=== PATIENT | male | born 1955 | race Caucasian/White ===

== ENCOUNTER → 2016-11-25 | Outpatient (CLI) | payer MEDICAID ==
[2016-11-25 15:16] LABS: CHLORIDE,CL 102 mmol/L (98-110); SODIUM,NA 138 mmol/L (136-146)
== END | disposition home or self-care (01) ==
LOC: MW.CHIM 14:44
PROVIDERS: ATTEND Internal Medicine
DX: E03.9 Hypothyroidism, unspecified (principal); Z94.0 Kidney transplant status
CPT/HCPCS: 36415; 80053; 80061; 82607; 82746; 84439; 84443; 85025

== ENCOUNTER → 2016-11-25 | Outpatient (CLI) | payer MEDICAID | END | disposition home or self-care (01) | LOC: MW.LAB 14:05 | PROVIDERS: ATTEND Internal Medicine | DX: R80.9 Proteinuria, unspecified (principal); N25.81 Secondary hyperparathyroidism of renal origin; Z94.0 Kidney transplant status | CPT/HCPCS: 36415; 81001; 82306; 82310; 82570; 83970; 84100; 84156 ==

== ENCOUNTER 2017-07-24 16:39 | Inpatient (IN) | payer MEDICAID ==
[2017-07-24] MEDS ORDERED: methylPREDNISolone Sodium Succinate 125 MG/2 ML SDV IVPUSH ONE (16:41)
[2017-07-24] MEDS ORDERED: Albuterol/Ipratropium 3.0-0.5 MG/3 ML Neb Soln NEB ONE (16:41)
--- NOTE | 2017-07-24 16:49 | EDM.PDOC ---
ED HPI GENERAL MEDICAL PROBLEM - General Stated Complaint: AMB Time Seen by Provider: 07/24/17 16:41 - History of Present Illness INITIAL COMMENTS - FREE TEXT/NARRATIVE: HISTORY AND PHYSICAL: History of present illness: Patient 61-year-old male is well-known to the emergency department as a cardiac and pulmonary history is quite extensive he has significant COPD he has a right- sided port and presents today with increased shortness of breath he has history of chronic pain for which he claims is treated with morphine he denies nausea vomiting fever chills or other concerns he is completely deaf he does speak and does read lips but his history is somewhat suspect due to his baseline clinical statement Review of systems: As per history of present illness and below otherwise all systems reviewed and negative. Past medical history: As per history of present illness and as reviewed below otherwise noncontributory. Surgical history: As per history of present illness and as reviewed below otherwise noncontributory. Social history: No reported history of drug or alcohol abuse. Family history: As per history of present illness and as reviewed below otherwise noncontributory. Physical exam: HEENT: Atraumatic, normocephalic, pupils reactive, negative for conjunctival pallor or scleral icterus, mucous membranes moist, throat clear, neck supple, nontender, trachea midline. Lungs: Slightly coarse rare wheezing diminished, breath sounds equal bilaterally , chest nontender. Heart: S1S2, regular, negative for clicks, rubs, or JVD. Abdomen: Soft, nondistended, nontender. Negative for masses or hepatosplenomegaly. Negative for costovertebral tenderness. Pelvis: Stable nontender. Genitourinary: Deferred. Rectal: Deferred. Extremities: Atraumatic, negative for cords or calf pain. Neurovascular unremarkable. Neuro: Awake, alert, follows commands and moves all extremities limited grossly nonfocal exam Diagnostics: CBC CMP PT/INR troponin blood culture 2 lactic acid ABG chest x-ray EKG influenza screen UA urine culture Therapeutics: IV O2 monitor albuterol ipratropium nebulizer Cymetra 125 mg IV Impression: #1 acute dyspnea #2 history of COPD #3 history of cardiac disease #4 history of deafness Definitive disposition and diagnosis as appropriate pending reevaluation and review of above. - Related Data Allergies Allergy/AdvReac Type Severity Reaction Status Date / Time nifedipine [From Procardia] Allergy Itching Verified 07/24/17 16:55 muscle relaxant medicine? Allergy constipatio Uncoded 07/24/17 16:55 n Home Meds: Home Meds Furosemide 20 mg PO DAILY 12/06/15 [History] Levothyroxine 75 mcg PO DAILY 12/06/15 [History] predniSONE [Prednisone] 5 mg PO DAILY 12/06/15 [History] Albuterol Sulfate 2.5 mg IH Q4H PRN 12/07/15 [History] Alendronate Sodium [Fosamax] 70 mg PO Q7D 12/07/15 [History] Zolpidem [Ambien] 10 mg PO BEDTIME PRN 12/07/15 [History] Fluticasone/Salmeterol [Advair Diskus 250-50] 1 puff INH BID #1 inhaler [Rx] Past Medical History HEENT History: Reports: Other (See Below) Other HEENT History: impaired hearing-with hearing aid on the right ear Cardiovascular History: Reports: Heart Failure Respiratory History: Reports: Asthma, COPD Gastrointestinal History: Reports: None Genitourinary History: Reports: None Musculoskeletal History: Reports: Back Pain, Chronic, Osteoarthritis Neurological History: Reports: None Psychiatric History: Reports: None Endocrine/Metabolic History: Reports: Hypothyroidism Hematologic History: Reports: Anemia, Blood Transfusion(s), Other (See Below) Other Hematologic History: history of low platelet Immunologic History: Reports: None Oncologic (Cancer) History: Reports: Other (See Below) Other Oncologic History: 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 Dermatologic History: Reports: None - Infectious Disease History Infectious Disease History: Reports: Chicken Pox, Measles, Mumps - Past Surgical History GI Surgical History: Reports: Other (See Below) Male Surgical History: Reports: Other (See Below) Endocrine Surgical History: Reports: Other (See Below) Musculoskeletal Surgical History: Reports: Other (See Below) Social & Family History - Family History Family Medical History: Noncontributory HEENT: Reports: None Cardiac: Reports: None - Tobacco Use Smoking Status *Q: Never Smoker Years of Tobacco use: 10 Packs/Tins Daily: 1 Second Hand Smoke Exposure: No - Caffeine Use Caffeine Use: Reports: None - Alcohol Use Days Per Week of Alcohol Use: 3 Number of Drinks Per Day: 2 Total Drinks Per Week: 6 - Recreational Drug Use Recreational Drug Use: No - Living Situation & Occupation Living situation: Reports: , with Significant Other ED ROS GENERAL - Review of Systems Review Of Systems: ROS reveals no pertinent complaints other than HPI. ED EXAM, GENERAL - Physical Exam Exam: See Below (See dictation) Course - Vital Signs Last Recorded V/S: Last Vital Signs Temp 38.4 C H 07/24/17 16:55 Pulse 109 H 07/24/17 17:11 Resp 18 07/24/17 17:11 BP 100/52 L 07/24/17 17:11 Pulse Ox 93 L 07/24/17 17:11 - Orders/Labs/Meds Orders: Active Orders 24 hr Category Date Time Status EKG Documentation Completion [RC] STAT Care 07/24/17 16:40 Active RT Aerosol Therapy [RC] ASDIRECTED Care 07/24/17 16:42 Active Chest 1V Frontal [CR] Stat Exams 07/24/17 16:41 Taken CULTURE BLOOD [BC] Stat Lab 07/24/17 17:07 Received CULTURE BLOOD [BC] Stat Lab 07/24/17 17:11 Received UA W/MICROSCOPIC [URIN] Stat Lab 07/24/17 16:41 Uncollected Levofloxacin/Dextrose 5%-Water [Levaquin in D5W 750 MG/ Med 07/24/17 18:02 Active 150 ML] 750 mg Premix Bag 1 bag IV ONETIME Vancomycin [Vancocin] 1 gm Med 07/24/17 18:02 Active Sodium Chloride 0.9% [Normal Saline] 250 ml IV ONETIME Blood Culture x2 Reflex Set [OM.PC] Stat Oth 07/24/17 16:41 Ordered Medication Orders Levofloxacin/Dextrose 750 mg/ (Premix) 150 mls @ 100 mls/hr IV ONETIME ONE Stop: 07/24/17 19:31 Vancomycin HCl 1 gm/ Sodium (Chloride) 250 mls @ 250 mls/hr IV ONETIME ONE Stop: 07/24/17 19:01 Last Admin: 07/24/17 18:27 Dose: 250 mls/hr Labs: Laboratory Tests 07/24/17 07/24/17 07/24/17 Range/Units 16:53 16:53 16:53 WBC 32.33 H (4.0-11.0) K/uL RBC 3.18 L (4.50-5.90) M/uL Hgb 12.6 L (13.0-17.0) g/dL Hct 36.6 L (38.0-50.0) % MCV 115.1 H (80.0-98.0) fL MCH 39.6 H (27.0-32.0) pg MCHC 34.4 (31.0-37.0) g/dL RDW Std Deviation 76.5 H (28.0-62.0) fl RDW Coeff of Brianna 18 H (11.0-15.0) % Plt Count 275 (150-400) K/uL MPV 10.70 (7.40-12.00) fL Add Manual Diff YES Neutrophils % (Manual) 36 L (48.0-80.0) % Band Neutrophils % 8 % Lymphocytes % (Manual) 44 H (16.0-40.0) % Monocytes % (Manual) 12 (0.0-15.0) % Nucleated RBC % 0.0 /100WBC Absolute Seg Neuts 11.6 H (1.4-5.7) Band Neutrophils # 2.6 Lymphocytes # (Manual) 14.2 H (0.6-2.4) Monocytes # (Manual) 3.9 H (0.0-0.8) Nucleated RBCs # 0 K/uL INR 1.38 H (0.86-1.11) ABG pH (7.35-7.45) ABG pCO2 (35-45) mmHG ABG pO2 (75-100) mmHG ABG HCO3 (22-26) mEq/L ABG Total CO2 ABG Base Excess (-2.0-2.0) Lactate 1.4 (0.20-2.00) mmol/L Sodium (136-146) mmol/L Potassium (3.5-5.1) mmol/L Chloride (98-110) mmol/L Carbon Dioxide (21-31) mmol/L BUN (6.0-23.0) mg/dL Creatinine (0.6-1.5) mg/dL Est Cr Clr Drug Dosing mL/min Estimated GFR (MDRD) ml/min Glucose (60-110) mg/dL Calcium (8.8-10.8) mg/dL Total Bilirubin (0.1-1.5) mg/dL AST (5-40) IU/L ALT (8-54) IU/L Alkaline Phosphatase (40-150) Troponin I (0.0-0.29) NG/ML Total Protein (6.0-8.0) g/dL Albumin (3.5-5.0) g/dL Globulin (2.0-3.5) g/dL Albumin/Globulin Ratio (1.3-2.8) 07/24/17 07/24/17 Range/Units 16:53 17:05 WBC (4.0-11.0) K/uL RBC (4.50-5.90) M/uL Hgb (13.0-17.0) g/dL Hct (38.0-50.0) % MCV (80.0-98.0) fL MCH (27.0-32.0) pg MCHC (31.0-37.0) g/dL RDW Std Deviation (28.0-62.0) fl RDW Coeff of Brianna (11.0-15.0) % Plt Count (150-400) K/uL MPV (7.40-12.00) fL Add Manual Diff Neutrophils % (Manual) (48.0-80.0) % Band Neutrophils % % Lymphocytes % (Manual) (16.0-40.0) % Monocytes % (Manual) (0.0-15.0) % Nucleated RBC % /100WBC Absolute Seg Neuts (1.4-5.7) Band Neutrophils # Lymphocytes # (Manual) (0.6-2.4) Monocytes # (Manual) (0.0-0.8) Nucleated RBCs # K/uL INR (0.86-1.11) ABG pH 7.468 H (7.35-7.45) ABG pCO2 31 L (35-45) mmHG ABG pO2 72 L (75-100) mmHG ABG HCO3 22 (22-26) mEq/L ABG Total CO2 19.9 ABG Base Excess -0.7 (-2.0-2.0) Lactate (0.20-2.00) mmol/L Sodium 131 L (136-146) mmol/L Potassium 4.2 (3.5-5.1) mmol/L Chloride 99 (98-110) mmol/L Carbon Dioxide 21 (21-31) mmol/L BUN 21 (6.0-23.0) mg/dL Creatinine 1.0 (0.6-1.5) mg/dL Est Cr Clr Drug Dosing 40.82 mL/min Estimated GFR (MDRD) > 60.0 ml/min Glucose 87 (60-110) mg/dL Calcium 7.6 L (8.8-10.8) mg/dL Total Bilirubin 2.1 H (0.1-1.5) mg/dL AST 102 H (5-40) IU/L ALT 70 H (8-54) IU/L Alkaline Phosphatase 182 H (40-150) Troponin I < 0.10 (0.0-0.29) NG/ML Total Protein 6.5 (6.0-8.0) g/dL Albumin 3.9 (3.5-5.0) g/dL Globulin 2.6 (2.0-3.5) g/dL Albumin/Globulin Ratio 1.5 (1.3-2.8) Meds: Medications Generic Name Dose Route Start Last Admin Trade Name Freq PRN Reason Stop Dose Admin Levofloxacin/Dextrose 750 mg/ 150 mls @ 100 mls/hr 07/24/17 18:02 Premix IV 07/24/17 19:31 ONETIME ONE Vancomycin HCl 1 gm/ Sodium 250 mls @ 250 mls/hr 07/24/17 18:02 07/24/17 18: 27 Chloride IV 07/24/17 19:01 250 mls/hr ONETIME ONE Administration Discontinued Medications Generic Name Dose Route Start Last Admin Trade Name Freq PRN Reason Stop Dose Admin Albuterol/Ipratropium 3 ml 07/24/17 16:41 07/24/17 16:52 Duoneb 3.0-0.5 Mg/3 Ml NEB 07/24/17 16:42 3 ml ONETIME ONE Administration Methylprednisolone Sodium Succinate 125 mg 07/24/17 16:41 07/24/17 17:09 Solu-Medrol IVPUSH 07/24/17 16:42 125 mg ONETIME ONE Administration Departure - Departure Time of Disposition: 18:29 Disposition: Admitted As Inpatient 68 Condition: Fair Clinical Impression: Dyspnea, COPD (chronic obstructive pulmonary disease), Leukocytosis - Discharge Information - My Orders Last 24 Hours: My Active Orders 07/24/17 16:40 EKG Documentation Completion [RC] STAT 07/24/17 16:41 Chest 1V Frontal [CR] Stat UA W/MICROSCOPIC [URIN] Stat Blood Culture x2 Reflex Set [OM.PC] Stat 07/24/17 16:42 RT Aerosol Therapy [RC] ASDIRECTED 07/24/17 17:07 CULTURE BLOOD [BC] Stat 07/24/17 17:11 CULTURE BLOOD [BC] Stat 07/24/17 18:02 Levofloxacin/Dextrose 5%-Water [Levaquin in D5W 750 MG/150 ML] 750 mg Premix Bag 1 bag IV ONETIME Vancomycin [Vancocin] 1 gm Sodium Chloride 0.9% [Normal Saline] 250 ml IV ONETIME - Assessment/Plan Last 24 Hours: My Active Orders 07/24/17 16:40 EKG Documentation Completion [RC] STAT 07/24/17 16:41 Chest 1V Frontal [CR] Stat UA W/MICROSCOPIC [URIN] Stat Blood Culture x2 Reflex Set [OM.PC] Stat 07/24/17 16:42 RT Aerosol Therapy [RC] ASDIRECTED 07/24/17 17:07 CULTURE BLOOD [BC] Stat 07/24/17 17:11 CULTURE BLOOD [BC] Stat 07/24/17 18:02 Levofloxacin/Dextrose 5%-Water [Levaquin in D5W 750 MG/150 ML] 750 mg Premix Bag 1 bag IV ONETIME Vancomycin [Vancocin] 1 gm Sodium Chloride 0.9% [Normal Saline] 250 ml IV ONETIME
[2017-07-24 17:27] LABS: CHLORIDE,CL 99 mmol/L (98-110); SODIUM,NA 131 mmol/L (136-146)
[2017-07-24] MEDS ORDERED: Levofloxacin/Dextrose 5%-Water 750 MG in Premix Bag 1 BAG IV ONE (18:02)
--- NOTE | 2017-07-24 18:47 | PCM.HP ---
H&P History of Present Illness - General Date of Service: 07/24/17 Admit Problem/Dx: Admission Diagnosis/Problem Admission Diagnosis/Problem Dyspnea - History of Present Illness Initial Comments - Free Text/Narative: 61 yo male with history of COPD, CAD, Hypothyroidism, left ear deafness, Renal Transplant, Chronic immunosuppression secondary to daily prednisone, Incidental Pulmonary Nodules admitted for sepsis. He presented to the ED with complaint of dyspea and was found to have Leukocytosis, hypotension, tachycardia. He is a poor historian therefore much history is obtained from electronic records. He states that his main reason for coming to ED was sob. He has a port but he is unsure why exactly it was put in. 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 He is unable to confirm if he had GB cancer in the past but he does confirm that his GB was removed. He confirms having kidney transplant in 2005. He [address] Mueller as his PCP. At his last visit 2 days ago he was doing well. ED Course Diagnostics: CBC, CMP, PT/INR troponin, blood culture 2, lactic acid, ABG, chest x-ray, EKG, influenza screen, UA, urine culture Therapeutics: IVF, O2, duonebs, Cymetra 125 mg IV generalized Pain Score (Numeric/FACES): 8 - Related Data Allergies/Adverse Reactions: Allergies Allergy/AdvReac Type Severity Reaction Status Date / Time nifedipine [From Procardia] Allergy Itching Verified 07/24/17 16:55 muscle relaxant medicine? Allergy constipatio Uncoded 07/24/17 16:55 n Home Medications: Home Meds Furosemide 20 mg PO DAILY 12/06/15 [History] Levothyroxine 75 mcg PO DAILY 12/06/15 [History] predniSONE [Prednisone] 5 mg PO DAILY 12/06/15 [History] Albuterol Sulfate 2.5 mg IH Q4H PRN 12/07/15 [History] Alendronate Sodium [Fosamax] 70 mg PO Q7D 12/07/15 [History] Zolpidem [Ambien] 10 mg PO BEDTIME PRN 12/07/15 [History] Fluticasone/Salmeterol [Advair Diskus 250-50] 1 puff INH BID #1 inhaler [Rx] Past Medical History HEENT History: Reports: Other (See Below) Other HEENT History: impaired hearing-with hearing aid on the right ear Cardiovascular History: Reports: Heart Failure Respiratory History: Reports: Asthma, COPD Gastrointestinal History: Reports: None Genitourinary History: Reports: None Musculoskeletal History: Reports: Back Pain, Chronic, Osteoarthritis Neurological History: Reports: None Psychiatric History: Reports: None Endocrine/Metabolic History: Reports: Hypothyroidism Hematologic History: Reports: Anemia, Blood Transfusion(s), Other (See Below) Other Hematologic History: history of low platelet Immunologic History: Reports: None Oncologic (Cancer) History: Reports: Other (See Below) Other Oncologic History: 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 Dermatologic History: Reports: None - Infectious Disease History Infectious Disease History: Reports: Chicken Pox, Measles, Mumps - Past Surgical History GI Surgical History: Reports: Other (See Below) Male Surgical History: Reports: Other (See Below) Endocrine Surgical History: Reports: Other (See Below) Musculoskeletal Surgical History: Reports: Other (See Below) Social & Family History - Family History Family Medical History: Noncontributory HEENT: Reports: None Cardiac: Reports: None - Tobacco Use Smoking Status *Q: Never Smoker Years of Tobacco use: 10 Packs/Tins Daily: 1 Second Hand Smoke Exposure: No - Caffeine Use Caffeine Use: Reports: None - Alcohol Use Days Per Week of Alcohol Use: 3 Number of Drinks Per Day: 2 Total Drinks Per Week: 6 - Recreational Drug Use Recreational Drug Use: No - Living Situation & Occupation Living situation: Reports: , with Significant Other H&P Review of Systems - Review of Systems: Review Of Systems: Unable To Obtain Exam - Exam Exam: See Below - Vital Signs Vital Signs: Last Vital Signs Temp 38.4 C H 07/24/17 16:55 Pulse 109 H 07/24/17 17:11 Resp 18 07/24/17 17:11 BP 100/52 L 07/24/17 17:11 Pulse Ox 93 L 07/24/17 17:11 Weight: 36.287 kg - Exam General: Other (thin elderly male, no acute distress ) HEENT: Conjunctiva Clear, EACs Clear, EOMI, Mucosa Moist & [place], Nares Patent, Normal Nasal Septum, Posterior Pharynx Clear, Pupils Equal, Pupils Reactive, TMs Clear. No: Hearing Intact Neck: Supple, Trachea Midline, +2 Carotid Pulse wo Bruit. No: JVD Lungs: Decreased Breath Sounds, Crackles, Wheezing Cardiovascular: Tachycardia GI/Abdominal Exam: Normal Bowel Sounds, Soft, No Distention, Tender (mild suprapubic tenderness ). No: Guarding, Rigid, Rebound Back Exam: Normal Inspection Extremities: Normal Inspection, Non-Tender, No Pedal Edema, Normal Capillary Refill, Other (generalized loss of muscle tone ) Peripheral Pulses: 2+: Radial (L), Radial (R), Dorsalis Pedis (L), Dorsalis Pedis (R) Skin: Warm, Dry, Intact Neurological: Cranial Nerves Intact, Reflexes Equal Bilateral Neuro Extensive - Mental Status: Alert, Oriented x3 Psychiatric: Alert, Normal Affect, Normal Mood - Patient Data Lab Results Last 24 hrs: Laboratory Results - last 24 hr 07/24/17 07/24/17 07/24/17 Range/Units 16:53 16:53 16:53 WBC 32.33 H (4.0-11.0) K/uL RBC 3.18 L (4.50-5.90) M/uL Hgb 12.6 L (13.0-17.0) g/dL Hct 36.6 L (38.0-50.0) % MCV 115.1 H (80.0-98.0) fL MCH 39.6 H (27.0-32.0) pg MCHC 34.4 (31.0-37.0) g/dL RDW Std Deviation 76.5 H (28.0-62.0) fl RDW Coeff of Brianna 18 H (11.0-15.0) % Plt Count 275 (150-400) K/uL MPV 10.70 (7.40-12.00) fL Add Manual Diff YES Neutrophils % (Manual) 36 L (48.0-80.0) % Band Neutrophils % 8 % Lymphocytes % (Manual) 44 H (16.0-40.0) % Monocytes % (Manual) 12 (0.0-15.0) % Nucleated RBC % 0.0 /100WBC Absolute Seg Neuts 11.6 H (1.4-5.7) Band Neutrophils # 2.6 Lymphocytes # (Manual) 14.2 H (0.6-2.4) Monocytes # (Manual) 3.9 H (0.0-0.8) Nucleated RBCs # 0 K/uL INR 1.38 H (0.86-1.11) ABG pH (7.35-7.45) ABG pCO2 (35-45) mmHG ABG pO2 (75-100) mmHG ABG HCO3 (22-26) mEq/L ABG Total CO2 ABG Base Excess (-2.0-2.0) Lactate 1.4 (0.20-2.00) mmol/L Sodium (136-146) mmol/L Potassium (3.5-5.1) mmol/L Chloride (98-110) mmol/L Carbon Dioxide (21-31) mmol/L BUN (6.0-23.0) mg/dL Creatinine (0.6-1.5) mg/dL Est Cr Clr Drug Dosing mL/min Estimated GFR (MDRD) ml/min Glucose (60-110) mg/dL Calcium (8.8-10.8) mg/dL Total Bilirubin (0.1-1.5) mg/dL AST (5-40) IU/L ALT (8-54) IU/L Alkaline Phosphatase (40-150) Troponin I (0.0-0.29) NG/ML Total Protein (6.0-8.0) g/dL Albumin (3.5-5.0) g/dL Globulin (2.0-3.5) g/dL Albumin/Globulin Ratio (1.3-2.8) 07/24/17 07/24/17 Range/Units 16:53 17:05 WBC (4.0-11.0) K/uL RBC (4.50-5.90) M/uL Hgb (13.0-17.0) g/dL Hct (38.0-50.0) % MCV (80.0-98.0) fL MCH (27.0-32.0) pg MCHC (31.0-37.0) g/dL RDW Std Deviation (28.0-62.0) fl RDW Coeff of Brianna (11.0-15.0) % Plt Count (150-400) K/uL MPV (7.40-12.00) fL Add Manual Diff Neutrophils % (Manual) (48.0-80.0) % Band Neutrophils % % Lymphocytes % (Manual) (16.0-40.0) % Monocytes % (Manual) (0.0-15.0) % Nucleated RBC % /100WBC Absolute Seg Neuts (1.4-5.7) Band Neutrophils # Lymphocytes # (Manual) (0.6-2.4) Monocytes # (Manual) (0.0-0.8) Nucleated RBCs # K/uL INR (0.86-1.11) ABG pH 7.468 H (7.35-7.45) ABG pCO2 31 L (35-45) mmHG ABG pO2 72 L (75-100) mmHG ABG HCO3 22 (22-26) mEq/L ABG Total CO2 19.9 ABG Base Excess -0.7 (-2.0-2.0) Lactate (0.20-2.00) mmol/L Sodium 131 L (136-146) mmol/L Potassium 4.2 (3.5-5.1) mmol/L Chloride 99 (98-110) mmol/L Carbon Dioxide 21 (21-31) mmol/L BUN 21 (6.0-23.0) mg/dL Creatinine 1.0 (0.6-1.5) mg/dL Est Cr Clr Drug Dosing 40.82 mL/min Estimated GFR (MDRD) > 60.0 ml/min Glucose 87 (60-110) mg/dL Calcium 7.6 L (8.8-10.8) mg/dL Total Bilirubin 2.1 H (0.1-1.5) mg/dL AST 102 H (5-40) IU/L ALT 70 H (8-54) IU/L Alkaline Phosphatase 182 H (40-150) Troponin I < 0.10 (0.0-0.29) NG/ML Total Protein 6.5 (6.0-8.0) g/dL Albumin 3.9 (3.5-5.0) g/dL Globulin 2.6 (2.0-3.5) g/dL Albumin/Globulin Ratio 1.5 (1.3-2.8) Result Diagrams: 07/24/17 16:53 07/24/17 16:53 Mohan Results Last 24 hrs: Microbiology 07/24/17 17:01 Influenza Type A Antigen Screen - Final Nasopharyngeal Swab NEGATIVE INFLUENZA A VIRUS AG Influenza Type B Antigen Screen - Final NEGATIVE INFLUENZA B VIRUS AG *Q Meaningful Use (ADM) - VTE *Q VTE Criteria *Q: - Stroke *Q Stroke Criteria *Q: - AMI *Q AMI Criteria *Q: Problem List Initiated/Reviewed/Updated: Yes Orders Last 24hrs: Active Orders 24 hr Category Date Time Status Patient Status [ADT] Stat ADT 07/24/17 18:32 Active EKG Documentation Completion [RC] STAT Care 07/24/17 16:40 Active RT Aerosol Therapy [RC] ASDIRECTED Care 07/24/17 16:42 Active Chest 1V Frontal [CR] Stat Exams 07/24/17 16:41 Taken CULTURE BLOOD [BC] Stat Lab 07/24/17 17:07 Received CULTURE BLOOD [BC] Stat Lab 07/24/17 17:11 Received UA W/MICROSCOPIC [URIN] Stat Lab 07/24/17 16:41 Uncollected Levofloxacin/Dextrose 5%-Water [Levaquin in D5W 750 MG/ Med 07/24/17 18:02 Active 150 ML] 750 mg Premix Bag 1 bag IV ONETIME Vancomycin [Vancocin] 1 gm Med 07/24/17 18:02 Active Sodium Chloride 0.9% [Normal Saline] 250 ml IV ONETIME Blood Culture x2 Reflex Set [OM.PC] Stat Oth 07/24/17 16:41 Ordered Medication Orders Levofloxacin/Dextrose 750 mg/ (Premix) 150 mls @ 100 mls/hr IV ONETIME ONE Stop: 07/24/17 19:31 Vancomycin HCl 1 gm/ Sodium (Chloride) 250 mls @ 250 mls/hr IV ONETIME ONE Stop: 07/24/17 19:01 Last Admin: 07/24/17 18:27 Dose: 250 mls/hr Assessment/Plan Comment:: Assessment: 61 yo male with history of COPD, CAD, Hypothyroidism, left ear deafness, Renal Transplant, Chronic immunosuppression secondary to daily prednisone, Bile duct cancer in remission and Incidental Pulmonary Nodules admitted for dyspnea, hypotension, tachycardia, leukocytosis, transamenitis and hyperbilirubinemia. Patient has history of Leukocytosis and Transamenitis however values are significantly higher than baseline. He meets Sepsis criteria however no source of infection was found. His WBC count was 32k. CXR in ED was negative. Lactic Acid was normal. ABG revealed O2 of 72 but was otherwise noncontributory. His troponin was negative and ekg was noncontributory. Blood cultures and port cultures were obtained in ED. His CrCl is 40 but his BUN, Cr & GFR are WNL. He also has asymptomatic hyponatremia with Na of 131. Plan: 1. admit to inpatient 2. Pulse Ox 3. renal diet 4. strict I/O with daily weight checks 5. CT Chest/abdomen/pelvis - to look for possible underlying source of infection and evaluate transamenitis and hyperbilirubinemia 6. start IV NS @ 75 ml/hour - home home lasix to prevent hyponatremia 7. start empirical IV antibiotics - Levaquin renal dose of 500 mg IV [id number] for single dose followed by 250 mg IV Q24 hours going forward, Zosyn 3.375 mg IV [id number] and Vancomycin dosed by pharmacy 8. Duonebs 9. f/u on blood/port cultures obtained in ED 10. hold home Prednisone until infection is ruled out 11. resume home Lasix as directed by patients Team Facilitator (according to PCP notes) 12. For DVT prophylaxis will start Heparin due to history of renal transplant with CrCl 40 13. insert guzman for fluid management and to obtain urine to send for UA and UC
[2017-07-24] MEDS ORDERED: Docusate Sodium 100 MG Cap PO PRN (20:12)
[2017-07-24] MEDS ORDERED: Acetaminophen 325 MG Tab PO PRN (20:12)
[2017-07-24] MEDS ORDERED: Ondansetron 4 MG/2 ML SDV IVPUSH PRN (20:12)
[2017-07-24] MEDS ORDERED: Levofloxacin/Dextrose 5%-Water 500 MG in Premix Bag 1 BAG IV ONE (20:29)
[2017-07-24] MEDS ORDERED: Levofloxacin/Dextrose 5%-Water 0 ML IV ONE (20:31)
[2017-07-24] MEDS: Sodium Chloride 0.9% 1,000 ML IV SCH (20:47)
[2017-07-24] MEDS: Piperacillin/Tazobactam 3.375 GM in Sodium Chloride 0.9% 50 ML IV SCH (20:47)
[2017-07-24] MEDS: Morphine 10 MG/ML Syringe IVPUSH PRN ×2 (20:52→23:48)
[2017-07-24] MEDS: Heparin Sodium 5,000 Units/ML Vial SUBCUT SCH (21:00)
[2017-07-24] MEDS: Albuterol/Ipratropium 3.0-0.5 MG/3 ML Neb Soln NEB SCH (21:02)
[2017-07-24] MEDS: oxyCODONE 5 MG Tab PO PRN (22:18)
[2017-07-25] MEDS: Piperacillin/Tazobactam 3.375 GM in Sodium Chloride 0.9% 50 ML IV SCH ×4 (01:52→20:11)
[2017-07-25] MEDS: Albuterol/Ipratropium 3.0-0.5 MG/3 ML Neb Soln NEB SCH ×6 (01:54→21:00)
[2017-07-25] MEDS: Heparin Sodium 5,000 Units/ML Vial SUBCUT SCH ×3 (03:54→20:08)
[2017-07-25] MEDS: oxyCODONE 5 MG Tab PO PRN ×2 (04:29→20:55)
[2017-07-25 06:35] LABS: CHLORIDE,CL 100 mmol/L (98-110); SODIUM,NA 131 mmol/L (136-146)
[2017-07-25] MEDS ORDERED: Levothyroxine 75 MCG Tab PO SCH (09:00)
[2017-07-25] MEDS: Morphine 10 MG/ML Syringe IVPUSH PRN ×2 (10:27→17:05)
--- NOTE | 2017-07-25 11:28 | PCM.PN ---
- General Info Date of Service: 07/25/17 Admission Dx/Problem (Free Text): Admission Diagnosis/Problem Admission Diagnosis/Problem Dyspnea Subjective Update: Guzman was inserted to obtain urine. Patient did well. No overnight events. Patient still having some difficulty breathing but states its improved. Denies fevr, chills, chest pain, abdominal pain, nausea, vomiting, dysuria or appetite loss. - Review of Systems General: Reports: Weakness HEENT: Reports: No Symptoms Pulmonary: Reports: Shortness of Breath Cardiovascular: Reports: No Symptoms Gastrointestinal: Reports: No Symptoms Genitourinary: Reports: No Symptoms Musculoskeletal: Reports: No Symptoms Skin: Reports: No Symptoms Neurological: Reports: No Symptoms Psychiatric: Reports: No Symptoms - Patient Data Vitals - Most Recent: Last Vital Signs Temp 36.2 C 07/25/17 08:00 Pulse 92 07/25/17 08:00 Resp 18 07/25/17 08:00 BP 89/57 L 07/25/17 08:00 Pulse Ox 95 07/25/17 08:00 Weight - Most Recent: 35.097 kg I&O - Last 24 Hours: Intake & Output 07/24/17 07/25/17 07/25/17 22:59 06:59 14:59 Intake Total 410 Output Total 325 Balance 85 Lab Results Last 24 Hours: Laboratory Results - last 24 hr 07/24/17 07/25/17 07/25/17 Range/Units 21:45 06:05 06:05 WBC 11.27 H (4.0-11.0) K/uL RBC 2.81 L (4.50-5.90) M/uL Hgb 11.2 L (13.0-17.0) g/dL Hct 32.0 L (38.0-50.0) % MCV 113.9 H (80.0-98.0) fL MCH 39.9 H (27.0-32.0) pg MCHC 35.0 (31.0-37.0) g/dL RDW Std Deviation 76.6 H (28.0-62.0) fl RDW Coeff of Brianna 19 H (11.0-15.0) % Plt Count 192 (150-400) K/uL MPV 10.60 (7.40-12.00) fL Neut % (Auto) 94.1 H (48.0-80.0) % Lymph % (Auto) 3.7 L (16.0-40.0) % [place] % (Auto) 2.2 (0.0-15.0) % Eos % (Auto) 0.0 (0.0-7.0) % Baso % (Auto) 0.0 (0.0-1.5) % Neut # (Auto) 10.6 H (1.4-5.7) K/uL Lymph # (Auto) 0.4 L (0.6-2.4) K/uL [place] # (Auto) 0.3 (0.0-0.8) K/uL Eos # (Auto) 0.0 (0.0-0.7) K/uL Baso # (Auto) 0.0 (0.0-0.1) K/uL Nucleated RBC % 0.2 /100WBC Nucleated RBCs # 0 K/uL Sodium 131 L (136-146) mmol/L Potassium 4.1 (3.5-5.1) mmol/L Chloride 100 (98-110) mmol/L Carbon Dioxide 21 (21-31) mmol/L BUN 22 (6.0-23.0) mg/dL Creatinine 0.9 (0.6-1.5) mg/dL Est Cr Clr Drug Dosing 43.87 mL/min Estimated GFR (MDRD) > 60.0 ml/min Glucose 167 H (60-110) mg/dL Calcium 6.9 L (8.8-10.8) mg/dL Total Bilirubin 1.7 H (0.1-1.5) mg/dL AST 77 H (5-40) IU/L ALT 66 H (8-54) IU/L Alkaline Phosphatase 132 (40-150) Total Protein 5.9 L (6.0-8.0) g/dL Albumin 3.3 L (3.5-5.0) g/dL Globulin 2.6 (2.0-3.5) g/dL Albumin/Globulin Ratio 1.3 (1.3-2.8) Urine Color DARK YELLOW Urine Appearance SLT CLOUDY Urine pH 6.0 (5.0-8.0) Ur Specific [place] 1.020 (1.001-1.035) Urine Protein 30 (NEGATIVE) mg/dL Urine Glucose (UA) NEGATIVE (NEGATIVE) mg/dL Urine Ketones 15 H (NEGATIVE) mg/dL Urine Occult Blood MODERATE (NEGATIVE) Urine Nitrite NEGATIVE (NEGATIVE) Urine Bilirubin SMALL H (NEGATIVE) Urine Ictotest NEGATIVE Urine Urobilinogen 0.2 (<2.0) EU/dL Ur Leukocyte Esterase TRACE (NEGATIVE) Urine RBC 1-5 (0-2/HPF) Urine WBC 3-5 (0-5/HPF) Ur Epithelial Cells OCCASIONAL (NONE-FEW) Urine Bacteria 2+ H (NEGATIVE) Mohan Results Last 24 Hours: Microbiology 07/24/17 21:45 Urine Culture - Preliminary Urine, Catheterized NO GROWTH AFTER 1 DAY Med Orders - Current: Current Medications Acetaminophen (Tylenol) 650 mg PO Q4H PRN PRN Reason: Pain (Mild 1-3)/fever Albuterol/Ipratropium (Duoneb 3.0-0.5 Mg/3 Ml) 3 ml NEB Q4HRRT [facility] Last Admin: 07/25/17 10:16 Dose: 3 ml Docusate Sodium (Colace) 100 mg PO BID PRN PRN Reason: Constipation Last Admin: 07/24/17 20:52 Dose: 100 mg Heparin Sodium (Porcine) (Heparin Sodium) 5,000 units SUBCUT Q8H [facility] Last Admin: 07/25/17 03:54 Dose: 5,000 units Sodium Chloride (Normal Saline) 1,000 mls @ 75 mls/hr IV ASDIRECTED [facility] Last Admin: 07/24/17 20:47 Dose: 75 mls/hr Piperacillin Sod/Tazobactam (Sod 3.375 gm/ Sodium Chloride) 50 mls @ 100 mls/ hr IV Q6H [facility] Last Admin: 07/25/17 08:45 Dose: 100 mls/hr Vancomycin HCl 1 gm/ Sodium (Chloride) 250 mls @ 166.667 mls/hr IV Q12H [facility] Last Admin: 07/25/17 10:21 Dose: 166.667 mls/hr Levothyroxine Sodium (Levothyroxine) 75 mcg PO ACBREAKFAST [facility] Morphine Sulfate (Morphine) 2 mg IVPUSH Q2H PRN PRN Reason: Pain (severe 7-10) Stop: 07/25/17 20:16 Last Admin: 07/25/17 10:27 Dose: 2 mg Ondansetron HCl (Zofran) 4 mg IVPUSH Q6H PRN PRN Reason: Nausea/Vomiting Last Admin: 07/24/17 20:51 Dose: 4 mg Oxycodone HCl (Oxycodone) 5 mg PO Q4H PRN PRN Reason: Pain (moderate 4-6) Last Admin: 07/25/17 04:29 Dose: 5 mg Vancomycin HCl (Pharmacy To Dose - Vancomycin) 1 dose .XX ASDIRECTED [facility]LLIE Discontinued Medications Albuterol/Ipratropium (Duoneb 3.0-0.5 Mg/3 Ml) 3 ml NEB ONETIME ONE Stop: 07/24/17 16:42 Last Admin: 07/24/17 16:52 Dose: 3 ml Levofloxacin/Dextrose 750 mg/ (Premix) 150 mls @ 100 mls/hr IV ONETIME ONE Stop: 07/24/17 19:31 Last Admin: 07/24/17 21:06 Dose: Not Given Vancomycin HCl 1 gm/ Sodium (Chloride) 250 mls @ 250 mls/hr IV ONETIME ONE Stop: 07/24/17 19:01 Last Admin: 07/24/17 18:27 Dose: 250 mls/hr Levofloxacin/Dextrose 500 mg/ (Premix) 100 mls @ 100 mls/hr IV ONETIME ONE Stop: 07/24/17 21:28 Last Admin: 07/24/17 21:35 Dose: 100 mls/hr Levofloxacin/Dextrose (Levaquin In D5w 750 Mg/150 Ml) Confirm Administered Dose 150 mls @ as directed IV .STK-MED ONE Stop: 07/24/17 20:32 Last Admin: 07/24/17 21:07 Dose: Not Given Vancomycin HCl 1,000 mg/ (Dextrose/Water) 250 mls @ 166.667 mls/hr IV Q12H [facility] Last Admin: 07/25/17 10:44 Dose: Not Given Levothyroxine Sodium (Levothyroxine) 75 mcg PO DAILY [facility] Last Admin: 07/25/17 08:45 Dose: 75 mcg Methylprednisolone Sodium Succinate (Solu-Medrol) 125 mg IVPUSH ONETIME ONE Stop: 07/24/17 16:42 Last Admin: 07/24/17 17:09 Dose: 125 mg - Exam General: Alert, Oriented, No Acute Distress HEENT: Pupils Equal, Pupils Reactive Neck: Supple, No JVD Lungs: Decreased Breath Sounds (Right greater than left), Crackles (right side ) , Wheezing (Right sided expiratory wheezing ) Cardiovascular: Tachycardia GI/Abdominal Exam: Normal Bowel Sounds, Soft, Tender (suprapubic). No: Guarding , Rigid, Rebound Extremities: Normal Capillary Refill, Other (loss of muscle tone and mass ) Peripheral Pulses: 2+: Dorsalis Pedis (L), Dorsalis Pedis (R) Skin: Warm, Dry, Intact Neurological: No New Focal Deficit - Problem List Review Problem List Initiated/Reviewed/Updated: Yes - My Orders Last 24 Hours: My Active Orders 07/24/17 18:00 Vancomycin Pharmacy to Dose [Pharmacy to Dose - Vancomycin] 1 dose .XX ASDIRECTED 07/24/17 20:12 Patient Status [ADT] Routine Height and Weight [RC] DAILY Up With Assistance [RC] ASDIRECTED Vital Signs [RC] Q4H Acetaminophen [Tylenol] 650 mg PO Q4H PRN Docusate Sodium [Colace] 100 mg PO BID PRN Morphine 2 mg IVPUSH Q2H PRN Ondansetron [Zofran] 4 mg IVPUSH Q6H PRN oxyCODONE 5 mg PO Q4H PRN Resuscitation Status Routine 07/24/17 20:14 Intake and Output [RC] QSHIFT Sequential Compression Device [OM.PC] Per Unit Routine 07/24/17 20:15 Heparin Sodium 5,000 units SUBCUT Q8H Sodium Chloride 0.9% [Normal Saline] 1,000 ml IV ASDIRECTED 07/24/17 20:17 Antiembolic Devices [RC] PER UNIT ROUTINE 07/24/17 20:30 Piperacillin/Tazobactam [Piperacil-Tazobact] 3.375 gm Sodium Chloride 0.9% [ Normal Saline] 50 ml IV Q6H 07/24/17 20:31 RT Aerosol Therapy [RC] ASDIRECTED 07/24/17 20:44 Urinary Catheter Assessment [RC] ASDIRECTED 07/24/17 20:45 Insert Guzman Catheter [Insert Urinary Catheter] [OM.PC] Q24H 07/24/17 21:45 CULTURE URINE [RM] Routine 07/24/17 22:00 Albuterol/Ipratropium [DuoNeb 3.0-0.5 MG/3 ML] 3 ml NEB Q4HRRT 07/25/17 20:47 Abdomen Pelvis wo Cont [CT] Routine Chest wo Cont [CT] Routine 07/26/17 05:00 CBC WITH AUTO DIFF [HEME] DAILY COMPREHENSIVE METABOLIC PN,CMP [CHEM] DAILY 07/26/17 07:30 Levothyroxine 75 mcg PO ACBREAKFAST 07/27/17 05:00 CBC WITH AUTO DIFF [HEME] DAILY COMPREHENSIVE METABOLIC PN,CMP [CHEM] DAILY 07/28/17 05:00 CBC WITH AUTO DIFF [HEME] DAILY COMPREHENSIVE METABOLIC PN,CMP [CHEM] DAILY 07/29/17 05:00 COMPREHENSIVE METABOLIC PN,CMP [CHEM] DAILY - Plan Plan:: 61 yo male with history of COPD, CAD, Hypothyroidism, left ear deafness, Left Renal Transplant, Chronic immunosuppression secondary to daily prednisone use, Bile duct cancer in remission and Incidental Pulmonary Nodules admitted for dyspnea, hypotension, tachycardia, leukocytosis, transamenitis and hyperbilirubinemia. He meets Sepsis criteria however no source of infection was found. His WBC count was 32k. CXR in ED was negative. Lactic Acid was normal. ABG revealed O2 of 72 but was otherwise noncontributory. His troponin was negative and ekg was noncontributory. Blood cultures and port cultures were obtained in ED. His CrCl is 40 but his BUN, Cr & GFR are WNL. He also has asymptomatic hyponatremia with Na of 131. 1. Sepsis, secondary to Pneumonia and/or UTI -associated leukocytosis, hypotension, tachycardia, transamenitis, hyperbilirubinemia -no source initially identified. UA suggestive but not confirmatory for UTI -CT Chest/abdomen/pelvis reveals BL pulmonary infiltrates not seen on initial CXR and thick bladder wall suggestive of inflammation -therefore identified potential sources include Pneumonia and UTI -currently on IVF @ 75 ml/hr, Levaquin at reanl dose, Zosyn, Vancomycin -tachycardia resolved, leukocytosis/transamenitis/hyperabilirubinemia all improving -guzman in place for strict I&O's plan: -resume IVF @ 75 ml/hr, Levaquin, Zosyn, Vancomycin -continue strict I&O and daily weight checks -f/u on blood/urine/port cultures 2. GNR Pneumonia, improving -patient with history of Left renal transplant and chronic immunosupression secondary to daily prednisone and has active port in place -initial CXR negative there CT obtained which revealed BL infiltrates plan: -as per #1 -on duonebs 3. Suprapubic tenderness & Bladder Wall thickening on CT -UA highly suggestive but not confirmatory for UTI -awaiting urine culture -plan as per #1 4. Hyponatremia, mild, asymptomatic -Na level 131, corrected Na 132-133 plan: -continue to monitor 5. Left Kidney Transplant & Chronic Immunosuppression secondary to daily prednisone -home meds include Prednisone 5 mg QD & Lasix 20 mg QD -renal function today: CrCl 44, BUN 22.9, Cr 0.9 plan: -holding Prednisone and Lasix -strict I&O's -daily weight checks 6. COPD -on duonebs 7. Pulmonary Nodules, stable -unchanged from previous CT -currently being monitored by patients PCP -manage as out-patient once discharged with repeat imaging as needed
[2017-07-25] MEDS: Sodium Chloride 0.9% 1,000 ML IV SCH (13:50)
[2017-07-25] MEDS ORDERED: Levofloxacin/Dextrose 5%-Water 250 MG in Premix Bag 1 BAG IV SCH (21:00)
[2017-07-25] MEDS ORDERED: Sodium Chloride 0.9% 500 ML IV SCH (23:45)
[2017-07-26] MEDS: Calcium Carbonate 500 MG Tab.Chew PO SCH ×3 (00:14→20:23)
[2017-07-26] MEDS: Albuterol/Ipratropium 3.0-0.5 MG/3 ML Neb Soln NEB SCH ×7 (01:01→21:19)
[2017-07-26] MEDS: Piperacillin/Tazobactam 3.375 GM in Sodium Chloride 0.9% 50 ML IV SCH ×4 (01:32→20:08)
[2017-07-26] MEDS: oxyCODONE 5 MG Tab PO PRN ×2 (03:44→20:01)
[2017-07-26] MEDS: Heparin Sodium 5,000 Units/ML Vial SUBCUT SCH ×3 (03:48→20:00)
[2017-07-26 05:34] LABS: CHLORIDE,CL 108 mmol/L (98-110); SODIUM,NA 136 mmol/L (136-146)
[2017-07-26] MEDS: Levothyroxine 75 MCG Tab PO SCH (06:33)
--- NOTE | 2017-07-26 08:12 | PCM.PN ---
- General Info Date of Service: 07/26/17 Admission Dx/Problem (Free Text): Admission Diagnosis/Problem Admission Diagnosis/Problem Dyspnea Subjective Update: Continues to feel improved. Having some lower chronic back pain but oxycodone has been helping. Denies any shortness of breath. No Oxygen supplementation needed. Eating and eliminating without difficulty. Slept well. Functional Status: Reports: Pain Controlled, Tolerating Diet - Review of Systems General: Denies: Fever, Weakness, Fatigue HEENT: Denies: Headaches, Visual Changes Pulmonary: Denies: Shortness of Breath, Hemoptysis Cardiovascular: Denies: Chest Pain, Palpitations Gastrointestinal: Denies: Abdominal Pain, Diarrhea, Nausea, Vomiting Genitourinary: Denies: Dysuria Musculoskeletal: Denies: Neck Pain, Leg Pain Skin: Denies: Cyanosis Neurological: Denies: Confusion, Dizziness, Headache Psychiatric: Denies: Confusion - Patient Data Vitals - Most Recent: Last Vital Signs Temp 97.4 F 07/26/17 04:00 Pulse 92 07/26/17 04:00 Resp 18 07/26/17 04:00 BP 89/58 L 07/26/17 04:00 Pulse Ox 93 L 07/26/17 04:00 Weight - Most Recent: 38.192 kg I&O - Last 24 Hours: Intake & Output 07/25/17 07/26/17 07/26/17 22:59 06:59 14:59 Intake Total 100 2283 254 Output Total 650 Balance 100 1633 254 Lab Results Last 24 Hours: Laboratory Results - last 24 hr 07/26/17 07/26/17 Range/Units 05:04 05:04 WBC 16.39 H (4.0-11.0) K/uL RBC 2.35 L (4.50-5.90) M/uL Hgb 9.3 L (13.0-17.0) g/dL Hct 26.7 L (38.0-50.0) % MCV 113.6 H (80.0-98.0) fL MCH 39.6 H (27.0-32.0) pg MCHC 34.8 (31.0-37.0) g/dL RDW Std Deviation 78.4 H (28.0-62.0) fl RDW Coeff of Brianna 19 H (11.0-15.0) % Plt Count 205 (150-400) K/uL MPV 10.60 (7.40-12.00) fL Neut % (Auto) 84.9 H (48.0-80.0) % Lymph % (Auto) 8.1 L (16.0-40.0) % [place] % (Auto) 6.9 (0.0-15.0) % Eos % (Auto) 0.0 (0.0-7.0) % Baso % (Auto) 0.1 (0.0-1.5) % Neut # (Auto) 13.9 H (1.4-5.7) K/uL Lymph # (Auto) 1.3 (0.6-2.4) K/uL [place] # (Auto) 1.1 H (0.0-0.8) K/uL Eos # (Auto) 0.0 (0.0-0.7) K/uL Baso # (Auto) 0.0 (0.0-0.1) K/uL Nucleated RBC % 0.2 /100WBC Nucleated RBCs # 0 K/uL Sodium 136 (136-146) mmol/L Potassium 4.1 (3.5-5.1) mmol/L Chloride 108 (98-110) mmol/L Carbon Dioxide 20 L (21-31) mmol/L BUN 19 (6.0-23.0) mg/dL Creatinine 0.8 (0.6-1.5) mg/dL Est Cr Clr Drug Dosing 49.35 mL/min Estimated GFR (MDRD) > 60.0 ml/min Glucose 133 H (60-110) mg/dL Calcium 7.2 L (8.8-10.8) mg/dL Total Bilirubin 0.8 (0.1-1.5) mg/dL AST 52 H (5-40) IU/L ALT 56 H (8-54) IU/L Alkaline Phosphatase 98 (40-150) Total Protein 5.2 L (6.0-8.0) g/dL Albumin 3.0 L (3.5-5.0) g/dL Globulin 2.2 (2.0-3.5) g/dL Albumin/Globulin Ratio 1.4 (1.3-2.8) Mohan Results Last 24 Hours: Microbiology 07/24/17 21:45 Urine Culture - Final Urine, Catheterized No Growth Med Orders - Current: Current Medications Acetaminophen (Tylenol) 650 mg PO Q4H PRN PRN Reason: Pain (Mild 1-3)/fever Albuterol/Ipratropium (Duoneb 3.0-0.5 Mg/3 Ml) 3 ml NEB Q4HRRT [facility] Last Admin: 07/26/17 05:50 Dose: 3 ml Calcium Carbonate/Glycine (Tums) 1,000 mg PO BID [facility] Last Admin: 07/26/17 00:14 Dose: 1,000 mg Docusate Sodium (Colace) 100 mg PO BID PRN PRN Reason: Constipation Last Admin: 07/24/17 20:52 Dose: 100 mg Heparin Sodium (Porcine) (Heparin Sodium) 5,000 units SUBCUT Q8H [facility] Last Admin: 07/26/17 03:48 Dose: 5,000 units Piperacillin Sod/Tazobactam (Sod 3.375 gm/ Sodium Chloride) 50 mls @ 100 mls/ hr IV Q6H [facility] Last Admin: 07/26/17 01:32 Dose: 100 mls/hr Vancomycin HCl 1 gm/ Sodium (Chloride) 250 mls @ 166.667 mls/hr IV Q12H [facility] Last Admin: 07/25/17 21:54 Dose: 166.667 mls/hr Levofloxacin/Dextrose 250 mg/ (Premix) 50 mls @ 50 mls/hr IV Q24H [facility] Last Admin: 07/25/17 20:48 Dose: 50 mls/hr Levothyroxine Sodium (Levothyroxine) 75 mcg PO ACBREAKFAST [facility] Last Admin: 07/26/17 06:33 Dose: 75 mcg Ondansetron HCl (Zofran) 4 mg IVPUSH Q6H PRN PRN Reason: Nausea/Vomiting Last Admin: 07/24/17 20:51 Dose: 4 mg Oxycodone HCl (Oxycodone) 5 mg PO Q4H PRN PRN Reason: Pain (moderate 4-6) Last Admin: 07/26/17 03:44 Dose: 5 mg Prednisone (Prednisone) 5 mg PO DAILY [facility] Vancomycin HCl (Pharmacy To Dose - Vancomycin) 1 dose .XX ASDIRECTED [facility] Discontinued Medications Albuterol/Ipratropium (Duoneb 3.0-0.5 Mg/3 Ml) 3 ml NEB ONETIME ONE Stop: 07/24/17 16:42 Last Admin: 07/24/17 16:52 Dose: 3 ml Levofloxacin/Dextrose 750 mg/ (Premix) 150 mls @ 100 mls/hr IV ONETIME ONE Stop: 07/24/17 19:31 Last Admin: 07/24/17 21:06 Dose: Not Given Vancomycin HCl 1 gm/ Sodium (Chloride) 250 mls @ 250 mls/hr IV ONETIME ONE Stop: 07/24/17 19:01 Last Admin: 07/24/17 18:27 Dose: 250 mls/hr Sodium Chloride (Normal Saline) 1,000 mls @ 75 mls/hr IV ASDIRECTED [facility] Last Admin: 07/25/17 13:50 Dose: 75 mls/hr Levofloxacin/Dextrose 500 mg/ (Premix) 100 mls @ 100 mls/hr IV ONETIME ONE Stop: 07/24/17 21:28 Last Admin: 07/24/17 21:35 Dose: 100 mls/hr Levofloxacin/Dextrose (Levaquin In D5w 750 Mg/150 Ml) Confirm Administered Dose 150 mls @ as directed IV .STK-MED ONE Stop: 07/24/17 20:32 Last Admin: 07/24/17 21:07 Dose: Not Given Vancomycin HCl 1,000 mg/ (Dextrose/Water) 250 mls @ 166.667 mls/hr IV Q12H [facility] Last Admin: 07/25/17 10:44 Dose: Not Given Sodium Chloride (Normal Saline) 500 mls @ 999 mls/hr IV .BOLUS [facility] Last Admin: 07/26/17 00:15 Dose: 999 mls/hr Levothyroxine Sodium (Levothyroxine) 75 mcg PO DAILY [facility] Last Admin: 07/25/17 08:45 Dose: 75 mcg Methylprednisolone Sodium Succinate (Solu-Medrol) 125 mg IVPUSH ONETIME ONE Stop: 07/24/17 16:42 Last Admin: 07/24/17 17:09 Dose: 125 mg Morphine Sulfate (Morphine) 2 mg IVPUSH Q2H PRN PRN Reason: Pain (severe 7-10) Stop: 07/25/17 20:16 Last Admin: 07/25/17 17:05 Dose: 2 mg - Exam Quality Assessment: DVT Prophylaxis General: Alert, Oriented, Cooperative, No Acute Distress HEENT: Pupils Equal, Pupils Reactive, EOMI, Mucous Membr. Moist/[place] Neck: Supple Lungs: Normal Respiratory Effort, Crackles, Rales Cardiovascular: Regular Rate, Regular Rhythm, Murmurs GI/Abdominal Exam: Normal Bowel Sounds, Soft, Non-Tender, No Organomegaly, No Distention Back Exam: Normal Inspection Extremities: Normal Inspection, Normal Range of Motion, Non-Tender, No Pedal Edema, Normal Capillary Refill Peripheral Pulses: 2+: Radial (L), Radial (R), Posterior Tibial (L), Posterior Tibial (R), Dorsalis Pedis (L), Dorsalis Pedis (R) Skin: Warm, Dry, Intact Neurological: No New Focal Deficit Psy/Mental Status: Alert, Normal Affect, Normal Mood - Problem List & Annotations (1) Gram negative septic shock SNOMED Code(s): 581613602 Code(s): A41.50 - GRAM-NEGATIVE SEPSIS, UNSPECIFIED; R65.21 - SEVERE SEPSIS WITH SEPTIC SHOCK Status: Acute Priority: High Current Visit: Yes (2) Pneumonia SNOMED Code(s): 293222157 Code(s): J18.9 - PNEUMONIA, UNSPECIFIED ORGANISM Status: Acute Priority: High Current Visit: Yes Qualifiers: Pneumonia type: due to unspecified organism Laterality: bilateral Lung location: lower lobe of lung Qualified Code(s): J18.9 - Pneumonia, unspecified organism (3) UTI (urinary tract infection) SNOMED Code(s): 78299702 Code(s): N39.0 - URINARY TRACT INFECTION, SITE NOT SPECIFIED Status: Acute Priority: High Current Visit: Yes Qualifiers: Urinary tract infection type: acute cystitis Hematuria presence: without hematuria Qualified Code(s): N30.00 - Acute cystitis without hematuria (4) Renal transplant recipient SNOMED Code(s): 531963626 Code(s): Z94.0 - KIDNEY TRANSPLANT STATUS Status: Chronic Priority: Medium Current Visit: Yes (5) COPD (chronic obstructive pulmonary disease) SNOMED Code(s): 05491141 Code(s): J44.9 - CHRONIC OBSTRUCTIVE PULMONARY DISEASE, UNSPECIFIED Status : Chronic Priority: Medium Current Visit: Yes Qualifiers: COPD type: unspecified COPD Qualified Code(s): J44.9 - Chronic obstructive pulmonary disease, unspecified (6) Leukocytosis SNOMED Code(s): 852938427 Code(s): D72.829 - ELEVATED WHITE BLOOD CELL COUNT, UNSPECIFIED Status: Acute Priority: High Current Visit: Yes Qualifiers: Leukocytosis type: unspecified Qualified Code(s): D72.829 - Elevated white blood cell count, unspecified - Problem List Review Problem List Initiated/Reviewed/Updated: Yes - My Orders Last 24 Hours: My Active Orders 07/25/17 10:00 Vancomycin [Vancocin] 1 gm Sodium Chloride 0.9% [Normal Saline] 250 ml IV Q12H 07/26/17 00:01 Calcium Carbonate [Tums] 1,000 mg PO BID 07/26/17 09:00 predniSONE 5 mg PO DAILY - Plan Plan:: 61 yo male admitted 07/24/17 for sepsis with pmh of left kidney transplan, COPD , chronic pulmonary nodules, and hypothyroidism Sepsis: Secondary to PNA, UTI, and or port infection -WBC up from 11k to 16 k today on Levo, Zosyn, Vanc which will be continued. -Tachycardia resolved some continued hypotension which may be related to held prednisone on acute admission with some adrenal insufficiency will resume prednisone today. Did give one bolus last evening of 500 NS. No up 2 kg from admission will stop IVF now. Patient drinking fluids well which will encourage. -Blood cultures from port neg x1 day. Patient states port has been in place since 2009. Denies it being ever changed. Will monitor closely as port may need to be changed. Gram negative Pneumonia: -No supplemental O2 required at this time. Still some bilateral lower lobes crackles and rales. -Continue abx as above and duonebs. UTI: No symptoms at this time. UC neg will cont. abx as above and monitor. Left Kidney Transplant & Chronic Immunosuppression secondary to daily prednisone : -Restart home Prednisone 5 mg QD today as may be having some adrenal insufficiency. - Hold Lasix 20 mg QD while BP still labile COPD: Stable Cont. Duonebs Pulmonary Nodules: stable VTE Proph: SCD, Heparin Dispo: 2-3 days pending.
[2017-07-26] MEDS: predniSONE 5 MG Tab PO SCH (08:33)
[2017-07-26] MEDS ORDERED: Levofloxacin/Dextrose 5%-Water 500 MG in Premix Bag 1 BAG IV ONE (08:45)
[2017-07-26] MEDS: Temazepam 15 MG Cap PO PRN (22:16)
[2017-07-27] MEDS: Albuterol/Ipratropium 3.0-0.5 MG/3 ML Neb Soln NEB SCH ×6 (01:58→22:17)
[2017-07-27] MEDS: Piperacillin/Tazobactam 3.375 GM in Sodium Chloride 0.9% 50 ML IV SCH ×4 (01:59→22:09)
[2017-07-27] MEDS: Heparin Sodium 5,000 Units/ML Vial SUBCUT SCH ×3 (03:53→22:05)
[2017-07-27] MEDS: oxyCODONE 5 MG Tab PO PRN ×2 (05:28→16:49)
[2017-07-27] MEDS: Levothyroxine 75 MCG Tab PO SCH (06:34)
[2017-07-27 07:38] LABS: CHLORIDE,CL 110 mmol/L (98-110); SODIUM,NA 138 mmol/L (136-146)
[2017-07-27] MEDS: Calcium Carbonate 500 MG Tab.Chew PO SCH ×2 (08:26→22:06)
[2017-07-27] MEDS: predniSONE 5 MG Tab PO SCH (08:26)
--- NOTE | 2017-07-27 08:48 | PCM.PN ---
- General Info Date of Service: 07/27/17 Admission Dx/Problem (Free Text): Admission Diagnosis/Problem Admission Diagnosis/Problem Dyspnea Subjective Update: Feels that he is slowly improving. Much better sleep last night with Tamazepam. Having no pain. Denies any shortness of breath, chest pain, or palpitations. Eating and eliminating without difficulty. - Review of Systems General: Reports: Fatigue, Malaise. Denies: Fever, Weakness HEENT: Denies: Headaches, Visual Changes Pulmonary: Denies: Shortness of Breath, Hemoptysis Cardiovascular: Denies: Chest Pain, Palpitations Gastrointestinal: Denies: Abdominal Pain, Nausea, Vomiting Genitourinary: Denies: Dysuria Musculoskeletal: Denies: Neck Pain, Leg Pain Skin: Denies: Cyanosis Neurological: Denies: Confusion, Dizziness, Headache Psychiatric: Denies: Confusion - Patient Data Vitals - Most Recent: Last Vital Signs Temp 101.1 F H 07/27/17 07:47 Pulse 120 H 07/27/17 07:47 Resp 20 07/27/17 07:47 BP 93/60 07/27/17 07:47 Pulse Ox 94 L 07/27/17 07:47 Weight - Most Recent: 39.417 kg I&O - Last 24 Hours: Intake & Output 07/26/17 07/27/17 07/27/17 22:59 06:59 14:59 Intake Total 400 600 420 Output Total 300 300 Balance 100 300 420 Lab Results Last 24 Hours: Laboratory Results - last 24 hr 07/27/17 07/27/17 07/27/17 Range/Units 05:55 05:55 07:59 WBC 13.19 H (4.0-11.0) K/uL RBC 2.46 L (4.50-5.90) M/uL Hgb 9.7 L (13.0-17.0) g/dL Hct 28.1 L (38.0-50.0) % MCV 114.2 H (80.0-98.0) fL MCH 39.4 H (27.0-32.0) pg MCHC 34.5 (31.0-37.0) g/dL RDW Std Deviation 81.0 H (28.0-62.0) fl RDW Coeff of Brianna 20 H (11.0-15.0) % Plt Count 244 (150-400) K/uL MPV 10.90 (7.40-12.00) fL Neut % (Auto) 77.0 (48.0-80.0) % Lymph % (Auto) 16.4 (16.0-40.0) % [place] % (Auto) 6.4 (0.0-15.0) % Eos % (Auto) 0.1 (0.0-7.0) % Baso % (Auto) 0.1 (0.0-1.5) % Neut # (Auto) 10.2 H (1.4-5.7) K/uL Lymph # (Auto) 2.2 (0.6-2.4) K/uL [place] # (Auto) 0.9 H (0.0-0.8) K/uL Eos # (Auto) 0.0 (0.0-0.7) K/uL Baso # (Auto) 0.0 (0.0-0.1) K/uL Nucleated RBC % 0.5 /100WBC Nucleated RBCs # 0 K/uL Sodium 138 (136-146) mmol/L Potassium 4.8 (3.5-5.1) mmol/L Chloride 110 (98-110) mmol/L Carbon Dioxide 20 L (21-31) mmol/L BUN 13 (6.0-23.0) mg/dL Creatinine 0.8 (0.6-1.5) mg/dL Est Cr Clr Drug Dosing 55.43 mL/min Estimated GFR (MDRD) > 60.0 ml/min Glucose 73 (60-110) mg/dL Calcium 8.0 L (8.8-10.8) mg/dL Total Bilirubin 1.0 (0.1-1.5) mg/dL AST 38 (5-40) IU/L ALT 45 (8-54) IU/L Alkaline Phosphatase 96 (40-150) Total Protein 5.5 L (6.0-8.0) g/dL Albumin 3.0 L (3.5-5.0) g/dL Globulin 2.5 (2.0-3.5) g/dL Albumin/Globulin Ratio 1.2 L (1.3-2.8) Vancomycin Trough 29.0 H (5-15) ug/mL Mohan Results Last 24 Hours: Microbiology 07/24/17 21:45 Urine Culture - Final Urine, Catheterized No Growth Med Orders - Current: Current Medications Acetaminophen (Tylenol) 650 mg PO Q4H PRN PRN Reason: Pain (Mild 1-3)/fever Albuterol/Ipratropium (Duoneb 3.0-0.5 Mg/3 Ml) 3 ml NEB Q4HRRT [facility] Last Admin: 07/27/17 05:53 Dose: 3 ml Calcium Carbonate/Glycine (Tums) 1,000 mg PO BID [facility] Last Admin: 07/27/17 08:26 Dose: 1,000 mg Docusate Sodium (Colace) 100 mg PO BID PRN PRN Reason: Constipation Last Admin: 07/24/17 20:52 Dose: 100 mg Heparin Sodium (Porcine) (Heparin Sodium) 5,000 units SUBCUT Q8H [facility] Last Admin: 07/27/17 03:53 Dose: 5,000 units Piperacillin Sod/Tazobactam (Sod 3.375 gm/ Sodium Chloride) 50 mls @ 100 mls/ hr IV Q6H [facility] Last Admin: 07/27/17 08:26 Dose: 100 mls/hr Vancomycin HCl 1 gm/ Sodium (Chloride) 250 mls @ 166.667 mls/hr IV Q12H [facility] Last Admin: 07/26/17 22:15 Dose: 166.667 mls/hr Levofloxacin/Dextrose 750 mg/ (Premix) 150 mls @ 100 mls/hr IV Q48H [facility] Levothyroxine Sodium (Levothyroxine) 75 mcg PO ACBREAKFAST [facility] Last Admin: 07/27/17 06:34 Dose: 75 mcg Ondansetron HCl (Zofran) 4 mg IVPUSH Q6H PRN PRN Reason: Nausea/Vomiting Last Admin: 07/24/17 20:51 Dose: 4 mg Oxycodone HCl (Oxycodone) 5 mg PO Q4H PRN PRN Reason: Pain (moderate 4-6) Last Admin: 07/27/17 05:28 Dose: 5 mg Prednisone (Prednisone) 5 mg PO DAILY [facility] Last Admin: 07/27/17 08:26 Dose: 5 mg Temazepam (Restoril) 15 mg PO BEDTIME PRN PRN Reason: Insomnia Last Admin: 07/26/17 22:16 Dose: 15 mg Vancomycin HCl (Pharmacy To Dose - Vancomycin) 1 dose .XX ASDIRECTED ELLIE Discontinued Medications Albuterol/Ipratropium (Duoneb 3.0-0.5 Mg/3 Ml) 3 ml NEB ONETIME ONE Stop: 07/24/17 16:42 Last Admin: 07/24/17 16:52 Dose: 3 ml Levofloxacin/Dextrose 750 mg/ (Premix) 150 mls @ 100 mls/hr IV ONETIME ONE Stop: 07/24/17 19:31 Last Admin: 07/24/17 21:06 Dose: Not Given Vancomycin HCl 1 gm/ Sodium (Chloride) 250 mls @ 250 mls/hr IV ONETIME ONE Stop: 07/24/17 19:01 Last Admin: 07/24/17 18:27 Dose: 250 mls/hr Sodium Chloride (Normal Saline) 1,000 mls @ 75 mls/hr IV ASDIRECTED [facility] Last Admin: 07/25/17 13:50 Dose: 75 mls/hr Levofloxacin/Dextrose 500 mg/ (Premix) 100 mls @ 100 mls/hr IV ONETIME ONE Stop: 07/24/17 21:28 Last Admin: 07/24/17 21:35 Dose: 100 mls/hr Levofloxacin/Dextrose (Levaquin In D5w 750 Mg/150 Ml) Confirm Administered Dose 150 mls @ as directed IV .STK-MED ONE Stop: 07/24/17 20:32 Last Admin: 07/24/17 21:07 Dose: Not Given Vancomycin HCl 1,000 mg/ (Dextrose/Water) 250 mls @ 166.667 mls/hr IV Q12H [facility] Last Admin: 07/25/17 10:44 Dose: Not Given Levofloxacin/Dextrose 250 mg/ (Premix) 50 mls @ 50 mls/hr IV Q24H [facility] Last Admin: 07/25/17 20:48 Dose: 50 mls/hr Sodium Chloride (Normal Saline) 500 mls @ 999 mls/hr IV .BOLUS [facility] Last Admin: 07/26/17 00:15 Dose: 999 mls/hr Levofloxacin/Dextrose 500 mg/ (Premix) 100 mls @ 100 mls/hr IV ONETIME ONE Stop: 07/26/17 09:44 Last Admin: 07/26/17 09:11 Dose: 100 mls/hr Levothyroxine Sodium (Levothyroxine) 75 mcg PO DAILY [facility] Last Admin: 07/25/17 08:45 Dose: 75 mcg Methylprednisolone Sodium Succinate (Solu-Medrol) 125 mg IVPUSH ONETIME ONE Stop: 07/24/17 16:42 Last Admin: 07/24/17 17:09 Dose: 125 mg Morphine Sulfate (Morphine) 2 mg IVPUSH Q2H PRN PRN Reason: Pain (severe 7-10) Stop: 07/25/17 20:16 Last Admin: 07/25/17 17:05 Dose: 2 mg - Exam Quality Assessment: DVT Prophylaxis General: Alert, Oriented, Cooperative, No Acute Distress HEENT: Pupils Equal, Pupils Reactive, EOMI, Mucous Membr. Moist/[place] Neck: Supple, Trachea Midline, No JVD Lungs: Clear to Auscultation, Normal Respiratory Effort Cardiovascular: Regular Rate, Regular Rhythm, No Murmurs GI/Abdominal Exam: Normal Bowel Sounds, Soft, Non-Tender, No Organomegaly, No Distention Back Exam: Normal Inspection Extremities: Normal Inspection, Non-Tender, No Pedal Edema, Normal Capillary Refill Peripheral Pulses: 2+: Radial (L), Radial (R), Posterior Tibial (L), Posterior Tibial (R), Dorsalis Pedis (L), Dorsalis Pedis (R) Skin: Warm, Dry, Intact Neurological: No New Focal Deficit Psy/Mental Status: Alert, Normal Affect, Normal Mood - Problem List & Annotations (1) Gram negative septic shock SNOMED Code(s): 051745873 Code(s): A41.50 - GRAM-NEGATIVE SEPSIS, UNSPECIFIED; R65.21 - SEVERE SEPSIS WITH SEPTIC SHOCK Status: Acute Priority: High Current Visit: Yes (2) Pneumonia SNOMED Code(s): 938733268 Code(s): J18.9 - PNEUMONIA, UNSPECIFIED ORGANISM Status: Acute Priority: High Current Visit: Yes Qualifiers: Pneumonia type: due to unspecified organism Laterality: bilateral Lung location: lower lobe of lung Qualified Code(s): J18.9 - Pneumonia, unspecified organism (3) UTI (urinary tract infection) SNOMED Code(s): 87232683 Code(s): N39.0 - URINARY TRACT INFECTION, SITE NOT SPECIFIED Status: Acute Priority: High Current Visit: Yes Qualifiers: Urinary tract infection type: acute cystitis Hematuria presence: without hematuria Qualified Code(s): N30.00 - Acute cystitis without hematuria (4) Renal transplant recipient SNOMED Code(s): 180032730 Code(s): Z94.0 - KIDNEY TRANSPLANT STATUS Status: Chronic Priority: Medium Current Visit: Yes (5) COPD (chronic obstructive pulmonary disease) SNOMED Code(s): 02991052 Code(s): J44.9 - CHRONIC OBSTRUCTIVE PULMONARY DISEASE, UNSPECIFIED Status : Chronic Priority: Medium Current Visit: Yes Qualifiers: COPD type: unspecified COPD Qualified Code(s): J44.9 - Chronic obstructive pulmonary disease, unspecified (6) Leukocytosis SNOMED Code(s): 933116390 Code(s): D72.829 - ELEVATED WHITE BLOOD CELL COUNT, UNSPECIFIED Status: Acute Priority: High Current Visit: Yes Qualifiers: Leukocytosis type: unspecified Qualified Code(s): D72.829 - Elevated white blood cell count, unspecified - Problem List Review Problem List Initiated/Reviewed/Updated: Yes - My Orders Last 24 Hours: My Active Orders 07/26/17 09:00 predniSONE 5 mg PO DAILY 07/26/17 21:24 Temazepam [Restoril] 15 mg PO BEDTIME PRN 07/28/17 09:00 Levofloxacin/Dextrose 5%-Water [Levaquin in D5W 750 MG/150 ML] 750 mg Premix Bag 1 bag IV Q48H - Plan Plan:: 61 yo male admitted 07/24/17 for sepsis with pmh of left kidney transplan, COPD , chronic pulmonary nodules, and hypothyroidism Sepsis: Secondary to PNA, UTI, and or port infection -WBC down from 16k to 11 k today on Levo, Zosyn, Vanc which will be continued. -Tachycardia resolved some continued hypotension. Prednisone restarted for antiregection and possible adrenal insufficiency -Blood cultures from port neg x2 day. Patient states port has been in place since 2009. Denies it being ever changed. Will monitor closely as port may need to be changed. Gram negative Pneumonia: -No supplemental O2 required at this time. Still some bilateral lower lobes crackles and rales. -Continue abx as above and duonebs. UTI: No symptoms at this time. UC neg will cont. abx as above and monitor. Left Kidney Transplant & Chronic Immunosuppression secondary to daily prednisone : -Restarted Prednisone 5 mg QD yesterday. - Hold Lasix 20 mg QD while BP still labile COPD: Stable Cont. Duonebs Pulmonary Nodules: stable VTE Proph: SCD, Heparin Dispo: 2-3 days pending.
[2017-07-27] MEDS ORDERED: Levofloxacin/Dextrose 5%-Water 750 MG in Premix Bag 1 BAG IV ONE (09:40)
[2017-07-27] MEDS ORDERED: Sodium Chloride 0.9% 500 ML IV SCH (11:30)
[2017-07-27] MEDS: Levofloxacin/Dextrose 5%-Water 750 MG in Premix Bag 1 BAG IV SCH (12:32)
[2017-07-27] MEDS ORDERED: Sodium Chloride 0.9% 250 ML ONE (22:01)
[2017-07-27] MEDS: Temazepam 15 MG Cap PO PRN (22:06)
[2017-07-28] MEDS: Piperacillin/Tazobactam 3.375 GM in Sodium Chloride 0.9% 50 ML IV SCH ×4 (02:07→20:04)
[2017-07-28] MEDS: Albuterol/Ipratropium 3.0-0.5 MG/3 ML Neb Soln NEB SCH ×6 (02:12→22:17)
[2017-07-28] MEDS: Heparin Sodium 5,000 Units/ML Vial SUBCUT SCH ×3 (04:19→20:10)
[2017-07-28] MEDS: oxyCODONE 5 MG Tab PO PRN ×3 (06:26→20:16)
[2017-07-28] MEDS: Levothyroxine 75 MCG Tab PO SCH (06:29)
[2017-07-28 07:24] LABS: CHLORIDE,CL 109 mmol/L (98-110); SODIUM,NA 138 mmol/L (136-146)
[2017-07-28] MEDS: predniSONE 5 MG Tab PO SCH (08:10)
[2017-07-28] MEDS: Calcium Carbonate 500 MG Tab.Chew PO SCH ×2 (08:10→20:05)
--- NOTE | 2017-07-28 08:16 | PCM.PN ---
- General Info Date of Service: 07/28/17 Admission Dx/Problem (Free Text): Admission Diagnosis/Problem Admission Diagnosis/Problem Dyspnea Subjective Update: No overnight events. Patient still c/o sob and cough but otherwise is doing better. Still requiring intermittent oxygen via LFNC. - Review of Systems General: Reports: Weakness, Fatigue HEENT: Reports: No Symptoms Pulmonary: Reports: Shortness of Breath, Cough Cardiovascular: Reports: No Symptoms Gastrointestinal: Reports: No Symptoms Genitourinary: Reports: No Symptoms Musculoskeletal: Reports: No Symptoms Skin: Reports: No Symptoms Neurological: Reports: No Symptoms Psychiatric: Reports: No Symptoms - Patient Data Vitals - Most Recent: Last Vital Signs Temp 37.1 C 07/28/17 04:00 Pulse 87 07/28/17 04:00 Resp 17 07/28/17 04:00 BP 99/64 07/28/17 04:00 Pulse Ox 94 L 07/28/17 04:00 Weight - Most Recent: 39.961 kg I&O - Last 24 Hours: Intake & Output 07/27/17 07/28/17 07/28/17 22:59 06:59 14:59 Intake Total 250 350 Output Total 350 350 Balance -100 0 Lab Results Last 24 Hours: Laboratory Results - last 24 hr 07/27/17 07/28/17 07/28/17 Range/Units 07:59 04:46 06:44 WBC 8.67 (4.0-11.0) K/uL RBC 2.35 L (4.50-5.90) M/uL Hgb 9.1 L (13.0-17.0) g/dL Hct 27.1 L (38.0-50.0) % MCV 115.3 H (80.0-98.0) fL MCH 38.7 H (27.0-32.0) pg MCHC 33.6 (31.0-37.0) g/dL RDW Std Deviation 83.4 H (28.0-62.0) fl RDW Coeff of Brianna 20 H (11.0-15.0) % Plt Count 266 (150-400) K/uL MPV 11.20 (7.40-12.00) fL Neut % (Auto) 53.0 (48.0-80.0) % Lymph % (Auto) 35.2 (16.0-40.0) % [place] % (Auto) 11.1 (0.0-15.0) % Eos % (Auto) 0.5 (0.0-7.0) % Baso % (Auto) 0.2 (0.0-1.5) % Neut # (Auto) 4.6 (1.4-5.7) K/uL Lymph # (Auto) 3.1 H (0.6-2.4) K/uL [place] # (Auto) 1.0 H (0.0-0.8) K/uL Eos # (Auto) 0.0 (0.0-0.7) K/uL Baso # (Auto) 0.0 (0.0-0.1) K/uL Nucleated RBC % 0.0 /100WBC Nucleated RBCs # 0 K/uL Sodium 138 (136-146) mmol/L Potassium 5.3 H (3.5-5.1) mmol/L Chloride 109 (98-110) mmol/L Carbon Dioxide 23 (21-31) mmol/L BUN 10 (6.0-23.0) mg/dL Creatinine 0.7 (0.6-1.5) mg/dL Est Cr Clr Drug Dosing 64.22 mL/min Estimated GFR (MDRD) > 60.0 ml/min Glucose 76 (60-110) mg/dL Calcium 8.8 (8.8-10.8) mg/dL Magnesium 1.4 L (1.5-2.3) mEq/L Total Bilirubin 1.1 (0.1-1.5) mg/dL AST 30 (5-40) IU/L ALT 39 (8-54) IU/L Alkaline Phosphatase 101 (40-150) Total Protein 5.4 L (6.0-8.0) g/dL Albumin 3.3 L (3.5-5.0) g/dL Globulin 2.1 (2.0-3.5) g/dL Albumin/Globulin Ratio 1.6 (1.3-2.8) Vancomycin Trough 29.0 H (5-15) ug/mL Med Orders - Current: Current Medications Acetaminophen (Tylenol) 650 mg PO Q4H PRN PRN Reason: Pain (Mild 1-3)/fever Last Admin: 07/27/17 09:35 Dose: 650 mg Albuterol/Ipratropium (Duoneb 3.0-0.5 Mg/3 Ml) 3 ml NEB Q4HRRT [facility] Last Admin: 07/28/17 06:04 Dose: 3 ml Calcium Carbonate/Glycine (Tums) 1,000 mg PO BID [facility] Last Admin: 07/27/17 22:06 Dose: 1,000 mg Docusate Sodium (Colace) 100 mg PO BID PRN PRN Reason: Constipation Last Admin: 07/24/17 20:52 Dose: 100 mg Heparin Sodium (Porcine) (Heparin Sodium) 5,000 units SUBCUT Q8H [facility] Last Admin: 07/28/17 04:19 Dose: 5,000 units Piperacillin Sod/Tazobactam (Sod 3.375 gm/ Sodium Chloride) 50 mls @ 100 mls/ hr IV Q6H [facility] Last Admin: 07/28/17 02:07 Dose: 100 mls/hr Levofloxacin/Dextrose 750 mg/ (Premix) 150 mls @ 100 mls/hr IV Q24H [facility] Last Admin: 07/27/17 12:32 Dose: 100 mls/hr Vancomycin HCl 1 gm/ Sodium (Chloride) 250 mls @ 250 mls/hr IV Q24H [facility] Last Admin: 07/27/17 22:52 Dose: 250 mls/hr Sodium Chloride (Normal Saline) 500 mls @ 999 mls/hr IV .BOLUS [facility] Last Admin: 07/27/17 11:40 Dose: 999 mls/hr Levothyroxine Sodium (Levothyroxine) 75 mcg PO ACBREAKFAST [facility] Last Admin: 07/28/17 06:29 Dose: 75 mcg Ondansetron HCl (Zofran) 4 mg IVPUSH Q6H PRN PRN Reason: Nausea/Vomiting Last Admin: 07/24/17 20:51 Dose: 4 mg Oxycodone HCl (Oxycodone) 5 mg PO Q4H PRN PRN Reason: Pain (moderate 4-6) Last Admin: 07/28/17 06:26 Dose: 5 mg Prednisone (Prednisone) 5 mg PO DAILY [facility] Last Admin: 07/27/17 08:26 Dose: 5 mg Temazepam (Restoril) 15 mg PO BEDTIME PRN PRN Reason: Insomnia Last Admin: 07/27/17 22:06 Dose: 15 mg Vancomycin HCl (Pharmacy To Dose - Vancomycin) 1 dose .XX ASDIRECTED ELLIE Discontinued Medications Albuterol/Ipratropium (Duoneb 3.0-0.5 Mg/3 Ml) 3 ml NEB ONETIME ONE Stop: 07/24/17 16:42 Last Admin: 07/24/17 16:52 Dose: 3 ml Levofloxacin/Dextrose 750 mg/ (Premix) 150 mls @ 100 mls/hr IV ONETIME ONE Stop: 07/24/17 19:31 Last Admin: 07/24/17 21:06 Dose: Not Given Vancomycin HCl 1 gm/ Sodium (Chloride) 250 mls @ 250 mls/hr IV ONETIME ONE Stop: 07/24/17 19:01 Last Admin: 07/24/17 18:27 Dose: 250 mls/hr Sodium Chloride (Normal Saline) 1,000 mls @ 75 mls/hr IV ASDIRECTED [facility] Last Admin: 07/25/17 13:50 Dose: 75 mls/hr Levofloxacin/Dextrose 500 mg/ (Premix) 100 mls @ 100 mls/hr IV ONETIME ONE Stop: 07/24/17 21:28 Last Admin: 07/24/17 21:35 Dose: 100 mls/hr Levofloxacin/Dextrose (Levaquin In D5w 750 Mg/150 Ml) Confirm Administered Dose 150 mls @ as directed IV .STK-MED ONE Stop: 07/24/17 20:32 Last Admin: 07/24/17 21:07 Dose: Not Given Vancomycin HCl 1,000 mg/ (Dextrose/Water) 250 mls @ 166.667 mls/hr IV Q12H [facility] Last Admin: 07/25/17 10:44 Dose: Not Given Vancomycin HCl 1 gm/ Sodium (Chloride) 250 mls @ 166.667 mls/hr IV Q12H [facility] Last Admin: 07/26/17 22:15 Dose: 166.667 mls/hr Levofloxacin/Dextrose 250 mg/ (Premix) 50 mls @ 50 mls/hr IV Q24H [facility] Last Admin: 07/25/17 20:48 Dose: 50 mls/hr Sodium Chloride (Normal Saline) 500 mls @ 999 mls/hr IV .BOLUS [facility] Last Admin: 07/26/17 00:15 Dose: 999 mls/hr Levofloxacin/Dextrose 500 mg/ (Premix) 100 mls @ 100 mls/hr IV ONETIME ONE Stop: 07/26/17 09:44 Last Admin: 07/26/17 09:11 Dose: 100 mls/hr Sodium Chloride (Normal Saline) Confirm Administered Dose 250 mls @ as directed .ROUTE .STK-MED ONE Stop: 07/27/17 22:02 Last Admin: 07/27/17 22:11 Dose: Not Given Levothyroxine Sodium (Levothyroxine) 75 mcg PO DAILY [facility] Last Admin: 07/25/17 08:45 Dose: 75 mcg Methylprednisolone Sodium Succinate (Solu-Medrol) 125 mg IVPUSH ONETIME ONE Stop: 07/24/17 16:42 Last Admin: 07/24/17 17:09 Dose: 125 mg Morphine Sulfate (Morphine) 2 mg IVPUSH Q2H PRN PRN Reason: Pain (severe 7-10) Stop: 07/25/17 20:16 Last Admin: 07/25/17 17:05 Dose: 2 mg - Exam Quality Assessment: Supplemental Oxygen General: Alert, Oriented, Cooperative, No Acute Distress HEENT: Pupils Equal, Pupils Reactive Neck: Supple, No JVD, +2 Carotid Pulse wo Bruit Lungs: Normal Respiratory Effort, Decreased Breath Sounds (BL bases ), Crackles Cardiovascular: Regular Rate, Regular Rhythm GI/Abdominal Exam: Normal Bowel Sounds, Soft, Non-Tender Extremities: No Pedal Edema Peripheral Pulses: 2+: Radial (L), Radial (R) Skin: Intact, Other (right sided portacath in place. no signs of infection at insertion site. ) Neurological: No New Focal Deficit - Problem List Review Problem List Initiated/Reviewed/Updated: Yes - Plan Plan:: 61 yo male admitted 07/24/17 for sepsis with pmh of left kidney transplant, COPD , chronic pulmonary nodules, and hypothyroidism #Sepsis, likely secondary to Pneumonia, improving -Blood Cultures NGTD, Port Cultures NGTD, UC negative -on Levaquin/Zosyn/Vancomycin plan: -DC Vancomycin, continue Levaquin & Zosyn #GNR Pneumonia, improving -on Levaquin/Zosyn/Vancomycin -plan as per above #Right Sided Port-A-Cath -Patient states port has been in place since 2009. Denies it being ever changed. States it was put in because of difficulty drawing blood. -Port cultures NGTD plan: -monitor closely as port may need to be changed. #Left Kidney Transplant & Chronic Immunosuppression secondary to daily prednisone: -resumed home Prednisone 5 mg QD on 07/26 -home Lasix 20 mg QD held due BP still labile plan: -continue to hold home lasix -administer Lasix 40 mg IV single dose due to hyperkalemia -administer IV NS bolus to prevent hypotension #Hyperkalermia -plan as per above -monitor K+ #Hypotension -patients sbp has ranged from 85-100 since admission #Hypomagnasemia -replenish and monitor #Suprapubic Tenderness, resolved -Urine Culture negative #COPD, Stable -Continue Duonebs #Pulmonary Nodules, stable -outpatient f/u VTE Proph: SCD, Heparin Code: full Dispo: 2-3 days pending
[2017-07-28] MEDS ORDERED: Sodium Chloride 0.9% 1,000 ML IV ONE (09:28)
[2017-07-28] MEDS ORDERED: Levofloxacin/Dextrose 5%-Water 750 MG in Premix Bag 1 BAG IV ONE (09:40)
[2017-07-28] MEDS ORDERED: Magnesium Sulfate/Water 4 GM in Premix Bag 1 BAG IV ONE (10:22)
--- NOTE | 2017-07-28 11:31 | CR ---
EXAM DATE: 07/24/17 PATIENT'S AGE: 61 Patient: ROBSON AZEVEDO Facility: [place], [place] Site . Site : 1955 Study: XRay Chest [id number]/22/2017 5:40:09 PM Ordering Physician: Deng Waller Final Report: INDICATIONS: Dyspnea. TECHNIQUE: Chest 1 view. COMPARISON: Chest radiograph August 26, 2016. FINDINGS: Right-sided Port-A-Cath terminates in the lower SVC. No pneumothorax, pleural effusion or focal airspace consolidation. Aortic atherosclerosis. Cardiomegaly, unchanged. No pulmonary edema. Surgical clips in the upper abdomen as before. Bone demineralization and degenerative changes. IMPRESSION: No evidence of acute cardiopulmonary disease. Dictated by Yuriy Austin MD @ 07/24/2017 6:50:06 PM Dictated by: Yuriy Austin MD @ 07/24/2017 18:50:13 (Electronic Signature) Report Signed by Proxy. [facility]
[2017-07-28] MEDS ORDERED: Furosemide 20 MG/2 ML VIAL IVPUSH ONE (13:00)
[2017-07-28] MEDS: Levofloxacin/Dextrose 5%-Water 750 MG in Premix Bag 1 BAG IV SCH (13:04)
--- NOTE | 2017-07-28 13:36 | CT ---
EXAM DATE: 07/24/17 PATIENT'S AGE: 61 Patient: ROBSON AZEVEDO Facility: [place], [place] : 1955 Study: CT Chest [id number]/23/2017 8:43:08 AM Ordering Physician: Ben Marcelo Final Report: Indication: Sepsis criteria without source of infection. Technique: CT chest, abdomen and pelvis performed without oral or IV contrast. Please note that all CT scans at this facility use dose modulation, iterative reconstruction and/or weight-based dosing when appropriate to reduce radiation dose to as low as reasonably achievable. Comparison: CT chest 01/07/2017. Findings: Right-sided Port-A-Cath. Moderate osteopenia. Moderately advanced diffuse irregular vascular calcifications throughout the body. The density of the bones is abnormal and ground-glass in opacity. Moderate to prominent compression fracture deformities in the thoracic and lumbar spine. Moderate scoliosis. The compression fractures are stable when compared to January. Prominent scoliosis. Mild dilatation of the ascending aorta. Advanced coronary artery calcification. Moderate amount of infiltrate and atelectasis in the left lower lobe posteriorly is new and could be a pneumonia. Postsurgical changes along the esophagus and stomach. Cholecystectomy. Postsurgical changes left humeral head. Multiple old bilateral rib fractures. Small sclerotic foci within the skeleton indeterminate. Mild scarring and atelectasis in the lungs. Mild interstitial prominence in the lungs. A few tiny nodules in the lungs stable. Moderate pneumobilia. The density of the liver is increased which is a nonspecific finding which can be seen related to various parenchymal diseases and/or cardiac medications. Clinical correlation recommended. Small hepatic cyst stable. Pneumobilia stable. Spleen is absent. Moderate dilatation of the pancreatic duct in the body and tail of pancreas. The head, uncinate process and neck of the pancreas is not well seen or may be surgically absent. Left pelvic transplant kidney. Stone catheter within the urinary bladder which is irregular in shape and has a thick wall with slight stranding about it. Inflammation of the urinary bladder cannot be excluded. Small extension of the right lower urinary bladder into a right inguinal hernia. The [place] kidneys are not seen. Postsurgical changes throughout the abdomen and pelvis. Portions of the colon have been resected. Apparent ileal colonic anastomosis in the abdomen and pelvis. Mildly dilated small bowel loops with air-fluid level could be an ileus. Remainder negative. Impression: 1. New focal area of infiltrate and atelectasis in the left lower lobe. Not mentioned above is a similar but less prominent area of opacity in the right lower lobe which is new. Developing bibasilar pneumonia cannot be excluded. 2. Stone catheter in a mildly thick walled irregular urinary bladder which contains air in its lumen and has some surrounding stranding. Bladder inflammation not excluded. 3. Extensive postsurgical changes in the abdomen and pelvis. 4. Moderate dilatation of the pancreatic duct with portion of pancreas being resected. The dilatation of pancreatic duct is slightly more prominent. 5. Advanced vascular calcifications. 6. Abnormal density of the bones with multiple compression fractures. 7. Left pelvic transplant kidney. 8. Postsurgical changes involving the colon and small bowel. 9. Mildly dilated bowel loop in the mid and upper abdomen anteriorly likely related to an ileus. 10. A few small nodules in the lungs. 11. Pneumobilia. Other findings as above. Please note that all CT scans at this facility use dose modulation, iterative reconstruction, and/or weight-based dosing when appropriate to reduce radiation dose to as low as reasonably achievable. Dictated by Kervin Forbes MD @ Jul 25 2017 9:25AM (Electronic Signature) Report Signed by Proxy. [facility]
--- NOTE | 2017-07-28 13:40 | CT ---
EXAM DATE: 07/24/17 PATIENT'S AGE: 61 Patient: ROBSON AZEVEDO Facility: [place], [place] : 1955 Study: CT Abdomen/Pelvis [id number]/23/2017 8:50:14 AM Ordering Physician: Ben Marcelo Final Report: Indication: Sepsis criteria without source of infection. Technique: CT chest, abdomen and pelvis performed without oral or IV contrast. Please note that all CT scans at this facility use dose modulation, iterative reconstruction and/or weight-based dosing when appropriate to reduce radiation dose to as low as reasonably achievable. Comparison: CT chest 01/07/2017. Findings: Right-sided Port-A-Cath. Moderate osteopenia. Moderately advanced diffuse irregular vascular calcifications throughout the body. The density of the bones is abnormal and ground-glass in opacity. Moderate to prominent compression fracture deformities in the thoracic and lumbar spine. Moderate scoliosis. The compression fractures are stable when compared to January. Prominent scoliosis. Mild dilatation of the ascending aorta. Advanced coronary artery calcification. Moderate amount of infiltrate and atelectasis in the left lower lobe posteriorly is new and could be a pneumonia. Postsurgical changes along the esophagus and stomach. Cholecystectomy. Postsurgical changes left humeral head. Multiple old bilateral rib fractures. Small sclerotic foci within the skeleton indeterminate. Mild scarring and atelectasis in the lungs. Mild interstitial prominence in the lungs. A few tiny nodules in the lungs stable. Moderate pneumobilia. The density of the liver is increased which is a nonspecific finding which can be seen related to various parenchymal diseases and/or cardiac medications. Clinical correlation recommended. Small hepatic cyst stable. Pneumobilia stable. Spleen is absent. Moderate dilatation of the pancreatic duct in the body and tail of pancreas. The head, uncinate process and neck of the pancreas is not well seen or may be surgically absent. Left pelvic transplant kidney. Stone catheter within the urinary bladder which is irregular in shape and has a thick wall with slight stranding about it. Inflammation of the urinary bladder cannot be excluded. Small extension of the right lower urinary bladder into a right inguinal hernia. The [place] kidneys are not seen. Postsurgical changes throughout the abdomen and pelvis. Portions of the colon have been resected. Apparent ileal colonic anastomosis in the abdomen and pelvis. Mildly dilated small bowel loops with air-fluid level could be an ileus. Remainder negative. Impression: 1. New focal area of infiltrate and atelectasis in the left lower lobe. Not mentioned above is a similar but less prominent area of opacity in the right lower lobe which is new. Developing bibasilar pneumonia cannot be excluded. 2. Stone catheter in a mildly thick walled irregular urinary bladder which contains air in its lumen and has some surrounding stranding. Bladder inflammation not excluded. 3. Extensive postsurgical changes in the abdomen and pelvis. 4. Moderate dilatation of the pancreatic duct with portion of pancreas being resected. The dilatation of pancreatic duct is slightly more prominent. 5. Advanced vascular calcifications. 6. Abnormal density of the bones with multiple compression fractures. 7. Left pelvic transplant kidney. 8. Postsurgical changes involving the colon and small bowel. 9. Mildly dilated bowel loop in the mid and upper abdomen anteriorly likely related to an ileus. 10. A few small nodules in the lungs. 11. Pneumobilia. Other findings as above. Please note that all CT scans at this facility use dose modulation, iterative reconstruction, and/or weight-based dosing when appropriate to reduce radiation dose to as low as reasonably achievable. Dictated by Kervin Forbes MD @ Jul 25 2017 9:25AM (Electronic Signature) Report Signed by Proxy. [facility]
[2017-07-28] MEDS: Temazepam 15 MG Cap PO PRN (22:16)
[2017-07-29] MEDS ORDERED: Sodium Chloride 0.9% 500 ML IV SCH (01:00)
[2017-07-29] MEDS: Albuterol/Ipratropium 3.0-0.5 MG/3 ML Neb Soln NEB SCH ×6 (01:06→21:10)
[2017-07-29] MEDS: Piperacillin/Tazobactam 3.375 GM in Sodium Chloride 0.9% 50 ML IV SCH ×4 (02:10→21:06)
[2017-07-29] MEDS: oxyCODONE 5 MG Tab PO PRN ×3 (02:14→21:04)
[2017-07-29] MEDS: Heparin Sodium 5,000 Units/ML Vial SUBCUT SCH ×3 (04:17→21:07)
[2017-07-29 05:54] LABS: CHLORIDE,CL 104 mmol/L (98-110); SODIUM,NA 140 mmol/L (136-146)
[2017-07-29] MEDS: Levothyroxine 75 MCG Tab PO SCH (06:30)
[2017-07-29] MEDS ORDERED: Sodium Chloride 0.9% 1,000 ML IV ONE (07:50)
[2017-07-29] MEDS: predniSONE 5 MG Tab PO SCH (07:59)
[2017-07-29] MEDS: Calcium Carbonate 500 MG Tab.Chew PO SCH ×2 (07:59→21:04)
--- NOTE | 2017-07-29 08:00 | PCM.PN ---
- General Info Date of Service: 07/29/17 Admission Dx/Problem (Free Text): Admission Diagnosis/Problem Admission Diagnosis/Problem Dyspnea Subjective Update: Patient had episode of hypotension requiring bolus of IVF yesterday evening. His sob continues to improve. He still feels weak. - Review of Systems General: Reports: Weakness HEENT: Reports: No Symptoms Pulmonary: Reports: Shortness of Breath Cardiovascular: Reports: No Symptoms Gastrointestinal: Reports: No Symptoms Genitourinary: Reports: No Symptoms Musculoskeletal: Reports: No Symptoms Skin: Reports: No Symptoms Neurological: Reports: No Symptoms Psychiatric: Reports: No Symptoms - Patient Data Vitals - Most Recent: Last Vital Signs Temp 36.8 C 07/29/17 04:00 Pulse 85 07/29/17 06:40 Resp 16 07/29/17 04:00 BP 84/55 L 07/29/17 06:40 Pulse Ox 95 07/29/17 04:00 Weight - Most Recent: 38.5 kg I&O - Last 24 Hours: Intake & Output 07/28/17 07/29/17 07/29/17 22:59 06:59 14:59 Intake Total 711 1614 Output Total 3750 1250 Balance -3039 364 Lab Results Last 24 Hours: Laboratory Results - last 24 hr 07/29/17 07/29/17 Range/Units 05:03 05:03 WBC 9.34 (4.0-11.0) K/uL RBC 2.41 L (4.50-5.90) M/uL Hgb 9.5 L (13.0-17.0) g/dL Hct 27.6 L (38.0-50.0) % MCV 114.5 H (80.0-98.0) fL MCH 39.4 H (27.0-32.0) pg MCHC 34.4 (31.0-37.0) g/dL RDW Std Deviation 80.2 H (28.0-62.0) fl RDW Coeff of Brianna 20 H (11.0-15.0) % Plt Count 310 (150-400) K/uL MPV 10.70 (7.40-12.00) fL Neut % (Auto) 52.0 (48.0-80.0) % Lymph % (Auto) 35.7 (16.0-40.0) % [place] % (Auto) 10.9 (0.0-15.0) % Eos % (Auto) 1.2 (0.0-7.0) % Baso % (Auto) 0.2 (0.0-1.5) % Neut # (Auto) 4.9 (1.4-5.7) K/uL Lymph # (Auto) 3.3 H (0.6-2.4) K/uL [place] # (Auto) 1.0 H (0.0-0.8) K/uL Eos # (Auto) 0.1 (0.0-0.7) K/uL Baso # (Auto) 0.0 (0.0-0.1) K/uL Nucleated RBC % 0.3 /100WBC Nucleated RBCs # 0 K/uL Sodium 140 (136-146) mmol/L Potassium 4.5 (3.5-5.1) mmol/L Chloride 104 (98-110) mmol/L Carbon Dioxide 29 (21-31) mmol/L BUN 16 (6.0-23.0) mg/dL Creatinine 0.8 (0.6-1.5) mg/dL Est Cr Clr Drug Dosing 54.14 mL/min Estimated GFR (MDRD) > 60.0 ml/min Glucose 97 (60-110) mg/dL Calcium 8.0 L (8.8-10.8) mg/dL Magnesium 1.7 (1.5-2.3) mEq/L Total Bilirubin 0.8 (0.1-1.5) mg/dL AST 21 (5-40) IU/L ALT 30 (8-54) IU/L Alkaline Phosphatase 93 (40-150) Total Protein 4.8 L (6.0-8.0) g/dL Albumin 3.0 L (3.5-5.0) g/dL Globulin 1.8 L (2.0-3.5) g/dL Albumin/Globulin Ratio 1.7 (1.3-2.8) Med Orders - Current: Current Medications Acetaminophen (Tylenol) 650 mg PO Q4H PRN PRN Reason: Pain (Mild 1-3)/fever Last Admin: 07/27/17 09:35 Dose: 650 mg Albuterol/Ipratropium (Duoneb 3.0-0.5 Mg/3 Ml) 3 ml NEB Q4HRRT [facility] Last Admin: 07/29/17 06:32 Dose: 3 ml Calcium Carbonate/Glycine (Tums) 1,000 mg PO BID [facility] Last Admin: 07/28/17 20:05 Dose: 1,000 mg Docusate Sodium (Colace) 100 mg PO BID PRN PRN Reason: Constipation Last Admin: 07/24/17 20:52 Dose: 100 mg Heparin Sodium (Porcine) (Heparin Sodium) 5,000 units SUBCUT Q8H [facility] Last Admin: 07/29/17 04:17 Dose: 5,000 units Piperacillin Sod/Tazobactam (Sod 3.375 gm/ Sodium Chloride) 50 mls @ 100 mls/ hr IV Q6H [facility] Last Admin: 07/29/17 02:10 Dose: 100 mls/hr Levofloxacin/Dextrose 750 mg/ (Premix) 150 mls @ 100 mls/hr IV Q24H [facility] Last Admin: 07/28/17 13:04 Dose: 100 mls/hr Sodium Chloride (Normal Saline) 500 mls @ 999 mls/hr IV .BOLUS [facility] Last Admin: 07/29/17 01:01 Dose: 999 mls/hr Sodium Chloride (Normal Saline) 1,000 mls @ 125 mls/hr IV .BOLUS ONE Stop: 07/29/17 15:49 Levothyroxine Sodium (Levothyroxine) 75 mcg PO ACBREAKFAST [facility] Last Admin: 07/29/17 06:30 Dose: 75 mcg Ondansetron HCl (Zofran) 4 mg IVPUSH Q6H PRN PRN Reason: Nausea/Vomiting Last Admin: 07/24/17 20:51 Dose: 4 mg Oxycodone HCl (Oxycodone) 5 mg PO Q4H PRN PRN Reason: Pain (moderate 4-6) Last Admin: 07/29/17 02:14 Dose: 5 mg Prednisone (Prednisone) 5 mg PO DAILY [facility] Last Admin: 07/28/17 08:10 Dose: 5 mg Temazepam (Restoril) 15 mg PO BEDTIME PRN PRN Reason: Insomnia Last Admin: 07/28/17 22:16 Dose: 15 mg Discontinued Medications Albuterol/Ipratropium (Duoneb 3.0-0.5 Mg/3 Ml) 3 ml NEB ONETIME ONE Stop: 07/24/17 16:42 Last Admin: 07/24/17 16:52 Dose: 3 ml Furosemide (Lasix) 40 mg IVPUSH ONETIME ONE Stop: 07/28/17 13:01 Last Admin: 07/28/17 13:36 Dose: 40 mg Levofloxacin/Dextrose 750 mg/ (Premix) 150 mls @ 100 mls/hr IV ONETIME ONE Stop: 07/24/17 19:31 Last Admin: 07/24/17 21:06 Dose: Not Given Vancomycin HCl 1 gm/ Sodium (Chloride) 250 mls @ 250 mls/hr IV ONETIME ONE Stop: 07/24/17 19:01 Last Admin: 07/24/17 18:27 Dose: 250 mls/hr Sodium Chloride (Normal Saline) 1,000 mls @ 75 mls/hr IV ASDIRECTED [facility] Last Admin: 07/25/17 13:50 Dose: 75 mls/hr Levofloxacin/Dextrose 500 mg/ (Premix) 100 mls @ 100 mls/hr IV ONETIME ONE Stop: 07/24/17 21:28 Last Admin: 07/24/17 21:35 Dose: 100 mls/hr Levofloxacin/Dextrose (Levaquin In D5w 750 Mg/150 Ml) Confirm Administered Dose 150 mls @ as directed IV .STK-MED ONE Stop: 07/24/17 20:32 Last Admin: 07/24/17 21:07 Dose: Not Given Vancomycin HCl 1,000 mg/ (Dextrose/Water) 250 mls @ 166.667 mls/hr IV Q12H [facility] Last Admin: 07/25/17 10:44 Dose: Not Given Vancomycin HCl 1 gm/ Sodium (Chloride) 250 mls @ 166.667 mls/hr IV Q12H [facility] Last Admin: 07/26/17 22:15 Dose: 166.667 mls/hr Levofloxacin/Dextrose 250 mg/ (Premix) 50 mls @ 50 mls/hr IV Q24H [facility] Last Admin: 07/25/17 20:48 Dose: 50 mls/hr Sodium Chloride (Normal Saline) 500 mls @ 999 mls/hr IV .BOLUS [facility] Last Admin: 07/26/17 00:15 Dose: 999 mls/hr Levofloxacin/Dextrose 500 mg/ (Premix) 100 mls @ 100 mls/hr IV ONETIME ONE Stop: 12/24/17 09:44 Last Admin: 07/26/17 09:11 Dose: 100 mls/hr Vancomycin HCl 1 gm/ Sodium (Chloride) 250 mls @ 250 mls/hr IV Q24H [facility] Last Admin: 07/27/17 22:52 Dose: 250 mls/hr Sodium Chloride (Normal Saline) 500 mls @ 999 mls/hr IV .BOLUS [facility] Last Admin: 07/27/17 11:40 Dose: 999 mls/hr Sodium Chloride (Normal Saline) Confirm Administered Dose 250 mls @ as directed .ROUTE .STK-MED ONE Stop: 07/27/17 22:02 Last Admin: 07/27/17 22:11 Dose: Not Given Sodium Chloride (Normal Saline) 1,000 mls @ 100 mls/hr IV .BOLUS ONE Stop: 07/28/17 19:27 Last Admin: 07/28/17 10:12 Dose: 100 mls/hr Magnesium Sulfate 4 gm/ Premix 100 mls @ 50 mls/hr IV ONETIME ONE Stop: 07/28/17 12:21 Last Admin: 07/28/17 10:44 Dose: 50 mls/hr Levothyroxine Sodium (Levothyroxine) 75 mcg PO DAILY [facility] Last Admin: 07/25/17 08:45 Dose: 75 mcg Methylprednisolone Sodium Succinate (Solu-Medrol) 125 mg IVPUSH ONETIME ONE Stop: 07/24/17 16:42 Last Admin: 07/24/17 17:09 Dose: 125 mg Morphine Sulfate (Morphine) 2 mg IVPUSH Q2H PRN PRN Reason: Pain (severe 7-10) Stop: 07/25/17 20:16 Last Admin: 07/25/17 17:05 Dose: 2 mg Vancomycin HCl (Pharmacy To Dose - Vancomycin) 1 dose .XX ASDIRECTED [facility] - Exam General: Alert, Oriented, Cooperative, No Acute Distress HEENT: Pupils Equal, Pupils Reactive Neck: Supple, No JVD Lungs: Normal Respiratory Effort, Decreased Breath Sounds Cardiovascular: Regular Rate, Regular Rhythm GI/Abdominal Exam: Normal Bowel Sounds, Soft, Non-Tender, No Distention Extremities: Non-Tender, No Pedal Edema Peripheral Pulses: 2+: Radial (L), Radial (R) Skin: Intact Neurological: No New Focal Deficit - Problem List Review Problem List Initiated/Reviewed/Updated: Yes - My Orders Last 24 Hours: My Active Orders 07/29/17 07:50 Sodium Chloride 0.9% [Normal Saline] 1,000 ml IV .BOLUS 07/30/17 05:11 CBC WITH AUTO DIFF [HEME] AM COMPREHENSIVE METABOLIC PN,CMP [CHEM] AM MAGNESIUM [CHEM] AM 07/31/17 05:11 CBC WITH AUTO DIFF [HEME] AM COMPREHENSIVE METABOLIC PN,CMP [CHEM] AM MAGNESIUM [CHEM] AM - Plan Plan:: 61 yo male admitted 07/24/17 for sepsis with pmh of left kidney transplant, COPD , chronic pulmonary nodules, and hypothyroidism #Sepsis, likely secondary to Pneumonia, improving -Blood Cultures NGTD, Port Cultures NGTD, UC negative -on Levaquin/Zosyn plan: -continue Levaquin & Zosyn -DC Stone today and encourage ambulation #GNR Pneumonia, improving -hypoxia resolved -on Levaquin/Zosyn -as per above #Hypotension -SBP ranging 70-100 throughout admission -holding home Lasix plan: -administer IV NS 1L bolus #Left Kidney Transplant & Chronic Immunosuppression secondary to daily prednisone: -resumed home Prednisone 5 mg QD on 07/26 -home Lasix 20 mg QD held due hypotension plan: -continue to hold home lasix #Right Sided Port-A-Cath -Patient states port has been in place since 2009. Denies it being ever changed. States it was put in because of difficulty drawing blood. -Port cultures NGTD #Hyperkalermia, corrected -monitor K+ #Hypomagnasemia, corrected -monitor #Suprapubic Tenderness, resolved -Urine Culture negative #COPD, Stable -Continue Duonebs #Pulmonary Nodules, stable -outpatient f/u VTE Proph: SCD, Heparin Code: full Dispo: tomorrow pending
[2017-07-29] MEDS: Levofloxacin/Dextrose 5%-Water 750 MG in Premix Bag 1 BAG IV SCH (10:24)
[2017-07-29] MEDS ORDERED: Calcium Carbonate 500 MG Tab.Chew PO ONE (13:00)
[2017-07-29] MEDS: Temazepam 15 MG Cap PO PRN (22:19)
[2017-07-30] MEDS: Albuterol/Ipratropium 3.0-0.5 MG/3 ML Neb Soln NEB SCH ×3 (02:09→09:53)
[2017-07-30] MEDS: Piperacillin/Tazobactam 3.375 GM in Sodium Chloride 0.9% 50 ML IV SCH ×2 (02:12→08:10)
[2017-07-30] MEDS: Heparin Sodium 5,000 Units/ML Vial SUBCUT SCH (04:21)
[2017-07-30] MEDS: Levothyroxine 75 MCG Tab PO SCH (06:44)
[2017-07-30 07:34] LABS: CHLORIDE,CL 105 mmol/L (98-110); SODIUM,NA 138 mmol/L (136-146)
[2017-07-30] MEDS: Calcium Carbonate 500 MG Tab.Chew PO SCH (08:09)
[2017-07-30] MEDS: predniSONE 5 MG Tab PO SCH (08:09)
[2017-07-30] MEDS: oxyCODONE 5 MG Tab PO PRN (08:21)
[2017-07-30 08:56] VITALS: BP 95/68
--- NOTE | 2017-07-30 10:28 | PCM.DCSUM1 ---
Discharge Summary - Hospital Course Free Text/Narrative:: 61 yo male with history of COPD, Left Kidney transplant, chronic immunosuppression secondary to Prednisone use and Right sided port-a-cath admitted on 07/24/17 for sepsis. At admission he had hypoxia, hypotension and leukocytosis. Initial CXR and UA were suggestive of but not confirmatory for infectious process. Patient had longstanding right sided portacath in place which was also potential source for infection. Blood cultures and port cultures were obtained. He was started on IVF, Levaquin, Zosyn and Vancomycin. CT chest was done which did reveal pneumonia. Patient improved as expected, his blood cultures and port cultures were NGTD and antibiotics were de-escalated. He was discharged home on 07/30/17. He will f/u with his PCP Dr. Mueller. He was also referred to general surgery to discuss removal of his port since it is not used for any regular medication of blood draws. Discharge diagnosis/plan #GNR Pneumonia, improved -discharge home on Levaquin 750 mg PO QD for 3 days starting 07/31/17 -f/u with PCP #Right Sided Port-A-Cath -Patient states port has been in place since 2009. Denies it being ever changed. States it was put in because of difficulty drawing blood -f/u with general surgery to discuss removing since he is not needing regular blood draws #Sepsis -secondary to Pneumonia -Blood Cultures NGTD, Port Cultures NGTD, UC negative -discharge home on Levaquin 750 mg PO QD for 3 days starting 07/31/17 -f/u with PCP #Hypotension, improved -f/u with pcp #Left Kidney Transplant & Chronic Immunosuppression secondary to daily prednisone: -resumed home Prednisone and Lasix #COPD, Stable -resume hoem meds #Pulmonary Nodules, stable -f/u with pcp #Suprapubic Tenderness, resolved -Urine Culture negative - Discharge Data Discharge Date: 07/30/17 Discharge Disposition: Home, Self-Care 01 Condition: Good - Patient Instructions Diet: Usual Diet as Tolerated Activity: As Tolerated Notify Provider of: Fever, Increased Pain, Swelling and Redness, Drainage, Nausea and/or Vomiting - Discharge Plan Prescriptions/Med Rec: Levofloxacin 750 mg PO DAILY 3 Days #3 tablet Home Medications: Home Meds Furosemide 20 mg PO DAILY 12/06/15 [History] Levothyroxine 75 mcg PO ACBREAKFAST 12/06/15 [History] predniSONE [Prednisone] 5 mg PO DAILY 12/06/15 [History] Alendronate Sodium [Fosamax] 70 mg PO Q7D 12/07/15 [History] Zolpidem [Ambien] 10 mg PO BEDTIME PRN 12/07/15 [History] Levofloxacin 750 mg PO DAILY 3 Days #3 tablet 07/30/17 [Rx] Patient Handouts: Shortness of Breath, [id number] Referrals: Clint Holley MD [Physician] - 08/07/17 11:15 am Ashutosh Mueller MD [Primary Care Provider] - 08/06/17 8:30 am - Discharge Summary/Plan Comment DC Time >30 min.: No - Patient Data Vitals - Most Recent: Last Vital Signs Temp 37.1 C 07/30/17 08:00 Pulse 94 07/30/17 08:00 Resp 16 07/30/17 08:00 BP 95/68 07/30/17 08:00 Pulse Ox 94 L 07/30/17 08:00 Weight - Most Recent: 38.5 kg I&O - Last 24 hours: Intake & Output 07/29/17 07/30/17 07/30/17 22:59 06:59 14:59 Intake Total 650 200 240 Output Total 270 700 275 Balance 380 -500 -35 Lab Results - Last 24 hrs: Laboratory Results - last 24 hr 07/30/17 07/30/17 Range/Units 06:07 06:50 WBC 10.31 (4.0-11.0) K/uL RBC 2.31 L (4.50-5.90) M/uL Hgb 9.0 L (13.0-17.0) g/dL Hct 26.1 L (38.0-50.0) % MCV 113.0 H (80.0-98.0) fL MCH 39.0 H (27.0-32.0) pg MCHC 34.5 (31.0-37.0) g/dL RDW Std Deviation 77.5 H (28.0-62.0) fl RDW Coeff of Brianna 19 H (11.0-15.0) % Plt Count 320 (150-400) K/uL MPV 10.60 (7.40-12.00) fL Neut % (Auto) 38.7 L (48.0-80.0) % Lymph % (Auto) 47.9 H (16.0-40.0) % [place] % (Auto) 11.8 (0.0-15.0) % Eos % (Auto) 1.4 (0.0-7.0) % Baso % (Auto) 0.2 (0.0-1.5) % Neut # (Auto) 4.0 (1.4-5.7) K/uL Lymph # (Auto) 4.9 H (0.6-2.4) K/uL [place] # (Auto) 1.2 H (0.0-0.8) K/uL Eos # (Auto) 0.1 (0.0-0.7) K/uL Baso # (Auto) 0.0 (0.0-0.1) K/uL Nucleated RBC % 0.0 /100WBC Nucleated RBCs # 0 K/uL Sodium 138 (136-146) mmol/L Potassium 4.6 (3.5-5.1) mmol/L Chloride 105 (98-110) mmol/L Carbon Dioxide 27 (21-31) mmol/L BUN 12 (6.0-23.0) mg/dL Creatinine 0.8 (0.6-1.5) mg/dL Est Cr Clr Drug Dosing 54.14 mL/min Estimated GFR (MDRD) > 60.0 ml/min Glucose 83 (60-110) mg/dL Calcium 9.1 (8.8-10.8) mg/dL Magnesium 1.3 L (1.5-2.3) mEq/L Total Bilirubin 1.0 (0.1-1.5) mg/dL AST 18 (5-40) IU/L ALT 27 (8-54) IU/L Alkaline Phosphatase 97 (40-150) Total Protein 4.8 L (6.0-8.0) g/dL Albumin 3.1 L (3.5-5.0) g/dL Globulin 1.7 L (2.0-3.5) g/dL Albumin/Globulin Ratio 1.8 (1.3-2.8) Med Orders - Current: Current Medications Acetaminophen (Tylenol) 650 mg PO Q4H PRN PRN Reason: Pain (Mild 1-3)/fever Last Admin: 07/27/17 09:35 Dose: 650 mg Albuterol/Ipratropium (Duoneb 3.0-0.5 Mg/3 Ml) 3 ml NEB Q4HRRT [facility] Last Admin: 07/30/17 09:53 Dose: 3 ml Calcium Carbonate/Glycine (Tums) 1,000 mg PO BID [facility] Last Admin: 07/30/17 08:09 Dose: 1,000 mg Docusate Sodium (Colace) 100 mg PO BID PRN PRN Reason: Constipation Last Admin: 07/24/17 20:52 Dose: 100 mg Heparin Sodium (Porcine) (Heparin Sodium) 5,000 units SUBCUT Q8H [facility] Last Admin: 07/30/17 04:21 Dose: 5,000 units Piperacillin Sod/Tazobactam (Sod 3.375 gm/ Sodium Chloride) 50 mls @ 100 mls/ hr IV Q6H [facility] Last Admin: 07/30/17 08:10 Dose: 100 mls/hr Levofloxacin/Dextrose 750 mg/ (Premix) 150 mls @ 100 mls/hr IV Q24H [facility] Last Admin: 07/29/17 10:24 Dose: 100 mls/hr Sodium Chloride (Normal Saline) 500 mls @ 999 mls/hr IV .BOLUS [facility] Last Admin: 07/29/17 01:01 Dose: 999 mls/hr Levothyroxine Sodium (Levothyroxine) 75 mcg PO ACBREAKFAST [facility] Last Admin: 07/30/17 06:44 Dose: 75 mcg Ondansetron HCl (Zofran) 4 mg IVPUSH Q6H PRN PRN Reason: Nausea/Vomiting Last Admin: 07/24/17 20:51 Dose: 4 mg Oxycodone HCl (Oxycodone) 5 mg PO Q4H PRN PRN Reason: Pain (moderate 4-6) Last Admin: 07/30/17 08:21 Dose: 5 mg Prednisone (Prednisone) 5 mg PO DAILY [facility] Last Admin: 07/30/17 08:09 Dose: 5 mg Temazepam (Restoril) 15 mg PO BEDTIME PRN PRN Reason: Insomnia Last Admin: 07/29/17 22:19 Dose: 15 mg Discontinued Medications Albuterol/Ipratropium (Duoneb 3.0-0.5 Mg/3 Ml) 3 ml NEB ONETIME ONE Stop: 07/24/17 16:42 Last Admin: 07/24/17 16:52 Dose: 3 ml Calcium Carbonate/Glycine (Tums) 1,000 mg PO ONETIME ONE Stop: 07/29/17 13:01 Last Admin: 07/29/17 13:32 Dose: Not Given Furosemide (Lasix) 40 mg IVPUSH ONETIME ONE Stop: 07/28/17 13:01 Last Admin: 07/28/17 13:36 Dose: 40 mg Levofloxacin/Dextrose 750 mg/ (Premix) 150 mls @ 100 mls/hr IV ONETIME ONE Stop: 07/24/17 19:31 Last Admin: 07/24/17 21:06 Dose: Not Given Vancomycin HCl 1 gm/ Sodium (Chloride) 250 mls @ 250 mls/hr IV ONETIME ONE Stop: 07/24/17 19:01 Last Admin: 07/24/17 18:27 Dose: 250 mls/hr Sodium Chloride (Normal Saline) 1,000 mls @ 75 mls/hr IV ASDIRECTED [facility] Last Admin: 07/25/17 13:50 Dose: 75 mls/hr Levofloxacin/Dextrose 500 mg/ (Premix) 100 mls @ 100 mls/hr IV ONETIME ONE Stop: 07/24/17 21:28 Last Admin: 07/24/17 21:35 Dose: 100 mls/hr Levofloxacin/Dextrose (Levaquin In D5w 750 Mg/150 Ml) Confirm Administered Dose 150 mls @ as directed IV .STK-MED ONE Stop: 07/24/17 20:32 Last Admin: 07/24/17 21:07 Dose: Not Given Vancomycin HCl 1,000 mg/ (Dextrose/Water) 250 mls @ 166.667 mls/hr IV Q12H [facility] Last Admin: 07/25/17 10:44 Dose: Not Given Vancomycin HCl 1 gm/ Sodium (Chloride) 250 mls @ 166.667 mls/hr IV Q12H [facility] Last Admin: 07/26/17 22:15 Dose: 166.667 mls/hr Levofloxacin/Dextrose 250 mg/ (Premix) 50 mls @ 50 mls/hr IV Q24H [facility] Last Admin: 07/25/17 20:48 Dose: 50 mls/hr Sodium Chloride (Normal Saline) 500 mls @ 999 mls/hr IV .BOLUS [facility] Last Admin: 07/26/17 00:15 Dose: 999 mls/hr Levofloxacin/Dextrose 500 mg/ (Premix) 100 mls @ 100 mls/hr IV ONETIME ONE Stop: 07/26/17 09:44 Last Admin: 07/26/17 09:11 Dose: 100 mls/hr Vancomycin HCl 1 gm/ Sodium (Chloride) 250 mls @ 250 mls/hr IV Q24H [facility] Last Admin: 07/27/17 22:52 Dose: 250 mls/hr Sodium Chloride (Normal Saline) 500 mls @ 999 mls/hr IV .BOLUS [facility] Last Admin: 07/27/17 11:40 Dose: 999 mls/hr Sodium Chloride (Normal Saline) Confirm Administered Dose 250 mls @ as directed .ROUTE .STK-MED ONE Stop: 07/27/17 22:02 Last Admin: 07/27/17 22:11 Dose: Not Given Sodium Chloride (Normal Saline) 1,000 mls @ 100 mls/hr IV .BOLUS ONE Stop: 07/28/17 19:27 Last Admin: 07/28/17 10:12 Dose: 100 mls/hr Magnesium Sulfate 4 gm/ Premix 100 mls @ 50 mls/hr IV ONETIME ONE Stop: 07/28/17 12:21 Last Admin: 07/28/17 10:44 Dose: 50 mls/hr Sodium Chloride (Normal Saline) 1,000 mls @ 125 mls/hr IV .BOLUS ONE Stop: 07/29/17 15:49 Last Admin: 07/29/17 07:59 Dose: 125 mls/hr Levofloxacin/Dextrose 750 mg/ (Premix) 150 mls @ as directed IV .STK-MED ONE Stop: 07/27/17 09:41 Levofloxacin/Dextrose 750 mg/ (Premix) 150 mls @ as directed IV .STK-MED ONE Stop: 07/28/17 09:41 Levothyroxine Sodium (Levothyroxine) 75 mcg PO DAILY [facility] Last Admin: 07/25/17 08:45 Dose: 75 mcg Methylprednisolone Sodium Succinate (Solu-Medrol) 125 mg IVPUSH ONETIME ONE Stop: 07/24/17 16:42 Last Admin: 07/24/17 17:09 Dose: 125 mg Morphine Sulfate (Morphine) 2 mg IVPUSH Q2H PRN PRN Reason: Pain (severe 7-10) Stop: 07/25/17 20:16 Last Admin: 07/25/17 17:05 Dose: 2 mg Vancomycin HCl (Pharmacy To Dose - Vancomycin) 1 dose .XX ASDIRECTED [facility] *Q Meaningful Use (DIS) - VTE *Q VTE Criteria *Q: - Stroke *Q Stroke Criteria *Q: - AMI *Q AMI Criteria *Q:
[2017-07-30] MEDS ORDERED: Levofloxacin 250 MG Tab PO ONE (10:35)
== END 2017-07-30 11:30 | disposition home or self-care (01) | DRG 871 ==
LOC: MW.ED 16:39 → MW.MS 19:10 → UNDODISIN 07-27 18:05
PROVIDERS: ADMIT Family Medicine; ATTEND Family Medicine
DX: R06.00 Dyspnea, unspecified (principal); A41.50 Gram-negative sepsis, unspecified; R65.21 Severe sepsis with septic shock; I50.9 Heart failure, unspecified; J18.9 Pneumonia, unspecified organism; G89.29 Other chronic pain; M54.9 Dorsalgia, unspecified; Z94.0 Kidney transplant status; N30.00 Acute cystitis without hematuria; I95.9 Hypotension, unspecified; J44.9 Chronic obstructive pulmonary disease, unspecified; R00.0 Tachycardia, unspecified; R10.819 Abdominal tenderness, unspecified site; H91.90 Unspecified hearing loss, unspecified ear; E03.9 Hypothyroidism, unspecified; E87.5 Hyperkalemia; E83.42 Hypomagnesemia; D72.829 Elevated white blood cell count, unspecified; R91.8 Other nonspecific abnormal finding of lung field; Z79.899 Other long term (current) drug therapy; Z88.8 Allergy status to other drugs, medicaments and biological substances
CPT/HCPCS: 36415; 36600; 71010; 80053; 82803; 83605; 84484; 85025; 85610; 87040 ×2; 87804 ×2; 93005 ×2; 94640; 96365; 96375; 99285; J2930; J3370; J7050; 51702; 71250; 71250-26; 74176; 74176-26; 80202; 81001; 83735; 87086; 99283; A9270-GY; J1642; J1644; J1956; J2270; J2405; J2543; J3475; J7040

== ENCOUNTER 2017-11-29 22:14 | Inpatient (IN) | payer MEDICAID ==
[2017-11-29] MEDS ORDERED: Albuterol/Ipratropium 3.0-0.5 MG/3 ML Neb Soln NEB ONE (22:28)
[2017-11-29] MEDS ORDERED: Sodium Chloride 0.9% 2.5 ML Syringe FLUSH PRN (22:28)
[2017-11-29] MEDS ORDERED: methylPREDNISolone Sodium Succinate 125 MG/2 ML SDV IVPUSH ONE (22:28)
[2017-11-29] MEDS ORDERED: Sodium Chloride 0.9% 10 ML Syringe FLUSH PRN (22:28)
[2017-11-29] MEDS ORDERED: Sodium Chloride 0.9% 1,000 ML IV SCH (22:30)
--- NOTE | 2017-11-29 22:32 | EDM.PDOC ---
ED HPI GENERAL MEDICAL PROBLEM - General Chief Complaint: Respiratory Problem Stated Complaint: DIFFICULTY BREATHING Time Seen by Provider: 11/29/17 22:27 - History of Present Illness INITIAL COMMENTS - FREE TEXT/NARRATIVE: HISTORY AND PHYSICAL: History of present illness: Patient 61-year-old white male with an extensive pulmonary history of advanced COPD who presents with concern of shortness of breath he denies chest pain nausea vomiting fever chills or other complaints Review of systems: As per history of present illness and below otherwise all systems reviewed and negative. Past medical history: As per history of present illness and as reviewed below otherwise noncontributory. Surgical history: As per history of present illness and as reviewed below otherwise noncontributory. Social history: No reported history of drug or alcohol abuse. Family history: As per history of present illness and as reviewed below otherwise noncontributory. Physical exam: HEENT: Atraumatic, normocephalic, pupils reactive, negative for conjunctival pallor or scleral icterus, mucous membranes moist, throat clear, neck supple, nontender, trachea midline. Lungs: Rare N Lita wheezing slightly coarse diminished , breath sounds equal bilaterally, chest nontender. Heart: S1S2, regular, negative for clicks, rubs, or JVD. Abdomen: Soft, nondistended, nontender. Negative for masses or hepatosplenomegaly. Negative for costovertebral tenderness. Pelvis: Stable nontender. Genitourinary: Deferred. Rectal: Deferred. Extremities: Atraumatic, negative for cords or calf pain. Neurovascular unremarkable. Neuro: Awake, alert, orientedFollows commands moves extremities limited but grossly nonfocal exam Diagnostics: CBC CMP troponin PT/INR chest x-ray EKG[] Therapeutics: IV O2 monitor albuterol ipratropium nebulizer Solu-Medrol 125 mg IV[] Impression: #1 COPD with exacerbation #2 dyspnea Definitive disposition and diagnosis as appropriate pending reevaluation and review of above. - Related Data Allergies Allergy/AdvReac Type Severity Reaction Status Date / Time nifedipine [From Procardia] Allergy Itching Verified 11/29/17 22:47 muscle relaxant medicine? Allergy Itching Uncoded 11/29/17 22:47 Home Meds: Home Meds Furosemide 20 mg PO DAILY 12/06/15 [History] Levothyroxine 75 mcg PO ACBREAKFAST 12/06/15 [History] predniSONE [Prednisone] 5 mg PO DAILY 12/06/15 [History] Alendronate Sodium [Fosamax] 70 mg PO Q7D 12/07/15 [History] Zolpidem [Ambien] 10 mg PO BEDTIME PRN 12/07/15 [History] Past Medical History HEENT History: Reports: Other (See Below) Other HEENT History: impaired hearing-with hearing aid on the right ear Cardiovascular History: Reports: Heart Failure Respiratory History: Reports: Asthma, COPD Gastrointestinal History: Reports: None Genitourinary History: Reports: None Musculoskeletal History: Reports: Back Pain, Chronic, Osteoarthritis Neurological History: Reports: None Psychiatric History: Reports: None Endocrine/Metabolic History: Reports: Hypothyroidism Hematologic History: Reports: Anemia, Blood Transfusion(s), Other (See Below) Other Hematologic History: history of low platelet Immunologic History: Reports: None Oncologic (Cancer) History: Reports: Other (See Below) Other Oncologic History: 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 Dermatologic History: Reports: None - Infectious Disease History Infectious Disease History: Reports: Chicken Pox, Measles, Mumps - Past Surgical History GI Surgical History: Reports: Other (See Below) Male Surgical History: Reports: Other (See Below) Endocrine Surgical History: Reports: Other (See Below) Musculoskeletal Surgical History: Reports: Other (See Below) Social & Family History - Family History Family Medical History: Noncontributory HEENT: Reports: None Cardiac: Reports: None - Tobacco Use Smoking Status *Q: Former Smoker Years of Tobacco use: 10 Packs/Tins Daily: 1 Used Tobacco, but Quit: Yes Month/Year Tobacco Last Used: 1986 Second Hand Smoke Exposure: No - Caffeine Use Caffeine Use: Reports: Coffee - Alcohol Use Days Per Week of Alcohol Use: 3 Number of Drinks Per Day: 2 Total Drinks Per Week: 6 - Recreational Drug Use Recreational Drug Use: No - Living Situation & Occupation Living situation: Reports: , with Significant Other ED ROS GENERAL - Review of Systems Review Of Systems: ROS reveals no pertinent complaints other than HPI. ED EXAM, GENERAL - Physical Exam Exam: See Below (See dictation) Course - Vital Signs Last Recorded V/S: Last Vital Signs Temp 37.9 C 11/29/17 22:22 Pulse 109 H 11/29/17 23:40 Resp 19 11/29/17 23:40 BP 108/76 11/29/17 23:40 Pulse Ox 98 11/29/17 23:40 - Orders/Labs/Meds Orders: Active Orders 24 hr Category Date Time Status Cardiac Monitoring [RC] . DIRECTED Care 11/29/17 22:28 Active EKG Documentation Completion [RC] STAT Care 11/29/17 22:28 Active Fecal Occult Blood Collection [RC] ASDIRECTED Care 11/29/17 23:46 Active Oxygen Therapy, ED [RC] ASDIRECTED Care 11/29/17 22:28 Active Pulse Oximetry [RC] ASDIRECTED Care 11/29/17 22:28 Active RT Aerosol Therapy [RC] ASDIRECTED Care 11/29/17 22:29 Active Chest 1V Frontal [CR] Stat Exams 11/29/17 22:28 Taken TYPE AND SCREEN [BBK] Stat Lab 11/29/17 23:32 Received Sodium Chloride 0.9% [Normal Saline] 1,000 ml Med 11/29/17 22:30 Active IV STAT Sodium Chloride 0.9% [Saline Flush] Med 11/29/17 22:28 Active 10 ml FLUSH ASDIRECTED PRN Sodium Chloride 0.9% [Saline Flush] Med 11/29/17 22:28 Active 2.5 ml FLUSH ASDIRECTED PRN Saline Lock Insert [OM.PC] Stat Oth 11/29/17 22:27 Ordered Transfuse Red Blood Cells [COMM] Stat Oth 11/29/17 23:53 Ordered Medication Orders Sodium Chloride (Normal Saline) 1,000 mls @ 125 mls/hr IV STAT [facility] Last Admin: 11/29/17 23:00 Dose: 125 mls/hr Sodium Chloride (Saline Flush) 10 ml FLUSH ASDIRECTED PRN PRN Reason: Keep Vein Open Last Admin: 11/29/17 23:00 Dose: 10 ml Sodium Chloride (Saline Flush) 2.5 ml FLUSH ASDIRECTED PRN PRN Reason: Keep Vein Open Last Admin: 11/29/17 23:00 Dose: 2.5 ml Labs: Laboratory Tests 11/29/17 11/29/17 11/29/17 Range/Units 22:54 22:54 23:14 WBC (4.0-11.0) K/uL RBC (4.50-5.90) M/uL Hgb (13.0-17.0) g/dL Hct (38.0-50.0) % MCV (80.0-98.0) fL MCH (27.0-32.0) pg MCHC (31.0-37.0) g/dL RDW Std Deviation (28.0-62.0) fl RDW Coeff of Brianna (11.0-15.0) % Plt Count (150-400) K/uL MPV (7.40-12.00) fL Neut % (Auto) (48.0-80.0) % Lymph % (Auto) (16.0-40.0) % [place] % (Auto) (0.0-15.0) % Eos % (Auto) (0.0-7.0) % Baso % (Auto) (0.0-1.5) % Neut # (Auto) (1.4-5.7) K/uL Lymph # (Auto) (0.6-2.4) K/uL [place] # (Auto) (0.0-0.8) K/uL Eos # (Auto) (0.0-0.7) K/uL Baso # (Auto) (0.0-0.1) K/uL Nucleated RBC % /100WBC Nucleated RBCs # K/uL INR 1.05 Sodium 137 (136-148) mmol/L Potassium 3.8 (3.5-5.1) mmol/L Chloride 102 (98-107) mmol/L Carbon Dioxide 27.0 (21.0-32.0) mmol/L BUN 18 (7.0-18.0) mg/dL Creatinine 0.9 (0.8-1.3) mg/dL Est Cr Clr Drug Dosing TNP Estimated GFR (MDRD) > 60.0 ml/min Glucose 107 H (74-106) mg/dL Calcium 8.6 (8.5-10.1) mg/dL Total Bilirubin 1.4 H (0.2-1.0) mg/dL AST 19 (15-37) IU/L ALT 26 (14-63) IU/L Alkaline Phosphatase 135 H (46-116) U/L Troponin I < 0.050 (0.000-0.056) ng/mL B-Natriuretic Peptide 730 H (<100) PG/ML Total Protein 6.2 L (6.4-8.2) g/dL Albumin 3.8 (3.4-5.0) g/dL Globulin 2.4 (2.0-3.5) g/dL Albumin/Globulin Ratio 1.6 (1.3-2.8) 11/29/17 Range/Units 23:32 WBC 24.18 H (4.0-11.0) K/uL RBC 1.30 L (4.50-5.90) M/uL Hgb 4.8 L* (13.0-17.0) g/dL Hct 13.4 L (38.0-50.0) % MCV 103.1 H (80.0-98.0) fL MCH 36.9 H (27.0-32.0) pg MCHC 35.8 (31.0-37.0) g/dL RDW Std Deviation 56.2 (28.0-62.0) fl RDW Coeff of Brianna 15 (11.0-15.0) % Plt Count 176 (150-400) K/uL MPV 10.00 (7.40-12.00) fL Neut % (Auto) 44.6 L (48.0-80.0) % Lymph % (Auto) 47.9 H (16.0-40.0) % [place] % (Auto) 6.9 (0.0-15.0) % Eos % (Auto) 0.5 (0.0-7.0) % Baso % (Auto) 0.1 (0.0-1.5) % Neut # (Auto) 10.8 H (1.4-5.7) K/uL Lymph # (Auto) 11.6 H (0.6-2.4) K/uL [place] # (Auto) 1.7 H (0.0-0.8) K/uL Eos # (Auto) 0.1 (0.0-0.7) K/uL Baso # (Auto) 0.0 (0.0-0.1) K/uL Nucleated RBC % 0.0 /100WBC Nucleated RBCs # 0 K/uL INR Sodium (136-148) mmol/L Potassium (3.5-5.1) mmol/L Chloride (98-107) mmol/L Carbon Dioxide (21.0-32.0) mmol/L BUN (7.0-18.0) mg/dL Creatinine (0.8-1.3) mg/dL Est Cr Clr Drug Dosing Estimated GFR (MDRD) ml/min Glucose (74-106) mg/dL Calcium (8.5-10.1) mg/dL Total Bilirubin (0.2-1.0) mg/dL AST (15-37) IU/L ALT (14-63) IU/L Alkaline Phosphatase (46-116) U/L Troponin I (0.000-0.056) ng/mL B-Natriuretic Peptide (<100) PG/ML Total Protein (6.4-8.2) g/dL Albumin (3.4-5.0) g/dL Globulin (2.0-3.5) g/dL Albumin/Globulin Ratio (1.3-2.8) Meds: Medications Generic Name Dose Route Start Last Admin Trade Name Cristhian PRN Reason Stop Dose Admin Sodium Chloride 1,000 mls @ 125 mls/hr 11/29/17 22:30 11/29/17 23:00 Normal Saline IV 125 mls/hr STAT ELLIE Administration Sodium Chloride 10 ml 11/29/17 22:28 11/29/17 23:00 Saline Flush FLUSH 10 ml ASDIRECTED PRN Administration Keep Vein Open Sodium Chloride 2.5 ml 11/29/17 22:28 11/29/17 23:00 Saline Flush FLUSH 2.5 ml ASDIRECTED PRN Administration Keep Vein Open Discontinued Medications Generic Name Dose Route Start Last Admin Trade Name Cristhian PRN Reason Stop Dose Admin Albuterol/Ipratropium 3 ml 11/29/17 22:28 11/29/17 23:01 Duoneb 3.0-0.5 Mg/3 Ml NEB 11/29/17 22:29 3 ml ONETIME ONE Administration Furosemide 20 mg 11/29/17 23:32 11/29/17 23:39 Lasix IVPUSH 11/29/17 23:33 20 mg NOW ONE Administration Methylprednisolone Sodium Succinate 125 mg 11/29/17 22:28 11/29/17 23:01 Solu-Medrol IVPUSH 11/29/17 22:29 125 mg ONETIME ONE Administration Morphine Sulfate 4 mg 11/29/17 23:32 11/29/17 23:41 Morphine IVPUSH 11/29/17 23:33 4 mg ONETIME ONE Administration Departure - Departure Time of Disposition: 00:14 Disposition: Admitted As Inpatient 68 Condition: Serious Clinical Impression: Anemia, Dyspnea COPD (chronic obstructive pulmonary disease) Qualifiers: COPD type: unspecified COPD Qualified Code(s): J44.9 - Chronic obstructive pulmonary disease, unspecified - Discharge Information Forms: ED Department Discharge - My Orders Last 24 Hours: My Active Orders 11/29/17 22:27 Saline Lock Insert [OM.PC] Stat 11/29/17 22:28 Cardiac Monitoring [RC] . DIRECTED EKG Documentation Completion [RC] STAT Oxygen Therapy, ED [RC] ASDIRECTED Pulse Oximetry [RC] ASDIRECTED Chest 1V Frontal [CR] Stat Sodium Chloride 0.9% [Saline Flush] 10 ml FLUSH ASDIRECTED PRN Sodium Chloride 0.9% [Saline Flush] 2.5 ml FLUSH ASDIRECTED PRN 11/29/17 22:29 RT Aerosol Therapy [RC] ASDIRECTED 11/29/17 22:30 Sodium Chloride 0.9% [Normal Saline] 1,000 ml IV STAT 11/29/17 23:32 TYPE AND SCREEN [BBK] Stat 11/29/17 23:46 Fecal Occult Blood Collection [RC] ASDIRECTED 11/29/17 23:53 Transfuse Red Blood Cells [COMM] Stat - Assessment/Plan Last 24 Hours: My Active Orders 11/29/17 22:27 Saline Lock Insert [OM.PC] Stat 11/29/17 22:28 Cardiac Monitoring [RC] . DIRECTED EKG Documentation Completion [RC] STAT Oxygen Therapy, ED [RC] ASDIRECTED Pulse Oximetry [RC] ASDIRECTED Chest 1V Frontal [CR] Stat Sodium Chloride 0.9% [Saline Flush] 10 ml FLUSH ASDIRECTED PRN Sodium Chloride 0.9% [Saline Flush] 2.5 ml FLUSH ASDIRECTED PRN 11/29/17 22:29 RT Aerosol Therapy [RC] ASDIRECTED 11/29/17 22:30 Sodium Chloride 0.9% [Normal Saline] 1,000 ml IV STAT 11/29/17 23:32 TYPE AND SCREEN [BBK] Stat 11/29/17 23:46 Fecal Occult Blood Collection [RC] ASDIRECTED 11/29/17 23:53 Transfuse Red Blood Cells [COMM] Stat
[2017-11-29 23:22] LABS: CHLORIDE,CL 102 mmol/L (98-107); SODIUM,NA 137 mmol/L (136-148)
[2017-11-29] MEDS ORDERED: Morphine 4 MG/ML Syringe IVPUSH ONE (23:32)
[2017-11-29] MEDS ORDERED: Furosemide 40 MG/4 ML VIAL IVPUSH ONE (23:32)
[2017-11-30] MEDS ORDERED: Acetaminophen 325 MG Tab PO ONE (02:04)
[2017-11-30] MEDS ORDERED: Ondansetron 4 MG/2 ML SDV IVPUSH PRN (02:40)
[2017-11-30] MEDS ORDERED: Acetaminophen 325 MG Tab PO PRN (02:40)
--- NOTE | 2017-11-30 02:43 | PCM.HP ---
H&P History of Present Illness - General Admit Problem/Dx: Admission Diagnosis/Problem Admission Diagnosis/Problem Dyspnea chest Pain Score (Numeric/FACES): 1 - Related Data Allergies/Adverse Reactions: Allergies Allergy/AdvReac Type Severity Reaction Status Date / Time nifedipine [From Procardia] Allergy Itching Verified 11/29/17 22:47 muscle relaxant medicine? Allergy Itching Uncoded 11/29/17 22:47 Home Medications: Home Meds Furosemide 20 mg PO DAILY 12/06/15 [History] Levothyroxine 75 mcg PO ACBREAKFAST 12/06/15 [History] predniSONE [Prednisone] 5 mg PO DAILY 12/06/15 [History] Alendronate Sodium [Fosamax] 70 mg PO Q7D 12/07/15 [History] Zolpidem [Ambien] 10 mg PO BEDTIME PRN 12/07/15 [History] Past Medical History HEENT History: Reports: Other (See Below) Other HEENT History: impaired hearing-with hearing aid on the right ear Cardiovascular History: Reports: Heart Failure Respiratory History: Reports: Asthma, COPD Gastrointestinal History: Reports: None Genitourinary History: Reports: Renal Disease Musculoskeletal History: Reports: Back Pain, Chronic, Osteoarthritis Neurological History: Reports: None Psychiatric History: Reports: None Endocrine/Metabolic History: Reports: Hypothyroidism Hematologic History: Reports: Anemia, Blood Transfusion(s), Other (See Below) Other Hematologic History: history of low platelet Immunologic History: Reports: Solid Organ Transplant Oncologic (Cancer) History: Reports: Other (See Below) Other Oncologic History: 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 Dermatologic History: Reports: None - Infectious Disease History Infectious Disease History: Reports: Chicken Pox, Measles, Mumps - Past Surgical History Head Surgeries/Procedures: Reports: None GI Surgical History: Reports: Other (See Below) Other GI Surgeries/Procedures: Whipple Male Surgical History: Reports: Other (See Below) Other Male Surgeries/Procedures: Renal transplant Endocrine Surgical History: Reports: Thyroidectomy Social & Family History - Family History Family Medical History: Noncontributory HEENT: Reports: None Cardiac: Reports: None - Tobacco Use Smoking Status *Q: Former Smoker Years of Tobacco use: 10 Packs/Tins Daily: 1 Used Tobacco, but Quit: Yes Month/Year Tobacco Last Used: 1986 Second Hand Smoke Exposure: No - Caffeine Use Caffeine Use: Reports: Coffee - Alcohol Use Days Per Week of Alcohol Use: 3 Number of Drinks Per Day: 2 Total Drinks Per Week: 6 - Recreational Drug Use Recreational Drug Use: No - Living Situation & Occupation Living situation: Reports: , with Significant Other Exam - Vital Signs Vital Signs: Last Vital Signs Temp 38.1 C 11/30/17 01:30 Pulse 100 11/30/17 00:39 Resp 19 11/30/17 01:30 BP 100/63 11/30/17 01:30 Pulse Ox 98 11/30/17 01:30 Weight: 36.287 kg - Patient Data Lab Results Last 24 hrs: Laboratory Results - last 24 hr 11/29/17 11/29/17 11/29/17 Range/Units 22:54 22:54 23:14 WBC (4.0-11.0) K/uL RBC (4.50-5.90) M/uL Hgb (13.0-17.0) g/dL Hct (38.0-50.0) % MCV (80.0-98.0) fL MCH (27.0-32.0) pg MCHC (31.0-37.0) g/dL RDW Std Deviation (28.0-62.0) fl RDW Coeff of Brianna (11.0-15.0) % Plt Count (150-400) K/uL MPV (7.40-12.00) fL Neut % (Auto) (48.0-80.0) % Lymph % (Auto) (16.0-40.0) % [place] % (Auto) (0.0-15.0) % Eos % (Auto) (0.0-7.0) % Baso % (Auto) (0.0-1.5) % Neut # (Auto) (1.4-5.7) K/uL Lymph # (Auto) (0.6-2.4) K/uL [place] # (Auto) (0.0-0.8) K/uL Eos # (Auto) (0.0-0.7) K/uL Baso # (Auto) (0.0-0.1) K/uL Nucleated RBC % /100WBC Nucleated RBCs # K/uL INR 1.05 Lactate (0.20-2.00) mmol/L Sodium 137 (136-148) mmol/L Potassium 3.8 (3.5-5.1) mmol/L Chloride 102 (98-107) mmol/L Carbon Dioxide 27.0 (21.0-32.0) mmol/L BUN 18 (7.0-18.0) mg/dL Creatinine 0.9 (0.8-1.3) mg/dL Est Cr Clr Drug Dosing TNP Estimated GFR (MDRD) > 60.0 ml/min Glucose 107 H (74-106) mg/dL Calcium 8.6 (8.5-10.1) mg/dL Total Bilirubin 1.4 H (0.2-1.0) mg/dL AST 19 (15-37) IU/L ALT 26 (14-63) IU/L Alkaline Phosphatase 135 H (46-116) U/L Troponin I < 0.050 (0.000-0.056) ng/mL B-Natriuretic Peptide 730 H (<100) PG/ML Total Protein 6.2 L (6.4-8.2) g/dL Albumin 3.8 (3.4-5.0) g/dL Globulin 2.4 (2.0-3.5) g/dL Albumin/Globulin Ratio 1.6 (1.3-2.8) Urine Color Urine Appearance Urine pH (5.0-8.0) Ur Specific [place] (1.001-1.035) Urine Protein (NEGATIVE) mg/dL Urine Glucose (UA) (NEGATIVE) mg/dL Urine Ketones (NEGATIVE) mg/dL Urine Occult Blood (NEGATIVE) Urine Nitrite (NEGATIVE) Urine Bilirubin (NEGATIVE) Urine Urobilinogen (<2.0) EU/dL Ur Leukocyte Esterase (NEGATIVE) Urine RBC (0-2/HPF) Urine WBC (0-5/HPF) Ur Epithelial Cells (NONE-FEW) Urine Bacteria (NEGATIVE) Blood Type Antibody Screen Crossmatch 11/29/17 11/29/17 11/30/17 Range/Units 23:32 23:32 00:25 WBC 24.18 H (4.0-11.0) K/uL RBC 1.30 L (4.50-5.90) M/uL Hgb 4.8 L* (13.0-17.0) g/dL Hct 13.4 L (38.0-50.0) % MCV 103.1 H (80.0-98.0) fL MCH 36.9 H (27.0-32.0) pg MCHC 35.8 (31.0-37.0) g/dL RDW Std Deviation 56.2 (28.0-62.0) fl RDW Coeff of Brianna 15 (11.0-15.0) % Plt Count 176 (150-400) K/uL MPV 10.00 (7.40-12.00) fL Neut % (Auto) 44.6 L (48.0-80.0) % Lymph % (Auto) 47.9 H (16.0-40.0) % [place] % (Auto) 6.9 (0.0-15.0) % Eos % (Auto) 0.5 (0.0-7.0) % Baso % (Auto) 0.1 (0.0-1.5) % Neut # (Auto) 10.8 H (1.4-5.7) K/uL Lymph # (Auto) 11.6 H (0.6-2.4) K/uL [place] # (Auto) 1.7 H (0.0-0.8) K/uL Eos # (Auto) 0.1 (0.0-0.7) K/uL Baso # (Auto) 0.0 (0.0-0.1) K/uL Nucleated RBC % 0.0 /100WBC Nucleated RBCs # 0 K/uL INR Lactate (0.20-2.00) mmol/L Sodium (136-148) mmol/L Potassium (3.5-5.1) mmol/L Chloride (98-107) mmol/L Carbon Dioxide (21.0-32.0) mmol/L BUN (7.0-18.0) mg/dL Creatinine (0.8-1.3) mg/dL Est Cr Clr Drug Dosing Estimated GFR (MDRD) ml/min Glucose (74-106) mg/dL Calcium (8.5-10.1) mg/dL Total Bilirubin (0.2-1.0) mg/dL AST (15-37) IU/L ALT (14-63) IU/L Alkaline Phosphatase (46-116) U/L Troponin I (0.000-0.056) ng/mL B-Natriuretic Peptide (<100) PG/ML Total Protein (6.4-8.2) g/dL Albumin (3.4-5.0) g/dL Globulin (2.0-3.5) g/dL Albumin/Globulin Ratio (1.3-2.8) Urine Color YELLOW Urine Appearance CLEAR Urine pH 6.0 (5.0-8.0) Ur Specific [place] 1.015 (1.001-1.035) Urine Protein NEGATIVE (NEGATIVE) mg/dL Urine Glucose (UA) NEGATIVE (NEGATIVE) mg/dL Urine Ketones NEGATIVE (NEGATIVE) mg/dL Urine Occult Blood NEGATIVE (NEGATIVE) Urine Nitrite NEGATIVE (NEGATIVE) Urine Bilirubin NEGATIVE (NEGATIVE) Urine Urobilinogen 0.2 (<2.0) EU/dL Ur Leukocyte Esterase NEGATIVE (NEGATIVE) Urine RBC 0-1 (0-2/HPF) Urine WBC 0-2 (0-5/HPF) Ur Epithelial Cells RARE (NONE-FEW) Urine Bacteria FEW (NEGATIVE) Blood Type O POSITIVE Antibody Screen NEGATIVE Crossmatch See Detail 11/30/17 Range/Units 01:04 WBC (4.0-11.0) K/uL RBC (4.50-5.90) M/uL Hgb (13.0-17.0) g/dL Hct (38.0-50.0) % MCV (80.0-98.0) fL MCH (27.0-32.0) pg MCHC (31.0-37.0) g/dL RDW Std Deviation (28.0-62.0) fl RDW Coeff of Brianna (11.0-15.0) % Plt Count (150-400) K/uL MPV (7.40-12.00) fL Neut % (Auto) (48.0-80.0) % Lymph % (Auto) (16.0-40.0) % [place] % (Auto) (0.0-15.0) % Eos % (Auto) (0.0-7.0) % Baso % (Auto) (0.0-1.5) % Neut # (Auto) (1.4-5.7) K/uL Lymph # (Auto) (0.6-2.4) K/uL [place] # (Auto) (0.0-0.8) K/uL Eos # (Auto) (0.0-0.7) K/uL Baso # (Auto) (0.0-0.1) K/uL Nucleated RBC % /100WBC Nucleated RBCs # K/uL INR Lactate 2.2 H (0.20-2.00) mmol/L Sodium (136-148) mmol/L Potassium (3.5-5.1) mmol/L Chloride (98-107) mmol/L Carbon Dioxide (21.0-32.0) mmol/L BUN (7.0-18.0) mg/dL Creatinine (0.8-1.3) mg/dL Est Cr Clr Drug Dosing Estimated GFR (MDRD) ml/min Glucose (74-106) mg/dL Calcium (8.5-10.1) mg/dL Total Bilirubin (0.2-1.0) mg/dL AST (15-37) IU/L ALT (14-63) IU/L Alkaline Phosphatase (46-116) U/L Troponin I (0.000-0.056) ng/mL B-Natriuretic Peptide (<100) PG/ML Total Protein (6.4-8.2) g/dL Albumin (3.4-5.0) g/dL Globulin (2.0-3.5) g/dL Albumin/Globulin Ratio (1.3-2.8) Urine Color Urine Appearance Urine pH (5.0-8.0) Ur Specific [place] (1.001-1.035) Urine Protein (NEGATIVE) mg/dL Urine Glucose (UA) (NEGATIVE) mg/dL Urine Ketones (NEGATIVE) mg/dL Urine Occult Blood (NEGATIVE) Urine Nitrite (NEGATIVE) Urine Bilirubin (NEGATIVE) Urine Urobilinogen (<2.0) EU/dL Ur Leukocyte Esterase (NEGATIVE) Urine RBC (0-2/HPF) Urine WBC (0-5/HPF) Ur Epithelial Cells (NONE-FEW) Urine Bacteria (NEGATIVE) Blood Type Antibody Screen Crossmatch Result Diagrams: 11/29/17 23:32 11/29/17 23:14 Orders Last 24hrs: Active Orders 24 hr Category Date Time Status Patient Status [ADT] Stat ADT 11/30/17 00:18 Active Cardiac Monitoring [RC] . DIRECTED Care 11/29/17 22:28 Active EKG Documentation Completion [RC] STAT Care 11/29/17 22:28 Active Fecal Occult Blood Collection [RC] ASDIRECTED Care 11/29/17 23:46 Active Oxygen Therapy [RC] PRN Care 11/30/17 02:40 Ordered Oxygen Therapy, ED [RC] ASDIRECTED Care 11/29/17 22:28 Active Pulse Oximetry [RC] ASDIRECTED Care 11/29/17 22:28 Active RT Aerosol Therapy [RC] ASDIRECTED Care 11/29/17 22:29 Active RT Aerosol Therapy [RC] ASDIRECTED Care 11/30/17 02:41 Ordered Up ad Josiane [RC] ASDIRECTED Care 11/30/17 02:40 Ordered VTE/DVT Education [RC] PER UNIT ROUTINE Care 11/30/17 02:40 Ordered Vital Signs [RC] Q4H Care 11/30/17 02:40 Ordered Regular Diet [DIET] Diet 11/30/17 Breakfast Active Chest 1V Frontal [CR] Stat Exams 11/29/17 22:28 Taken BASIC METABOLIC PANEL,BMP [CHEM] AM Lab 11/30/17 05:11 Ordered CBC WITH AUTO DIFF [HEME] AM Lab 11/30/17 05:11 Ordered CULTURE BLOOD [BC] Stat Lab 11/30/17 00:17 Received CULTURE BLOOD [BC] Stat Lab 11/30/17 01:04 Received CULTURE URINE [RM] Stat Lab 11/30/17 00:25 Received LACTIC ACID,WHOLE BLOOD [BG] Routine Lab 11/30/17 07:00 Ordered RED BLOOD CELLS LP [BBK] Stat Lab 11/29/17 23:32 Results TYPE AND SCREEN [BBK] Stat Lab 11/29/17 23:32 Results UA W/MICROSCOPIC [URIN] Stat Lab 11/30/17 00:25 Ordered Acetaminophen [Tylenol] Med 11/30/17 02:40 Ordered 650 mg PO Q4H PRN Albuterol/Ipratropium [DuoNeb 3.0-0.5 MG/3 ML] Med 11/30/17 02:40 Ordered 3 ml NEB Q4HRRT PRN Levofloxacin/Dextrose 5%-Water [Levaquin in D5W 750 MG/ Med 11/30/17 02:45 Ordered 150 ML] 750 mg Premix Bag 1 bag IV Q24H Levothyroxine Med 11/30/17 07:30 Ordered 75 mcg PO ACBREAKFAST Ondansetron [Zofran] Med 11/30/17 02:40 Ordered 4 mg IVPUSH Q4H PRN Piperacillin/Tazobactam [Piperacil-Tazobact] 4.5 gm Med 11/30/17 02:45 Ordered Sodium Chloride 0.9% [Normal Saline] 100 ml IV Q6H Sodium Chloride 0.9% [Normal Saline] 1,000 ml Med 11/29/17 22:30 Active IV STAT Sodium Chloride 0.9% [Saline Flush] Med 11/29/17 22:28 Active 10 ml FLUSH ASDIRECTED PRN Sodium Chloride 0.9% [Saline Flush] Med 11/29/17 22:28 Active 2.5 ml FLUSH ASDIRECTED PRN Vancomycin Pharmacy to Dose [Pharmacy to Dose - Med 11/30/17 02:45 Ordered Vancomycin] 1 dose .XX ASDIRECTED predniSONE Med 11/30/17 09:00 Ordered 5 mg PO DAILY Blood Culture x2 Reflex Set [OM.PC] Stat Ot 11/30/17 00:17 Ordered Saline Lock Insert [OM.PC] Stat Ot 11/29/17 22:27 Ordered Sequential Compression Device [OM.PC] Per Unit Routine Ot 11/30/17 02:41 Ordered Transfuse Red Blood Cells [COMM] Stat Ot 11/29/17 23:53 Ordered Resuscitation Status Routine Resus Stat 11/30/17 02:40 Ordered Medication Orders Acetaminophen (Tylenol) 650 mg PO Q4H PRN PRN Reason: Pain (Mild 1-3)/fever Albuterol/Ipratropium (Duoneb 3.0-0.5 Mg/3 Ml) 3 ml NEB Q4HRRT PRN PRN Reason: Shortness Of Breath/wheezing Sodium Chloride (Normal Saline) 1,000 mls @ 125 mls/hr IV STAT ELLIE Last Admin: 11/29/17 23:00 Dose: 125 mls/hr Levofloxacin/Dextrose 750 mg/ (Premix) 150 mls @ 100 mls/hr IV Q24H ELLIE Piperacillin Sod/Tazobactam (Sod 4.5 gm/ Sodium Chloride) 100 mls @ 100 mls/hr IV Q6H ELLIE Levothyroxine Sodium (Levothyroxine) 75 mcg PO ACBREAKFAST ELLIE Ondansetron HCl (Zofran) 4 mg IVPUSH Q4H PRN PRN Reason: Nausea Prednisone (Prednisone) 5 mg PO DAILY ELLIE Sodium Chloride (Saline Flush) 10 ml FLUSH ASDIRECTED PRN PRN Reason: Keep Vein Open Last Admin: 11/29/17 23:00 Dose: 10 ml Sodium Chloride (Saline Flush) 2.5 ml FLUSH ASDIRECTED PRN PRN Reason: Keep Vein Open Last Admin: 11/29/17 23:00 Dose: 2.5 ml Vancomycin HCl (Pharmacy To Dose - Vancomycin) 1 dose .XX ASDIRECTED ELLIE
[2017-11-30] MEDS ORDERED: Levofloxacin/Dextrose 5%-Water 750 MG in Premix Bag 1 BAG IV SCH (02:45)
[2017-11-30] MEDS ORDERED: Piperacillin/Tazobactam 4.5 GM in Sodium Chloride 0.9% 100 ML IV SCH (02:45)
--- NOTE | 2017-11-30 02:48 | PCM.HP ---
H&P History of Present Illness - General Admit Problem/Dx: Admission Diagnosis/Problem Admission Diagnosis/Problem Dyspnea - History of Present Illness Initial Comments - Free Text/Narative: 11 yo male with history of COPD, CAD, Hypothyroidism, left ear deafness, Renal Transplant, on chronic steroids who presents with shortness of breath. Patient reports cough, fever and chills at home. In the ED he was noted to have a fever and leukcosytosis of 24,100 and Hgb of 4.8. Patient denies any blood in stool and he was hemocult negative in the ED. He was admitted four months ago for similar symptoms and was treated for pneumonia discovered on CT scan. chest Pain Score (Numeric/FACES): 1 - Related Data Allergies/Adverse Reactions: Allergies Allergy/AdvReac Type Severity Reaction Status Date / Time nifedipine [From Procardia] Allergy Itching Verified 11/29/17 22:47 muscle relaxant medicine? Allergy Itching Uncoded 11/29/17 22:47 Home Medications: Home Meds Furosemide 20 mg PO DAILY 12/06/15 [History] Levothyroxine 75 mcg PO ACBREAKFAST 12/06/15 [History] predniSONE [Prednisone] 5 mg PO DAILY 12/06/15 [History] Alendronate Sodium [Fosamax] 70 mg PO Q7D 12/07/15 [History] Zolpidem [Ambien] 10 mg PO BEDTIME PRN 12/07/15 [History] Past Medical History HEENT History: Reports: Other (See Below) Other HEENT History: impaired hearing-with hearing aid on the right ear Cardiovascular History: Reports: Heart Failure Respiratory History: Reports: Asthma, COPD Gastrointestinal History: Reports: None Genitourinary History: Reports: Renal Disease Musculoskeletal History: Reports: Back Pain, Chronic, Osteoarthritis Neurological History: Reports: None Psychiatric History: Reports: None Endocrine/Metabolic History: Reports: Hypothyroidism Hematologic History: Reports: Anemia, Blood Transfusion(s), Other (See Below) Other Hematologic History: history of low platelet Immunologic History: Reports: Solid Organ Transplant Oncologic (Cancer) History: Reports: Other (See Below) Other Oncologic History: 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 Dermatologic History: Reports: None - Infectious Disease History Infectious Disease History: Reports: Chicken Pox, Measles, Mumps - Past Surgical History Head Surgeries/Procedures: Reports: None GI Surgical History: Reports: Other (See Below) Other GI Surgeries/Procedures: Whipple Male Surgical History: Reports: Other (See Below) Other Male Surgeries/Procedures: Renal transplant Endocrine Surgical History: Reports: Thyroidectomy Social & Family History - Family History Family Medical History: Noncontributory HEENT: Reports: None Cardiac: Reports: None - Tobacco Use Smoking Status *Q: Former Smoker Years of Tobacco use: 10 Packs/Tins Daily: 1 Used Tobacco, but Quit: Yes Month/Year Tobacco Last Used: 1986 Second Hand Smoke Exposure: No - Caffeine Use Caffeine Use: Reports: Coffee - Alcohol Use Days Per Week of Alcohol Use: 3 Number of Drinks Per Day: 2 Total Drinks Per Week: 6 - Recreational Drug Use Recreational Drug Use: No - Living Situation & Occupation Living situation: Reports: , with Significant Other H&P Review of Systems - Review of Systems: Review Of Systems: ROS reveals no pertinent complaints other than HPI. Exam - Vital Signs Vital Signs: Last Vital Signs Temp 38.1 C 11/30/17 01:30 Pulse 100 11/30/17 00:39 Resp 19 11/30/17 01:30 BP 100/63 11/30/17 01:30 Pulse Ox 98 11/30/17 01:30 Weight: 36.287 kg - Exam General: Alert, Oriented HEENT: Posterior Pharynx Clear Lungs: Clear to Auscultation, Normal Respiratory Effort Cardiovascular: Regular Rate, Regular Rhythm GI/Abdominal Exam: Soft, Non-Tender Extremities: Non-Tender, No Pedal Edema Skin: Warm, Dry, Intact Neurological: No: Focal Deficit - Patient Data Lab Results Last 24 hrs: Laboratory Results - last 24 hr 11/29/17 11/29/17 11/29/17 Range/Units 22:54 22:54 23:14 WBC (4.0-11.0) K/uL RBC (4.50-5.90) M/uL Hgb (13.0-17.0) g/dL Hct (38.0-50.0) % MCV (80.0-98.0) fL MCH (27.0-32.0) pg MCHC (31.0-37.0) g/dL RDW Std Deviation (28.0-62.0) fl RDW Coeff of Brianna (11.0-15.0) % Plt Count (150-400) K/uL MPV (7.40-12.00) fL Neut % (Auto) (48.0-80.0) % Lymph % (Auto) (16.0-40.0) % [place] % (Auto) (0.0-15.0) % Eos % (Auto) (0.0-7.0) % Baso % (Auto) (0.0-1.5) % Neut # (Auto) (1.4-5.7) K/uL Lymph # (Auto) (0.6-2.4) K/uL [place] # (Auto) (0.0-0.8) K/uL Eos # (Auto) (0.0-0.7) K/uL Baso # (Auto) (0.0-0.1) K/uL Nucleated RBC % /100WBC Nucleated RBCs # K/uL INR 1.05 Lactate (0.20-2.00) mmol/L Sodium 137 (136-148) mmol/L Potassium 3.8 (3.5-5.1) mmol/L Chloride 102 (98-107) mmol/L Carbon Dioxide 27.0 (21.0-32.0) mmol/L BUN 18 (7.0-18.0) mg/dL Creatinine 0.9 (0.8-1.3) mg/dL Est Cr Clr Drug Dosing TNP Estimated GFR (MDRD) > 60.0 ml/min Glucose 107 H (74-106) mg/dL Calcium 8.6 (8.5-10.1) mg/dL Total Bilirubin 1.4 H (0.2-1.0) mg/dL AST 19 (15-37) IU/L ALT 26 (14-63) IU/L Alkaline Phosphatase 135 H (46-116) U/L Troponin I < 0.050 (0.000-0.056) ng/mL B-Natriuretic Peptide 730 H (<100) PG/ML Total Protein 6.2 L (6.4-8.2) g/dL Albumin 3.8 (3.4-5.0) g/dL Globulin 2.4 (2.0-3.5) g/dL Albumin/Globulin Ratio 1.6 (1.3-2.8) Urine Color Urine Appearance Urine pH (5.0-8.0) Ur Specific [place] (1.001-1.035) Urine Protein (NEGATIVE) mg/dL Urine Glucose (UA) (NEGATIVE) mg/dL Urine Ketones (NEGATIVE) mg/dL Urine Occult Blood (NEGATIVE) Urine Nitrite (NEGATIVE) Urine Bilirubin (NEGATIVE) Urine Urobilinogen (<2.0) EU/dL Ur Leukocyte Esterase (NEGATIVE) Urine RBC (0-2/HPF) Urine WBC (0-5/HPF) Ur Epithelial Cells (NONE-FEW) Urine Bacteria (NEGATIVE) Blood Type Antibody Screen Crossmatch 11/29/17 11/29/17 11/30/17 Range/Units 23:32 23:32 00:25 WBC 24.18 H (4.0-11.0) K/uL RBC 1.30 L (4.50-5.90) M/uL Hgb 4.8 L* (13.0-17.0) g/dL Hct 13.4 L (38.0-50.0) % MCV 103.1 H (80.0-98.0) fL MCH 36.9 H (27.0-32.0) pg MCHC 35.8 (31.0-37.0) g/dL RDW Std Deviation 56.2 (28.0-62.0) fl RDW Coeff of Brianna 15 (11.0-15.0) % Plt Count 176 (150-400) K/uL MPV 10.00 (7.40-12.00) fL Neut % (Auto) 44.6 L (48.0-80.0) % Lymph % (Auto) 47.9 H (16.0-40.0) % [place] % (Auto) 6.9 (0.0-15.0) % Eos % (Auto) 0.5 (0.0-7.0) % Baso % (Auto) 0.1 (0.0-1.5) % Neut # (Auto) 10.8 H (1.4-5.7) K/uL Lymph # (Auto) 11.6 H (0.6-2.4) K/uL [place]oup # (Auto) 1.7 H (0.0-0.8) K/uL Eos # (Auto) 0.1 (0.0-0.7) K/uL Baso # (Auto) 0.0 (0.0-0.1) K/uL Nucleated RBC % 0.0 /100WBC Nucleated RBCs # 0 K/uL INR Lactate (0.20-2.00) mmol/L Sodium (136-148) mmol/L Potassium (3.5-5.1) mmol/L Chloride (98-107) mmol/L Carbon Dioxide (21.0-32.0) mmol/L BUN (7.0-18.0) mg/dL Creatinine (0.8-1.3) mg/dL Est Cr Clr Drug Dosing Estimated GFR (MDRD) ml/min Glucose (74-106) mg/dL Calcium (8.5-10.1) mg/dL Total Bilirubin (0.2-1.0) mg/dL AST (15-37) IU/L ALT (14-63) IU/L Alkaline Phosphatase (46-116) U/L Troponin I (0.000-0.056) ng/mL B-Natriuretic Peptide (<100) PG/ML Total Protein (6.4-8.2) g/dL Albumin (3.4-5.0) g/dL Globulin (2.0-3.5) g/dL Albumin/Globulin Ratio (1.3-2.8) Urine Color YELLOW Urine Appearance CLEAR Urine pH 6.0 (5.0-8.0) Ur Specific [place] 1.015 (1.001-1.035) Urine Protein NEGATIVE (NEGATIVE) mg/dL Urine Glucose (UA) NEGATIVE (NEGATIVE) mg/dL Urine Ketones NEGATIVE (NEGATIVE) mg/dL Urine Occult Blood NEGATIVE (NEGATIVE) Urine Nitrite NEGATIVE (NEGATIVE) Urine Bilirubin NEGATIVE (NEGATIVE) Urine Urobilinogen 0.2 (<2.0) EU/dL Ur Leukocyte Esterase NEGATIVE (NEGATIVE) Urine RBC 0-1 (0-2/HPF) Urine WBC 0-2 (0-5/HPF) Ur Epithelial Cells RARE (NONE-FEW) Urine Bacteria FEW (NEGATIVE) Blood Type O POSITIVE Antibody Screen NEGATIVE Crossmatch See Detail 11/30/17 Range/Units 01:04 WBC (4.0-11.0) K/uL RBC (4.50-5.90) M/uL Hgb (13.0-17.0) g/dL Hct (38.0-50.0) % MCV (80.0-98.0) fL MCH (27.0-32.0) pg MCHC (31.0-37.0) g/dL RDW Std Deviation (28.0-62.0) fl RDW Coeff of Brianna (11.0-15.0) % Plt Count (150-400) K/uL MPV (7.40-12.00) fL Neut % (Auto) (48.0-80.0) % Lymph % (Auto) (16.0-40.0) % [place] % (Auto) (0.0-15.0) % Eos % (Auto) (0.0-7.0) % Baso % (Auto) (0.0-1.5) % Neut # (Auto) (1.4-5.7) K/uL Lymph # (Auto) (0.6-2.4) K/uL [place] # (Auto) (0.0-0.8) K/uL Eos # (Auto) (0.0-0.7) K/uL Baso # (Auto) (0.0-0.1) K/uL Nucleated RBC % /100WBC Nucleated RBCs # K/uL INR Lactate 2.2 H (0.20-2.00) mmol/L Sodium (136-148) mmol/L Potassium (3.5-5.1) mmol/L Chloride (98-107) mmol/L Carbon Dioxide (21.0-32.0) mmol/L BUN (7.0-18.0) mg/dL Creatinine (0.8-1.3) mg/dL Est Cr Clr Drug Dosing Estimated GFR (MDRD) ml/min Glucose (74-106) mg/dL Calcium (8.5-10.1) mg/dL Total Bilirubin (0.2-1.0) mg/dL AST (15-37) IU/L ALT (14-63) IU/L Alkaline Phosphatase (46-116) U/L Troponin I (0.000-0.056) ng/mL B-Natriuretic Peptide (<100) PG/ML Total Protein (6.4-8.2) g/dL Albumin (3.4-5.0) g/dL Globulin (2.0-3.5) g/dL Albumin/Globulin Ratio (1.3-2.8) Urine Color Urine Appearance Urine pH (5.0-8.0) Ur Specific [place] (1.001-1.035) Urine Protein (NEGATIVE) mg/dL Urine Glucose (UA) (NEGATIVE) mg/dL Urine Ketones (NEGATIVE) mg/dL Urine Occult Blood (NEGATIVE) Urine Nitrite (NEGATIVE) Urine Bilirubin (NEGATIVE) Urine Urobilinogen (<2.0) EU/dL Ur Leukocyte Esterase (NEGATIVE) Urine RBC (0-2/HPF) Urine WBC (0-5/HPF) Ur Epithelial Cells (NONE-FEW) Urine Bacteria (NEGATIVE) Blood Type Antibody Screen Crossmatch Result Diagrams: 11/29/17 23:32 11/29/17 23:14 Problem List Initiated/Reviewed/Updated: Yes Orders Last 24hrs: Active Orders 24 hr Category Date Time Status Patient Status [ADT] Stat ADT 11/30/17 00:18 Active Cardiac Monitoring [RC] . DIRECTED Care 11/29/17 22:28 Active EKG Documentation Completion [RC] STAT Care 11/29/17 22:28 Active Fecal Occult Blood Collection [RC] ASDIRECTED Care 11/29/17 23:46 Active Oxygen Therapy [RC] PRN Care 11/30/17 02:40 Ordered Oxygen Therapy, ED [RC] ASDIRECTED Care 11/29/17 22:28 Active Pulse Oximetry [RC] ASDIRECTED Care 11/29/17 22:28 Active RT Aerosol Therapy [RC] ASDIRECTED Care 11/29/17 22:29 Active RT Aerosol Therapy [RC] ASDIRECTED Care 11/30/17 02:41 Ordered Up ad Josiane [RC] ASDIRECTED Care 11/30/17 02:40 Ordered VTE/DVT Education [RC] PER UNIT ROUTINE Care 11/30/17 02:40 Ordered Vital Signs [RC] Q4H Care 11/30/17 02:40 Ordered Regular Diet [DIET] Diet 11/30/17 Breakfast Active Chest 1V Frontal [CR] Stat Exams 11/29/17 22:28 Taken BASIC METABOLIC PANEL,BMP [CHEM] AM Lab 11/30/17 05:11 Ordered CBC WITH AUTO DIFF [HEME] AM Lab 11/30/17 05:11 Ordered CULTURE BLOOD [BC] Stat Lab 11/30/17 00:17 Received CULTURE BLOOD [BC] Stat Lab 11/30/17 01:04 Received CULTURE URINE [RM] Stat Lab 11/30/17 00:25 Received LACTIC ACID,WHOLE BLOOD [BG] Routine Lab 11/30/17 07:00 Ordered RED BLOOD CELLS LP [BBK] Stat Lab 11/29/17 23:32 Results TYPE AND SCREEN [BBK] Stat Lab 11/29/17 23:32 Results UA W/MICROSCOPIC [URIN] Stat Lab 11/30/17 00:25 Ordered Acetaminophen [Tylenol] Med 11/30/17 02:40 Ordered 650 mg PO Q4H PRN Albuterol/Ipratropium [DuoNeb 3.0-0.5 MG/3 ML] Med 11/30/17 02:40 Ordered 3 ml NEB Q4HRRT PRN Levofloxacin/Dextrose 5%-Water [Levaquin in D5W 750 MG/ Med 11/30/17 02:45 Ordered 150 ML] 750 mg Premix Bag 1 bag IV Q24H Levothyroxine Med 11/30/17 07:30 Ordered 75 mcg PO ACBREAKFAST Ondansetron [Zofran] Med 11/30/17 02:40 Ordered 4 mg IVPUSH Q4H PRN Piperacillin/Tazobactam [Piperacil-Tazobact] 4.5 gm Med 11/30/17 02:45 Ordered Sodium Chloride 0.9% [Normal Saline] 100 ml IV Q6H Sodium Chloride 0.9% [Normal Saline] 1,000 ml Med 11/29/17 22:30 Active IV STAT Sodium Chloride 0.9% [Saline Flush] Med 11/29/17 22:28 Active 10 ml FLUSH ASDIRECTED PRN Sodium Chloride 0.9% [Saline Flush] Med 11/29/17 22:28 Active 2.5 ml FLUSH ASDIRECTED PRN Vancomycin Pharmacy to Dose [Pharmacy to Dose - Med 11/30/17 02:45 Ordered Vancomycin] 1 dose .XX ASDIRECTED predniSONE Med 11/30/17 09:00 Ordered 5 mg PO DAILY Blood Culture x2 Reflex Set [OM.PC] Stat Oth 11/30/17 00:17 Ordered Saline Lock Insert [OM.PC] Stat Oth 11/29/17 22:27 Ordered Sequential Compression Device [OM.PC] Per Unit Routine Oth 11/30/17 02:41 Ordered Transfuse Red Blood Cells [COMM] Stat Oth 11/29/17 23:53 Ordered Resuscitation Status Routine Resus Stat 11/30/17 02:40 Ordered Medication Orders Acetaminophen (Tylenol) 650 mg PO Q4H PRN PRN Reason: Pain (Mild 1-3)/fever Albuterol/Ipratropium (Duoneb 3.0-0.5 Mg/3 Ml) 3 ml NEB Q4HRRT PRN PRN Reason: Shortness Of Breath/wheezing Sodium Chloride (Normal Saline) 1,000 mls @ 125 mls/hr IV STAT ELLIE Last Admin: 11/29/17 23:00 Dose: 125 mls/hr Levofloxacin/Dextrose 750 mg/ (Premix) 150 mls @ 100 mls/hr IV Q24H ELLIE Piperacillin Sod/Tazobactam (Sod 4.5 gm/ Sodium Chloride) 100 mls @ 100 mls/hr IV Q6H ELLIE Levothyroxine Sodium (Levothyroxine) 75 mcg PO ACBREAKFAST ELLIE Ondansetron HCl (Zofran) 4 mg IVPUSH Q4H PRN PRN Reason: Nausea Prednisone (Prednisone) 5 mg PO DAILY ELLIE Sodium Chloride (Saline Flush) 10 ml FLUSH ASDIRECTED PRN PRN Reason: Keep Vein Open Last Admin: 11/29/17 23:00 Dose: 10 ml Sodium Chloride (Saline Flush) 2.5 ml FLUSH ASDIRECTED PRN PRN Reason: Keep Vein Open Last Admin: 11/29/17 23:00 Dose: 2.5 ml Vancomycin HCl (Pharmacy To Dose - Vancomycin) 1 dose .XX ASDIRECTED [facility] Assessment/Plan Comment:: 61 yo male with history of COPD, CAD, Hypothyroidism, and Renal Transplant who presents with fever, and anemia Fevers: likely pneumonia, will treat with broad spectrum antibitoics considering his immunocompromised state, blood Symptomatic anemia: will transfuse with pRBC, no evidence of acute bleed COPD: received solumedrolin ED, will place on duonebs
[2017-11-30] MEDS ORDERED: Levofloxacin/Dextrose 5%-Water 500 MG in Premix Bag 1 BAG IV ONE (03:00)
[2017-11-30] MEDS: Piperacillin/Tazobactam 3.375 GM in Sodium Chloride 0.9% 50 ML IV SCH ×4 (03:12→20:14)
[2017-11-30] MEDS: Levothyroxine 75 MCG Tab PO SCH (07:00)
[2017-11-30 07:16] LABS: CHLORIDE,CL 99 mmol/L (98-107); SODIUM,NA 134 mmol/L (136-148)
[2017-11-30] MEDS: predniSONE 20 MG Tab PO SCH (08:20)
[2017-11-30] MEDS ORDERED: predniSONE 5 MG Tab PO SCH (09:00)
--- NOTE | 2017-11-30 09:43 | PCM.PN ---
- General Info Date of Service: 11/30/17 Admission Dx/Problem (Free Text): Anemia, pneumonia Subjective Update: Patient reports that he is doing well as morning. His shortness of breath has improved. He denies any dizziness or headaches when ambulating. Denies any chest pain, palpitations or abdominal pain. I did ask the patient about his history of CHF. He had an echocardiogram done the number of years ago. He can't remember when exactly. He also has followed with nitroglycerin distributor in the past and Tom but can't remember who was. He does follow with Dr. Mueller in the [facility] and also with Dr. Blount, utility assembler here in [place] as he has had a kidney transplant in the past. Functional Status: Reports: Pain Controlled, Tolerating Diet, Ambulating, Urinating - Review of Systems General: Reports: No Symptoms HEENT: Reports: No Symptoms Pulmonary: Reports: Shortness of Breath (Improved) Cardiovascular: Reports: No Symptoms Gastrointestinal: Reports: No Symptoms Genitourinary: Reports: No Symptoms Musculoskeletal: Reports: No Symptoms Skin: Reports: No Symptoms Neurological: Reports: No Symptoms Psychiatric: Reports: No Symptoms - Patient Data Vitals - Most Recent: Last Vital Signs Temp 97.8 F 11/30/17 09:33 Pulse 100 11/30/17 00:39 Resp 21 H 11/30/17 09:33 BP 96/72 11/30/17 09:33 Pulse Ox 100 11/30/17 09:33 Weight - Most Recent: 80 lb I&O - Last 24 Hours: Intake & Output 11/29/17 11/30/17 11/30/17 22:59 06:59 14:59 Intake Total 1208 374 Output Total 450 Balance 758 374 Lab Results Last 24 Hours: Laboratory Results - last 24 hr 11/29/17 11/29/17 11/29/17 Range/Units 22:54 22:54 23:14 WBC (4.0-11.0) K/uL RBC (4.50-5.90) M/uL Hgb (13.0-17.0) g/dL Hct (38.0-50.0) % MCV (80.0-98.0) fL MCH (27.0-32.0) pg MCHC (31.0-37.0) g/dL RDW Std Deviation (28.0-62.0) fl RDW Coeff of Brianna (11.0-15.0) % Plt Count (150-400) K/uL MPV (7.40-12.00) fL Neut % (Auto) (48.0-80.0) % Lymph % (Auto) (16.0-40.0) % [place] % (Auto) (0.0-15.0) % Eos % (Auto) (0.0-7.0) % Baso % (Auto) (0.0-1.5) % Neut # (Auto) (1.4-5.7) K/uL Lymph # (Auto) (0.6-2.4) K/uL [place] # (Auto) (0.0-0.8) K/uL Eos # (Auto) (0.0-0.7) K/uL Baso # (Auto) (0.0-0.1) K/uL Nucleated RBC % /100WBC Nucleated RBCs # K/uL INR 1.05 Lactate (0.20-2.00) mmol/L Sodium 137 (136-148) mmol/L Potassium 3.8 (3.5-5.1) mmol/L Chloride 102 (98-107) mmol/L Carbon Dioxide 27.0 (21.0-32.0) mmol/L BUN 18 (7.0-18.0) mg/dL Creatinine 0.9 (0.8-1.3) mg/dL Est Cr Clr Drug Dosing TNP Estimated GFR (MDRD) > 60.0 ml/min Glucose 107 H (74-106) mg/dL Calcium 8.6 (8.5-10.1) mg/dL Total Bilirubin 1.4 H (0.2-1.0) mg/dL AST 19 (15-37) IU/L ALT 26 (14-63) IU/L Alkaline Phosphatase 135 H (46-116) U/L Troponin I < 0.050 (0.000-0.056) ng/mL B-Natriuretic Peptide 730 H (<100) PG/ML Total Protein 6.2 L (6.4-8.2) g/dL Albumin 3.8 (3.4-5.0) g/dL Globulin 2.4 (2.0-3.5) g/dL Albumin/Globulin Ratio 1.6 (1.3-2.8) Vitamin B12 (193-986) pg/mL Folate (8.60-58.90) ng/mL Free T4 (0.76-1.46) ng/dL Urine Color Urine Appearance Urine pH (5.0-8.0) Ur Specific [place] (1.001-1.035) Urine Protein (NEGATIVE) mg/dL Urine Glucose (UA) (NEGATIVE) mg/dL Urine Ketones (NEGATIVE) mg/dL Urine Occult Blood (NEGATIVE) Urine Nitrite (NEGATIVE) Urine Bilirubin (NEGATIVE) Urine Urobilinogen (<2.0) EU/dL Ur Leukocyte Esterase (NEGATIVE) Urine RBC (0-2/HPF) Urine WBC (0-5/HPF) Ur Epithelial Cells (NONE-FEW) Urine Bacteria (NEGATIVE) Blood Type Antibody Screen Crossmatch 11/29/17 11/29/17 11/30/17 Range/Units 23:32 23:32 00:25 WBC 24.18 H (4.0-11.0) K/uL RBC 1.30 L (4.50-5.90) M/uL Hgb 4.8 L* (13.0-17.0) g/dL Hct 13.4 L (38.0-50.0) % MCV 103.1 H (80.0-98.0) fL MCH 36.9 H (27.0-32.0) pg MCHC 35.8 (31.0-37.0) g/dL RDW Std Deviation 56.2 (28.0-62.0) fl RDW Coeff of Brianna 15 (11.0-15.0) % Plt Count 176 (150-400) K/uL MPV 10.00 (7.40-12.00) fL Neut % (Auto) 44.6 L (48.0-80.0) % Lymph % (Auto) 47.9 H (16.0-40.0) % [place] % (Auto) 6.9 (0.0-15.0) % Eos % (Auto) 0.5 (0.0-7.0) % Baso % (Auto) 0.1 (0.0-1.5) % Neut # (Auto) 10.8 H (1.4-5.7) K/uL Lymph # (Auto) 11.6 H (0.6-2.4) K/uL [place] # (Auto) 1.7 H (0.0-0.8) K/uL Eos # (Auto) 0.1 (0.0-0.7) K/uL Baso # (Auto) 0.0 (0.0-0.1) K/uL Nucleated RBC % 0.0 /100WBC Nucleated RBCs # 0 K/uL INR Lactate (0.20-2.00) mmol/L Sodium (136-148) mmol/L Potassium (3.5-5.1) mmol/L Chloride (98-107) mmol/L Carbon Dioxide (21.0-32.0) mmol/L BUN (7.0-18.0) mg/dL Creatinine (0.8-1.3) mg/dL Est Cr Clr Drug Dosing Estimated GFR (MDRD) ml/min Glucose (74-106) mg/dL Calcium (8.5-10.1) mg/dL Total Bilirubin (0.2-1.0) mg/dL AST (15-37) IU/L ALT (14-63) IU/L Alkaline Phosphatase (46-116) U/L Troponin I (0.000-0.056) ng/mL B-Natriuretic Peptide (<100) PG/ML Total Protein (6.4-8.2) g/dL Albumin (3.4-5.0) g/dL Globulin (2.0-3.5) g/dL Albumin/Globulin Ratio (1.3-2.8) Vitamin B12 (193-986) pg/mL Folate (8.60-58.90) ng/mL Free T4 (0.76-1.46) ng/dL Urine Color YELLOW Urine Appearance CLEAR Urine pH 6.0 (5.0-8.0) Ur Specific [place] 1.015 (1.001-1.035) Urine Protein NEGATIVE (NEGATIVE) mg/dL Urine Glucose (UA) NEGATIVE (NEGATIVE) mg/dL Urine Ketones NEGATIVE (NEGATIVE) mg/dL Urine Occult Blood NEGATIVE (NEGATIVE) Urine Nitrite NEGATIVE (NEGATIVE) Urine Bilirubin NEGATIVE (NEGATIVE) Urine Urobilinogen 0.2 (<2.0) EU/dL Ur Leukocyte Esterase NEGATIVE (NEGATIVE) Urine RBC 0-1 (0-2/HPF) Urine WBC 0-2 (0-5/HPF) Ur Epithelial Cells RARE (NONE-FEW) Urine Bacteria FEW (NEGATIVE) Blood Type O POSITIVE Antibody Screen NEGATIVE Crossmatch See Detail 11/30/17 11/30/17 11/30/17 Range/Units 01:04 01:04 06:50 WBC (4.0-11.0) K/uL RBC (4.50-5.90) M/uL Hgb (13.0-17.0) g/dL Hct (38.0-50.0) % MCV (80.0-98.0) fL MCH (27.0-32.0) pg MCHC (31.0-37.0) g/dL RDW Std Deviation (28.0-62.0) fl RDW Coeff of Brianna (11.0-15.0) % Plt Count (150-400) K/uL MPV (7.40-12.00) fL Neut % (Auto) (48.0-80.0) % Lymph % (Auto) (16.0-40.0) % [place] % (Auto) (0.0-15.0) % Eos % (Auto) (0.0-7.0) % Baso % (Auto) (0.0-1.5) % Neut # (Auto) (1.4-5.7) K/uL Lymph # (Auto) (0.6-2.4) K/uL [place] # (Auto) (0.0-0.8) K/uL Eos # (Auto) (0.0-0.7) K/uL Baso # (Auto) (0.0-0.1) K/uL Nucleated RBC % /100WBC Nucleated RBCs # K/uL INR Lactate 2.2 H 1.6 (0.20-2.00) mmol/L Sodium (136-148) mmol/L Potassium (3.5-5.1) mmol/L Chloride (98-107) mmol/L Carbon Dioxide (21.0-32.0) mmol/L BUN (7.0-18.0) mg/dL Creatinine (0.8-1.3) mg/dL Est Cr Clr Drug Dosing Estimated GFR (MDRD) ml/min Glucose (74-106) mg/dL Calcium (8.5-10.1) mg/dL Total Bilirubin (0.2-1.0) mg/dL AST (15-37) IU/L ALT (14-63) IU/L Alkaline Phosphatase (46-116) U/L Troponin I (0.000-0.056) ng/mL B-Natriuretic Peptide (<100) PG/ML Total Protein (6.4-8.2) g/dL Albumin (3.4-5.0) g/dL Globulin (2.0-3.5) g/dL Albumin/Globulin Ratio (1.3-2.8) Vitamin B12 336 (193-986) pg/mL Folate 12.30 (8.60-58.90) ng/mL Free T4 1.69 H (0.76-1.46) ng/dL Urine Color Urine Appearance Urine pH (5.0-8.0) Ur Specific [place] (1.001-1.035) Urine Protein (NEGATIVE) mg/dL Urine Glucose (UA) (NEGATIVE) mg/dL Urine Ketones (NEGATIVE) mg/dL Urine Occult Blood (NEGATIVE) Urine Nitrite (NEGATIVE) Urine Bilirubin (NEGATIVE) Urine Urobilinogen (<2.0) EU/dL Ur Leukocyte Esterase (NEGATIVE) Urine RBC (0-2/HPF) Urine WBC (0-5/HPF) Ur Epithelial Cells (NONE-FEW) Urine Bacteria (NEGATIVE) Blood Type Antibody Screen Crossmatch 11/30/17 11/30/17 Range/Units 06:50 06:50 WBC 12.17 H (4.0-11.0) K/uL RBC 1.79 L (4.50-5.90) M/uL Hgb 6.2 L (13.0-17.0) g/dL Hct 17.5 L (38.0-50.0) % MCV 97.8 (80.0-98.0) fL MCH 34.6 H (27.0-32.0) pg MCHC 35.4 (31.0-37.0) g/dL RDW Std Deviation 57.3 (28.0-62.0) fl RDW Coeff of Brianna 16 H (11.0-15.0) % Plt Count 160 (150-400) K/uL MPV 10.20 (7.40-12.00) fL Neut % (Auto) 92.2 H (48.0-80.0) % Lymph % (Auto) 5.8 L (16.0-40.0) % Hidalgo % (Auto) 2.0 (0.0-15.0) % Eos % (Auto) 0.0 (0.0-7.0) % Baso % (Auto) 0.0 (0.0-1.5) % Neut # (Auto) 11.2 H (1.4-5.7) K/uL Lymph # (Auto) 0.7 (0.6-2.4) K/uL Hidalgo # (Auto) 0.2 (0.0-0.8) K/uL Eos # (Auto) 0.0 (0.0-0.7) K/uL Baso # (Auto) 0.0 (0.0-0.1) K/uL Nucleated RBC % 0.0 /100WBC Nucleated RBCs # 0 K/uL INR Lactate (0.20-2.00) mmol/L Sodium 134 L (136-148) mmol/L Potassium 4.4 (3.5-5.1) mmol/L Chloride 99 (98-107) mmol/L Carbon Dioxide 26.6 (21.0-32.0) mmol/L BUN 18 (7.0-18.0) mg/dL Creatinine 1.1 (0.8-1.3) mg/dL Est Cr Clr Drug Dosing 37.11 Estimated GFR (MDRD) > 60.0 ml/min Glucose 158 H (74-106) mg/dL Calcium 7.8 L (8.5-10.1) mg/dL Total Bilirubin (0.2-1.0) mg/dL AST (15-37) IU/L ALT (14-63) IU/L Alkaline Phosphatase (46-116) U/L Troponin I (0.000-0.056) ng/mL B-Natriuretic Peptide (<100) PG/ML Total Protein (6.4-8.2) g/dL Albumin (3.4-5.0) g/dL Globulin (2.0-3.5) g/dL Albumin/Globulin Ratio (1.3-2.8) Vitamin B12 (193-986) pg/mL Folate (8.60-58.90) ng/mL Free T4 (0.76-1.46) ng/dL Urine Color Urine Appearance Urine pH (5.0-8.0) Ur Specific [place] (1.001-1.035) Urine Protein (NEGATIVE) mg/dL Urine Glucose (UA) (NEGATIVE) mg/dL Urine Ketones (NEGATIVE) mg/dL Urine Occult Blood (NEGATIVE) Urine Nitrite (NEGATIVE) Urine Bilirubin (NEGATIVE) Urine Urobilinogen (<2.0) EU/dL Ur Leukocyte Esterase (NEGATIVE) Urine RBC (0-2/HPF) Urine WBC (0-5/HPF) Ur Epithelial Cells (NONE-FEW) Urine Bacteria (NEGATIVE) Blood Type Antibody Screen Crossmatch Mohan Results Last 24 Hours: Microbiology 11/30/17 00:19 Streptococcus pneumoniae Ag Screen - Final Urine 11/30/17 00:25 Legionella Antigen - Final Urine, Voided Med Orders - Current: Current Medications Acetaminophen (Tylenol) 650 mg PO Q4H PRN PRN Reason: Pain (Mild 1-3)/fever Last Admin: 11/30/17 08:20 Dose: 650 mg Albuterol/Ipratropium (Duoneb 3.0-0.5 Mg/3 Ml) 3 ml NEB Q4HRRT PRN PRN Reason: Shortness Of Breath/wheezing Sodium Chloride (Normal Saline) 1,000 mls @ 125 mls/hr IV STAT [facility] Last Admin: 11/29/17 23:00 Dose: 125 mls/hr Piperacillin Sod/Tazobactam (Sod 3.375 gm/ Sodium Chloride) 50 mls @ 100 mls/ hr IV Q6H [facility] Last Admin: 11/30/17 08:20 Dose: 100 mls/hr Levofloxacin/Dextrose 250 mg/ (Premix) 50 mls @ 50 mls/hr IV Q24H ELLIE Vancomycin HCl 500 mg/ Sodium (Chloride) 100 mls @ 100 mls/hr IV Q24H [facility] Levothyroxine Sodium (Levothyroxine) 75 mcg PO ACBREAKFAST [facility] Last Admin: 11/30/17 07:00 Dose: 75 mcg Ondansetron HCl (Zofran) 4 mg IVPUSH Q4H PRN PRN Reason: Nausea Prednisone (Prednisone) 40 mg PO WITHBREAKFAST ELLIE Last Admin: 11/30/17 08:20 Dose: 40 mg Sodium Chloride (Saline Flush) 10 ml FLUSH ASDIRECTED PRN PRN Reason: Keep Vein Open Last Admin: 11/29/17 23:00 Dose: 10 ml Sodium Chloride (Saline Flush) 2.5 ml FLUSH ASDIRECTED PRN PRN Reason: Keep Vein Open Last Admin: 11/29/17 23:00 Dose: 2.5 ml Vancomycin HCl (Pharmacy To Dose - Vancomycin) 1 dose .XX ASDIRECTED ELLIE Discontinued Medications Acetaminophen (Tylenol) 650 mg PO NOW ONE Stop: 11/30/17 02:05 Last Admin: 11/30/17 02:21 Dose: 650 mg Albuterol/Ipratropium (Duoneb 3.0-0.5 Mg/3 Ml) 3 ml NEB ONETIME ONE Stop: 11/29/17 22:29 Last Admin: 11/29/17 23:01 Dose: 3 ml Furosemide (Lasix) 20 mg IVPUSH NOW ONE Stop: 11/29/17 23:33 Last Admin: 11/29/17 23:39 Dose: 20 mg Vancomycin HCl 1 gm/ Sodium (Chloride) 250 mls @ 166 mls/hr IV ONETIME ONE Stop: 11/30/17 02:00 Last Admin: 11/30/17 00:40 Dose: 166 mls/hr Levofloxacin/Dextrose 500 mg/ (Premix) 100 mls @ 100 mls/hr IV ONETIME ONE Stop: 11/30/17 03:59 Last Admin: 11/30/17 03:44 Dose: 100 mls/hr Methylprednisolone Sodium Succinate (Solu-Medrol) 125 mg IVPUSH ONETIME ONE Stop: 11/29/17 22:29 Last Admin: 11/29/17 23:01 Dose: 125 mg Morphine Sulfate (Morphine) 4 mg IVPUSH ONETIME ONE Stop: 11/29/17 23:33 Last Admin: 11/29/17 23:41 Dose: 4 mg Prednisone (Prednisone) 5 mg PO DAILY ELLIE - Exam Quality Assessment: Supplemental Oxygen (1 L nasal cannula), DVT Prophylaxis General: Alert, Oriented, Cooperative, No Acute Distress Lungs: Clear to Auscultation, Normal Respiratory Effort Cardiovascular: Regular Rate, Regular Rhythm GI/Abdominal Exam: Normal Bowel Sounds, Soft, Non-Tender, No Organomegaly, No Distention, No Abnormal Bruit, No Mass, Pelvis Stable Extremities: Normal Inspection, Normal Range of Motion, Non-Tender, No Pedal Edema, Normal Capillary Refill Peripheral Pulses: 2+: Radial (L), Radial (R), Posterior Tibial (L), Posterior Tibial (R) Skin: Warm, Dry, Intact Neurological: No New Focal Deficit Psy/Mental Status: Alert, Normal Affect, Normal Mood - Problem List & Annotations (1) Pneumonia SNOMED Code(s): 877972253 Code(s): J18.9 - PNEUMONIA, UNSPECIFIED ORGANISM Status: Acute Current Visit: Yes (2) Anemia SNOMED Code(s): 177350032 Code(s): D64.9 - ANEMIA, UNSPECIFIED Status: Acute Current Visit: Yes (3) COPD (chronic obstructive pulmonary disease) SNOMED Code(s): 94448223 Code(s): J44.9 - CHRONIC OBSTRUCTIVE PULMONARY DISEASE, UNSPECIFIED Status : Chronic Priority: Medium Current Visit: Yes Qualifiers: COPD type: unspecified COPD Qualified Code(s): J44.9 - Chronic obstructive pulmonary disease, unspecified - Problem List Review Problem List Initiated/Reviewed/Updated: Yes - My Orders Last 24 Hours: My Active Orders 11/30/17 09:33 HEMOGLOBIN/HEMATOCRIT,HH [HEME] Routine 11/30/17 09:37 Hemoccult [OCCULT BLOOD DIAGNOSTIC] [OP] Routine - Plan Plan:: 61-year-old male admitted with pneumonia, anemia and COPD his estimation. #1. Anemia: -Initial hemoglobin was 4.8. He is receiving second unit of packed red blood cells currently. His repeat H&H after the initial unit was 6.2. -Hemoccult was negative in the ER. I have ordered Hemoccult so that it can be recorded in the patient's chart. Rectal exam is unremarkable. -Patient will need to be started on daily iron at discharge. #2. Pneumonia: -Chest x-ray showed cardiomegaly and some possible consolidations. Because of his immunocompromised state, the patient is being treated with broad-spectrum antibiotics including vancomycin, Zosyn and Levaquin. -Blood cultures and sputum cultures are pending. -Legionella antigen and strep pneumo antigen were negative. #3. COPD: -Patient is receiving DuoNeb treatments. He is also receiving Levaquin as part of the broad-spectrum antibiotics for his pneumonia. This should help with his COPD. -He has been continued on his daily prednisone which he takes for his history of renal transplant. #4. Elevated BNP: -BNP is 730. Chest x-ray showed cardiomegaly. -Patient has had an echocardiogram in the past but is unsure when and what it showed. Has also been seen by nitroglycerin distributor in the past and Tom. He states this was a while ago. -Echocardiogram is pending. Patient has no peripheral edema and no orthopnea. -Patient's daily dose of Lasix has been continued. DVT prophylaxis: SCDs. Disposition: 2-4 days pending improvement.
[2017-11-30] MEDS: Albuterol/Ipratropium 3.0-0.5 MG/3 ML Neb Soln NEB PRN (14:28)
--- NOTE | 2017-11-30 17:06 | CR ---
EXAM DATE: 11/30/17 PATIENT'S AGE: 61 Patient: ROBSON AZEVEDO Facility: [place], [place] Site . Site : 1955 Study: XRay Chest [id number]/29/2018 11:09:03 PM Ordering Physician: Doctor Russell Final Report: HISTORY: Shortness of breath and chest pain. TECHNIQUE: One view of the chest. COMPARISON: 08/06/2017. FINDINGS: Right-sided Port-A-Cath with catheter tip terminating within the lower aspect of the SVC. Cardiomegaly. There is prominence of the central pulmonary arterial vasculature. There is no lung consolidation or pulmonary edema. No pneumothorax. No moderate or large pleural effusion. Surgical clips in the epigastric region. IMPRESSION: 1. Cardiomegaly. 2. Prominence of the central pulmonary arterial vasculature. 3. No lung infiltrate or pulmonary edema. Dictated by Prosper Angel MD @ 11/29/2017 11:41:36 PM Dictated by: Prosper Angel MD @ 11/29/2017 23:41:41 (Electronic Signature) Report Signed by Proxy. BELL
[2017-12-01] MEDS: Piperacillin/Tazobactam 3.375 GM in Sodium Chloride 0.9% 50 ML IV SCH ×4 (02:07→20:40)
[2017-12-01] MEDS: Albuterol/Ipratropium 3.0-0.5 MG/3 ML Neb Soln NEB PRN (02:15)
[2017-12-01] MEDS: Levothyroxine 75 MCG Tab PO SCH (06:31)
[2017-12-01 06:33] LABS: CHLORIDE,CL 106 mmol/L (98-107); SODIUM,NA 141 mmol/L (136-148)
[2017-12-01] MEDS: predniSONE 20 MG Tab PO SCH (08:23)
[2017-12-01] MEDS: Pantoprazole 40 MG Vial IVPUSH SCH (10:17)
[2017-12-01] MEDS: Levofloxacin/Dextrose 5%-Water 250 MG in Premix Bag 1 BAG IV SCH (10:33)
--- NOTE | 2017-12-01 11:25 | PCM.PN ---
- General Info Date of Service: 12/01/17 Admission Dx/Problem (Free Text): Anemia, pneumonia Subjective Update: Patient reports improvement in his respiratory status. He is tolerating oral intake and voiding appropriately. He has gotten 2 units of packed red blood cells with his hemoglobin improving to 8.2. It has dropped to 7.4 this morning. His BUN has also increased to 26 from previously being normal. Patient notes a prior history of gastric ulcers but does not take any PPIs at home. He is on chronic daily steroids for his history of renal transplant. He has not had any black or dark stools. He denies any blood in the stool. Functional Status: Reports: Pain Controlled, Tolerating Diet, Ambulating, Urinating - Review of Systems General: Reports: No Symptoms HEENT: Reports: No Symptoms Pulmonary: Reports: Shortness of Breath (Improving) Cardiovascular: Reports: No Symptoms Gastrointestinal: Reports: No Symptoms Genitourinary: Reports: No Symptoms Musculoskeletal: Reports: No Symptoms Skin: Reports: No Symptoms Neurological: Reports: No Symptoms Psychiatric: Reports: No Symptoms - Patient Data Vitals - Most Recent: Last Vital Signs Temp 98.7 F 12/01/17 08:00 Pulse 100 11/30/17 00:39 Resp 18 12/01/17 10:00 BP 95/67 12/01/17 10:00 Pulse Ox 96 12/01/17 10:00 Weight - Most Recent: 86 lb 6.739 oz I&O - Last 24 Hours: Intake & Output 11/30/17 12/01/17 12/01/17 22:59 06:59 14:59 Intake Total 470 750 100 Output Total 300 200 Balance 170 550 100 Lab Results Last 24 Hours: Laboratory Results - last 24 hr 11/29/17 11/30/17 12/01/17 Range/Units 23:32 01:09 05:10 WBC 10.51 (4.0-11.0) K/uL RBC 2.19 L (4.50-5.90) M/uL Hgb 7.4 L (13.0-17.0) g/dL Hct 20.7 L (38.0-50.0) % MCV 94.5 (80.0-98.0) fL MCH 33.8 H (27.0-32.0) pg MCHC 35.7 (31.0-37.0) g/dL RDW Std Deviation 59.9 (28.0-62.0) fl RDW Coeff of Brianna 18 H (11.0-15.0) % Plt Count 147 L (150-400) K/uL MPV 10.50 (7.40-12.00) fL Neut % (Auto) 85.1 H (48.0-80.0) % Lymph % (Auto) 4.2 L (16.0-40.0) % Hernando % (Auto) 10.7 (0.0-15.0) % Eos % (Auto) 0.0 (0.0-7.0) % Baso % (Auto) 0.0 (0.0-1.5) % Neut # (Auto) 9.0 H (1.4-5.7) K/uL Lymph # (Auto) 0.4 L (0.6-2.4) K/uL Hernando # (Auto) 1.1 H (0.0-0.8) K/uL Eos # (Auto) 0.0 (0.0-0.7) K/uL Baso # (Auto) 0.0 (0.0-0.1) K/uL Nucleated RBC % 0.0 /100WBC Nucleated RBCs # 0 K/uL Sodium (136-148) mmol/L Potassium (3.5-5.1) mmol/L Chloride (98-107) mmol/L Carbon Dioxide (21.0-32.0) mmol/L BUN (7.0-18.0) mg/dL Creatinine (0.8-1.3) mg/dL Est Cr Clr Drug Dosing mL/min Estimated GFR (MDRD) ml/min Glucose (74-106) mg/dL Calcium (8.5-10.1) mg/dL Iron 296 H (50-175) ug/dL TIBC 316 (250-450) ug/dL % Saturation 93.67 H (20-55) % Ferritin 2938 H (26-388) ng/mL Blood Type O POSITIVE Antibody Screen NEGATIVE Crossmatch See Detail 12/01/17 Range/Units 05:10 WBC (4.0-11.0) K/uL RBC (4.50-5.90) M/uL Hgb (13.0-17.0) g/dL Hct (38.0-50.0) % MCV (80.0-98.0) fL MCH (27.0-32.0) pg MCHC (31.0-37.0) g/dL RDW Std Deviation (28.0-62.0) fl RDW Coeff of Brianna (11.0-15.0) % Plt Count (150-400) K/uL MPV (7.40-12.00) fL Neut % (Auto) (48.0-80.0) % Lymph % (Auto) (16.0-40.0) % Hernando % (Auto) (0.0-15.0) % Eos % (Auto) (0.0-7.0) % Baso % (Auto) (0.0-1.5) % Neut # (Auto) (1.4-5.7) K/uL Lymph # (Auto) (0.6-2.4) K/uL Hernando # (Auto) (0.0-0.8) K/uL Eos # (Auto) (0.0-0.7) K/uL Baso # (Auto) (0.0-0.1) K/uL Nucleated RBC % /100WBC Nucleated RBCs # K/uL Sodium 141 (136-148) mmol/L Potassium 3.6 (3.5-5.1) mmol/L Chloride 106 (98-107) mmol/L Carbon Dioxide 27.2 (21.0-32.0) mmol/L BUN 26 H (7.0-18.0) mg/dL Creatinine 1.1 (0.8-1.3) mg/dL Est Cr Clr Drug Dosing 40.09 mL/min Estimated GFR (MDRD) > 60.0 ml/min Glucose 144 H (74-106) mg/dL Calcium 8.8 (8.5-10.1) mg/dL Iron (50-175) ug/dL TIBC (250-450) ug/dL % Saturation (20-55) % Ferritin (26-388) ng/mL Blood Type Antibody Screen Crossmatch Mohan Results Last 24 Hours: Microbiology 12/01/17 07:50 Stool Occult Blood (MOHAN) - Final Stool / Feces - Stool, Liquid NEGATIVE OCCULT BLOOD 11/30/17 00:25 Urine Culture - Final Urine, Clean Catch No Growth 11/30/17 01:04 Aerobic Blood Culture - Preliminary Blood - Venous - Lab Draw NO GROWTH AFTER 1 DAY Anaerobic Blood Culture - Preliminary NO GROWTH AFTER 1 DAY 11/29/17 23:54 Aerobic Blood Culture - Preliminary Blood - Venous NO GROWTH AFTER 1 DAY Anaerobic Blood Culture - Preliminary NO GROWTH AFTER 1 DAY 11/30/17 07:50 Gram Stain - Preliminary Sputum - Expectorated 11/30/17 00:19 Streptococcus pneumoniae Ag Screen - Final Urine 11/30/17 00:25 Legionella Antigen - Final Urine, Voided Med Orders - Current: Current Medications Acetaminophen (Tylenol) 650 mg PO Q4H PRN PRN Reason: Pain (Mild 1-3)/fever Last Admin: 11/30/17 08:20 Dose: 650 mg Albuterol/Ipratropium (Duoneb 3.0-0.5 Mg/3 Ml) 3 ml NEB Q4HRRT PRN PRN Reason: Shortness Of Breath/wheezing Last Admin: 12/01/17 02:15 Dose: 3 ml Piperacillin Sod/Tazobactam (Sod 3.375 gm/ Sodium Chloride) 50 mls @ 100 mls/ hr IV Q6H [facility] Last Admin: 12/01/17 08:23 Dose: 100 mls/hr Levofloxacin/Dextrose 250 mg/ (Premix) 50 mls @ 50 mls/hr IV Q24H [facility] Last Admin: 12/01/17 10:33 Dose: 50 mls/hr Vancomycin HCl 500 mg/ Sodium (Chloride) 100 mls @ 100 mls/hr IV Q24H [facility] Last Admin: 12/01/17 09:30 Dose: 100 mls/hr Levothyroxine Sodium (Levothyroxine) 75 mcg PO ACBREAKFAST [facility] Last Admin: 12/01/17 06:31 Dose: 75 mcg Ondansetron HCl (Zofran) 4 mg IVPUSH Q4H PRN PRN Reason: Nausea Pantoprazole Sodium (Protonix Iv) 40 mg IVPUSH Q24H [facility] Last Admin: 12/01/17 10:17 Dose: 40 mg Prednisone (Prednisone) 40 mg PO WITHBREAKFAST [facility] Last Admin: 12/01/17 08:23 Dose: 40 mg Sodium Chloride (Saline Flush) 10 ml FLUSH ASDIRECTED PRN PRN Reason: Keep Vein Open Last Admin: 11/29/17 23:00 Dose: 10 ml Sodium Chloride (Saline Flush) 2.5 ml FLUSH ASDIRECTED PRN PRN Reason: Keep Vein Open Last Admin: 11/29/17 23:00 Dose: 2.5 ml Vancomycin HCl (Pharmacy To Dose - Vancomycin) 1 dose .XX ASDIRECTED ELLIE Discontinued Medications Acetaminophen (Tylenol) 650 mg PO NOW ONE Stop: 11/30/17 02:05 Last Admin: 11/30/17 02:21 Dose: 650 mg Albuterol/Ipratropium (Duoneb 3.0-0.5 Mg/3 Ml) 3 ml NEB ONETIME ONE Stop: 11/29/17 22:29 Last Admin: 11/29/17 23:01 Dose: 3 ml Furosemide (Lasix) 20 mg IVPUSH NOW ONE Stop: 11/29/17 23:33 Last Admin: 11/29/17 23:39 Dose: 20 mg Sodium Chloride (Normal Saline) 1,000 mls @ 125 mls/hr IV STAT ELLIE Last Admin: 11/29/17 23:00 Dose: 125 mls/hr Vancomycin HCl 1 gm/ Sodium (Chloride) 250 mls @ 166 mls/hr IV ONETIME ONE Stop: 11/30/17 02:00 Last Admin: 11/30/17 00:40 Dose: 166 mls/hr Levofloxacin/Dextrose 500 mg/ (Premix) 100 mls @ 100 mls/hr IV ONETIME ONE Stop: 11/30/17 03:59 Last Admin: 11/30/17 03:44 Dose: 100 mls/hr Methylprednisolone Sodium Succinate (Solu-Medrol) 125 mg IVPUSH ONETIME ONE Stop: 11/29/17 22:29 Last Admin: 11/29/17 23:01 Dose: 125 mg Morphine Sulfate (Morphine) 4 mg IVPUSH ONETIME ONE Stop: 11/29/17 23:33 Last Admin: 11/29/17 23:41 Dose: 4 mg Prednisone (Prednisone) 5 mg PO DAILY ELLIE - Exam General: Alert, Oriented, Cooperative, No Acute Distress Neck: Supple Lungs: Clear to Auscultation, Normal Respiratory Effort Cardiovascular: Regular Rate, Regular Rhythm GI/Abdominal Exam: Normal Bowel Sounds, Soft, Non-Tender, No Organomegaly, No Distention, No Abnormal Bruit, No Mass, Pelvis Stable Extremities: Normal Inspection, Normal Range of Motion, Non-Tender, No Pedal Edema, Normal Capillary Refill Peripheral Pulses: 2+: Radial (L), Radial (R), Posterior Tibial (L), Posterior Tibial (R) Skin: Warm, Dry, Intact Neurological: No New Focal Deficit Psy/Mental Status: Alert, Normal Affect, Normal Mood - Problem List & Annotations (1) Pneumonia SNOMED Code(s): 727276563 Code(s): J18.9 - PNEUMONIA, UNSPECIFIED ORGANISM Status: Acute Current Visit: Yes (2) Anemia SNOMED Code(s): 932127464 Code(s): D64.9 - ANEMIA, UNSPECIFIED Status: Acute Current Visit: Yes (3) COPD (chronic obstructive pulmonary disease) SNOMED Code(s): 44069338 Code(s): J44.9 - CHRONIC OBSTRUCTIVE PULMONARY DISEASE, UNSPECIFIED Status : Chronic Priority: Medium Current Visit: Yes Qualifiers: COPD type: unspecified COPD Qualified Code(s): J44.9 - Chronic obstructive pulmonary disease, unspecified - Problem List Review Problem List Initiated/Reviewed/Updated: Yes - My Orders Last 24 Hours: My Active Orders 12/01/17 07:50 Hemoccult [OCCULT BLOOD DIAGNOSTIC] [OP] Routine 12/01/17 09:50 Transfuse RBC [Transfuse Red Blood Cells] [COMM] Routine 12/01/17 09:51 HEMOGLOBIN/HEMATOCRIT,HH [HEME] Routine 12/01/17 10:00 Pantoprazole [ProTONIX IV] 40 mg IVPUSH Q24H 12/01/17 11:18 Transfer Patient (Change bed) [ADT] Routine - Plan Plan:: 61-year-old male admitted with pneumonia, anemia and COPD his estimation. #1. Anemia: -Hemoglobin improved to 8.2 from 4.8 after 2 units of packed red blood cells. And then dropped to 7.4. The drop could be dilutional as the patient has +2 L since admission. Patient will receive another unit of packed red blood cells today. -Hemoccult is negative. -Patient started on daily iron. -BUN has increased to 26 from previously being normal. Patient does have a history of gastric ulcers. Started on IV Protonix daily. #2. Pneumonia: -Continue broad-spectrum antibiotics -Blood cultures were negative. Sputum culture showed gram-positive cocci in pairs/clusters and also gram-negative cocci. -Legionella antigen and strep pneumo antigen were negative. #3. COPD: -Continue DuoNeb treatments. He is also receiving Levaquin as part of the broad- spectrum antibiotics for his pneumonia. This should help with his COPD. -He has been continued on his daily prednisone which he takes for his history of renal transplant. The IV Protonix should help as the patient is on his chronic daily steroid. #4. Elevated BNP: -BNP is 730. Chest x-ray showed cardiomegaly. -Echocardiogram shows normal ejection fraction. -Continue daily Lasix. DVT prophylaxis: SCDs. Disposition: 1-2 days pending improvement.
[2017-12-01] MEDS ORDERED: traMADol 50 MG Tab PO PRN (17:31)
[2017-12-02] MEDS: Piperacillin/Tazobactam 3.375 GM in Sodium Chloride 0.9% 50 ML IV SCH ×2 (02:40→08:38)
[2017-12-02] MEDS: Albuterol/Ipratropium 3.0-0.5 MG/3 ML Neb Soln NEB PRN (04:26)
[2017-12-02 06:10] LABS: CHLORIDE,CL 106 mmol/L (98-107); SODIUM,NA 142 mmol/L (136-148)
[2017-12-02] MEDS: Levothyroxine 75 MCG Tab PO SCH (06:30)
[2017-12-02] MEDS: predniSONE 20 MG Tab PO SCH (07:30)
[2017-12-02 07:31] VITALS: BP 101/65
[2017-12-02] MEDS: Levofloxacin/Dextrose 5%-Water 250 MG in Premix Bag 1 BAG IV SCH (09:15)
[2017-12-02] MEDS: Pantoprazole 40 MG Vial IVPUSH SCH (09:23)
--- NOTE | 2017-12-02 15:12 | ECHO ---
EXAM DATE: 11/30/17 PATIENT'S AGE: 61 The echocardiogram report can be seen in this patient's EMR (Electronic Medical Record) in the Reports section. The report has also been scanned into PACs. BELL
== END 2017-12-02 13:00 | disposition home or self-care (01) | DRG 190 ==
LOC: MW.ED 22:14 → MW.ICU 11-30 00:18 → MW.MS 12-01 16:15
PROVIDERS: ADMIT Internal Medicine; ATTEND Internal Medicine
DX: J44.9 Chronic obstructive pulmonary disease, unspecified (principal); I50.9 Heart failure, unspecified; J44.0 Chronic obstructive pulmonary disease with (acute) lower respiratory infection; J18.9 Pneumonia, unspecified organism; Z94.0 Kidney transplant status; E03.9 Hypothyroidism, unspecified; I12.9 Hypertensive chronic kidney disease with stage 1 through stage 4 chronic kidney disease, or unspecified chronic kidney disease; I25.10 Atherosclerotic heart disease of native coronary artery without angina pectoris; N18.9 Chronic kidney disease, unspecified; D64.9 Anemia, unspecified; R79.9 Abnormal finding of blood chemistry, unspecified; Z88.8 Allergy status to other drugs, medicaments and biological substances; Z79.899 Other long term (current) drug therapy; Z87.891 Personal history of nicotine dependence
CPT/HCPCS: 36415; 71045; 80053; 83880; 84484; 85025; 85610; 94640; 96361; 96375; 99285; J1940; J2270; J2930; J7040; 36430; 80048; 81001; 82272; 82607; 82728; 82746; 83550; 83605; 84439; 85014; 85018; 86850; 86900; 86901; 86920; 86921; 86922; 87040; 87070; 87086; 87205; 87899; 93005; 93306; 96365; A9270-GY; C9113; J1642; J1956; J2543; J3370; J7030; J7050; P9016

== ENCOUNTER 2018-01-09 23:08 | Inpatient (IN) | payer MEDICAID, SELFPAY ==
[2018-01-09] MEDS ORDERED: methylPREDNISolone Sodium Succinate 125 MG/2 ML SDV IVPUSH ONE (23:12)
[2018-01-09] MEDS ORDERED: Albuterol/Ipratropium 3.0-0.5 MG/3 ML Neb Soln NEB ONE (23:12)
[2018-01-09] MEDS ORDERED: Sodium Chloride 0.9% 2.5 ML Syringe FLUSH PRN (23:12)
[2018-01-09] MEDS ORDERED: Sodium Chloride 0.9% 10 ML Syringe FLUSH PRN (23:12)
[2018-01-09] MEDS ORDERED: Sodium Chloride 0.9% 1,000 ML IV SCH (23:15)
--- NOTE | 2018-01-09 23:15 | EDM.PDOC ---
ED HPI GENERAL MEDICAL PROBLEM - General Chief Complaint: Respiratory Problem Stated Complaint: SOB Time Seen by Provider: 01/09/18 23:11 - History of Present Illness INITIAL COMMENTS - FREE TEXT/NARRATIVE: HISTORY AND PHYSICAL: History of present illness: Patient's a 62-year-old white male history of COPD and kidney transplant who presents with shortness of breath by paramedics he was satting at 70% prior to arrival placed on a nonrebreather on arrival is in moderate distress continues on a nonrebreather he denies chest pain nausea vomiting he states he is not currently smoke. Review of systems: As per history of present illness and below otherwise all systems reviewed and negative. Past medical history: As per history of present illness and as reviewed below otherwise noncontributory. Surgical history: As per history of present illness and as reviewed below otherwise noncontributory. Social history: No reported history of drug or alcohol abuse. Family history: As per history of present illness and as reviewed below otherwise noncontributory. Physical exam: HEENT: Atraumatic, normocephalic, pupils reactive, negative for conjunctival pallor or scleral icterus, mucous membranes moist, throat clear, neck supple, nontender, trachea midline. Lungs: Coarse diminished bilaterally breath sounds equal bilaterally, chest nontender. Heart: S1S2, regular, negative for clicks, rubs, or JVD. Abdomen: Soft, nondistended, nontender. Negative for masses or hepatosplenomegaly. Negative for costovertebral tenderness. Pelvis: Stable nontender. Genitourinary: Deferred. Rectal: Deferred. Extremities: Atraumatic, negative for cords or calf pain. Neurovascular unremarkable. Neuro: Awake, alert, oriented. Cranial nerves II through XII unremarkable. Cerebellum unremarkable. Motor and sensory unremarkable throughout. Exam nonfocal. Diagnostics: CBC CMP PT/INR troponin chest x-ray EKG blood culture 2 ABG Therapeutics: IV O2 monitor Medrol 125 mg IV albuterol ipratropium nebulizer Impression: #1 COPD with acute exacerbation #2 history renal transplant Definitive disposition and diagnosis as appropriate pending reevaluation and review of above. - Related Data Allergies Allergy/AdvReac Type Severity Reaction Status Date / Time nifedipine [From Procardia] Allergy Itching Verified 01/09/18 23:46 muscle relaxant medicine? Allergy Itching Uncoded 01/09/18 23:46 Home Meds: Home Meds Furosemide 20 mg PO DAILY 12/06/15 [History] Levothyroxine 75 mcg PO ACBREAKFAST 12/06/15 [History] predniSONE [Prednisone] 5 mg PO DAILY 12/06/15 [History] Alendronate Sodium [Fosamax] 70 mg PO Q7D 12/07/15 [History] Zolpidem [Ambien] 10 mg PO BEDTIME PRN 12/07/15 [History] Albuterol [IJD: Ventolin HFA] 1 puff INH .TWICE DAILY #18 gm 12/02/17 [Rx] Budesonide/Formoterol Fumarate [Symbicort 160-4.5 Mcg Inhaler] 1 puff IH DAILY # 1 canister 12/02/17 [Rx] Levofloxacin [Levaquin] 750 mg PO Q48H #4 tab 12/02/17 [Rx] Pantoprazole Sodium [Protonix] 40 mg PO DAILY #30 tablet. 12/02/17 [Rx] Past Medical History HEENT History: Reports: Other (See Below) Other HEENT History: impaired hearing-with hearing aid on the right ear Cardiovascular History: Reports: Heart Failure Respiratory History: Reports: Asthma, COPD Gastrointestinal History: Reports: None Genitourinary History: Reports: Renal Disease Musculoskeletal History: Reports: Back Pain, Chronic, Osteoarthritis Neurological History: Reports: None Psychiatric History: Reports: None Endocrine/Metabolic History: Reports: Hypothyroidism Hematologic History: Reports: Anemia, Blood Transfusion(s), Other (See Below) Other Hematologic History: history of low platelet Immunologic History: Reports: Solid Organ Transplant Oncologic (Cancer) History: Reports: Other (See Below) Other Oncologic History: 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 Dermatologic History: Reports: None - Infectious Disease History Infectious Disease History: Reports: Chicken Pox, Measles, Mumps - Past Surgical History Head Surgeries/Procedures: Reports: None GI Surgical History: Reports: Other (See Below) Other GI Surgeries/Procedures: Whipple Male Surgical History: Reports: Other (See Below) Other Male Surgeries/Procedures: Renal transplant Endocrine Surgical History: Reports: Thyroidectomy Social & Family History - Family History Family Medical History: Noncontributory HEENT: Reports: None Cardiac: Reports: None - Caffeine Use Caffeine Use: Reports: Coffee - Living Situation & Occupation Living situation: Reports: , with Significant Other ED ROS GENERAL - Review of Systems Review Of Systems: ROS reveals no pertinent complaints other than HPI. ED EXAM, GENERAL - Physical Exam Exam: See Below (See dictated) Course - Vital Signs Last Recorded V/S: Last Vital Signs Temp 37.4 C 01/09/18 23:11 Pulse 105 H 01/09/18 23:11 Resp 28 H 01/09/18 23:11 BP 111/72 01/09/18 23:11 Pulse Ox 100 01/09/18 23:11 - Orders/Labs/Meds Orders: Active Orders 24 hr Category Date Time Status Cardiac Monitoring [RC] . DIRECTED Care 01/09/18 23:11 Active EKG Documentation Completion [RC] STAT Care 01/09/18 23:11 Active Oxygen Therapy, ED [RC] ASDIRECTED Care 01/09/18 23:11 Active Pulse Oximetry [RC] ASDIRECTED Care 01/09/18 23:11 Active RT Aerosol Therapy [RC] ASDIRECTED Care 01/09/18 23:12 Active Chest 1V Frontal [CR] Stat Exams 01/09/18 23:12 Taken COMPREHENSIVE METABOLIC PN,CMP [CHEM] Stat Lab 01/09/18 23:26 Received CULTURE BLOOD [BC] Stat Lab 01/09/18 23:26 Received CULTURE BLOOD [BC] Stat Lab 01/09/18 23:34 Received TROPONIN I [CHEM] Stat Lab 01/09/18 23:26 Received TYPE AND SCREEN [BBK] Stat Lab 01/10/18 00:08 Ordered Sodium Chloride 0.9% [Normal Saline] 1,000 ml Med 01/09/18 23:15 Active IV STAT Sodium Chloride 0.9% [Saline Flush] Med 01/09/18 23:12 Active 10 ml FLUSH ASDIRECTED PRN Sodium Chloride 0.9% [Saline Flush] Med 01/09/18 23:12 Active 2.5 ml FLUSH ASDIRECTED PRN Blood Culture x2 Reflex Set [OM.PC] Stat Oth 01/09/18 23:12 Ordered Saline Lock Insert [OM.PC] Stat Oth 01/09/18 23:11 Ordered Medication Orders Sodium Chloride (Normal Saline) 1,000 mls @ 125 mls/hr IV STAT ELLIE Last Admin: 01/09/18 23:33 Dose: 125 mls/hr Sodium Chloride (Saline Flush) 10 ml FLUSH ASDIRECTED PRN PRN Reason: Keep Vein Open Last Admin: 01/09/18 23:31 Dose: 10 ml Sodium Chloride (Saline Flush) 2.5 ml FLUSH ASDIRECTED PRN PRN Reason: Keep Vein Open Last Admin: 01/09/18 23:31 Dose: 2.5 ml Labs: Laboratory Tests 01/09/18 01/09/18 01/09/18 Range/Units 23:26 23:26 23:26 WBC 15.39 H (4.0-11.0) K/uL RBC 1.97 L (4.50-5.90) M/uL Hgb 6.2 L (13.0-17.0) g/dL Hct 18.2 L (38.0-50.0) % MCV 92.4 (80.0-98.0) fL MCH 31.5 (27.0-32.0) pg MCHC 34.1 (31.0-37.0) g/dL RDW Std Deviation 47.8 (28.0-62.0) fl RDW Coeff of Brianna 14 (11.0-15.0) % Plt Count 122 L (150-400) K/uL MPV 9.80 (7.40-12.00) fL Neut % (Auto) 67.0 (48.0-80.0) % Lymph % (Auto) 26.8 (16.0-40.0) % Briscoe % (Auto) 5.3 (0.0-15.0) % Eos % (Auto) 0.8 (0.0-7.0) % Baso % (Auto) 0.1 (0.0-1.5) % Neut # (Auto) 10.3 H (1.4-5.7) K/uL Lymph # (Auto) 4.1 H (0.6-2.4) K/uL Briscoe # (Auto) 0.8 (0.0-0.8) K/uL Eos # (Auto) 0.1 (0.0-0.7) K/uL Baso # (Auto) 0.0 (0.0-0.1) K/uL Nucleated RBC % 0.0 /100WBC Nucleated RBCs # 0 K/uL INR 1.06 ABG pH (7.35-7.45) ABG pCO2 (35-45) mmHG ABG pO2 (75-100) mmHG ABG HCO3 (22-26) mEq/L ABG Total CO2 ABG Base Excess (-2.0-2.0) B-Natriuretic Peptide 472 H (<100) PG/ML 01/09/18 Range/Units 23:50 WBC (4.0-11.0) K/uL RBC (4.50-5.90) M/uL Hgb (13.0-17.0) g/dL Hct (38.0-50.0) % MCV (80.0-98.0) fL MCH (27.0-32.0) pg MCHC (31.0-37.0) g/dL RDW Std Deviation (28.0-62.0) fl RDW Coeff of Brianna (11.0-15.0) % Plt Count (150-400) K/uL MPV (7.40-12.00) fL Neut % (Auto) (48.0-80.0) % Lymph % (Auto) (16.0-40.0) % Briscoe % (Auto) (0.0-15.0) % Eos % (Auto) (0.0-7.0) % Baso % (Auto) (0.0-1.5) % Neut # (Auto) (1.4-5.7) K/uL Lymph # (Auto) (0.6-2.4) K/uL Briscoe # (Auto) (0.0-0.8) K/uL Eos # (Auto) (0.0-0.7) K/uL Baso # (Auto) (0.0-0.1) K/uL Nucleated RBC % /100WBC Nucleated RBCs # K/uL INR ABG pH 7.372 (7.35-7.45) ABG pCO2 40 (35-45) mmHG ABG pO2 86 (75-100) mmHG ABG HCO3 24 (22-26) mEq/L ABG Total CO2 23.0 ABG Base Excess -1.6 (-2.0-2.0) B-Natriuretic Peptide (<100) PG/ML Meds: Medications Generic Name Dose Route Start Last Admin Trade Name Freq PRN Reason Stop Dose Admin Sodium Chloride 1,000 mls @ 125 mls/hr 01/09/18 23:15 01/09/18 23:33 Normal Saline IV 125 mls/hr STAT ELLIE Administration Sodium Chloride 10 ml 01/09/18 23:12 01/09/18 23:31 Saline Flush FLUSH 10 ml ASDIRECTED PRN Administration Keep Vein Open Sodium Chloride 2.5 ml 01/09/18 23:12 01/09/18 23:31 Saline Flush FLUSH 2.5 ml ASDIRECTED PRN Administration Keep Vein Open Discontinued Medications Generic Name Dose Route Start Last Admin Trade Name Freq PRN Reason Stop Dose Admin Albuterol/Ipratropium 3 ml 01/09/18 23:12 01/09/18 23:31 Duoneb 3.0-0.5 Mg/3 Ml NEB 01/09/18 23:13 3 ml ONETIME ONE Administration Methylprednisolone Sodium Succinate 125 mg 01/09/18 23:12 01/09/18 23:31 Solu-Medrol IVPUSH 01/09/18 23:13 125 mg ONETIME ONE Administration Morphine Sulfate 2 mg 01/09/18 23:48 01/09/18 23:52 Morphine IVPUSH 01/09/18 23:49 2 mg ONETIME ONE Administration Ondansetron HCl 4 mg 01/09/18 23:48 01/09/18 23:52 Zofran IVPUSH 01/09/18 23:49 4 mg ONETIME ONE Administration Departure - Departure Time of Disposition: 00:19 Disposition: Admitted As Inpatient 68 Condition: Serious Clinical Impression: COPD exacerbation, Dyspnea, History of renal transplant - Discharge Information Forms: ED Department Discharge - My Orders Last 24 Hours: My Active Orders 01/09/18 23:11 Cardiac Monitoring [RC] . DIRECTED EKG Documentation Completion [RC] STAT Oxygen Therapy, ED [RC] ASDIRECTED Pulse Oximetry [RC] ASDIRECTED Saline Lock Insert [OM.PC] Stat 01/09/18 23:12 RT Aerosol Therapy [RC] ASDIRECTED Chest 1V Frontal [CR] Stat Sodium Chloride 0.9% [Saline Flush] 10 ml FLUSH ASDIRECTED PRN Sodium Chloride 0.9% [Saline Flush] 2.5 ml FLUSH ASDIRECTED PRN Blood Culture x2 Reflex Set [OM.PC] Stat 01/09/18 23:15 Sodium Chloride 0.9% [Normal Saline] 1,000 ml IV STAT 01/09/18 23:26 COMPREHENSIVE METABOLIC PN,CMP [CHEM] Stat CULTURE BLOOD [BC] Stat TROPONIN I [CHEM] Stat 01/09/18 23:34 CULTURE BLOOD [BC] Stat 01/10/18 00:08 TYPE AND SCREEN [BBK] Stat - Assessment/Plan Last 24 Hours: My Active Orders 01/09/18 23:11 Cardiac Monitoring [RC] . DIRECTED EKG Documentation Completion [RC] STAT Oxygen Therapy, ED [RC] ASDIRECTED Pulse Oximetry [RC] ASDIRECTED Saline Lock Insert [OM.PC] Stat 01/09/18 23:12 RT Aerosol Therapy [RC] ASDIRECTED Chest 1V Frontal [CR] Stat Sodium Chloride 0.9% [Saline Flush] 10 ml FLUSH ASDIRECTED PRN Sodium Chloride 0.9% [Saline Flush] 2.5 ml FLUSH ASDIRECTED PRN Blood Culture x2 Reflex Set [OM.PC] Stat 01/09/18 23:15 Sodium Chloride 0.9% [Normal Saline] 1,000 ml IV STAT 01/09/18 23:26 COMPREHENSIVE METABOLIC PN,CMP [CHEM] Stat CULTURE BLOOD [BC] Stat TROPONIN I [CHEM] Stat 01/09/18 23:34 CULTURE BLOOD [BC] Stat 01/10/18 00:08 TYPE AND SCREEN [BBK] Stat
[2018-01-09] MEDS ORDERED: Morphine 2 MG/ML Syringe IVPUSH ONE (23:48)
[2018-01-09] MEDS ORDERED: Ondansetron 4 MG/2 ML SDV IVPUSH ONE (23:48)
[2018-01-10 00:03] LABS: CHLORIDE,CL 101 mmol/L (98-107); SODIUM,NA 138 mmol/L (136-148)
[2018-01-10] MEDS ORDERED: Potassium Chloride 20 MEQ Tab.ER PO ONE (01:32)
[2018-01-10] MEDS ORDERED: Acetaminophen 325 MG Tab PO PRN (01:32)
[2018-01-10] MEDS ORDERED: methylPREDNISolone Sodium Succinate 125 MG/2 ML SDV IVPUSH SCH ×2 (03:00→05:00)
[2018-01-10] MEDS ORDERED: Piperacillin/Tazobactam 4.5 GM in Sodium Chloride 0.9% 100 ML IV SCH (03:00)
[2018-01-10] MEDS ORDERED: Esmolol 2,500 MG in Sodium Chloride 0.9% 250 ML IV SCH (03:00)
--- NOTE | 2018-01-10 03:11 | PCM.HP ---
H&P History of Present Illness - General Admit Problem/Dx: Admission Diagnosis/Problem Admission Diagnosis/Problem Dyspnea - History of Present Illness Initial Comments - Free Text/Narative: 62 yo male with history of COPD, CAD, Hypothyroidism, left ear deafness, Renal Transplant, on chronic steroids who presents with one day history of shortness of breath. Patient reports chest congestion and tightness with productive cough. He denies any blood in stool or emesis. He denies any subjective fevers. He was brought by EMS on nonrebreather satting 100%. Laboratory values found Hgb of 6.2, WBC of 15.39, potassium of 2.9, and Creatinine of 1.0. CXR reported cardiomegaly. Patient was admitted last month for symptomatic anemia and pneumonia. Generalized Pain Score (Numeric/FACES): 9 - Related Data Allergies/Adverse Reactions: Allergies Allergy/AdvReac Type Severity Reaction Status Date / Time nifedipine [From Procardia] Allergy Itching Verified 01/09/18 23:46 muscle relaxant medicine? Allergy Itching Uncoded 01/09/18 23:46 Home Medications: Home Meds Furosemide 20 mg PO DAILY 12/06/15 [History] Levothyroxine 75 mcg PO ACBREAKFAST 12/06/15 [History] predniSONE [Prednisone] 5 mg PO DAILY 12/06/15 [History] Alendronate Sodium [Fosamax] 70 mg PO Q7D 12/07/15 [History] Zolpidem [Ambien] 10 mg PO BEDTIME PRN 12/07/15 [History] Albuterol [IJD: Ventolin HFA] 1 puff INH .TWICE DAILY #18 gm 12/02/17 [Rx] Budesonide/Formoterol Fumarate [Symbicort 160-4.5 Mcg Inhaler] 2 puff IH BID 05/20 [History] Past Medical History HEENT History: Reports: Hard of Hearing, Other (See Below) Other HEENT History: impaired hearing-with hearing aid on the right ear Cardiovascular History: Reports: Heart Failure Respiratory History: Reports: Asthma, COPD Gastrointestinal History: Reports: None Genitourinary History: Reports: Renal Disease Musculoskeletal History: Reports: Back Pain, Chronic, Osteoarthritis Neurological History: Reports: None Psychiatric History: Reports: None Endocrine/Metabolic History: Reports: Hypothyroidism Hematologic History: Reports: Anemia, Blood Transfusion(s), Other (See Below) Other Hematologic History: history of low platelet Immunologic History: Reports: Solid Organ Transplant Oncologic (Cancer) History: Reports: Other (See Below) Other Oncologic History: 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 Dermatologic History: Reports: None - Infectious Disease History Infectious Disease History: Reports: Chicken Pox, Measles, Mumps - Past Surgical History Head Surgeries/Procedures: Reports: None GI Surgical History: Reports: Other (See Below) Other GI Surgeries/Procedures: Whipple Male Surgical History: Reports: Other (See Below) Other Male Surgeries/Procedures: Renal transplant Endocrine Surgical History: Reports: Thyroidectomy Social & Family History - Family History Family Medical History: Noncontributory HEENT: Reports: None Cardiac: Reports: None - Tobacco Use Smoking Status *Q: Former Smoker Years of Tobacco use: 10 Packs/Tins Daily: 2 Used Tobacco, but Quit: Yes Month/Year Tobacco Last Used: 1986 Tobacco Use Comment: stopped smoking 1986 Second Hand Smoke Exposure: No - Caffeine Use Caffeine Use: Reports: Coffee, Soda - Recreational Drug Use Recreational Drug Use: No - Living Situation & Occupation Living situation: Reports: , with Significant Other H&P Review of Systems - Review of Systems: Review Of Systems: ROS reveals no pertinent complaints other than HPI. Exam - Exam Exam: See Below - Vital Signs Vital Signs: Last Vital Signs Temp 37.9 C 01/10/18 02:29 Pulse 118 H 01/10/18 01:02 Resp 24 H 01/10/18 03:00 BP 91/57 L 01/10/18 03:00 Pulse Ox 100 01/10/18 03:00 Weight: 37.013 kg - Exam General: Alert, Oriented HEENT: Mucosa Moist & [place] Neck: Supple Lungs: Decreased Breath Sounds Cardiovascular: Tachycardia GI/Abdominal Exam: Soft, Non-Tender Extremities: Non-Tender, No Pedal Edema Skin: Warm, Dry, Intact Neurological: Cranial Nerves Intact, Normal Speech - Patient Data Lab Results Last 24 hrs: Laboratory Results - last 24 hr 01/09/18 01/09/18 01/09/18 Range/Units 23:26 23:26 23:26 WBC 15.39 H (4.0-11.0) K/uL RBC 1.97 L (4.50-5.90) M/uL Hgb 6.2 L (13.0-17.0) g/dL Hct 18.2 L (38.0-50.0) % MCV 92.4 (80.0-98.0) fL MCH 31.5 (27.0-32.0) pg MCHC 34.1 (31.0-37.0) g/dL RDW Std Deviation 47.8 (28.0-62.0) fl RDW Coeff of Brianna 14 (11.0-15.0) % Plt Count 122 L (150-400) K/uL MPV 9.80 (7.40-12.00) fL Neut % (Auto) 67.0 (48.0-80.0) % Lymph % (Auto) 26.8 (16.0-40.0) % [place] % (Auto) 5.3 (0.0-15.0) % Eos % (Auto) 0.8 (0.0-7.0) % Baso % (Auto) 0.1 (0.0-1.5) % Neut # (Auto) 10.3 H (1.4-5.7) K/uL Lymph # (Auto) 4.1 H (0.6-2.4) K/uL [place] # (Auto) 0.8 (0.0-0.8) K/uL Eos # (Auto) 0.1 (0.0-0.7) K/uL Baso # (Auto) 0.0 (0.0-0.1) K/uL Nucleated RBC % 0.0 /100WBC Nucleated RBCs # 0 K/uL INR 1.06 ABG pH (7.35-7.45) ABG pCO2 (35-45) mmHG ABG pO2 (75-100) mmHG ABG HCO3 (22-26) mEq/L ABG Total CO2 ABG Base Excess (-2.0-2.0) Lactate (0.20-2.00) mmol/L Sodium 138 (136-148) mmol/L Potassium 2.9 L (3.5-5.1) mmol/L Chloride 101 (98-107) mmol/L Carbon Dioxide 27.0 (21.0-32.0) mmol/L BUN 22 H (7.0-18.0) mg/dL Creatinine 1.0 (0.8-1.3) mg/dL Est Cr Clr Drug Dosing 42.84 mL/min Estimated GFR (MDRD) > 60.0 ml/min Glucose 138 H (74-106) mg/dL Calcium 8.4 L (8.5-10.1) mg/dL Magnesium (1.8-2.4) mg/dL Total Bilirubin 1.1 H (0.2-1.0) mg/dL AST 22 (15-37) IU/L ALT 31 (14-63) IU/L Alkaline Phosphatase 136 H (46-116) U/L Troponin I < 0.050 (0.000-0.056) ng/mL B-Natriuretic Peptide (<100) PG/ML Total Protein 6.3 L (6.4-8.2) g/dL Albumin 3.8 (3.4-5.0) g/dL Globulin 2.5 (2.0-3.5) g/dL Albumin/Globulin Ratio 1.5 (1.3-2.8) Urine Color Urine Appearance Urine pH (5.0-8.0) Ur Specific [place] (1.001-1.035) Urine Protein (NEGATIVE) mg/dL Urine Glucose (UA) (NEGATIVE) mg/dL Urine Ketones (NEGATIVE) mg/dL Urine Occult Blood (NEGATIVE) Urine Nitrite (NEGATIVE) Urine Bilirubin (NEGATIVE) Urine Urobilinogen (<2.0) EU/dL Ur Leukocyte Esterase (NEGATIVE) Urine RBC (0-2/HPF) Urine WBC (0-5/HPF) Ur Epithelial Cells (NONE-FEW) Urine Bacteria (NEGATIVE) Blood Type Antibody Screen Crossmatch 01/09/18 01/09/18 01/09/18 Range/Units 23:26 23:26 23:26 WBC (4.0-11.0) K/uL RBC (4.50-5.90) M/uL Hgb (13.0-17.0) g/dL Hct (38.0-50.0) % MCV (80.0-98.0) fL MCH (27.0-32.0) pg MCHC (31.0-37.0) g/dL RDW Std Deviation (28.0-62.0) fl RDW Coeff of Brianna (11.0-15.0) % Plt Count (150-400) K/uL MPV (7.40-12.00) fL Neut % (Auto) (48.0-80.0) % Lymph % (Auto) (16.0-40.0) % [place] % (Auto) (0.0-15.0) % Eos % (Auto) (0.0-7.0) % Baso % (Auto) (0.0-1.5) % Neut # (Auto) (1.4-5.7) K/uL Lymph # (Auto) (0.6-2.4) K/uL [place] # (Auto) (0.0-0.8) K/uL Eos # (Auto) (0.0-0.7) K/uL Baso # (Auto) (0.0-0.1) K/uL Nucleated RBC % /100WBC Nucleated RBCs # K/uL INR ABG pH (7.35-7.45) ABG pCO2 (35-45) mmHG ABG pO2 (75-100) mmHG ABG HCO3 (22-26) mEq/L ABG Total CO2 ABG Base Excess (-2.0-2.0) Lactate 2.0 (0.20-2.00) mmol/L Sodium (136-148) mmol/L Potassium (3.5-5.1) mmol/L Chloride (98-107) mmol/L Carbon Dioxide (21.0-32.0) mmol/L BUN (7.0-18.0) mg/dL Creatinine (0.8-1.3) mg/dL Est Cr Clr Drug Dosing mL/min Estimated GFR (MDRD) ml/min Glucose (74-106) mg/dL Calcium (8.5-10.1) mg/dL Magnesium (1.8-2.4) mg/dL Total Bilirubin (0.2-1.0) mg/dL AST (15-37) IU/L ALT (14-63) IU/L Alkaline Phosphatase (46-116) U/L Troponin I (0.000-0.056) ng/mL B-Natriuretic Peptide 472 H (<100) PG/ML Total Protein (6.4-8.2) g/dL Albumin (3.4-5.0) g/dL Globulin (2.0-3.5) g/dL Albumin/Globulin Ratio (1.3-2.8) Urine Color Urine Appearance Urine pH (5.0-8.0) Ur Specific [place] (1.001-1.035) Urine Protein (NEGATIVE) mg/dL Urine Glucose (UA) (NEGATIVE) mg/dL Urine Ketones (NEGATIVE) mg/dL Urine Occult Blood (NEGATIVE) Urine Nitrite (NEGATIVE) Urine Bilirubin (NEGATIVE) Urine Urobilinogen (<2.0) EU/dL Ur Leukocyte Esterase (NEGATIVE) Urine RBC (0-2/HPF) Urine WBC (0-5/HPF) Ur Epithelial Cells (NONE-FEW) Urine Bacteria (NEGATIVE) Blood Type O POSITIVE Antibody Screen NEGATIVE Crossmatch See Detail 01/09/18 01/09/18 01/10/18 Range/Units 23:26 23:50 02:35 WBC (4.0-11.0) K/uL RBC (4.50-5.90) M/uL Hgb (13.0-17.0) g/dL Hct (38.0-50.0) % MCV (80.0-98.0) fL MCH (27.0-32.0) pg MCHC (31.0-37.0) g/dL RDW Std Deviation (28.0-62.0) fl RDW Coeff of Brianna (11.0-15.0) % Plt Count (150-400) K/uL MPV (7.40-12.00) fL Neut % (Auto) (48.0-80.0) % Lymph % (Auto) (16.0-40.0) % [place] % (Auto) (0.0-15.0) % Eos % (Auto) (0.0-7.0) % Baso % (Auto) (0.0-1.5) % Neut # (Auto) (1.4-5.7) K/uL Lymph # (Auto) (0.6-2.4) K/uL [place] # (Auto) (0.0-0.8) K/uL Eos # (Auto) (0.0-0.7) K/uL Baso # (Auto) (0.0-0.1) K/uL Nucleated RBC % /100WBC Nucleated RBCs # K/uL INR ABG pH 7.372 (7.35-7.45) ABG pCO2 40 (35-45) mmHG ABG pO2 86 (75-100) mmHG ABG HCO3 24 (22-26) mEq/L ABG Total CO2 23.0 ABG Base Excess -1.6 (-2.0-2.0) Lactate (0.20-2.00) mmol/L Sodium (136-148) mmol/L Potassium (3.5-5.1) mmol/L Chloride (98-107) mmol/L Carbon Dioxide (21.0-32.0) mmol/L BUN (7.0-18.0) mg/dL Creatinine (0.8-1.3) mg/dL Est Cr Clr Drug Dosing mL/min Estimated GFR (MDRD) ml/min Glucose (74-106) mg/dL Calcium (8.5-10.1) mg/dL Magnesium 1.9 (1.8-2.4) mg/dL Total Bilirubin (0.2-1.0) mg/dL AST (15-37) IU/L ALT (14-63) IU/L Alkaline Phosphatase (46-116) U/L Troponin I (0.000-0.056) ng/mL B-Natriuretic Peptide (<100) PG/ML Total Protein (6.4-8.2) g/dL Albumin (3.4-5.0) g/dL Globulin (2.0-3.5) g/dL Albumin/Globulin Ratio (1.3-2.8) Urine Color YELLOW Urine Appearance CLEAR Urine pH 5.5 (5.0-8.0) Ur Specific [place] 1.025 (1.001-1.035) Urine Protein NEGATIVE (NEGATIVE) mg/dL Urine Glucose (UA) 100 H (NEGATIVE) mg/dL Urine Ketones TRACE H (NEGATIVE) mg/dL Urine Occult Blood NEGATIVE (NEGATIVE) Urine Nitrite NEGATIVE (NEGATIVE) Urine Bilirubin NEGATIVE (NEGATIVE) Urine Urobilinogen 0.2 (<2.0) EU/dL Ur Leukocyte Esterase NEGATIVE (NEGATIVE) Urine RBC 0-1 (0-2/HPF) Urine WBC 0-2 (0-5/HPF) Ur Epithelial Cells RARE (NONE-FEW) Urine Bacteria FEW (NEGATIVE) Blood Type Antibody Screen Crossmatch Result Diagrams: 01/10/18 06:20 01/10/18 06:20 Problem List Initiated/Reviewed/Updated: Yes Orders Last 24hrs: Active Orders 24 hr Category Date Time Status Patient Status [ADT] Stat ADT 01/10/18 00:23 Active Cardiac Monitoring [RC] . DIRECTED Care 01/09/18 23:11 Active EKG Documentation Completion [RC] STAT Care 01/09/18 23:11 Active Oxygen Therapy [RC] PRN Care 01/10/18 03:02 Active Pulse Oximetry [RC] ASDIRECTED Care 01/09/18 23:11 Active RT Aerosol Therapy [RC] ASDIRECTED Care 01/09/18 23:12 Active RT Aerosol Therapy [RC] ASDIRECTED Care 01/10/18 02:57 Active VTE/DVT Education [RC] PER UNIT ROUTINE Care 01/10/18 03:02 Active Vital Signs [RC] Q4H Care 01/10/18 03:02 Active Regular Diet [DIET] Diet 01/10/18 Breakfast Active Chest 1V Frontal [CR] Stat Exams 01/09/18 23:12 Taken Chest PE [Ang Chest] [CT] Routine Exams 01/10/18 02:51 Stop Req Chest PE [Ang Chest] [CT] Stat Exams 01/10/18 02:53 Ordered BASIC METABOLIC PANEL,BMP [CHEM] AM Lab 01/10/18 05:11 Ordered CBC WITH AUTO DIFF [HEME] AM Lab 01/10/18 05:11 Ordered CULTURE BLOOD [BC] Stat Lab 01/09/18 23:26 Received CULTURE BLOOD [BC] Stat Lab 01/09/18 23:34 Received RED BLOOD CELLS LP [BBK] Routine Lab 01/10/18 01:42 Results TYPE AND SCREEN [BBK] Stat Lab 01/10/18 00:08 Results UA W/MICROSCOPIC [URIN] Routine Lab 01/10/18 02:35 Ordered Acetaminophen [Tylenol] Med 01/10/18 01:32 Active 650 mg PO Q4H PRN Albuterol/Ipratropium [DuoNeb 3.0-0.5 MG/3 ML] Med 01/10/18 06:00 Active 3 ml NEB Q4HRRT Esmolol 2,500 mg Med 01/10/18 03:00 Active Sodium Chloride 0.9% [Normal Saline] 250 ml IV TITRATE Levofloxacin/Dextrose 5%-Water [Levaquin in D5W 750 MG/ Med 01/10/18 03:00 Ordered 150 ML] 750 mg Premix Bag 1 bag IV Q24H Pantoprazole [ProTONIX IV] Med 01/10/18 03:00 Active 40 mg IVPUSH Q24H Piperacillin/Tazobactam [Piperacil-Tazobact] 4.5 gm Med 01/10/18 03:00 Active Sodium Chloride 0.9% [Normal Saline] 100 ml IV Q6H Sodium Chloride 0.9% [Normal Saline] 1,000 ml Med 01/09/18 23:15 Active IV STAT Sodium Chloride 0.9% [Saline Flush] Med 01/09/18 23:12 Active 10 ml FLUSH ASDIRECTED PRN Sodium Chloride 0.9% [Saline Flush] Med 01/09/18 23:12 Active 2.5 ml FLUSH ASDIRECTED PRN Vancomycin Pharmacy to Dose [Pharmacy to Dose - Med 01/10/18 03:00 Ordered Vancomycin] 1 dose .XX ASDIRECTED methylPREDNISolone Sod Succ [Solu-MEDROL] Med 01/10/18 03:00 Active 125 mg IVPUSH Q6H Blood Culture x2 Reflex Set [OM.PC] Stat Oth 01/09/18 23:12 Ordered Saline Lock Insert [OM.PC] Stat Oth 01/09/18 23:11 Ordered Sequential Compression Device [OM.PC] Per Unit Routine Ot 01/10/18 03:02 Ordered Transfuse Red Blood Cells [COMM] Routine Ot 01/10/18 01:32 Ordered Medication Orders Acetaminophen (Tylenol) 650 mg PO Q4H PRN PRN Reason: Pain Albuterol/Ipratropium (Duoneb 3.0-0.5 Mg/3 Ml) 3 ml NEB Q4HRRT ELLIE Sodium Chloride (Normal Saline) 1,000 mls @ 125 mls/hr IV STAT ELLIE Last Admin: 01/09/18 23:33 Dose: 125 mls/hr Esmolol HCl 2,500 mg/ Sodium (Chloride) 500 mls @ 22.2 mls/hr IV TITRATE ELLIE; Protocol Levofloxacin/Dextrose 750 mg/ (Premix) 150 mls @ 100 mls/hr IV Q24H ELLIE Piperacillin Sod/Tazobactam (Sod 4.5 gm/ Sodium Chloride) 100 mls @ 100 mls/hr IV Q6H ELLIE Methylprednisolone Sodium Succinate (Solu-Medrol) 125 mg IVPUSH Q6H ELLIE Pantoprazole Sodium (Protonix Iv) 40 mg IVPUSH Q24H ELLIE Sodium Chloride (Saline Flush) 10 ml FLUSH ASDIRECTED PRN PRN Reason: Keep Vein Open Last Admin: 01/09/18 23:31 Dose: 10 ml Sodium Chloride (Saline Flush) 2.5 ml FLUSH ASDIRECTED PRN PRN Reason: Keep Vein Open Last Admin: 01/09/18 23:31 Dose: 2.5 ml Vancomycin HCl (Pharmacy To Dose - Vancomycin) 1 dose .XX ASDIRECTED [facility] Assessment/Plan Comment:: 62 yo male with history of renal transplant and COPD who presents with shortness of breath COPD exacerbation/acute hypoxic respiratory failure: on solumedrol and duonebs Possible pneumonia: on vancomycin, zosyn, and levaquin covering for gram negative tete respiratory infection due to immunocompromised state and recent hospitalization. Tachycardia: will try to slow heart rate with esmolol drip Will check CT angio to rule out PE Anemia: likely from chronic/renal disease, will transfuse two units, place on PPI
[2018-01-10] MEDS: Pantoprazole 40 MG Vial IVPUSH SCH (03:38)
[2018-01-10] MEDS ORDERED: Iopamidol 755 MG/ML 500 ML Multipack Bottle IVPUSH STA (05:02)
[2018-01-10] MEDS: Albuterol/Ipratropium 3.0-0.5 MG/3 ML Neb Soln NEB SCH ×5 (05:31→21:51)
[2018-01-10] MEDS: Levofloxacin/Dextrose 5%-Water 750 MG in Premix Bag 1 BAG IV SCH (06:12)
[2018-01-10 06:42] LABS: CHLORIDE,CL 102 mmol/L (98-107); SODIUM,NA 137 mmol/L (136-148)
[2018-01-10] MEDS: Piperacillin/Tazobactam 3.375 GM in Sodium Chloride 0.9% 50 ML IV SCH ×3 (09:33→21:10)
[2018-01-10] MEDS ORDERED: Sodium Chloride 0.9% 1,000 ML IV SCH (10:30)
--- NOTE | 2018-01-10 10:51 | PCM.PN ---
- General Info Date of Service: 01/10/18 Subjective Update: 62M with a past mhx of a. fib, copd, renal transplant in 2005 on chronic prednisone admited for A. fib w/ RVR, LLL consolidation noted on CT angio, anemia. He complains of chest discomfort that has been persistent over the last week, worsen with cough. No other complaints. - Review of Systems General: Reports: Other (see hpi) - Patient Data Vitals - Most Recent: Last Vital Signs Temp 36.8 C 01/10/18 10:37 Pulse 118 H 01/10/18 01:02 Resp 16 01/10/18 10:37 BP 94/64 01/10/18 10:37 Pulse Ox 94 L 01/10/18 10:37 Weight - Most Recent: 37.013 kg I&O - Last 24 Hours: Intake & Output 01/09/18 01/10/18 01/10/18 22:59 06:59 14:59 Intake Total 788 500 Balance 788 500 Lab Results Last 24 Hours: Laboratory Results - last 24 hr 01/09/18 01/09/18 01/09/18 Range/Units 23:26 23:26 23:26 WBC 15.39 H (4.0-11.0) K/uL RBC 1.97 L (4.50-5.90) M/uL Hgb 6.2 L (13.0-17.0) g/dL Hct 18.2 L (38.0-50.0) % MCV 92.4 (80.0-98.0) fL MCH 31.5 (27.0-32.0) pg MCHC 34.1 (31.0-37.0) g/dL RDW Std Deviation 47.8 (28.0-62.0) fl RDW Coeff of Brianna 14 (11.0-15.0) % Plt Count 122 L (150-400) K/uL MPV 9.80 (7.40-12.00) fL Neut % (Auto) 67.0 (48.0-80.0) % Lymph % (Auto) 26.8 (16.0-40.0) % Ramsey % (Auto) 5.3 (0.0-15.0) % Eos % (Auto) 0.8 (0.0-7.0) % Baso % (Auto) 0.1 (0.0-1.5) % Neut # (Auto) 10.3 H (1.4-5.7) K/uL Lymph # (Auto) 4.1 H (0.6-2.4) K/uL Ramsey # (Auto) 0.8 (0.0-0.8) K/uL Eos # (Auto) 0.1 (0.0-0.7) K/uL Baso # (Auto) 0.0 (0.0-0.1) K/uL Nucleated RBC % 0.0 /100WBC Nucleated RBCs # 0 K/uL INR 1.06 ABG pH (7.35-7.45) ABG pCO2 (35-45) mmHG ABG pO2 (75-100) mmHG ABG HCO3 (22-26) mEq/L ABG Total CO2 ABG Base Excess (-2.0-2.0) Lactate (0.20-2.00) mmol/L Sodium 138 (136-148) mmol/L Potassium 2.9 L (3.5-5.1) mmol/L Chloride 101 (98-107) mmol/L Carbon Dioxide 27.0 (21.0-32.0) mmol/L BUN 22 H (7.0-18.0) mg/dL Creatinine 1.0 (0.8-1.3) mg/dL Est Cr Clr Drug Dosing 42.84 mL/min Estimated GFR (MDRD) > 60.0 ml/min Glucose 138 H (74-106) mg/dL Calcium 8.4 L (8.5-10.1) mg/dL Magnesium (1.8-2.4) mg/dL Total Bilirubin 1.1 H (0.2-1.0) mg/dL AST 22 (15-37) IU/L ALT 31 (14-63) IU/L Alkaline Phosphatase 136 H (46-116) U/L Troponin I < 0.050 (0.000-0.056) ng/mL B-Natriuretic Peptide (<100) PG/ML Total Protein 6.3 L (6.4-8.2) g/dL Albumin 3.8 (3.4-5.0) g/dL Globulin 2.5 (2.0-3.5) g/dL Albumin/Globulin Ratio 1.5 (1.3-2.8) Urine Color Urine Appearance Urine pH (5.0-8.0) Ur Specific [place] (1.001-1.035) Urine Protein (NEGATIVE) mg/dL Urine Glucose (UA) (NEGATIVE) mg/dL Urine Ketones (NEGATIVE) mg/dL Urine Occult Blood (NEGATIVE) Urine Nitrite (NEGATIVE) Urine Bilirubin (NEGATIVE) Urine Urobilinogen (<2.0) EU/dL Ur Leukocyte Esterase (NEGATIVE) Urine RBC (0-2/HPF) Urine WBC (0-5/HPF) Ur Epithelial Cells (NONE-FEW) Urine Bacteria (NEGATIVE) Blood Type Antibody Screen Crossmatch 01/09/18 01/09/18 01/09/18 Range/Units 23:26 23:26 23:26 WBC (4.0-11.0) K/uL RBC (4.50-5.90) M/uL Hgb (13.0-17.0) g/dL Hct (38.0-50.0) % MCV (80.0-98.0) fL MCH (27.0-32.0) pg MCHC (31.0-37.0) g/dL RDW Std Deviation (28.0-62.0) fl RDW Coeff of Brianna (11.0-15.0) % Plt Count (150-400) K/uL MPV (7.40-12.00) fL Neut % (Auto) (48.0-80.0) % Lymph % (Auto) (16.0-40.0) % [place] % (Auto) (0.0-15.0) % Eos % (Auto) (0.0-7.0) % Baso % (Auto) (0.0-1.5) % Neut # (Auto) (1.4-5.7) K/uL Lymph # (Auto) (0.6-2.4) K/uL [place] # (Auto) (0.0-0.8) K/uL Eos # (Auto) (0.0-0.7) K/uL Baso # (Auto) (0.0-0.1) K/uL Nucleated RBC % /100WBC Nucleated RBCs # K/uL INR ABG pH (7.35-7.45) ABG pCO2 (35-45) mmHG ABG pO2 (75-100) mmHG ABG HCO3 (22-26) mEq/L ABG Total CO2 ABG Base Excess (-2.0-2.0) Lactate 2.0 (0.20-2.00) mmol/L Sodium (136-148) mmol/L Potassium (3.5-5.1) mmol/L Chloride (98-107) mmol/L Carbon Dioxide (21.0-32.0) mmol/L BUN (7.0-18.0) mg/dL Creatinine (0.8-1.3) mg/dL Est Cr Clr Drug Dosing mL/min Estimated GFR (MDRD) ml/min Glucose (74-106) mg/dL Calcium (8.5-10.1) mg/dL Magnesium (1.8-2.4) mg/dL Total Bilirubin (0.2-1.0) mg/dL AST (15-37) IU/L ALT (14-63) IU/L Alkaline Phosphatase (46-116) U/L Troponin I (0.000-0.056) ng/mL B-Natriuretic Peptide 472 H (<100) PG/ML Total Protein (6.4-8.2) g/dL Albumin (3.4-5.0) g/dL Globulin (2.0-3.5) g/dL Albumin/Globulin Ratio (1.3-2.8) Urine Color Urine Appearance Urine pH (5.0-8.0) Ur Specific [place] (1.001-1.035) Urine Protein (NEGATIVE) mg/dL Urine Glucose (UA) (NEGATIVE) mg/dL Urine Ketones (NEGATIVE) mg/dL Urine Occult Blood (NEGATIVE) Urine Nitrite (NEGATIVE) Urine Bilirubin (NEGATIVE) Urine Urobilinogen (<2.0) EU/dL Ur Leukocyte Esterase (NEGATIVE) Urine RBC (0-2/HPF) Urine WBC (0-5/HPF) Ur Epithelial Cells (NONE-FEW) Urine Bacteria (NEGATIVE) Blood Type O POSITIVE Antibody Screen NEGATIVE Crossmatch See Detail 01/09/18 01/09/18 01/10/18 Range/Units 23:26 23:50 02:35 WBC (4.0-11.0) K/uL RBC (4.50-5.90) M/uL Hgb (13.0-17.0) g/dL Hct (38.0-50.0) % MCV (80.0-98.0) fL MCH (27.0-32.0) pg MCHC (31.0-37.0) g/dL RDW Std Deviation (28.0-62.0) fl RDW Coeff of Brianna (11.0-15.0) % Plt Count (150-400) K/uL MPV (7.40-12.00) fL Neut % (Auto) (48.0-80.0) % Lymph % (Auto) (16.0-40.0) % Ramsey % (Auto) (0.0-15.0) % Eos % (Auto) (0.0-7.0) % Baso % (Auto) (0.0-1.5) % Neut # (Auto) (1.4-5.7) K/uL Lymph # (Auto) (0.6-2.4) K/uL [place] # (Auto) (0.0-0.8) K/uL Eos # (Auto) (0.0-0.7) K/uL Baso # (Auto) (0.0-0.1) K/uL Nucleated RBC % /100WBC Nucleated RBCs # K/uL INR ABG pH 7.372 (7.35-7.45) ABG pCO2 40 (35-45) mmHG ABG pO2 86 (75-100) mmHG ABG HCO3 24 (22-26) mEq/L ABG Total CO2 23.0 ABG Base Excess -1.6 (-2.0-2.0) Lactate (0.20-2.00) mmol/L Sodium (136-148) mmol/L Potassium (3.5-5.1) mmol/L Chloride (98-107) mmol/L Carbon Dioxide (21.0-32.0) mmol/L BUN (7.0-18.0) mg/dL Creatinine (0.8-1.3) mg/dL Est Cr Clr Drug Dosing mL/min Estimated GFR (MDRD) ml/min Glucose (74-106) mg/dL Calcium (8.5-10.1) mg/dL Magnesium 1.9 (1.8-2.4) mg/dL Total Bilirubin (0.2-1.0) mg/dL AST (15-37) IU/L ALT (14-63) IU/L Alkaline Phosphatase (46-116) U/L Troponin I (0.000-0.056) ng/mL B-Natriuretic Peptide (<100) PG/ML Total Protein (6.4-8.2) g/dL Albumin (3.4-5.0) g/dL Globulin (2.0-3.5) g/dL Albumin/Globulin Ratio (1.3-2.8) Urine Color YELLOW Urine Appearance CLEAR Urine pH 5.5 (5.0-8.0) Ur Specific [place] 1.025 (1.001-1.035) Urine Protein NEGATIVE (NEGATIVE) mg/dL Urine Glucose (UA) 100 H (NEGATIVE) mg/dL Urine Ketones TRACE H (NEGATIVE) mg/dL Urine Occult Blood NEGATIVE (NEGATIVE) Urine Nitrite NEGATIVE (NEGATIVE) Urine Bilirubin NEGATIVE (NEGATIVE) Urine Urobilinogen 0.2 (<2.0) EU/dL Ur Leukocyte Esterase NEGATIVE (NEGATIVE) Urine RBC 0-1 (0-2/HPF) Urine WBC 0-2 (0-5/HPF) Ur Epithelial Cells RARE (NONE-FEW) Urine Bacteria FEW (NEGATIVE) Blood Type Antibody Screen Crossmatch 01/10/18 01/10/18 Range/Units 06:20 06:20 WBC 11.54 H (4.0-11.0) K/uL RBC 2.37 L (4.50-5.90) M/uL Hgb 7.1 L (13.0-17.0) g/dL Hct 20.9 L (38.0-50.0) % MCV 88.2 (80.0-98.0) fL MCH 30.0 (27.0-32.0) pg MCHC 34.0 (31.0-37.0) g/dL RDW Std Deviation 51.8 (28.0-62.0) fl RDW Coeff of Brianna 16 H (11.0-15.0) % Plt Count 112 L (150-400) K/uL MPV 9.80 (7.40-12.00) fL Neut % (Auto) 89.0 H (48.0-80.0) % Lymph % (Auto) 4.4 L (16.0-40.0) % [place] % (Auto) 6.6 (0.0-15.0) % Eos % (Auto) 0.0 (0.0-7.0) % Baso % (Auto) 0.0 (0.0-1.5) % Neut # (Auto) 10.3 H (1.4-5.7) K/uL Lymph # (Auto) 0.5 L (0.6-2.4) K/uL [place] # (Auto) 0.8 (0.0-0.8) K/uL Eos # (Auto) 0.0 (0.0-0.7) K/uL Baso # (Auto) 0.0 (0.0-0.1) K/uL Nucleated RBC % 0.0 /100WBC Nucleated RBCs # 0 K/uL INR ABG pH (7.35-7.45) ABG pCO2 (35-45) mmHG ABG pO2 (75-100) mmHG ABG HCO3 (22-26) mEq/L ABG Total CO2 ABG Base Excess (-2.0-2.0) Lactate (0.20-2.00) mmol/L Sodium 137 (136-148) mmol/L Potassium 4.1 (3.5-5.1) mmol/L Chloride 102 (98-107) mmol/L Carbon Dioxide 24.1 (21.0-32.0) mmol/L BUN 23 H (7.0-18.0) mg/dL Creatinine 1.0 (0.8-1.3) mg/dL Est Cr Clr Drug Dosing 41.13 mL/min Estimated GFR (MDRD) > 60.0 ml/min Glucose 189 H (74-106) mg/dL Calcium 7.8 L (8.5-10.1) mg/dL Magnesium (1.8-2.4) mg/dL Total Bilirubin (0.2-1.0) mg/dL AST (15-37) IU/L ALT (14-63) IU/L Alkaline Phosphatase (46-116) U/L Troponin I (0.000-0.056) ng/mL B-Natriuretic Peptide (<100) PG/ML Total Protein (6.4-8.2) g/dL Albumin (3.4-5.0) g/dL Globulin (2.0-3.5) g/dL Albumin/Globulin Ratio (1.3-2.8) Urine Color Urine Appearance Urine pH (5.0-8.0) Ur Specific [place] (1.001-1.035) Urine Protein (NEGATIVE) mg/dL Urine Glucose (UA) (NEGATIVE) mg/dL Urine Ketones (NEGATIVE) mg/dL Urine Occult Blood (NEGATIVE) Urine Nitrite (NEGATIVE) Urine Bilirubin (NEGATIVE) Urine Urobilinogen (<2.0) EU/dL Ur Leukocyte Esterase (NEGATIVE) Urine RBC (0-2/HPF) Urine WBC (0-5/HPF) Ur Epithelial Cells (NONE-FEW) Urine Bacteria (NEGATIVE) Blood Type Antibody Screen Crossmatch Med Orders - Current: Current Medications Acetaminophen (Tylenol) 650 mg PO Q4H PRN PRN Reason: Pain Last Admin: 01/10/18 05:59 Dose: 650 mg Albuterol/Ipratropium (Duoneb 3.0-0.5 Mg/3 Ml) 3 ml NEB Q4HRRT [facility] Last Admin: 01/10/18 10:22 Dose: 3 ml Esmolol HCl 2,500 mg/ Sodium (Chloride) 500 mls @ 22.2 mls/hr IV TITRATE [facility]; Protocol Levofloxacin/Dextrose 750 mg/ (Premix) 150 mls @ 100 mls/hr IV Q48H [facility] Last Admin: 01/10/18 06:12 Dose: 100 mls/hr Vancomycin HCl 500 mg/ Sodium (Chloride) 100 mls @ 100 mls/hr IV Q12H [facility] Piperacillin Sod/Tazobactam (Sod 3.375 gm/ Sodium Chloride) 50 mls @ 100 mls/ hr IV Q6H [facility] Last Admin: 01/10/18 09:33 Dose: 100 mls/hr Sodium Chloride (Normal Saline) 1,000 mls @ 75 mls/hr IV ASDIRECTED [facility] Levothyroxine Sodium (Levothyroxine) 75 mcg PO ACBREAKFAST [facility] Methylprednisolone Sodium Succinate (Solu-Medrol) 40 mg IV BID [facility] Pantoprazole Sodium (Protonix Iv) 40 mg IVPUSH Q24H [facility] Last Admin: 01/10/18 03:38 Dose: 40 mg Sodium Chloride (Saline Flush) 10 ml FLUSH ASDIRECTED PRN PRN Reason: Keep Vein Open Last Admin: 01/09/18 23:31 Dose: 10 ml Sodium Chloride (Saline Flush) 2.5 ml FLUSH ASDIRECTED PRN PRN Reason: Keep Vein Open Last Admin: 01/09/18 23:31 Dose: 2.5 ml Vancomycin HCl (Pharmacy To Dose - Vancomycin) 1 dose .XX ASDIRECTED [facility] Discontinued Medications Albuterol/Ipratropium (Duoneb 3.0-0.5 Mg/3 Ml) 3 ml NEB ONETIME ONE Stop: 01/09/18 23:13 Last Admin: 01/09/18 23:31 Dose: 3 ml Sodium Chloride (Normal Saline) 1,000 mls @ 125 mls/hr IV STAT [facility] Last Admin: 01/09/18 23:33 Dose: 125 mls/hr Piperacillin Sod/Tazobactam (Sod 4.5 gm/ Sodium Chloride) 100 mls @ 100 mls/hr IV Q6H [facility] Stop: 01/10/18 06:00 Last Admin: 01/10/18 03:57 Dose: 100 mls/hr Vancomycin HCl 1 gm/ Sodium (Chloride) 250 mls @ 166 mls/hr IV ONETIME ONE Stop: 01/10/18 05:30 Last Admin: 01/10/18 07:50 Dose: 166 mls/hr Iopamidol (Isovue Multipack-370 (76%)) 50 ml IVPUSH ONETIME STA Stop: 01/10/18 05:03 Last Admin: 01/10/18 05:03 Dose: 50 ml Methylprednisolone Sodium Succinate (Solu-Medrol) 125 mg IVPUSH ONETIME ONE Stop: 01/09/18 23:13 Last Admin: 01/09/18 23:31 Dose: 125 mg Methylprednisolone Sodium Succinate (Solu-Medrol) 125 mg IVPUSH Q6H [facility] Last Admin: 01/10/18 03:09 Dose: Not Given Methylprednisolone Sodium Succinate (Solu-Medrol) 125 mg IVPUSH Q6H [facility] Last Admin: 01/10/18 05:42 Dose: 125 mg Morphine Sulfate (Morphine) 2 mg IVPUSH ONETIME ONE Stop: 01/09/18 23:49 Last Admin: 01/09/18 23:52 Dose: 2 mg Ondansetron HCl (Zofran) 4 mg IVPUSH ONETIME ONE Stop: 01/09/18 23:49 Last Admin: 01/09/18 23:52 Dose: 4 mg Potassium Chloride (Klor-Con M20) 40 meq PO ONETIME ONE Stop: 01/10/18 01:33 Last Admin: 01/10/18 01:51 Dose: 40 meq - Exam Quality Assessment: Supplemental Oxygen (2L via NC) General: Alert, Oriented HEENT: Pupils Equal Neck: Supple Lungs: Clear to Auscultation, Other (tachypnea) Cardiovascular: Irregular Rhythm GI/Abdominal Exam: Normal Bowel Sounds Back Exam: Normal Inspection, Full Range of Motion Extremities: Normal Inspection, No Pedal Edema Peripheral Pulses: 2+: Dorsalis Pedis (L), Dorsalis Pedis (R) Psy/Mental Status: Alert, Normal Affect, Normal Mood - Problem List Review Problem List Initiated/Reviewed/Updated: Yes - My Orders Last 24 Hours: My Active Orders 01/10/18 10:30 Sodium Chloride 0.9% [Normal Saline] 1,000 ml IV ASDIRECTED - Plan Plan:: Assessment/plan: #1. Acute hypoxic respiratory failure - oxygen prn, solumedrol decreased, duonebs prn. Will resume home dose of prednisone when patient is no longer requiring solumedrol. #2. LLL pneumonia - on vancomycin, zosyn, levaquin. f/u on blood culture. Continue IVNS at 100mL/h #3. A. Fibrillation w/ RVR - dc esmolol as per ICU, now on PO cardizem #4. Anemia - transfuse 1 unit, recheck H/H after transfusion. #5. Hx of hypothyroidism - continue synthroid home dose
[2018-01-10] MEDS: Levothyroxine 75 MCG Tab PO SCH (11:52)
[2018-01-10] MEDS: Acetaminophen/Codeine 300-30 MG Tab PO PRN (15:36)
[2018-01-10] MEDS: methylPREDNISolone Sodium Succinate 40 MG/1 ML SDV IV SCH (20:41)
[2018-01-11] MEDS: Acetaminophen/Codeine 300-30 MG Tab PO PRN ×3 (00:18→20:53)
[2018-01-11] MEDS: Albuterol/Ipratropium 3.0-0.5 MG/3 ML Neb Soln NEB SCH ×6 (02:24→21:30)
[2018-01-11] MEDS: Piperacillin/Tazobactam 3.375 GM in Sodium Chloride 0.9% 50 ML IV SCH ×4 (02:59→20:59)
[2018-01-11] MEDS: Pantoprazole 40 MG Vial IVPUSH SCH (02:59)
[2018-01-11 06:27] LABS: CHLORIDE,CL 107 mmol/L (98-107); SODIUM,NA 141 mmol/L (136-148)
[2018-01-11] MEDS: Levothyroxine 75 MCG Tab PO SCH (06:40)
[2018-01-11] MEDS: methylPREDNISolone Sodium Succinate 40 MG/1 ML SDV IV SCH ×2 (09:08→20:53)
--- NOTE | 2018-01-11 11:42 | PCM.PN ---
- General Info Date of Service: 01/11/18 Subjective Update: states that he feels better, pain better controlled. No new complaints. - Review of Systems General: Reports: No Symptoms HEENT: Reports: No Symptoms Pulmonary: Reports: No Symptoms Cardiovascular: Reports: No Symptoms Gastrointestinal: Reports: No Symptoms Genitourinary: Reports: No Symptoms Musculoskeletal: Reports: No Symptoms Skin: Reports: No Symptoms Neurological: Reports: No Symptoms Psychiatric: Reports: No Symptoms - Patient Data Vitals - Most Recent: Last Vital Signs Temp 36.9 C 01/11/18 08:00 Pulse 118 H 01/10/18 01:02 Resp 26 H 01/11/18 11:00 BP 117/72 01/11/18 11:00 Pulse Ox 96 01/11/18 11:00 Weight - Most Recent: 39.326 kg I&O - Last 24 Hours: Intake & Output 01/10/18 01/11/18 01/11/18 22:59 06:59 14:59 Intake Total 1974 500 150 Output Total 650 275 Balance 1324 225 150 Lab Results Last 24 Hours: Laboratory Results - last 24 hr 01/09/18 01/10/18 01/11/18 Range/Units 23:26 15:26 05:45 WBC 16.31 H (4.0-11.0) K/uL RBC 2.69 L (4.50-5.90) M/uL Hgb 8.6 L 7.9 L (13.0-17.0) g/dL Hct 25.0 L 22.9 L (38.0-50.0) % MCV 85.1 (80.0-98.0) fL MCH 29.4 (27.0-32.0) pg MCHC 34.5 (31.0-37.0) g/dL RDW Std Deviation 54.5 (28.0-62.0) fl RDW Coeff of Brianna 18 H (11.0-15.0) % Plt Count 109 L (150-400) K/uL MPV 10.40 (7.40-12.00) fL Neut % (Auto) 92.0 H (48.0-80.0) % Lymph % (Auto) 4.1 L (16.0-40.0) % [place] % (Auto) 3.9 (0.0-15.0) % Eos % (Auto) 0.0 (0.0-7.0) % Baso % (Auto) 0.0 (0.0-1.5) % Neut # (Auto) 15.0 H (1.4-5.7) K/uL Lymph # (Auto) 0.7 (0.6-2.4) K/uL [place] # (Auto) 0.6 (0.0-0.8) K/uL Eos # (Auto) 0.0 (0.0-0.7) K/uL Baso # (Auto) 0.0 (0.0-0.1) K/uL Nucleated RBC % 0.0 /100WBC Nucleated RBCs # 0 K/uL Sodium (136-148) mmol/L Potassium (3.5-5.1) mmol/L Chloride (98-107) mmol/L Carbon Dioxide (21.0-32.0) mmol/L BUN (7.0-18.0) mg/dL Creatinine (0.8-1.3) mg/dL Est Cr Clr Drug Dosing mL/min Estimated GFR (MDRD) ml/min Glucose (74-106) mg/dL Calcium (8.5-10.1) mg/dL Crossmatch See Detail 01/11/18 Range/Units 05:45 WBC (4.0-11.0) K/uL RBC (4.50-5.90) M/uL Hgb (13.0-17.0) g/dL Hct (38.0-50.0) % MCV (80.0-98.0) fL MCH (27.0-32.0) pg MCHC (31.0-37.0) g/dL RDW Std Deviation (28.0-62.0) fl RDW Coeff of Brianna (11.0-15.0) % Plt Count (150-400) K/uL MPV (7.40-12.00) fL Neut % (Auto) (48.0-80.0) % Lymph % (Auto) (16.0-40.0) % [place] % (Auto) (0.0-15.0) % Eos % (Auto) (0.0-7.0) % Baso % (Auto) (0.0-1.5) % Neut # (Auto) (1.4-5.7) K/uL Lymph # (Auto) (0.6-2.4) K/uL [place] # (Auto) (0.0-0.8) K/uL Eos # (Auto) (0.0-0.7) K/uL Baso # (Auto) (0.0-0.1) K/uL Nucleated RBC % /100WBC Nucleated RBCs # K/uL Sodium 141 (136-148) mmol/L Potassium 4.1 (3.5-5.1) mmol/L Chloride 107 (98-107) mmol/L Carbon Dioxide 25.4 (21.0-32.0) mmol/L BUN 24 H (7.0-18.0) mg/dL Creatinine 1.2 (0.8-1.3) mg/dL Est Cr Clr Drug Dosing 36.41 mL/min Estimated GFR (MDRD) > 60.0 ml/min Glucose 158 H (74-106) mg/dL Calcium 8.9 (8.5-10.1) mg/dL Crossmatch Mohan Results Last 24 Hours: Microbiology 01/09/18 23:34 Aerobic Blood Culture - Preliminary Blood - Venous - Lab Draw NO GROWTH AFTER 1 DAY Anaerobic Blood Culture - Preliminary NO GROWTH AFTER 1 DAY 01/09/18 23:26 Aerobic Blood Culture - Preliminary Blood - Venous NO GROWTH AFTER 1 DAY Anaerobic Blood Culture - Preliminary NO GROWTH AFTER 1 DAY 01/10/18 07:30 Gram Stain - Preliminary Sputum - Expectorated Med Orders - Current: Current Medications Acetaminophen (Tylenol) 650 mg PO Q4H PRN PRN Reason: Pain Last Admin: 01/10/18 05:59 Dose: 650 mg Acetaminophen/Codeine Phosphate (Tylenol With Codeine No.3 300mg/30mg) 1 tab PO Q4H PRN PRN Reason: Pain Last Admin: 01/11/18 00:18 Dose: 1 tab Albuterol/Ipratropium (Duoneb 3.0-0.5 Mg/3 Ml) 3 ml NEB Q4HRRT [facility] Last Admin: 01/11/18 11:17 Dose: 3 ml Esmolol HCl 2,500 mg/ Sodium (Chloride) 500 mls @ 22.2 mls/hr IV TITRATE [facility]; Protocol Levofloxacin/Dextrose 750 mg/ (Premix) 150 mls @ 100 mls/hr IV Q48H [facility] Last Admin: 01/10/18 06:12 Dose: 100 mls/hr Piperacillin Sod/Tazobactam (Sod 3.375 gm/ Sodium Chloride) 50 mls @ 100 mls/ hr IV Q6H [facility] Last Admin: 01/11/18 09:21 Dose: 100 mls/hr Levothyroxine Sodium (Levothyroxine) 75 mcg PO ACBREAKFAST [facility] Last Admin: 01/11/18 06:40 Dose: 75 mcg Methylprednisolone Sodium Succinate (Solu-Medrol) 40 mg IV BID [facility] Last Admin: 01/11/18 09:08 Dose: 40 mg Pantoprazole Sodium (Protonix Iv) 40 mg IVPUSH Q24H [facility] Last Admin: 01/11/18 02:59 Dose: 40 mg Sodium Chloride (Saline Flush) 10 ml FLUSH ASDIRECTED PRN PRN Reason: Keep Vein Open Last Admin: 01/09/18 23:31 Dose: 10 ml Sodium Chloride (Saline Flush) 2.5 ml FLUSH ASDIRECTED PRN PRN Reason: Keep Vein Open Last Admin: 01/09/18 23:31 Dose: 2.5 ml Discontinued Medications Albuterol/Ipratropium (Duoneb 3.0-0.5 Mg/3 Ml) 3 ml NEB ONETIME ONE Stop: 01/09/18 23:13 Last Admin: 01/09/18 23:31 Dose: 3 ml Sodium Chloride (Normal Saline) 1,000 mls @ 125 mls/hr IV STAT [facility] Last Admin: 01/09/18 23:33 Dose: 125 mls/hr Piperacillin Sod/Tazobactam (Sod 4.5 gm/ Sodium Chloride) 100 mls @ 100 mls/hr IV Q6H [facility] Stop: 01/10/18 06:00 Last Admin: 01/10/18 03:57 Dose: 100 mls/hr Vancomycin HCl 1 gm/ Sodium (Chloride) 250 mls @ 166 mls/hr IV ONETIME ONE Stop: 01/10/18 05:30 Last Admin: 01/10/18 07:50 Dose: 166 mls/hr Vancomycin HCl 500 mg/ Sodium (Chloride) 100 mls @ 100 mls/hr IV Q12H [facility] Last Admin: 01/11/18 07:14 Dose: 100 mls/hr Sodium Chloride (Normal Saline) 1,000 mls @ 75 mls/hr IV ASDIRECTED [facility] Iopamidol (Isovue Multipack-370 (76%)) 50 ml IVPUSH ONETIME STA Stop: 01/10/18 05:03 Last Admin: 01/10/18 05:03 Dose: 50 ml Methylprednisolone Sodium Succinate (Solu-Medrol) 125 mg IVPUSH ONETIME ONE Stop: 01/09/18 23:13 Last Admin: 01/09/18 23:31 Dose: 125 mg Methylprednisolone Sodium Succinate (Solu-Medrol) 125 mg IVPUSH Q6H [facility] Last Admin: 01/10/18 03:09 Dose: Not Given Methylprednisolone Sodium Succinate (Solu-Medrol) 125 mg IVPUSH Q6H [facility] Last Admin: 01/10/18 05:42 Dose: 125 mg Morphine Sulfate (Morphine) 2 mg IVPUSH ONETIME ONE Stop: 01/09/18 23:49 Last Admin: 01/09/18 23:52 Dose: 2 mg Ondansetron HCl (Zofran) 4 mg IVPUSH ONETIME ONE Stop: 01/09/18 23:49 Last Admin: 01/09/18 23:52 Dose: 4 mg Potassium Chloride (Klor-Con M20) 40 meq PO ONETIME ONE Stop: 01/10/18 01:33 Last Admin: 01/10/18 01:51 Dose: 40 meq Vancomycin HCl (Pharmacy To Dose - Vancomycin) 1 dose .XX ASDIRECTED ELLIE - Exam Quality Assessment: Supplemental Oxygen General: Alert, Oriented, Cooperative Neck: Supple Lungs: Clear to Auscultation, Normal Respiratory Effort Cardiovascular: Regular Rate, Regular Rhythm GI/Abdominal Exam: Normal Bowel Sounds, Soft, Non-Tender Extremities: Normal Inspection, Normal Range of Motion, Non-Tender, No Pedal Edema, Normal Capillary Refill Peripheral Pulses: 2+: Dorsalis Pedis (L), Dorsalis Pedis (R) Skin: Warm Psy/Mental Status: Alert, Normal Affect, Normal Mood - Problem List Review Problem List Initiated/Reviewed/Updated: Yes - My Orders Last 24 Hours: My Active Orders 01/10/18 13:27 Resuscitation Status Routine 01/10/18 15:32 Acetaminophen/Codeine [Tylenol with Codeine No.3 300MG/30MG] 1 tab PO Q4H PRN - Plan Plan:: Assessment: #1. Probable gram negative tete pneumonia #2. Acute hypoxic respiratory failure #3. COPD exacerbation #4. Tachycardia #5. Anemia #6. Leukocytosis Plan: #1. Discontinue vancomycin given sputum culture growing gram negative rods #2. Obtain hemoccult, recheck H/H this afternoon and manage accordingly. #3. PT/OT #4. Will need home health upon discharge. #5. Disposition 2-3 days.
--- NOTE | 2018-01-11 14:55 | CR ---
EXAM DATE: 01/10/18 PATIENT'S AGE: 62 Patient: ROBSON AZEVEDO Facility: [place], [place] Site . Site : 1955 Study: XRay Chest [id number]/9/2018 11:53:52 PM Ordering Physician: Deng Waller Final Report: INDICATION: Chest pain and shortness of breath. TECHNIQUE: Chest radiograph 1 view COMPARISON: None FINDINGS: Right IJ Port-A-Cath, tip in the SVC. Multiple surgical clips in the upper left abdomen. Heart size mildly enlarged. Senescent calcifications of the aortic arch. No definite focal lung opacity. Limited evaluation of left costophrenic sulcus due to overlying soft tissues. Right costophrenic sulcus sharp. No pneumothorax. No definite acute osseous abnormality. Suture anchors project at the left humeral head. IMPRESSION: 1. No acute cardiopulmonary disease is seen. Dictated by Wayne Keys MD @ 01/10/2018 12:58:14 AM Dictated by: Wayne Keys MD @ 01/10/2018 00:58:20 (Electronic Signature) Report Signed by Proxy. [facility]
--- NOTE | 2018-01-11 15:14 | CT ---
EXAM DATE: 01/10/18 PATIENT'S AGE: 62 Patient: ROBSON AZEVEDO Facility: [place], [place] Site . Site : 1955 Study: CT Chest Angio [id number]/10/2018 5:07:50 AM Ordering Physician: Danna Natarajan Final Report: Indication: Tachycardia. Hypoxia. Technique: CT pulmonary angiogram. 50 cc of Isovue 370 IV. Coronal/ sagittal reconstructed images. Comparison: Chest one view 01/09/2018. Findings: The contrast bolus is inadequate for pulmonary emboli interpretation. No filling defects are seen to indicate an acute pulmonary embolus. The main pulmonary artery is dilated at 3.2 cm in dimension. Ascending thoracic aorta measures 3.8 cm in AP dimension. The descending thoracic aorta is normal in caliber. There is no pleural or pericardial effusion. Coronary artery calcifications. Right IJ Port-A-Cath, with its tip in the SVC. Dense consolidation present in the left lower lobe. There is no endobronchial mass or resorptive atelectasis. There is no honeycomb formation. Reticular type opacities in the left upper lobe, anterior segment. This could reflect scarring. Tiny calcified granuloma in the right upper lobe on image 133, series 41. There is no pneumothorax. There is debris present within the right lower lobe bronchi, with atelectasis at the right lung base. Evaluation of the upper abdomen demonstrates pneumobilia. This is primarily seen in the left hepatic lobe. Surgical clips in the epigastrium and left upper quadrant. Cholecystectomy. Dilation of the main pancreatic duct in the body/ tail of the pancreas. Presumably go the patient has undergone a pancreaticojejunostomy. There is no upper abdominal lymphadenopathy. The bone windows demonstrate diffuse osteopenia. Multiple compression deformities present in the thoracic and upper lumbar spine. These are age indeterminate, may be correlated with physical exam findings. This is best demonstrated at T11. Impression: 1. No pulmonary emboli. Study is technically adequate. 2. Dilated main pulmonary artery, consider pulmonary arterial hypertension. 3. Dense consolidation in the left lower lobe, consistent with pneumonia. Radiographic followup is advised. No endobronchial mass or resorptive atelectasis. 4. This report is in agreement with the preliminary report submitted by [email or web address], 01/10/2018, 0613 hours. Please note that all CT scans at this facility use dose modulation, iterative reconstruction, and/or weight-based dosing when appropriate to reduce radiation dose to as low as reasonably achievable. Dictated by Asim Keller MD @ Jan 11 2018 7:52AM (Electronic Signature) Report Signed by Proxy. [facility]
[2018-01-12] MEDS: Acetaminophen/Codeine 300-30 MG Tab PO PRN ×2 (02:03→20:06)
[2018-01-12] MEDS: Albuterol/Ipratropium 3.0-0.5 MG/3 ML Neb Soln NEB SCH ×6 (02:04→21:36)
[2018-01-12] MEDS: Levofloxacin/Dextrose 5%-Water 750 MG in Premix Bag 1 BAG IV SCH (02:04)
[2018-01-12] MEDS: Pantoprazole 40 MG Vial IVPUSH SCH (02:04)
[2018-01-12] MEDS: Piperacillin/Tazobactam 3.375 GM in Sodium Chloride 0.9% 50 ML IV SCH ×2 (03:48→09:00)
[2018-01-12 06:13] LABS: CHLORIDE,CL 107 mmol/L (98-107); SODIUM,NA 141 mmol/L (136-148)
[2018-01-12] MEDS: Levothyroxine 75 MCG Tab PO SCH (06:34)
[2018-01-12] MEDS: methylPREDNISolone Sodium Succinate 40 MG/1 ML SDV IV SCH ×2 (08:52→20:07)
--- NOTE | 2018-01-12 11:07 | PCM.PN ---
- General Info Date of Service: 01/12/18 Subjective Update: feeling better with no complaints. Was trialed on room air but was hypoxic, currently doing well on 1L via NC. - Review of Systems General: Reports: Other (see hpi) - Patient Data Vitals - Most Recent: Last Vital Signs Temp 36.8 C 01/12/18 08:00 Pulse 118 H 01/10/18 01:02 Resp 13 01/12/18 09:00 BP 113/74 01/12/18 09:00 Pulse Ox 95 01/12/18 09:00 Weight - Most Recent: 41.64 kg I&O - Last 24 Hours: Intake & Output 01/11/18 01/12/18 01/12/18 22:59 06:59 14:59 Intake Total 950 650 50 Output Total 180 300 Balance 770 350 50 Lab Results Last 24 Hours: Laboratory Results - last 24 hr 01/09/18 01/11/18 01/12/18 Range/Units 23:26 14:00 05:46 WBC 8.62 (4.0-11.0) K/uL RBC 2.73 L (4.50-5.90) M/uL Hgb 8.3 L 8.0 L (13.0-17.0) g/dL Hct 24.4 L 23.6 L (38.0-50.0) % MCV 86.4 (80.0-98.0) fL MCH 29.3 (27.0-32.0) pg MCHC 33.9 (31.0-37.0) g/dL RDW Std Deviation 55.2 (28.0-62.0) fl RDW Coeff of Brianna 18 H (11.0-15.0) % Plt Count 109 L (150-400) K/uL MPV 10.40 (7.40-12.00) fL Neut % (Auto) 88.0 H (48.0-80.0) % Lymph % (Auto) 4.6 L (16.0-40.0) % Caroline % (Auto) 7.4 (0.0-15.0) % Eos % (Auto) 0.0 (0.0-7.0) % Baso % (Auto) 0.0 (0.0-1.5) % Neut # (Auto) 7.6 H (1.4-5.7) K/uL Lymph # (Auto) 0.4 L (0.6-2.4) K/uL Caroline # (Auto) 0.6 (0.0-0.8) K/uL Eos # (Auto) 0.0 (0.0-0.7) K/uL Baso # (Auto) 0.0 (0.0-0.1) K/uL Nucleated RBC % 0.0 /100WBC Nucleated RBCs # 0 K/uL Sodium (136-148) mmol/L Potassium (3.5-5.1) mmol/L Chloride (98-107) mmol/L Carbon Dioxide (21.0-32.0) mmol/L BUN (7.0-18.0) mg/dL Creatinine (0.8-1.3) mg/dL Est Cr Clr Drug Dosing mL/min Estimated GFR (MDRD) ml/min Glucose (74-106) mg/dL Calcium (8.5-10.1) mg/dL Blood Type O POSITIVE Antibody Screen NEGATIVE Crossmatch See Detail 01/12/18 Range/Units 05:46 WBC (4.0-11.0) K/uL RBC (4.50-5.90) M/uL Hgb (13.0-17.0) g/dL Hct (38.0-50.0) % MCV (80.0-98.0) fL MCH (27.0-32.0) pg MCHC (31.0-37.0) g/dL RDW Std Deviation (28.0-62.0) fl RDW Coeff of Brianna (11.0-15.0) % Plt Count (150-400) K/uL MPV (7.40-12.00) fL Neut % (Auto) (48.0-80.0) % Lymph % (Auto) (16.0-40.0) % Caroline % (Auto) (0.0-15.0) % Eos % (Auto) (0.0-7.0) % Baso % (Auto) (0.0-1.5) % Neut # (Auto) (1.4-5.7) K/uL Lymph # (Auto) (0.6-2.4) K/uL Caroline # (Auto) (0.0-0.8) K/uL Eos # (Auto) (0.0-0.7) K/uL Baso # (Auto) (0.0-0.1) K/uL Nucleated RBC % /100WBC Nucleated RBCs # K/uL Sodium 141 (136-148) mmol/L Potassium 4.2 (3.5-5.1) mmol/L Chloride 107 (98-107) mmol/L Carbon Dioxide 23.5 (21.0-32.0) mmol/L BUN 31 H (7.0-18.0) mg/dL Creatinine 1.2 (0.8-1.3) mg/dL Est Cr Clr Drug Dosing 38.56 mL/min Estimated GFR (MDRD) > 60.0 ml/min Glucose 107 H (74-106) mg/dL Calcium 9.1 (8.5-10.1) mg/dL Blood Type Antibody Screen Crossmatch Mohan Results Last 24 Hours: Microbiology 01/10/18 07:30 Gram Stain - Final Sputum - Expectorated Sputum Culture - Final Normal Respiratory Myriam YEAST 01/12/18 05:45 Stool Occult Blood (MOHAN) - Final Stool / Feces NEGATIVE OCCULT BLOOD 01/09/18 23:34 Aerobic Blood Culture - Preliminary Blood - Venous - Lab Draw NO GROWTH AFTER 2 DAYS Anaerobic Blood Culture - Preliminary NO GROWTH AFTER 2 DAYS 01/09/18 23:26 Aerobic Blood Culture - Preliminary Blood - Venous NO GROWTH AFTER 2 DAYS Anaerobic Blood Culture - Preliminary NO GROWTH AFTER 2 DAYS Med Orders - Current: Current Medications Acetaminophen (Tylenol) 650 mg PO Q4H PRN PRN Reason: Pain Last Admin: 01/10/18 05:59 Dose: 650 mg Acetaminophen/Codeine Phosphate (Tylenol With Codeine No.3 300mg/30mg) 1 tab PO Q4H PRN PRN Reason: Pain Last Admin: 01/12/18 02:03 Dose: 1 tab Albuterol/Ipratropium (Duoneb 3.0-0.5 Mg/3 Ml) 3 ml NEB Q4HRRT [facility] Last Admin: 01/12/18 10:16 Dose: 3 ml Levofloxacin/Dextrose 750 mg/ (Premix) 150 mls @ 100 mls/hr IV Q48H ELLIE Last Admin: 01/12/18 02:04 Dose: 100 mls/hr Levothyroxine Sodium (Levothyroxine) 75 mcg PO ACBREAKFAST [facility] Last Admin: 01/12/18 06:34 Dose: 75 mcg Methylprednisolone Sodium Succinate (Solu-Medrol) 40 mg IV BID [facility] Last Admin: 01/12/18 08:52 Dose: 40 mg Pantoprazole Sodium (Protonix Iv) 40 mg IVPUSH Q24H [facility] Last Admin: 01/12/18 02:04 Dose: 40 mg Sodium Chloride (Saline Flush) 10 ml FLUSH ASDIRECTED PRN PRN Reason: Keep Vein Open Last Admin: 01/09/18 23:31 Dose: 10 ml Sodium Chloride (Saline Flush) 2.5 ml FLUSH ASDIRECTED PRN PRN Reason: Keep Vein Open Last Admin: 01/09/18 23:31 Dose: 2.5 ml Discontinued Medications Albuterol/Ipratropium (Duoneb 3.0-0.5 Mg/3 Ml) 3 ml NEB ONETIME ONE Stop: 01/09/18 23:13 Last Admin: 01/09/18 23:31 Dose: 3 ml Sodium Chloride (Normal Saline) 1,000 mls @ 125 mls/hr IV STAT [facility] Last Admin: 01/09/18 23:33 Dose: 125 mls/hr Esmolol HCl 2,500 mg/ Sodium (Chloride) 500 mls @ 22.2 mls/hr IV TITRATE [facility]; Protocol Piperacillin Sod/Tazobactam (Sod 4.5 gm/ Sodium Chloride) 100 mls @ 100 mls/hr IV Q6H [facility] Stop: 01/10/18 06:00 Last Admin: 01/10/18 03:57 Dose: 100 mls/hr Vancomycin HCl 1 gm/ Sodium (Chloride) 250 mls @ 166 mls/hr IV ONETIME ONE Stop: 01/10/18 05:30 Last Admin: 01/10/18 07:50 Dose: 166 mls/hr Vancomycin HCl 500 mg/ Sodium (Chloride) 100 mls @ 100 mls/hr IV Q12H [facility] Last Admin: 01/11/18 07:14 Dose: 100 mls/hr Piperacillin Sod/Tazobactam (Sod 3.375 gm/ Sodium Chloride) 50 mls @ 100 mls/ hr IV Q6H [facility] Last Admin: 01/12/18 09:00 Dose: 100 mls/hr Sodium Chloride (Normal Saline) 1,000 mls @ 75 mls/hr IV ASDIRECTED [facility] Iopamidol (Isovue Multipack-370 (76%)) 50 ml IVPUSH ONETIME STA Stop: 01/10/18 05:03 Last Admin: 01/10/18 05:03 Dose: 50 ml Methylprednisolone Sodium Succinate (Solu-Medrol) 125 mg IVPUSH ONETIME ONE Stop: 01/09/18 23:13 Last Admin: 01/09/18 23:31 Dose: 125 mg Methylprednisolone Sodium Succinate (Solu-Medrol) 125 mg IVPUSH Q6H [facility] Last Admin: 01/10/18 03:09 Dose: Not Given Methylprednisolone Sodium Succinate (Solu-Medrol) 125 mg IVPUSH Q6H [facility] Last Admin: 01/10/18 05:42 Dose: 125 mg Morphine Sulfate (Morphine) 2 mg IVPUSH ONETIME ONE Stop: 01/09/18 23:49 Last Admin: 01/09/18 23:52 Dose: 2 mg Ondansetron HCl (Zofran) 4 mg IVPUSH ONETIME ONE Stop: 01/09/18 23:49 Last Admin: 01/09/18 23:52 Dose: 4 mg Potassium Chloride (Klor-Con M20) 40 meq PO ONETIME ONE Stop: 01/10/18 01:33 Last Admin: 01/10/18 01:51 Dose: 40 meq Vancomycin HCl (Pharmacy To Dose - Vancomycin) 1 dose .XX ASDIRECTED [facility] - Exam Quality Assessment: Supplemental Oxygen General: Alert, Oriented HEENT: Pupils Equal, Pupils Reactive, EOMI, Mucous Membr. Moist/Leeper Lungs: Clear to Auscultation, Normal Respiratory Effort Cardiovascular: Regular Rate, Regular Rhythm GI/Abdominal Exam: Normal Bowel Sounds, Soft, Non-Tender, No Organomegaly, No Distention, No Abnormal Bruit, No Mass, Pelvis Stable Extremities: Normal Inspection, Normal Range of Motion, Non-Tender, No Pedal Edema, Normal Capillary Refill Skin: Warm, Dry, Intact Psy/Mental Status: Alert, Normal Affect, Normal Mood - Problem List Review Problem List Initiated/Reviewed/Updated: Yes - My Orders Last 24 Hours: My Active Orders 01/13/18 05:11 BASIC METABOLIC PANEL,BMP [CHEM] AM CBC WITH AUTO DIFF [HEME] AM - Plan Plan:: Assessment: #1. Probable gram negative tete pneumonia - leukocytosis resolved #2. Acute hypoxic respiratory failure - stable #3. COPD exacerbation #4. Tachycardia #5. Anemia #6. Elevated BUN Plan: #1. Discontinue zosyn. Switch to PO levaquin #2. Transfer to regular floor #3. PT/OT #4. Transfuse 1 unit #5. Obtain FeNa given elevated BUN. Differential includes pre-renal, renal etiology. May also be pre-renal with fluid overload secondary to hx of CHF. I will order a one time lasix dose depending on this result. He has gained 10lbs since admission.
[2018-01-12] MEDS ORDERED: Furosemide 20 MG/2 ML VIAL IVPUSH ONE (18:16)
[2018-01-13] MEDS: Albuterol/Ipratropium 3.0-0.5 MG/3 ML Neb Soln NEB SCH ×6 (02:30→21:28)
[2018-01-13] MEDS: Pantoprazole 40 MG Vial IVPUSH SCH (02:30)
[2018-01-13] MEDS: Acetaminophen/Codeine 300-30 MG Tab PO PRN ×3 (04:39→15:42)
[2018-01-13 06:32] LABS: CHLORIDE,CL 107 mmol/L (98-107); SODIUM,NA 142 mmol/L (136-148)
[2018-01-13] MEDS: Levothyroxine 75 MCG Tab PO SCH (06:45)
[2018-01-13] MEDS: predniSONE 20 MG Tab PO SCH (09:26)
[2018-01-13] MEDS ORDERED: Furosemide 20 MG/2 ML VIAL IVPUSH ONE (10:16)
--- NOTE | 2018-01-13 10:40 | PCM.PN ---
- General Info Date of Service: 01/13/18 Subjective Update: States he feels about the same. He does however feel that his "tissues are swollen" indicating fluid retention. Continues to be mildly short of breath. He was taken off the 1L yesterday but O2 sats dropped in the 80s. Otherwise, he has no complaints. - Review of Systems General: Reports: No Symptoms HEENT: Reports: No Symptoms Pulmonary: Reports: No Symptoms Cardiovascular: Reports: No Symptoms Gastrointestinal: Reports: No Symptoms Genitourinary: Reports: No Symptoms Musculoskeletal: Reports: No Symptoms Skin: Reports: No Symptoms Neurological: Reports: No Symptoms Psychiatric: Reports: No Symptoms - Patient Data Vitals - Most Recent: Last Vital Signs Temp 36.9 C 01/13/18 08:00 Pulse 107 H 01/13/18 08:00 Resp 22 H 01/13/18 08:00 BP 108/70 01/13/18 08:00 Pulse Ox 96 01/13/18 08:00 Weight - Most Recent: 41.73 kg I&O - Last 24 Hours: Intake & Output 01/12/18 01/13/18 01/13/18 22:59 06:59 14:59 Intake Total 400 850 Output Total 300 1745 Balance 100 -895 Lab Results Last 24 Hours: Laboratory Results - last 24 hr 01/09/18 01/12/18 01/12/18 Range/Units 23:26 10:20 15:20 WBC (4.0-11.0) K/uL RBC (4.50-5.90) M/uL Hgb 9.7 L (13.0-17.0) g/dL Hct 28.9 L (38.0-50.0) % MCV (80.0-98.0) fL MCH (27.0-32.0) pg MCHC (31.0-37.0) g/dL RDW Std Deviation (28.0-62.0) fl RDW Coeff of Brianna (11.0-15.0) % Plt Count (150-400) K/uL MPV (7.40-12.00) fL Neut % (Auto) (48.0-80.0) % Lymph % (Auto) (16.0-40.0) % Wilkes % (Auto) (0.0-15.0) % Eos % (Auto) (0.0-7.0) % Baso % (Auto) (0.0-1.5) % Neut # (Auto) (1.4-5.7) K/uL Lymph # (Auto) (0.6-2.4) K/uL Wilkes # (Auto) (0.0-0.8) K/uL Eos # (Auto) (0.0-0.7) K/uL Baso # (Auto) (0.0-0.1) K/uL Nucleated RBC % /100WBC Nucleated RBCs # K/uL Sodium (136-148) mmol/L Potassium (3.5-5.1) mmol/L Chloride (98-107) mmol/L Carbon Dioxide (21.0-32.0) mmol/L BUN (7.0-18.0) mg/dL Creatinine (0.8-1.3) mg/dL Est Cr Clr Drug Dosing mL/min Estimated GFR (MDRD) ml/min Glucose (74-106) mg/dL Calcium (8.5-10.1) mg/dL Ur Random Creatinine 95.0 mg/dL Ur Random Sodium 19.0 L (40.0-220.0) mmol/L Blood Type O POSITIVE Antibody Screen NEGATIVE Crossmatch See Detail 01/13/18 01/13/18 Range/Units 06:03 06:03 WBC 8.11 (4.0-11.0) K/uL RBC 3.09 L (4.50-5.90) M/uL Hgb 9.1 L (13.0-17.0) g/dL Hct 26.9 L (38.0-50.0) % MCV 87.1 (80.0-98.0) fL MCH 29.4 (27.0-32.0) pg MCHC 33.8 (31.0-37.0) g/dL RDW Std Deviation 52.9 (28.0-62.0) fl RDW Coeff of Brianna 17 H (11.0-15.0) % Plt Count 107 L (150-400) K/uL MPV 10.50 (7.40-12.00) fL Neut % (Auto) 84.4 H (48.0-80.0) % Lymph % (Auto) 7.5 L (16.0-40.0) % Wilkes % (Auto) 8.1 (0.0-15.0) % Eos % (Auto) 0.0 (0.0-7.0) % Baso % (Auto) 0.0 (0.0-1.5) % Neut # (Auto) 6.8 H (1.4-5.7) K/uL Lymph # (Auto) 0.6 (0.6-2.4) K/uL Wilkes # (Auto) 0.7 (0.0-0.8) K/uL Eos # (Auto) 0.0 (0.0-0.7) K/uL Baso # (Auto) 0.0 (0.0-0.1) K/uL Nucleated RBC % 0.0 /100WBC Nucleated RBCs # 0 K/uL Sodium 142 (136-148) mmol/L Potassium 4.0 (3.5-5.1) mmol/L Chloride 107 (98-107) mmol/L Carbon Dioxide 28.9 (21.0-32.0) mmol/L BUN 37 H (7.0-18.0) mg/dL Creatinine 1.2 (0.8-1.3) mg/dL Est Cr Clr Drug Dosing 38.56 mL/min Estimated GFR (MDRD) > 60.0 ml/min Glucose 141 H (74-106) mg/dL Calcium 9.0 (8.5-10.1) mg/dL Ur Random Creatinine mg/dL Ur Random Sodium (40.0-220.0) mmol/L Blood Type Antibody Screen Crossmatch Mohan Results Last 24 Hours: Microbiology 01/09/18 23:34 Aerobic Blood Culture - Preliminary Blood - Venous - Lab Draw NO GROWTH AFTER 3 DAYS Anaerobic Blood Culture - Preliminary NO GROWTH AFTER 3 DAYS 01/09/18 23:26 Aerobic Blood Culture - Preliminary Blood - Venous NO GROWTH AFTER 3 DAYS Anaerobic Blood Culture - Preliminary NO GROWTH AFTER 3 DAYS 01/12/18 16:45 Stool Occult Blood (MOHAN) - Final Stool / Feces NEGATIVE OCCULT BLOOD 01/10/18 07:30 Gram Stain - Final Sputum - Expectorated Sputum Culture - Final Normal Respiratory Myriam YEAST 01/12/18 05:45 Stool Occult Blood (MOHAN) - Final Stool / Feces NEGATIVE OCCULT BLOOD Med Orders - Current: Current Medications Acetaminophen (Tylenol) 650 mg PO Q4H PRN PRN Reason: Pain Last Admin: 01/10/18 05:59 Dose: 650 mg Acetaminophen/Codeine Phosphate (Tylenol With Codeine No.3 300mg/30mg) 1 tab PO Q4H PRN PRN Reason: Pain Last Admin: 01/13/18 09:45 Dose: 1 tab Albuterol/Ipratropium (Duoneb 3.0-0.5 Mg/3 Ml) 3 ml NEB Q4HRRT ELLIE Last Admin: 01/13/18 10:24 Dose: 3 ml Levofloxacin (Levaquin) 750 mg PO Q48H ELLIE Levothyroxine Sodium (Levothyroxine) 75 mcg PO ACBREAKFAST ELLIE Last Admin: 01/13/18 06:45 Dose: 75 mcg Pantoprazole Sodium (Protonix Iv) 40 mg IVPUSH Q24H ELLIE Last Admin: 01/13/18 02:30 Dose: 40 mg Prednisone (Prednisone) 40 mg PO WITHBREAKFAST ELLIE Last Admin: 01/13/18 09:26 Dose: 40 mg Sodium Chloride (Saline Flush) 10 ml FLUSH ASDIRECTED PRN PRN Reason: Keep Vein Open Last Admin: 01/09/18 23:31 Dose: 10 ml Sodium Chloride (Saline Flush) 2.5 ml FLUSH ASDIRECTED PRN PRN Reason: Keep Vein Open Last Admin: 01/09/18 23:31 Dose: 2.5 ml Discontinued Medications Albuterol/Ipratropium (Duoneb 3.0-0.5 Mg/3 Ml) 3 ml NEB ONETIME ONE Stop: 01/09/18 23:13 Last Admin: 01/09/18 23:31 Dose: 3 ml Furosemide (Lasix) 20 mg IVPUSH NOW ONE Stop: 01/12/18 18:17 Last Admin: 01/12/18 18:51 Dose: 20 mg Furosemide (Lasix) 20 mg IVPUSH ONETIME ONE Stop: 01/13/18 10:17 Sodium Chloride (Normal Saline) 1,000 mls @ 125 mls/hr IV STAT ELLIE Last Admin: 01/09/18 23:33 Dose: 125 mls/hr Esmolol HCl 2,500 mg/ Sodium (Chloride) 500 mls @ 22.2 mls/hr IV TITRATE ELLIE; Protocol Levofloxacin/Dextrose 750 mg/ (Premix) 150 mls @ 100 mls/hr IV Q48H [facility] Last Admin: 01/12/18 02:04 Dose: 100 mls/hr Piperacillin Sod/Tazobactam (Sod 4.5 gm/ Sodium Chloride) 100 mls @ 100 mls/hr IV Q6H ELLIE Stop: 01/10/18 06:00 Last Admin: 01/10/18 03:57 Dose: 100 mls/hr Vancomycin HCl 1 gm/ Sodium (Chloride) 250 mls @ 166 mls/hr IV ONETIME ONE Stop: 01/10/18 05:30 Last Admin: 01/10/18 07:50 Dose: 166 mls/hr Vancomycin HCl 500 mg/ Sodium (Chloride) 100 mls @ 100 mls/hr IV Q12H [facility] Last Admin: 01/11/18 07:14 Dose: 100 mls/hr Piperacillin Sod/Tazobactam (Sod 3.375 gm/ Sodium Chloride) 50 mls @ 100 mls/ hr IV Q6H [facility] Last Admin: 01/12/18 09:00 Dose: 100 mls/hr Sodium Chloride (Normal Saline) 1,000 mls @ 75 mls/hr IV ASDIRECTED [facility] Iopamidol (Isovue Multipack-370 (76%)) 50 ml IVPUSH ONETIME STA Stop: 01/10/18 05:03 Last Admin: 01/10/18 05:03 Dose: 50 ml Methylprednisolone Sodium Succinate (Solu-Medrol) 125 mg IVPUSH ONETIME ONE Stop: 01/09/18 23:13 Last Admin: 01/09/18 23:31 Dose: 125 mg Methylprednisolone Sodium Succinate (Solu-Medrol) 125 mg IVPUSH Q6H [facility] Last Admin: 01/10/18 03:09 Dose: Not Given Methylprednisolone Sodium Succinate (Solu-Medrol) 125 mg IVPUSH Q6H [facility] Last Admin: 01/10/18 05:42 Dose: 125 mg Methylprednisolone Sodium Succinate (Solu-Medrol) 40 mg IV BID [facility] Last Admin: 01/12/18 20:07 Dose: 40 mg Morphine Sulfate (Morphine) 2 mg IVPUSH ONETIME ONE Stop: 01/09/18 23:49 Last Admin: 01/09/18 23:52 Dose: 2 mg Ondansetron HCl (Zofran) 4 mg IVPUSH ONETIME ONE Stop: 01/09/18 23:49 Last Admin: 01/09/18 23:52 Dose: 4 mg Potassium Chloride (Klor-Con M20) 40 meq PO ONETIME ONE Stop: 01/10/18 01:33 Last Admin: 01/10/18 01:51 Dose: 40 meq Prednisone (Prednisone) 40 mg PO WITHBREAKFAST [facility] Vancomycin HCl (Pharmacy To Dose - Vancomycin) 1 dose .XX ASDIRECTED ELLIE - Exam Quality Assessment: Supplemental Oxygen General: Alert, Oriented HEENT: Pupils Equal, Pupils Reactive, EOMI Neck: Supple Lungs: Clear to Auscultation, Other (inspiratory wheezing) Cardiovascular: Regular Rate, Regular Rhythm GI/Abdominal Exam: Normal Bowel Sounds, Soft Extremities: Normal Inspection, No Pedal Edema, Normal Capillary Refill Peripheral Pulses: 1+: Dorsalis Pedis (L), Dorsalis Pedis (R) Skin: Warm Wound/Incisions: Healing Well Neurological: No New Focal Deficit Psy/Mental Status: Alert, Normal Affect, Normal Mood - Problem List Review Problem List Initiated/Reviewed/Updated: Yes - My Orders Last 24 Hours: My Active Orders 01/13/18 08:47 predniSONE 40 mg PO WITHBREAKFAST 01/14/18 06:00 Levofloxacin [Levaquin] 750 mg PO Q48H - Plan Plan:: Assessment: #1. Probable gram negative tete pneumonia - leukocytosis resolved #2. Acute hypoxic respiratory failure - stable #3. COPD exacerbation #4. Tachycardia #5. Anemia of chronic disease #6. Elevated BUN Plan: #1. PO levaquin 750mg q48h #2. PO Prednisone 40mg daily #3. IV 20mg Lasix x1. Continue to monitor I's and O's. #4. Titrate off oxygen as tolerated. Patient refused PT. #5. Anticipate DC tomorrow with home health if on room air.
[2018-01-14] MEDS: Acetaminophen/Codeine 300-30 MG Tab PO PRN (00:03)
[2018-01-14] MEDS: Albuterol/Ipratropium 3.0-0.5 MG/3 ML Neb Soln NEB SCH ×3 (02:43→09:41)
[2018-01-14] MEDS: Pantoprazole 40 MG Vial IVPUSH SCH (02:43)
[2018-01-14] MEDS ORDERED: Levofloxacin 500 MG Tab PO SCH (06:00)
[2018-01-14] MEDS: Levothyroxine 75 MCG Tab PO SCH (07:25)
[2018-01-14] MEDS: predniSONE 20 MG Tab PO SCH (07:51)
[2018-01-14] MEDS ORDERED: predniSONE 20 MG Tab PO SCH (08:00)
[2018-01-14 11:38] VITALS: BP 125/75
--- NOTE | 2018-01-14 11:51 | PCM.DCSUM1 ---
Discharge Summary - Hospital Course Free Text/Narrative:: Admission date: 01/10/2018 Discharge date: 01/14/2018 Admission diagnosis: #1. Acute hypoxic respiratory faillure #2. Probable gram negative tete pneumonia #3. Atrial fibrillation with rvr #4. tachycardia #5. history of renal transplant, chronic prednisone therapy, COPD, CAD, hypothyroidism Discharge diagnosis: #1. acute hypoxic respiratory failure - resolved #2. community acquired pneumonia #3. tachycardia #4. Anemia #5. history of renal transplant, chronic prednisone therapy, COPD, CAD, hypothyroidism Disposition: Home with home health agency Home health instructions: #1. Homebound - The patient is able to ambulate less than 20 feet before becoming short of breath and needing to stop for a rest break. Weakness and deconditioning due to hospitalization for exacerbation of disease process #2. Need for skilled service: Occupational therapy/Physical therapy: strengthening due to weakness from recent hospitalization, deconditioning due to disease process and home safety evaluation for functional safety in home, assess/initiate plan for improvement of cognition issues. #3. Dr Mueller, PCP, will continue to follow the patient for HH once d/c from the hospital. Hospital course: This is a 62M with the above mentioned history that presented for the above mentioned reasons complaining of shortness of breath. He was initially admitted to the ICU secondary to a.fib, acute hypoxic respiratory failure. A CT angiogram was completed secondary to clinical signs of PE but this was negative. He was treated with triple antibiotic therapy, and then was eventually switched to PO levaquin. He was also found to be anemic requiring 1unit PRBC, likely secondary to renal disease. He was FOBT negative x2 samples 2 days apart. Ultimately, he was discharged home with no other changes in his medications. - Discharge Data Discharge Date: 01/14/18 Discharge Disposition: Home, W Home Health Agency 06 Condition: Stable - Patient Summary/Data Consults: Consultations 01/11/18 10:34 Consult to Physical Therapy [PT Evaluation and Treatment] [CONS] Routine - Patient Instructions Diet: Usual Diet as Tolerated Activity: As Tolerated Showering/Bathing: May Shower Notify Provider of: Fever, Increased Pain, Swelling and Redness, Drainage, Nausea and/or Vomiting - Discharge Plan Prescriptions/Med Rec: Levofloxacin [Levaquin] 750 mg PO Q48H 1 Days #1 tablet Home Medications: Home Meds Furosemide 20 mg PO DAILY 12/06/15 [History] Levothyroxine 75 mcg PO ACBREAKFAST 12/06/15 [History] predniSONE [Prednisone] 5 mg PO DAILY 12/06/15 [History] Alendronate Sodium [Fosamax] 70 mg PO Q7D 12/07/15 [History] Zolpidem [Ambien] 10 mg PO BEDTIME PRN 12/07/15 [History] Albuterol [IJD: Ventolin HFA] 1 puff INH .TWICE DAILY #18 gm 12/02/17 [Rx] Budesonide/Formoterol Fumarate [Symbicort 160-4.5 Mcg Inhaler] 2 puff IH BID 05/20 [History] Levofloxacin [Levaquin] 750 mg PO Q48H 1 Days #1 tablet 01/14/18 [Rx] Patient Handouts: Chronic Obstructive Pulmonary Disease Exacerbation, Easy-to- Read, Levofloxacin tablets Referrals: [facility] [Outside] Ashutosh Mueller MD [Physician] - 01/21/18 9:00 am - Discharge Summary/Plan Comment Discharge Summary/Plan Comment: Admission date: 01/10/2018 Discharge date: 01/14/2018 Admission diagnosis: #1. Acute hypoxic respiratory faillure #2. Probable gram negative tete pneumonia #3. Atrial fibrillation with rvr #4. tachycardia #5. history of renal transplant, chronic prednisone therapy, COPD, CAD, hypothyroidism Discharge diagnosis: #1. acute hypoxic respiratory failure - resolved #2. community acquired pneumonia #3. tachycardia #4. Anemia #5. history of renal transplant, chronic prednisone therapy, COPD, CAD, hypothyroidism Disposition: Home with home health agency Home health instructions: #1. Homebound - The patient is able to ambulate less than 20 feet before becoming short of breath and needing to stop for a rest break. Weakness and deconditioning due to hospitalization for exacerbation of disease process #2. Need for skilled service: Occupational therapy/Physical therapy: strengthening due to weakness from recent hospitalization, deconditioning due to disease process and home safety evaluation for functional safety in home, assess/initiate plan for improvement of cognition issues. #3. Dr Mueller, PCP, will continue to follow the patient for HH once d/c from the hospital. Hospital course: This is a 62M with the above mentioned history that presented for the above mentioned reasons complaining of shortness of breath. He was initially admitted to the ICU secondary to a.fib, acute hypoxic respiratory failure. A CT angiogram was completed secondary to clinical signs of PE but this was negative. He was treated with triple antibiotic therapy, and then was eventually switched to PO levaquin. He was also found to be anemic requiring 1unit PRBC, likely secondary to renal disease. He was FOBT negative x2 samples 2 days apart. Ultimately, he was discharged home with no other changes in his medications. - Patient Data Vitals - Most Recent: Last Vital Signs Temp 36.7 C 01/14/18 11:38 Pulse 107 H 01/14/18 11:38 Resp 20 01/14/18 11:38 BP 125/75 01/14/18 11:38 Pulse Ox 95 01/14/18 11:38 Weight - Most Recent: 41.73 kg I&O - Last 24 hours: Intake & Output 01/13/18 01/14/18 01/14/18 22:59 06:59 14:59 Intake Total 830 120 Output Total 350 250 Balance 480 -130 MARNIE Results - Last 24 hrs: Microbiology 01/09/18 23:34 Aerobic Blood Culture - Preliminary Blood - Venous - Lab Draw NO GROWTH AFTER 4 DAYS Anaerobic Blood Culture - Preliminary NO GROWTH AFTER 4 DAYS 01/09/18 23:26 Aerobic Blood Culture - Preliminary Blood - Venous NO GROWTH AFTER 4 DAYS Anaerobic Blood Culture - Preliminary NO GROWTH AFTER 4 DAYS Med Orders - Current: Current Medications Acetaminophen (Tylenol) 650 mg PO Q4H PRN PRN Reason: Pain Last Admin: 01/10/18 05:59 Dose: 650 mg Acetaminophen/Codeine Phosphate (Tylenol With Codeine No.3 300mg/30mg) 1 tab PO Q4H PRN PRN Reason: Pain Last Admin: 01/14/18 00:03 Dose: 1 tab Albuterol/Ipratropium (Duoneb 3.0-0.5 Mg/3 Ml) 3 ml NEB Q4HRRT [facility] Last Admin: 01/14/18 09:41 Dose: 3 ml Heparin Sodium (Porcine) (Heparin Lock Flush 100 Units/Ml) 500 units FLUSH ASDIRECTED [facility] Levofloxacin (Levaquin) 750 mg PO Q48H [facility] Last Admin: 06/14/18 06:24 Dose: 750 mg Levothyroxine Sodium (Levothyroxine) 75 mcg PO ACBREAKFAST ELLIE Last Admin: 01/14/18 07:25 Dose: 75 mcg Pantoprazole Sodium (Protonix Iv) 40 mg IVPUSH Q24H ELLIE Last Admin: 01/14/18 02:43 Dose: 40 mg Prednisone (Prednisone) 40 mg PO WITHBREAKFAST ELLIE Last Admin: 01/14/18 07:51 Dose: 40 mg Sodium Chloride (Saline Flush) 10 ml FLUSH ASDIRECTED PRN PRN Reason: Keep Vein Open Last Admin: 01/09/18 23:31 Dose: 10 ml Sodium Chloride (Saline Flush) 2.5 ml FLUSH ASDIRECTED PRN PRN Reason: Keep Vein Open Last Admin: 01/09/18 23:31 Dose: 2.5 ml Discontinued Medications Albuterol/Ipratropium (Duoneb 3.0-0.5 Mg/3 Ml) 3 ml NEB ONETIME ONE Stop: 01/09/18 23:13 Last Admin: 01/09/18 23:31 Dose: 3 ml Furosemide (Lasix) 20 mg IVPUSH NOW ONE Stop: 01/12/18 18:17 Last Admin: 01/12/18 18:51 Dose: 20 mg Furosemide (Lasix) 20 mg IVPUSH ONETIME ONE Stop: 01/13/18 10:17 Last Admin: 01/13/18 10:45 Dose: 20 mg Sodium Chloride (Normal Saline) 1,000 mls @ 125 mls/hr IV STAT ELLIE Last Admin: 01/09/18 23:33 Dose: 125 mls/hr Esmolol HCl 2,500 mg/ Sodium (Chloride) 500 mls @ 22.2 mls/hr IV TITRATE [facility]; Protocol Levofloxacin/Dextrose 750 mg/ (Premix) 150 mls @ 100 mls/hr IV Q48H [facility] Last Admin: 01/12/18 02:04 Dose: 100 mls/hr Piperacillin Sod/Tazobactam (Sod 4.5 gm/ Sodium Chloride) 100 mls @ 100 mls/hr IV Q6H ELLIE Stop: 01/10/18 06:00 Last Admin: 01/10/18 03:57 Dose: 100 mls/hr Vancomycin HCl 1 gm/ Sodium (Chloride) 250 mls @ 166 mls/hr IV ONETIME ONE Stop: 01/10/18 05:30 Last Admin: 01/10/18 07:50 Dose: 166 mls/hr Vancomycin HCl 500 mg/ Sodium (Chloride) 100 mls @ 100 mls/hr IV Q12H [facility] Last Admin: 01/11/18 07:14 Dose: 100 mls/hr Piperacillin Sod/Tazobactam (Sod 3.375 gm/ Sodium Chloride) 50 mls @ 100 mls/ hr IV Q6H [facility] Last Admin: 01/12/18 09:00 Dose: 100 mls/hr Sodium Chloride (Normal Saline) 1,000 mls @ 75 mls/hr IV ASDIRECTED [facility] Iopamidol (Isovue Multipack-370 (76%)) 50 ml IVPUSH ONETIME STA Stop: 01/10/18 05:03 Last Admin: 01/10/18 05:03 Dose: 50 ml Methylprednisolone Sodium Succinate (Solu-Medrol) 125 mg IVPUSH ONETIME ONE Stop: 01/09/18 23:13 Last Admin: 01/09/18 23:31 Dose: 125 mg Methylprednisolone Sodium Succinate (Solu-Medrol) 125 mg IVPUSH Q6H [facility] Last Admin: 01/10/18 03:09 Dose: Not Given Methylprednisolone Sodium Succinate (Solu-Medrol) 125 mg IVPUSH Q6H [facility] Last Admin: 01/10/18 05:42 Dose: 125 mg Methylprednisolone Sodium Succinate (Solu-Medrol) 40 mg IV BID [facility] Last Admin: 01/12/18 20:07 Dose: 40 mg Morphine Sulfate (Morphine) 2 mg IVPUSH ONETIME ONE Stop: 01/09/18 23:49 Last Admin: 01/09/18 23:52 Dose: 2 mg Ondansetron HCl (Zofran) 4 mg IVPUSH ONETIME ONE Stop: 01/09/18 23:49 Last Admin: 01/09/18 23:52 Dose: 4 mg Potassium Chloride (Klor-Con M20) 40 meq PO ONETIME ONE Stop: 01/10/18 01:33 Last Admin: 01/10/18 01:51 Dose: 40 meq Prednisone (Prednisone) 40 mg PO WITHBREAKFAST [facility] Vancomycin HCl (Pharmacy To Dose - Vancomycin) 1 dose .XX ASDIRECTED [facility]
== END 2018-01-14 11:50 | disposition home health service (06) | DRG 189 ==
LOC: MW.ED 23:08 → MW.ICU 01-10 00:23 → MW.ED 01-10 01:00 → MW.MS 01-12 09:36
PROVIDERS: ADMIT Internal Medicine; ATTEND Internal Medicine
PROC: 30233N1 Transfusion of Nonautologous Red Blood Cells into Peripheral Vein, Percutaneous Approach (ICD-10-PCS; principal; 2018-01-10)
DX: J96.01 Acute respiratory failure with hypoxia (principal); I50.9 Heart failure, unspecified; J18.9 Pneumonia, unspecified organism; J44.0 Chronic obstructive pulmonary disease with (acute) lower respiratory infection; Z94.0 Kidney transplant status; J44.1 Chronic obstructive pulmonary disease with (acute) exacerbation; R00.0 Tachycardia, unspecified; D63.1 Anemia in chronic kidney disease; N18.9 Chronic kidney disease, unspecified; I48.91 Unspecified atrial fibrillation; I25.10 Atherosclerotic heart disease of native coronary artery without angina pectoris; E03.9 Hypothyroidism, unspecified; Z88.8 Allergy status to other drugs, medicaments and biological substances; Z79.899 Other long term (current) drug therapy; Z87.891 Personal history of nicotine dependence
CPT/HCPCS: 71045; 82803; 83880; 85025; 85610; 87040 ×2; 94640; 96361; 96374; 96375; 99285; J2270; J2405; J2930; J7040; 36415; 36430; 36600; 71275; 71275-26; 80048; 80053; 81001; 82272; 82570; 83605; 83735; 84300; 84484; 85014; 85018; 86850; 86900; 86901; 86920; 86921; 86922; 87070; 87205; 88104; 97161-GP; 99283; A9270-GY; C9113; J1642; J1956; J2543; J2920; J3370; J7030; J7050; P9016; Q9967

== ENCOUNTER 2018-05-05 09:55 | Observation (INO) | payer MEDICAID ==
--- NOTE | 2018-05-05 10:32 | EDM.PDOC ---
<Chelsea Ybarra - Last Filed: 05/05/18 11:47> ED HPI GENERAL MEDICAL PROBLEM - General Chief Complaint: Respiratory Problem Stated Complaint: SOB Time Seen by Provider: 05/05/18 10:07 - History of Present Illness INITIAL COMMENTS - FREE TEXT/NARRATIVE: HISTORY AND PHYSICAL: History of present illness: The patient is a 70-year-old male with history of red cell aplasia, COPD, CAD, hypothyroid, renal transplant, who was being seen at the cancer center early this morning for blood work. He is being monitored for low hemoglobin. Their lab work showed an elevated white count at 13.55 and a hemoglobin of 7.4. He was sent to the ER after he was complaining of trouble breathing. He reports a nonproductive cough but no fever, chills. This has been going on for about 2 weeks now. He says the symptoms are similar to when his blood count drops. His last transfusion was 2 weeks ago. He denies any chest pain, nausea, vomiting, constipation, diarrhea, blood in the stools, black tarry stools, burning with urination. [] Review of systems: As per history of present illness and below otherwise all systems reviewed and negative. Past medical history: As per history of present illness and as reviewed below otherwise noncontributory. Surgical history: As per history of present illness and as reviewed below otherwise noncontributory. Social history: No reported history of drug or alcohol abuse. Family history: As per history of present illness and as reviewed below otherwise noncontributory. Physical exam: HEENT: Atraumatic, normocephalic, pupils reactive, negative for conjunctival pallor or scleral icterus, mucous membranes moist, throat clear, neck supple, nontender, trachea midline. Lungs: Clear to auscultation, breath sounds equal bilaterally, chest nontender. Heart: S1S2, regular, negative for clicks, rubs, or JVD. Abdomen: Soft, nondistended, nontender. Negative for masses or hepatosplenomegaly. Negative for costovertebral tenderness. Pelvis: Stable nontender. Genitourinary: Deferred. Rectal: Normal tone, no bright red blood per rectum, brown stool, hemoccult positive. Extremities: Atraumatic, negative for cords or calf pain. Neurovascular unremarkable. Neuro: Awake, alert, oriented. Cranial nerves II through XII unremarkable. Cerebellum unremarkable. Motor and sensory unremarkable throughout. Exam nonfocal. Diagnostics: [CBC, CMP, UA, blood cultures, lactic acid and chest x-ray] Therapeutics: [2 units packed red blood cells] Impression: [Anemia] Plan: [Discussed the case with Dr. Castillo who agreed to admission. Patient was agreeable to admission. Patient will be admitted for observation.] Definitive disposition and diagnosis as appropriate pending reevaluation and review of above. Generalized Pain Score (Numeric/FACES): 9 - Related Data Allergies Allergy/AdvReac Type Severity Reaction Status Date / Time nifedipine [From Procardia] Allergy Itching Verified 05/05/18 10:19 muscle relaxant medicine? Allergy Itching Uncoded 05/05/18 10:19 Home Meds: Home Meds Furosemide 20 mg PO DAILY 12/06/15 [History] Levothyroxine 75 mcg PO ACBREAKFAST 12/06/15 [History] predniSONE [Prednisone] 10 mg PO DAILY 12/06/15 [History] Alendronate Sodium [Fosamax] 70 mg PO Q7D 12/07/15 [History] Zolpidem [Ambien] 10 mg PO BEDTIME PRN 12/07/15 [History] Albuterol [IJD: Ventolin HFA] 1 puff INH .TWICE DAILY #18 gm 12/02/17 [Rx] Budesonide/Formoterol Fumarate [Symbicort 160-4.5 Mcg Inhaler] 2 puff IH BID 05/20 [History] Sulfamethoxazole/Trimethoprim [Bactrim Ds Tablet] 1 each PO 05/05/18 [History] Past Medical History HEENT History: Reports: Hard of Hearing, Other (See Below) Other HEENT History: impaired hearing-with hearing aid on the right ear Cardiovascular History: Reports: Heart Failure Respiratory History: Reports: Asthma, COPD Gastrointestinal History: Reports: None Genitourinary History: Reports: Renal Disease Musculoskeletal History: Reports: Back Pain, Chronic, Osteoarthritis Neurological History: Reports: None Psychiatric History: Reports: None Endocrine/Metabolic History: Reports: Hypothyroidism Hematologic History: Reports: Anemia, Blood Transfusion(s), Other (See Below) Other Hematologic History: history of low platelet Immunologic History: Reports: Solid Organ Transplant Oncologic (Cancer) History: Reports: Other (See Below) Other Oncologic History: 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 Dermatologic History: Reports: None - Infectious Disease History Infectious Disease History: Reports: Chicken Pox, Measles, Mumps - Past Surgical History Head Surgeries/Procedures: Reports: None GI Surgical History: Reports: Other (See Below) Other GI Surgeries/Procedures: Whipple Male Surgical History: Reports: Other (See Below) Other Male Surgeries/Procedures: Renal transplant Endocrine Surgical History: Reports: Thyroidectomy Social & Family History - Family History Family Medical History: Noncontributory HEENT: Reports: None Cardiac: Reports: None - Caffeine Use Caffeine Use: Reports: Coffee, Soda - Living Situation & Occupation Living situation: Reports: , with Significant Other ED ROS GENERAL - Review of Systems Review Of Systems: See Below (see dictation) ED EXAM, GENERAL - Physical Exam Exam: See Below (see dictation) Course - Vital Signs Last Recorded V/S: Last Vital Signs Temp 97.0 F 05/05/18 15:01 Pulse 84 05/05/18 15:01 Resp 16 05/05/18 15:01 BP 117/65 05/05/18 15:01 Pulse Ox 95 05/05/18 15:01 - Orders/Labs/Meds Orders: Active Orders 24 hr Category Date Time Status Admission Status [Patient Status] [ADT] Stat ADT 05/05/18 11:16 Active Oxygen Therapy [RC] PRN Care 05/05/18 11:48 Active RT Aerosol Therapy [RC] ASDIRECTED Care 05/05/18 11:51 Active Up ad Josiane [RC] ASDIRECTED Care 05/05/18 11:48 Active VTE/DVT Education [RC] PER UNIT ROUTINE Care 05/05/18 11:48 Active Vital Signs [RC] Q4H Care 05/05/18 11:48 Active Regular Diet [DIET] Diet 05/05/18 Dinner Active Chest 2V [CR] AM Exams 05/06/18 05:11 Ordered CBC WITH AUTO DIFF [HEME] AM Lab 05/06/18 05:11 Ordered COMPREHENSIVE METABOLIC PN,CMP [CHEM] AM Lab 05/06/18 05:11 Ordered CULTURE BLOOD [BC] Stat Lab 05/05/18 11:17 Received CULTURE BLOOD [BC] Stat Lab 05/05/18 11:30 Received PACKED CELLS [RED BLOOD CELLS LP] [BBK] Stat Lab 05/05/18 10:34 Ordered TYPE AND SCREEN [BBK] Stat Lab 05/05/18 10:34 Ordered Acetaminophen [Tylenol] Med 05/05/18 11:48 Active 650 mg PO Q4H PRN Albuterol/Ipratropium [DuoNeb 3.0-0.5 MG/3 ML] Med 05/05/18 11:51 Active 3 ml NEB Q4HRRT PRN Bisacodyl [Dulcolax] Med 05/05/18 11:48 Active 5 mg PO DAILY PRN Budesonide/Formoterol [Symbicort 160-4.5 MCG] Med 05/06/18 09:00 Active 0 gm INH BID Furosemide [Lasix] Med 05/06/18 09:00 Active 20 mg PO DAILY Levothyroxine Med 05/06/18 07:30 Active 75 mcg PO ACBREAKFAST Morphine Med 05/05/18 11:48 Active 2 mg IVPUSH Q2H PRN Ondansetron [Zofran] Med 05/05/18 11:48 Active 4 mg IVPUSH Q4H PRN Pantoprazole [ProTONIX IV] Med 05/05/18 12:00 Active 40 mg IVPUSH Q12H Polyethylene Glycol 3350 [MiraLAX] Med 05/05/18 11:48 Active 17 gm PO DAILY PRN Zaleplon [Sonata] Med 05/05/18 11:59 Active 5 mg PO BEDTIME PRN Blood Culture x2 Reflex Set [OM.PC] Stat Oth 05/05/18 10:32 Ordered Sequential Compression Device [OM.PC] Per Unit Routine Oth 05/05/18 11:49 Ordered Transfuse Red Blood Cells [COMM] Stat Oth 05/05/18 10:34 Ordered Resuscitation Status Routine Resus Stat 05/05/18 11:48 Ordered Medication Orders Acetaminophen (Tylenol) 650 mg PO Q4H PRN PRN Reason: Pain (Mild 1-3)/fever Albuterol/Ipratropium (Duoneb 3.0-0.5 Mg/3 Ml) 3 ml NEB Q4HRRT PRN PRN Reason: Wheezing Bisacodyl (Dulcolax) 5 mg PO DAILY PRN PRN Reason: Constipation Budesonide/Formoterol Fumarate (Symbicort 160-4.5 Mcg) 0 gm INH BID ELLIE Furosemide (Lasix) 20 mg PO DAILY [facility] Levofloxacin/Dextrose 750 mg/ (Premix) 150 mls @ 100 mls/hr IV Q48H [facility] Last Admin: 05/05/18 14:09 Dose: 100 mls/hr Sodium Chloride (Normal Saline) 1,000 mls @ 125 mls/hr IV STAT [facility] Last Admin: 05/05/18 16:11 Dose: 125 mls/hr Sodium Chloride (Normal Saline) 500 mls @ 999 mls/hr IV STAT [facility] Last Admin: 05/05/18 15:40 Dose: 999 mls/hr Levothyroxine Sodium (Levothyroxine) 75 mcg PO ACBREAKFAST [facility] Morphine Sulfate (Morphine) 2 mg IVPUSH Q2H PRN PRN Reason: Pain (severe 7-10) Stop: 05/06/18 11:49 Last Admin: 05/05/18 15:56 Dose: 2 mg Admin: 05/05/18 13:06 Dose: 2 mg Ondansetron HCl (Zofran) 4 mg IVPUSH Q4H PRN PRN Reason: Nausea Pantoprazole Sodium (Protonix Iv) 40 mg IVPUSH Q12H [facility] Last Admin: 05/05/18 13:08 Dose: 40 mg Polyethylene Glycol (Miralax) 17 gm PO DAILY PRN PRN Reason: Constipation Zaleplon (Sonata) 5 mg PO BEDTIME PRN PRN Reason: Sleep Labs: Laboratory Tests 05/05/18 05/05/18 05/05/18 Range/Units 10:37 11:17 11:35 Lactate 2.3 H (0.20-2.00) mmol/L Sodium 138 (136-148) mmol/L Potassium 4.1 (3.5-5.1) mmol/L Chloride 102 (98-107) mmol/L Carbon Dioxide 20.6 L (21.0-32.0) mmol/L BUN 25 H (7.0-18.0) mg/dL Creatinine 1.1 (0.8-1.3) mg/dL Est Cr Clr Drug Dosing 39.39 mL/min Estimated GFR (MDRD) > 60.0 ml/min Glucose 165 H (74-106) mg/dL Calcium 8.5 (8.5-10.1) mg/dL Total Bilirubin 0.4 (0.2-1.0) mg/dL AST 19 (15-37) IU/L ALT 34 (14-63) IU/L Alkaline Phosphatase 164 H (46-116) U/L Total Protein 6.7 (6.4-8.2) g/dL Albumin 3.5 (3.4-5.0) g/dL Globulin 3.2 (2.0-3.5) g/dL Albumin/Globulin Ratio 1.1 L (1.3-2.8) Urine Color YELLOW Urine Appearance CLEAR Urine pH 6.0 (5.0-8.0) Ur Specific [place] 1.020 (1.001-1.035) Urine Protein NEGATIVE (NEGATIVE) mg/dL Urine Glucose (UA) 250 H (NEGATIVE) mg/dL Urine Ketones NEGATIVE (NEGATIVE) mg/dL Urine Occult Blood NEGATIVE (NEGATIVE) Urine Nitrite NEGATIVE (NEGATIVE) Urine Bilirubin NEGATIVE (NEGATIVE) Urine Urobilinogen 0.2 (<2.0) EU/dL Ur Leukocyte Esterase NEGATIVE (NEGATIVE) Urine RBC 0-1 (0-2/HPF) Urine WBC 5-8 (0-5/HPF) Ur Epithelial Cells RARE (NONE-FEW) Urine Bacteria RARE (NEGATIVE) Meds: Medications Generic Name Dose Route Start Last Admin Trade Name Freq PRN Reason Stop Dose Admin Acetaminophen 650 mg 05/05/18 11:48 Tylenol PO Q4H PRN Pain (Mild 1-3)/fever Albuterol/Ipratropium 3 ml 05/05/18 11:51 Duoneb 3.0-0.5 Mg/3 Ml NEB Q4HRRT PRN Wheezing Bisacodyl 5 mg 05/05/18 11:48 Dulcolax PO DAILY PRN Constipation Budesonide/Formoterol Fumarate 0 gm 05/06/18 09:00 Symbicort 160-4.5 Mcg INH BID ELLIE Furosemide 20 mg 05/06/18 09:00 Lasix PO DAILY ELLIE Levofloxacin/Dextrose 750 mg/ 150 mls @ 100 mls/hr 05/05/18 13:15 05/05/18 14 :09 Premix IV 100 mls/hr Q48H ELLIE Administration Sodium Chloride 1,000 mls @ 125 mls/hr 05/05/18 13:15 05/05/18 16:11 Normal Saline IV 125 mls/hr STAT ELLIE Administration Sodium Chloride 500 mls @ 999 mls/hr 05/05/18 13:15 05/05/18 15:40 Normal Saline IV 999 mls/hr STAT ELLIE Administration Levothyroxine Sodium 75 mcg 05/06/18 07:30 Levothyroxine PO ACBREAKFAST ELLIE Morphine Sulfate 2 mg 05/05/18 11:48 05/05/18 15:56 Morphine IVPUSH 05/06/18 11:49 2 mg Q2H PRN Administration Pain (severe 7-10) Ondansetron HCl 4 mg 05/05/18 11:48 Zofran IVPUSH Q4H PRN Nausea Pantoprazole Sodium 40 mg 05/05/18 12:00 05/05/18 13:08 Protonix Iv IVPUSH 40 mg Q12H ELLIE Administration Polyethylene Glycol 17 gm 05/05/18 11:48 Miralax PO DAILY PRN Constipation Zaleplon 5 mg 05/05/18 11:59 Sonata PO BEDTIME PRN Sleep Discontinued Medications Generic Name Dose Route Start Last Admin Trade Name Freq PRN Reason Stop Dose Admin Non-Formulary Medication 10 mg 05/05/18 11:51 Zolpidem PO BEDTIME PRN Sleep Departure - Departure Time of Disposition: 11:47 Disposition: Admitted As Inpatient 68 Condition: Good Clinical Impression: Anemia - Discharge Information <Laurie Noe - Last Filed: 05/05/18 16:52> ED HPI GENERAL MEDICAL PROBLEM - General Source of Information: Reports: Patient History Limitations: Reports: No Limitations - History of Present Illness INITIAL COMMENTS - FREE TEXT/NARRATIVE: I did evaluate this patient and discuss the treatment, workup and plan with Dr. Ybarra. ED ROS GENERAL - Review of Systems Review Of Systems: ROS reveals no pertinent complaints other than HPI.
[2018-05-05 10:52] LABS: CHLORIDE,CL 102 mmol/L (98-107); SODIUM,NA 138 mmol/L (136-148)
--- NOTE | 2018-05-05 11:21 | CR ---
EXAMINATION: Portable chest radiograph. HISTORY: Shortness of breath. FINDINGS: The trachea is midline. The cardiomediastinal silhouette is within normal limits. Heart is prominent in size, stable. No focal consolidation, pleural effusion, or pneumothorax. Osseous structures appear osteopenic. Old left-sided rib fractures. Right-sided portacatheter. IMPRESSION: No acute cardiopulmonary process.
--- NOTE | 2018-05-05 11:24 | PCM.HP ---
Addendum entered and electronically signed by Cristian Castillo MD 05/05/18 19:24: Repeat H/H shows a hemoglobin of 6.0. As per blood bank, the blood ordered is to arrive at 630am tomorrow. Patient has a history of chronic anemia, hemoccult positive. He denies black stool, no blood in stool. Vitals are stable. He denies any dizziness. Will transfer to ICU. Addendum entered and electronically signed by Delgado Clay MD 05/05/18 16:50 : I have examined the patient. I have discussed findings and treatment plan with the resident. I agree with the assessment and plan in the following resident's note. Addendum entered and electronically signed by Cristian Castillo MD 05/05/18 11:46: HPI Reads that the patient received 2 units in the ER. Please refer to the plan as the patient did not get this yet. 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 He was also complaining of shortness of breath. He is asymptomatic aside from chronic cough, cold that he endorses which isn't a big concern for him. Cough is dry, denies any fever/sob/nausea/vomiting. Hemoglobin found on labs to be 7.4, WBC 13k. He denies bloody stool, vomiting, etoh use. Anemia is a chronic issue for him secondary to his hx. He is on daily predinsone therapy. ER Course: PRBC transfusion 2 units, pertinent labs as above CXR pending UA pending Generalized Pain Score (Numeric/FACES): 9 - Related Data Allergies/Adverse Reactions: Allergies Allergy/AdvReac Type Severity Reaction Status Date / Time nifedipine [From Procardia] Allergy Itching Verified 05/05/18 10:19 muscle relaxant medicine? Allergy Itching Uncoded 05/05/18 10:19 Home Medications: Home Meds Furosemide 20 mg PO DAILY 12/06/15 [History] Levothyroxine 75 mcg PO ACBREAKFAST 12/06/15 [History] predniSONE [Prednisone] 10 mg PO DAILY 12/06/15 [History] Alendronate Sodium [Fosamax] 70 mg PO Q7D 12/07/15 [History] Zolpidem [Ambien] 10 mg PO BEDTIME PRN 12/07/15 [History] Albuterol [IJD: Ventolin HFA] 1 puff INH .TWICE DAILY #18 gm 12/02/17 [Rx] Budesonide/Formoterol Fumarate [Symbicort 160-4.5 Mcg Inhaler] 2 puff IH BID 05/20 [History] Sulfamethoxazole/Trimethoprim [Bactrim Ds Tablet] 1 each PO 05/05/18 [History] Past Medical History HEENT History: Reports: Hard of Hearing, Other (See Below) Other HEENT History: impaired hearing-with hearing aid on the right ear Cardiovascular History: Reports: Heart Failure Respiratory History: Reports: Asthma, COPD Gastrointestinal History: Reports: None Genitourinary History: Reports: Renal Disease Musculoskeletal History: Reports: Back Pain, Chronic, Osteoarthritis Neurological History: Reports: None Psychiatric History: Reports: None Endocrine/Metabolic History: Reports: Hypothyroidism Hematologic History: Reports: Anemia, Blood Transfusion(s), Other (See Below) Other Hematologic History: history of low platelet Immunologic History: Reports: Solid Organ Transplant Oncologic (Cancer) History: Reports: Other (See Below) Other Oncologic History: 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 Dermatologic History: Reports: None - Infectious Disease History Infectious Disease History: Reports: Chicken Pox, Measles, Mumps - Past Surgical History Head Surgeries/Procedures: Reports: None GI Surgical History: Reports: Other (See Below) Other GI Surgeries/Procedures: Whipple Male Surgical History: Reports: Other (See Below) Other Male Surgeries/Procedures: Renal transplant Endocrine Surgical History: Reports: Thyroidectomy Social & Family History - Family History Family Medical History: Noncontributory HEENT: Reports: None Cardiac: Reports: None - Tobacco Use Smoking Status *Q: Never Smoker Second Hand Smoke Exposure: No - Caffeine Use Caffeine Use: Reports: Coffee, Soda - Recreational Drug Use Recreational Drug Use: No - Living Situation & Occupation Living situation: Reports: , with Significant Other H&P Review of Systems - Review of Systems: Review Of Systems: See Below General: Reports: Weakness, Other (joint pain in shoulders) HEENT: Reports: No Symptoms Pulmonary: Reports: Cough Cardiovascular: Reports: No Symptoms Gastrointestinal: Reports: No Symptoms. Denies: Black Stool, Bloody Stool, Constipation, Diarrhea, Decreased Appetite Genitourinary: Reports: No Symptoms Musculoskeletal: Reports: Other (see general) Skin: Reports: No Symptoms Psychiatric: Reports: No Symptoms Hematologic/Lymphatic: Reports: No Symptoms Immunologic: Reports: No Symptoms Exam - Exam Exam: See Below - Vital Signs Vital Signs: Last Vital Signs Temp 35.8 C 05/05/18 10:16 Pulse 106 H 05/05/18 10:16 Resp 20 05/05/18 10:16 BP 112/74 05/05/18 10:16 Pulse Ox 98 05/05/18 10:16 Weight: 39 kg - Exam General: Alert, Oriented HEENT: PERRLA, Hearing Intact, Mucosa Moist & [place], Nares Patent, Normal Nasal Septum, Posterior Pharynx Clear, Conjunctiva Clear, EOMI, EACs Clear, TMs Clear Neck: Supple, Trachea Midline, 2 Lungs: Clear to Auscultation, Normal Respiratory Effort Cardiovascular: Regular Rate, Regular Rhythm GI/Abdominal Exam: Normal Bowel Sounds, Soft, Non-Tender, No Organomegaly, No Distention, No Abnormal Bruit, No Mass Back Exam: Normal Inspection, Full Range of Motion, NT Extremities: Normal Inspection, Normal Range of Motion, Non-Tender, No Pedal Edema, Normal Capillary Refill Skin: Warm, Dry, Intact, Other (port in place, clean) Neuro Extensive - Mental Status: Alert, Oriented x3, Normal Mood/Affect - Patient Data Lab Results Last 24 hrs: Laboratory Results - last 24 hr 05/05/18 Range/Units 10:37 Sodium 138 (136-148) mmol/L Potassium 4.1 (3.5-5.1) mmol/L Chloride 102 (98-107) mmol/L Carbon Dioxide 20.6 L (21.0-32.0) mmol/L BUN 25 H (7.0-18.0) mg/dL Creatinine 1.1 (0.8-1.3) mg/dL Est Cr Clr Drug Dosing 39.39 mL/min Estimated GFR (MDRD) > 60.0 ml/min Glucose 165 H (74-106) mg/dL Calcium 8.5 (8.5-10.1) mg/dL Total Bilirubin 0.4 (0.2-1.0) mg/dL AST 19 (15-37) IU/L ALT 34 (14-63) IU/L Alkaline Phosphatase 164 H (46-116) U/L Total Protein 6.7 (6.4-8.2) g/dL Albumin 3.5 (3.4-5.0) g/dL Globulin 3.2 (2.0-3.5) g/dL Albumin/Globulin Ratio 1.1 L (1.3-2.8) Result Diagrams: 05/05/18 10:37 - Problem List (1) Leukocytosis SNOMED Code(s): 058931869, 317231019 ICD Code: D72.829 - ELEVATED WHITE BLOOD CELL COUNT, UNSPECIFIED Status: Acute Priority: High Current Visit: No Qualifiers: Leukocytosis type: unspecified Qualified Code(s): D72.829 - Elevated white blood cell count, unspecified Problem List Initiated/Reviewed/Updated: Yes Orders Last 24hrs: Active Orders 24 hr Category Date Time Status Admission Status [Patient Status] [ADT] Stat ADT 05/05/18 11:16 Active Chest 1V Frontal [CR] Stat Exams 05/05/18 10:33 Taken CULTURE BLOOD [BC] Stat Lab 05/05/18 10:33 Ordered CULTURE BLOOD [BC] Stat Lab 05/05/18 10:33 Ordered LACTATE WITH REFLEX [BG] Stat Lab 05/05/18 10:33 Ordered PACKED CELLS [RED BLOOD CELLS LP] [BBK] Stat Lab 05/05/18 10:34 Ordered TYPE AND SCREEN [BBK] Stat Lab 05/05/18 10:34 Ordered UA W/MICROSCOPIC [URIN] Stat Lab 05/05/18 10:32 Ordered Blood Culture x2 Reflex Set [OM.PC] Stat Oth 05/05/18 10:32 Ordered Transfuse Red Blood Cells [COMM] Stat Oth 05/05/18 10:34 Ordered Assessment/Plan Comment:: Assessment: #1. 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 Leukocytosis of unknown etiology #3. History of chronic prednisone therapy, CAD, Hypothyroidism, kidney transplant Plan: #1. Admit to the floor for observation. Vital signs per floor routine. SCD for DVT prophylaxis. Regular diet. #2. F/u on UA for source of leukocytosis. This elevation could be secondary to chronic prednisone use. ER physician believes an underlying pneumonia could be possible that wasn't seen on CXR because of dehydration. If the UA shows a UTI then I'll start IV Levaquin 750mg PO q24h. For now will hold off on antibiotics. #3. Patient requires PRBC but won't be able to get this as our facility doesnt have irradiated blood available. Will be transfused in 24 hours. #4. PRN DuoNeb q4h SOB/Wheezing #5. Continue home meds. Hold prednisone, avoid NSAID. Obtain Hemoccult.
[2018-05-05] MEDS ORDERED: Polyethylene Glycol 3350 Powder 17 GM Packet PO PRN (11:48)
[2018-05-05] MEDS ORDERED: Ondansetron 4 MG/2 ML SDV IVPUSH PRN (11:48)
[2018-05-05] MEDS ORDERED: Bisacodyl 5 MG Tab PO PRN (11:48)
[2018-05-05] MEDS ORDERED: Non-Formulary Medication 1 Each (Zolpidem 10 MG) PO PRN (11:51)
[2018-05-05] MEDS ORDERED: Albuterol/Ipratropium 3.0-0.5 MG/3 ML Neb Soln NEB PRN (11:51)
[2018-05-05] MEDS: Morphine 10 MG/ML Syringe IVPUSH PRN ×3 (13:06→21:12)
[2018-05-05] MEDS: Pantoprazole 40 MG Vial IVPUSH SCH ×2 (13:08→23:17)
[2018-05-05] MEDS ORDERED: Sodium Chloride 0.9% 1,000 ML IV SCH (13:15)
[2018-05-05] MEDS ORDERED: Sodium Chloride 0.9% 500 ML IV SCH (13:15)
[2018-05-05] MEDS ORDERED: Levofloxacin/Dextrose 5%-Water 750 MG in Premix Bag 1 BAG IV SCH (13:15)
[2018-05-06] MEDS: Morphine 10 MG/ML Syringe IVPUSH PRN ×2 (05:29→08:56)
[2018-05-06 05:58] LABS: CHLORIDE,CL 104 mmol/L (98-107); SODIUM,NA 137 mmol/L (136-148)
[2018-05-06] MEDS: Levothyroxine 75 MCG Tab PO SCH (06:43)
[2018-05-06] MEDS: Furosemide 20 MG Tab PO SCH (08:54)
--- NOTE | 2018-05-06 10:14 | PCM.PN ---
- General Info Date of Service: 05/06/18 Admission Dx/Problem (Free Text): Has no complaints this morning. Feels well. Denies dizziness, sob, syncope, pain. - Review of Systems General: Reports: Other (see hpi) - Patient Data Vitals - Most Recent: Last Vital Signs Temp 37.2 C 05/06/18 08:09 Pulse 88 05/06/18 08:09 Resp 18 05/06/18 08:09 BP 97/64 05/06/18 08:09 Pulse Ox 94 L 05/06/18 08:09 Weight - Most Recent: 39 kg I&O - Last 24 Hours: Intake & Output 05/05/18 05/06/18 05/06/18 22:59 06:59 14:59 Intake Total 1850 1190 13 Output Total 350 650 Balance 1500 540 13 Lab Results Last 24 Hours: Laboratory Results - last 24 hr 05/05/18 05/05/18 05/05/18 Range/Units 09:15 10:37 11:17 WBC (4.0-11.0) K/uL RBC (4.50-5.90) M/uL Hgb (13.0-17.0) g/dL Hct (38.0-50.0) % MCV (80.0-98.0) fL MCH (27.0-32.0) pg MCHC (31.0-37.0) g/dL RDW Std Deviation (28.0-62.0) fl RDW Coeff of Brianna (11.0-15.0) % Plt Count (150-400) K/uL MPV (7.40-12.00) fL Neut % (Auto) (48.0-80.0) % Lymph % (Auto) (16.0-40.0) % [place] % (Auto) (0.0-15.0) % Eos % (Auto) (0.0-7.0) % Baso % (Auto) (0.0-1.5) % Neut # (Auto) (1.4-5.7) K/uL Lymph # (Auto) (0.6-2.4) K/uL [place] # (Auto) (0.0-0.8) K/uL Eos # (Auto) (0.0-0.7) K/uL Baso # (Auto) (0.0-0.1) K/uL Nucleated RBC % /100WBC Nucleated RBCs # K/uL Lactate 2.3 H (0.20-2.00) mmol/L Sodium 138 (136-148) mmol/L Potassium 4.1 (3.5-5.1) mmol/L Chloride 102 (98-107) mmol/L Carbon Dioxide 20.6 L (21.0-32.0) mmol/L BUN 25 H (7.0-18.0) mg/dL Creatinine 1.1 (0.8-1.3) mg/dL Est Cr Clr Drug Dosing 39.39 mL/min Estimated GFR (MDRD) > 60.0 ml/min Glucose 165 H (74-106) mg/dL Hemoglobin A1c (4.5-6.2) % Calcium 8.5 (8.5-10.1) mg/dL Total Bilirubin 0.4 (0.2-1.0) mg/dL AST 19 (15-37) IU/L ALT 34 (14-63) IU/L Alkaline Phosphatase 164 H (46-116) U/L Total Protein 6.7 (6.4-8.2) g/dL Albumin 3.5 (3.4-5.0) g/dL Globulin 3.2 (2.0-3.5) g/dL Albumin/Globulin Ratio 1.1 L (1.3-2.8) Urine Color Urine Appearance Urine pH (5.0-8.0) Ur Specific [place] (1.001-1.035) Urine Protein (NEGATIVE) mg/dL Urine Glucose (UA) (NEGATIVE) mg/dL Urine Ketones (NEGATIVE) mg/dL Urine Occult Blood (NEGATIVE) Urine Nitrite (NEGATIVE) Urine Bilirubin (NEGATIVE) Urine Urobilinogen (<2.0) EU/dL Ur Leukocyte Esterase (NEGATIVE) Urine RBC (0-2/HPF) Urine WBC (0-5/HPF) Ur Epithelial Cells (NONE-FEW) Urine Bacteria (NEGATIVE) Blood Type O POSITIVE Antibody Screen NEGATIVE Crossmatch See Detail 05/05/18 05/05/18 05/05/18 Range/Units 11:35 13:14 15:17 WBC (4.0-11.0) K/uL RBC (4.50-5.90) M/uL Hgb (13.0-17.0) g/dL Hct (38.0-50.0) % MCV (80.0-98.0) fL MCH (27.0-32.0) pg MCHC (31.0-37.0) g/dL RDW Std Deviation (28.0-62.0) fl RDW Coeff of Brianna (11.0-15.0) % Plt Count (150-400) K/uL MPV (7.40-12.00) fL Neut % (Auto) (48.0-80.0) % Lymph % (Auto) (16.0-40.0) % [place] % (Auto) (0.0-15.0) % Eos % (Auto) (0.0-7.0) % Baso % (Auto) (0.0-1.5) % Neut # (Auto) (1.4-5.7) K/uL Lymph # (Auto) (0.6-2.4) K/uL [place] # (Auto) (0.0-0.8) K/uL Eos # (Auto) (0.0-0.7) K/uL Baso # (Auto) (0.0-0.1) K/uL Nucleated RBC % /100WBC Nucleated RBCs # K/uL Lactate 1.7 (0.20-2.00) mmol/L Sodium (136-148) mmol/L Potassium (3.5-5.1) mmol/L Chloride (98-107) mmol/L Carbon Dioxide (21.0-32.0) mmol/L BUN (7.0-18.0) mg/dL Creatinine (0.8-1.3) mg/dL Est Cr Clr Drug Dosing mL/min Estimated GFR (MDRD) ml/min Glucose (74-106) mg/dL Hemoglobin A1c 7.8 H (4.5-6.2) % Calcium (8.5-10.1) mg/dL Total Bilirubin (0.2-1.0) mg/dL AST (15-37) IU/L ALT (14-63) IU/L Alkaline Phosphatase (46-116) U/L Total Protein (6.4-8.2) g/dL Albumin (3.4-5.0) g/dL Globulin (2.0-3.5) g/dL Albumin/Globulin Ratio (1.3-2.8) Urine Color YELLOW Urine Appearance CLEAR Urine pH 6.0 (5.0-8.0) Ur Specific [place] 1.020 (1.001-1.035) Urine Protein NEGATIVE (NEGATIVE) mg/dL Urine Glucose (UA) 250 H (NEGATIVE) mg/dL Urine Ketones NEGATIVE (NEGATIVE) mg/dL Urine Occult Blood NEGATIVE (NEGATIVE) Urine Nitrite NEGATIVE (NEGATIVE) Urine Bilirubin NEGATIVE (NEGATIVE) Urine Urobilinogen 0.2 (<2.0) EU/dL Ur Leukocyte Esterase NEGATIVE (NEGATIVE) Urine RBC 0-1 (0-2/HPF) Urine WBC 5-8 (0-5/HPF) Ur Epithelial Cells RARE (NONE-FEW) Urine Bacteria RARE (NEGATIVE) Blood Type Antibody Screen Crossmatch 05/05/18 05/05/18 05/06/18 Range/Units 16:14 16:14 05:25 WBC 7.21 (4.0-11.0) K/uL RBC 2.04 L (4.50-5.90) M/uL Hgb 6.0 L 5.9 L (13.0-17.0) g/dL Hct 18.1 L 17.9 L (38.0-50.0) % MCV 87.7 (80.0-98.0) fL MCH 28.9 (27.0-32.0) pg MCHC 33.0 (31.0-37.0) g/dL RDW Std Deviation 51.5 (28.0-62.0) fl RDW Coeff of Brianna 16 H (11.0-15.0) % Plt Count 157 (150-400) K/uL MPV 9.50 (7.40-12.00) fL Neut % (Auto) 42.3 L (48.0-80.0) % Lymph % (Auto) 45.4 H (16.0-40.0) % [place] % (Auto) 11.2 (0.0-15.0) % Eos % (Auto) 1.1 (0.0-7.0) % Baso % (Auto) 0.0 (0.0-1.5) % Neut # (Auto) 3.1 (1.4-5.7) K/uL Lymph # (Auto) 3.3 H (0.6-2.4) K/uL [place] # (Auto) 0.8 (0.0-0.8) K/uL Eos # (Auto) 0.1 (0.0-0.7) K/uL Baso # (Auto) 0.0 (0.0-0.1) K/uL Nucleated RBC % 0.0 /100WBC Nucleated RBCs # 0 K/uL Lactate 1.8 (0.20-2.00) mmol/L Sodium (136-148) mmol/L Potassium (3.5-5.1) mmol/L Chloride (98-107) mmol/L Carbon Dioxide (21.0-32.0) mmol/L BUN (7.0-18.0) mg/dL Creatinine (0.8-1.3) mg/dL Est Cr Clr Drug Dosing mL/min Estimated GFR (MDRD) ml/min Glucose (74-106) mg/dL Hemoglobin A1c (4.5-6.2) % Calcium (8.5-10.1) mg/dL Total Bilirubin (0.2-1.0) mg/dL AST (15-37) IU/L ALT (14-63) IU/L Alkaline Phosphatase (46-116) U/L Total Protein (6.4-8.2) g/dL Albumin (3.4-5.0) g/dL Globulin (2.0-3.5) g/dL Albumin/Globulin Ratio (1.3-2.8) Urine Color Urine Appearance Urine pH (5.0-8.0) Ur Specific [place] (1.001-1.035) Urine Protein (NEGATIVE) mg/dL Urine Glucose (UA) (NEGATIVE) mg/dL Urine Ketones (NEGATIVE) mg/dL Urine Occult Blood (NEGATIVE) Urine Nitrite (NEGATIVE) Urine Bilirubin (NEGATIVE) Urine Urobilinogen (<2.0) EU/dL Ur Leukocyte Esterase (NEGATIVE) Urine RBC (0-2/HPF) Urine WBC (0-5/HPF) Ur Epithelial Cells (NONE-FEW) Urine Bacteria (NEGATIVE) Blood Type Antibody Screen Crossmatch 05/06/18 Range/Units 05:25 WBC (4.0-11.0) K/uL RBC (4.50-5.90) M/uL Hgb (13.0-17.0) g/dL Hct (38.0-50.0) % MCV (80.0-98.0) fL MCH (27.0-32.0) pg MCHC (31.0-37.0) g/dL RDW Std Deviation (28.0-62.0) fl RDW Coeff of Brianna (11.0-15.0) % Plt Count (150-400) K/uL MPV (7.40-12.00) fL Neut % (Auto) (48.0-80.0) % Lymph % (Auto) (16.0-40.0) % [place] % (Auto) (0.0-15.0) % Eos % (Auto) (0.0-7.0) % Baso % (Auto) (0.0-1.5) % Neut # (Auto) (1.4-5.7) K/uL Lymph # (Auto) (0.6-2.4) K/uL [place] # (Auto) (0.0-0.8) K/uL Eos # (Auto) (0.0-0.7) K/uL Baso # (Auto) (0.0-0.1) K/uL Nucleated RBC % /100WBC Nucleated RBCs # K/uL Lactate (0.20-2.00) mmol/L Sodium 137 (136-148) mmol/L Potassium 4.0 (3.5-5.1) mmol/L Chloride 104 (98-107) mmol/L Carbon Dioxide 26.7 (21.0-32.0) mmol/L BUN 18 (7.0-18.0) mg/dL Creatinine 0.8 (0.8-1.3) mg/dL Est Cr Clr Drug Dosing 54.17 mL/min Estimated GFR (MDRD) > 60.0 ml/min Glucose 91 (74-106) mg/dL Hemoglobin A1c (4.5-6.2) % Calcium 7.9 L (8.5-10.1) mg/dL Total Bilirubin 0.7 (0.2-1.0) mg/dL AST 12 L (15-37) IU/L ALT 28 (14-63) IU/L Alkaline Phosphatase 124 H (46-116) U/L Total Protein 5.3 L (6.4-8.2) g/dL Albumin 2.8 L (3.4-5.0) g/dL Globulin 2.5 (2.0-3.5) g/dL Albumin/Globulin Ratio 1.1 L (1.3-2.8) Urine Color Urine Appearance Urine pH (5.0-8.0) Ur Specific [place] (1.001-1.035) Urine Protein (NEGATIVE) mg/dL Urine Glucose (UA) (NEGATIVE) mg/dL Urine Ketones (NEGATIVE) mg/dL Urine Occult Blood (NEGATIVE) Urine Nitrite (NEGATIVE) Urine Bilirubin (NEGATIVE) Urine Urobilinogen (<2.0) EU/dL Ur Leukocyte Esterase (NEGATIVE) Urine RBC (0-2/HPF) Urine WBC (0-5/HPF) Ur Epithelial Cells (NONE-FEW) Urine Bacteria (NEGATIVE) Blood Type Antibody Screen Crossmatch Med Orders - Current: Current Medications Acetaminophen (Tylenol) 650 mg PO Q4H PRN PRN Reason: Pain (Mild 1-3)/fever Albuterol/Ipratropium (Duoneb 3.0-0.5 Mg/3 Ml) 3 ml NEB Q4HRRT PRN PRN Reason: Wheezing Bisacodyl (Dulcolax) 5 mg PO DAILY PRN PRN Reason: Constipation Budesonide/Formoterol Fumarate (Symbicort 160-4.5 Mcg) 0 gm INH BID [facility] Furosemide (Lasix) 20 mg PO DAILY [facility] Last Admin: 05/06/18 08:54 Dose: 20 mg Levofloxacin/Dextrose 750 mg/ (Premix) 150 mls @ 100 mls/hr IV Q24H [facility] Levothyroxine Sodium (Levothyroxine) 75 mcg PO ACBREAKFAST [facility] Last Admin: 05/06/18 06:43 Dose: 75 mcg Morphine Sulfate (Morphine) 2 mg IVPUSH Q2H PRN PRN Reason: Pain (severe 7-10) Stop: 05/06/18 11:49 Last Admin: 05/06/18 08:56 Dose: 2 mg Ondansetron HCl (Zofran) 4 mg IVPUSH Q4H PRN PRN Reason: Nausea Pantoprazole Sodium (Protonix Iv) 40 mg IVPUSH Q12H [facility] Last Admin: 05/05/18 23:17 Dose: 40 mg Polyethylene Glycol (Miralax) 17 gm PO DAILY PRN PRN Reason: Constipation Zaleplon (Sonata) 5 mg PO BEDTIME PRN PRN Reason: Sleep Discontinued Medications Levofloxacin/Dextrose 750 mg/ (Premix) 150 mls @ 100 mls/hr IV Q48H [facility] Last Admin: 05/05/18 14:09 Dose: 100 mls/hr Sodium Chloride (Normal Saline) 1,000 mls @ 50 mls/hr IV STAT [facility] Last Admin: 05/05/18 16:11 Dose: 125 mls/hr Sodium Chloride (Normal Saline) 500 mls @ 999 mls/hr IV STAT [facility] Last Admin: 05/05/18 15:40 Dose: 999 mls/hr Non-Formulary Medication (Zolpidem) 10 mg PO BEDTIME PRN PRN Reason: Sleep - Exam General: Alert, Oriented HEENT: Pupils Equal, Pupils Reactive, EOMI, Mucous Membr. Moist/[place] Neck: Supple Lungs: Clear to Auscultation, Normal Respiratory Effort Cardiovascular: Regular Rate, Regular Rhythm GI/Abdominal Exam: Normal Bowel Sounds, Soft, Non-Tender, No Organomegaly, No Distention, No Abnormal Bruit, No Mass, Pelvis Stable Back Exam: Normal Inspection, Full Range of Motion Extremities: Normal Inspection, Normal Range of Motion, Non-Tender, No Pedal Edema, Normal Capillary Refill Peripheral Pulses: 2+: Posterior Tibial (L), Posterior Tibial (R), Dorsalis Pedis (L), Dorsalis Pedis (R) Skin: Warm Psy/Mental Status: Alert, Normal Affect, Normal Mood - Problem List & Annotations (1) Leukocytosis SNOMED Code(s): 875840909, [id number] Code(s): D72.829 - ELEVATED WHITE BLOOD CELL COUNT, UNSPECIFIED Status: Acute Priority: High Current Visit: No Qualifiers: Leukocytosis type: unspecified Qualified Code(s): D72.829 - Elevated white blood cell count, unspecified - Problem List Review Problem List Initiated/Reviewed/Updated: Yes - My Orders Last 24 Hours: My Active Orders 05/05/18 11:48 Oxygen Therapy [RC] PRN Up ad Josiane [RC] ASDIRECTED VTE/DVT Education [RC] PER UNIT ROUTINE Vital Signs [RC] Q4H Acetaminophen [Tylenol] 650 mg PO Q4H PRN Bisacodyl [Dulcolax] 5 mg PO DAILY PRN Morphine 2 mg IVPUSH Q2H PRN Ondansetron [Zofran] 4 mg IVPUSH Q4H PRN Polyethylene Glycol 3350 [MiraLAX] 17 gm PO DAILY PRN Resuscitation Status Routine 05/05/18 11:49 Sequential Compression Device [OM.PC] Per Unit Routine 05/05/18 11:51 RT Aerosol Therapy [RC] ASDIRECTED Albuterol/Ipratropium [DuoNeb 3.0-0.5 MG/3 ML] 3 ml NEB Q4HRRT PRN 05/05/18 11:59 Zaleplon [Sonata] 5 mg PO BEDTIME PRN 05/05/18 12:00 Pantoprazole [ProTONIX IV] 40 mg IVPUSH Q12H 05/05/18 19:18 Transfer Patient (Change bed) [ADT] Routine 05/05/18 Dinner Regular Diet [DIET] 05/06/18 05:11 Chest 2V [CR] AM 05/06/18 07:30 Levothyroxine 75 mcg PO ACBREAKFAST 05/06/18 09:00 Budesonide/Formoterol [Symbicort 160-4.5 MCG] 0 gm INH BID Furosemide [Lasix] 20 mg PO DAILY 05/06/18 14:00 Levofloxacin/Dextrose 5%-Water [Levaquin in D5W 750 MG/150 ML] 750 mg Premix Bag 1 bag IV Q24H - Plan Plan:: Assessment: #1. 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 Leukocytosis - resolved #3. T2DM Plan: #1. Presently transfusing 2 units PRBC. Will recheck H/H upon completion of this transfusion. Goal is to have Hgb >8 prior to discharge. Will likely need more transfusion after this one. Given that the blood is a special order, he will likely be here for another night. #2. DC levaquin #3. Low dose novolog sliding scale TIDAC. #4. Continue protonix #5. Hold prednisone, NSAIDs.
[2018-05-06] MEDS: Budesonide/Formoterol 160-4.5 MCG/Puff 6 GM Inhaler INH SCH ×2 (10:33→22:18)
[2018-05-06] MEDS: Pantoprazole 40 MG Vial IVPUSH SCH (11:00)
[2018-05-06] MEDS: Insulin Aspart 100 Units/ML 3 ML Pen SUBCUT SCH ×2 (13:45→18:11)
[2018-05-06] MEDS ORDERED: Levofloxacin/Dextrose 5%-Water 750 MG in Premix Bag 1 BAG IV SCH (14:00)
[2018-05-06] MEDS: Acetaminophen 325 MG Tab PO PRN (18:11)
[2018-05-07] MEDS: Pantoprazole 40 MG Vial IVPUSH SCH (00:36)
[2018-05-07] MEDS: Acetaminophen 325 MG Tab PO PRN ×2 (04:04→10:56)
[2018-05-07] MEDS: Insulin Aspart 100 Units/ML 3 ML Pen SUBCUT SCH (06:59)
[2018-05-07] MEDS: Levothyroxine 75 MCG Tab PO SCH (06:59)
[2018-05-07] MEDS: Budesonide/Formoterol 160-4.5 MCG/Puff 6 GM Inhaler INH SCH (09:12)
[2018-05-07] MEDS: Furosemide 20 MG Tab PO SCH (09:12)
[2018-05-07 11:21] VITALS: BP 112/70
--- NOTE | 2018-05-07 15:29 | PCM.DCSUM1 ---
Discharge Summary - Hospital Course Free Text/Narrative:: Admission date: 05/05/2018 Discharge date: 05/07/2018 Admission dx: #1. Anemia #2. Leukocytosis #3. History of RBC aplasia, kidney transplant, COPD Discharge dx: #1. Anemia - stable #2. Leukocytosis - resolved #3. History of RBC aplasia, kidney transplant, COPD #4. Hemoccult + stool #5. Chronic prednisone therapy Hospital course: 62M w/ above hx that was admitted secondary to incidentally being found at our transfusion center having hgb of 7.4 + leukocytosis of 13k. Patient was admitted for observation and transfusion. Secondary to his hx of transplant, pt required irradiated blood that had to be special ordered and delivered which took 24h. Patient was transfused 2 units which brought his Hgb up to 9.6. Patient remained stable throughout his hospital stay and comfortable. Leukocytosis resolved without significant intervention. He felt comfortable going home. He had no concerns. Hes to f/u with his PCP. Patient advised that he should be on protonix 40mg PO Daily. - Discharge Data Discharge Date: 05/07/18 Discharge Disposition: Home, Self-Care 01 Condition: Stable - Discharge Diagnosis/Problem(s) (1) Leukocytosis SNOMED Code(s): 163581529, [id number] ICD Code: D72.829 - ELEVATED WHITE BLOOD CELL COUNT, UNSPECIFIED Status: Acute Priority: High Qualifiers: Leukocytosis type: unspecified Qualified Code(s): D72.829 - Elevated white blood cell count, unspecified - Patient Instructions Diet: Usual Diet as Tolerated Activity: As Tolerated Showering/Bathing: May Shower Notify Provider of: Fever, Increased Pain, Swelling and Redness, Drainage, Nausea and/or Vomiting - Discharge Plan Prescriptions/Med Rec: Pantoprazole Sodium [Protonix] 40 mg PO DAILY 30 Days #30 tablet.dr Home Medications: Home Meds Furosemide 20 mg PO DAILY 12/06/15 [History] Levothyroxine 75 mcg PO ACBREAKFAST 12/06/15 [History] predniSONE [Prednisone] 10 mg PO DAILY 12/06/15 [History] Alendronate Sodium [Fosamax] 70 mg PO Q7D 12/07/15 [History] Zolpidem [Ambien] 10 mg PO BEDTIME PRN 12/07/15 [History] Albuterol [IJD: Ventolin HFA] 1 puff INH .TWICE DAILY #18 gm 12/02/17 [Rx] Budesonide/Formoterol Fumarate [Symbicort 160-4.5 Mcg Inhaler] 2 puff IH BID 05/20 [History] Sulfamethoxazole/Trimethoprim [Bactrim Ds Tablet] 1 each PO 05/05/18 [History] Pantoprazole Sodium [Protonix] 40 mg PO DAILY 30 Days #30 tablet. 05/07/18 [Rx ] Patient Handouts: Anemia, Blood Transfusion, Adult, Care After, [id number] Referrals: Ashutosh Mueller MD [Physician] - 05/14/18 11:30 am - Patient Data Vitals - Most Recent: Last Vital Signs Temp 36.3 C 05/07/18 11:20 Pulse 86 05/07/18 11:20 Resp 16 05/07/18 11:20 BP 112/70 05/07/18 11:20 Pulse Ox 97 05/07/18 11:20 Weight - Most Recent: 39 kg I&O - Last 24 hours: Intake & Output 05/07/18 05/07/18 05/07/18 06:59 14:59 22:59 Intake Total 400 Output Total 200 Balance 200 Lab Results - Last 24 hrs: Laboratory Results - last 24 hr 05/05/18 05/06/18 05/07/18 Range/Units 09:15 17:22 06:35 Hgb (13.0-17.0) g/dL POC Glucose 111 H 98 (60-110) mg/dL Blood Type O POSITIVE Antibody Screen NEGATIVE Crossmatch See Detail 05/07/18 05/07/18 Range/Units 06:55 11:56 Hgb 9.5 L (13.0-17.0) g/dL POC Glucose 99 (60-110) mg/dL Blood Type Antibody Screen Crossmatch MARNIE Results - Last 24 hrs: Microbiology 05/05/18 11:30 Aerobic Blood Culture - Preliminary Blood - Venous - Lab Draw NO GROWTH AFTER 2 DAYS Anaerobic Blood Culture - Preliminary NO GROWTH AFTER 2 DAYS 05/05/18 11:17 Aerobic Blood Culture - Preliminary Blood - Venous NO GROWTH AFTER 2 DAYS Anaerobic Blood Culture - Preliminary NO GROWTH AFTER 2 DAYS Med Orders - Current: Current Medications Discontinued Medications Acetaminophen (Tylenol) 650 mg PO Q4H PRN PRN Reason: Pain (Mild 1-3)/fever Last Admin: 05/07/18 10:56 Dose: 650 mg Albuterol/Ipratropium (Duoneb 3.0-0.5 Mg/3 Ml) 3 ml NEB Q4HRRT PRN PRN Reason: Wheezing Bisacodyl (Dulcolax) 5 mg PO DAILY PRN PRN Reason: Constipation Budesonide/Formoterol Fumarate (Symbicort 160-4.5 Mcg) 0 gm INH BID [facility] Last Admin: 05/07/18 09:12 Dose: 1 puff Furosemide (Lasix) 20 mg PO DAILY [facility] Last Admin: 05/07/18 09:12 Dose: 20 mg Heparin Sodium (Porcine) (Heparin Lock Flush 100 Units/Ml) 500 units FLUSH ONETIME ONE Stop: 05/07/18 11:26 Last Admin: 05/07/18 11:38 Dose: 500 units Levofloxacin/Dextrose 750 mg/ (Premix) 150 mls @ 100 mls/hr IV Q48H [facility] Last Admin: 05/05/18 14:09 Dose: 100 mls/hr Sodium Chloride (Normal Saline) 1,000 mls @ 50 mls/hr IV STAT [facility] Last Admin: 05/05/18 16:11 Dose: 125 mls/hr Sodium Chloride (Normal Saline) 500 mls @ 999 mls/hr IV STAT [facility] Last Admin: 05/05/18 15:40 Dose: 999 mls/hr Levofloxacin/Dextrose 750 mg/ (Premix) 150 mls @ 100 mls/hr IV Q24H [facility] Insulin Aspart (Novolog) 0 unit SUBCUT TIDAC [facility]; Protocol Last Admin: 05/07/18 06:59 Dose: Not Given Levothyroxine Sodium (Levothyroxine) 75 mcg PO ACBREAKFAST [facility] Last Admin: 05/07/18 06:59 Dose: 75 mcg Morphine Sulfate (Morphine) 2 mg IVPUSH Q2H PRN PRN Reason: Pain (severe 7-10) Stop: 05/06/18 11:49 Last Admin: 05/06/18 08:56 Dose: 2 mg Non-Formulary Medication (Zolpidem) 10 mg PO BEDTIME PRN PRN Reason: Sleep Ondansetron HCl (Zofran) 4 mg IVPUSH Q4H PRN PRN Reason: Nausea Pantoprazole Sodium (Protonix Iv) 40 mg IVPUSH Q12H ELLIE Last Admin: 05/07/18 00:36 Dose: 40 mg Polyethylene Glycol (Miralax) 17 gm PO DAILY PRN PRN Reason: Constipation Zaleplon (Sonata) 5 mg PO BEDTIME PRN PRN Reason: Sleep
== END 2018-05-07 12:13 | disposition home or self-care (01) ==
LOC: MW.ED 09:55 → MW.MS 12:01
PROVIDERS: ADMIT Internal Medicine; ATTEND Internal Medicine
DX: D64.9 Anemia, unspecified (principal); D72.829 Elevated white blood cell count, unspecified; J44.9 Chronic obstructive pulmonary disease, unspecified; R19.5 Other fecal abnormalities; I50.9 Heart failure, unspecified; M19.90 Unspecified osteoarthritis, unspecified site; E03.9 Hypothyroidism, unspecified; Z79.899 Other long term (current) drug therapy; Z88.8 Allergy status to other drugs, medicaments and biological substances
CPT/HCPCS: 36415; 71045; 71046; 80053; 81001; 82962; 83036; 83605; 85014; 85018; 85025; 86945; 87040; 99285; A9270; C9113; J1642; J1956; J2270; J7040; 36430; 96361; 96365; 96375; 96376; 99283; G0378

== ENCOUNTER 2018-10-05 05:51 | Observation (INO) | payer MEDICAID ==
--- NOTE | 2018-10-05 06:03 | EDM.PDOC ---
ED HPI GENERAL MEDICAL PROBLEM - General Chief Complaint: General Stated Complaint: WEAKNESS Time Seen by Provider: 10/05/18 05:59 Source of Information: Reports: Patient, EMS - History of Present Illness INITIAL COMMENTS - FREE TEXT/NARRATIVE: HISTORY AND PHYSICAL: History of present illness: []Patient presents with fall history, currently he had had a fall this morning and called the ambulance EMS states there was some dried blood in his apartment where he had been walking around, it is unclear at what point how or when he fell, however he has a history of frequent falls. otherwise appears in NO pain and no distress while providing history, however, on exam he complains of pain with light touch over hips and shoulders which she moves freely at times with distraction, he does not provide clear history or details of any particular fall. He does state that he has fallen in his living room once this morning and he has hit his head twice this morning as well. Patient is not reliable historian No fever nausea vomiting chills sweats no chest pain shortness breath headache dizziness palpitation no bowel or urine symptoms Review of systems: As per history of present illness and below otherwise all systems reviewed and negative. Past medical history: As per history of present illness and as reviewed below otherwise noncontributory. Surgical history: As per history of present illness and as reviewed below otherwise noncontributory. Social history: No reported history of drug or alcohol abuse. Family history: As per history of present illness and as reviewed below otherwise noncontributory. Physical exam: HEENT: Atraumatic, normocephalic, pupils reactive, negative for conjunctival pallor or scleral icterus, mucous membranes moist, throat clear, neck supple, nontender, trachea midline. Lungs: Clear to auscultation, breath sounds equal bilaterally, chest nontender. Heart: S1S2, regular, negative for clicks, rubs, or JVD. Abdomen: Soft, nondistended, nontender. Negative for masses or hepatosplenomegaly. Negative for costovertebral tenderness. Pelvis: Stable nontender. Genitourinary: Deferred. Rectal: Deferred. Extremities: Atraumatic, negative for cords or calf pain. Neurovascular unremarkable. Full range of painless motion bilateral shoulders and hips Neuro: Awake, alert, oriented. Cranial nerves II through XII unremarkable. Cerebellum unremarkable. Motor and sensory unremarkable throughout. Exam nonfocal. Skin multiple bruises and ecchymoses are noted over extremities from previous falls, no active bleeding or open wounds appreciated Diagnostics: [CBC CMP UA troponin INR alcohol] Chest 1 view Pelvis [address] no contrast Therapeutics: [Tramadol 50 mg by mouth now Tramadol 50 mg #30 no refill ] Impression: fall history ] chronic history baseline Definitive disposition and diagnosis as appropriate pending reevaluation and review of above. head;shoulder;hips;legs Pain Score (Numeric/FACES): 10 - Related Data Allergies Allergy/AdvReac Type Severity Reaction Status Date / Time nifedipine [From Procardia] Allergy Itching Verified 10/05/18 06:03 muscle relaxant medicine? Allergy Itching Uncoded 10/05/18 06:03 Home Meds: Home Meds Furosemide 20 mg PO DAILY 12/06/15 [History] Levothyroxine 50 mcg PO ACBREAKFAST 12/06/15 [History] predniSONE [Prednisone] 10 mg PO DAILY 12/06/15 [History] Alendronate Sodium [Fosamax] 70 mg PO Q7D 12/07/15 [History] Zolpidem [Ambien] 10 mg PO BEDTIME PRN 12/07/15 [History] Budesonide/Formoterol Fumarate [Symbicort 160-4.5 Mcg Inhaler] 1 puff IH BID 05/20 [History] Albuterol Sulfate [Proair Hfa] 2 puff IH BID PRN 08/07/18 [History] Folic Acid 1 mg PO DAILY 08/07/18 [History] Midodrine 0 mg PO TID 08/07/18 [History] Pantoprazole Sodium [Protonix] 40 mg PO ACBREAKFAST 08/07/18 [History] Past Medical History HEENT History: Reports: Hard of Hearing, Other (See Below) Other HEENT History: impaired hearing-with hearing aid on the right ear Cardiovascular History: Reports: Heart Failure Respiratory History: Reports: Asthma, COPD Gastrointestinal History: Reports: None Genitourinary History: Reports: Renal Disease Musculoskeletal History: Reports: Back Pain, Chronic, Osteoarthritis Neurological History: Reports: None Psychiatric History: Reports: None Endocrine/Metabolic History: Reports: Hypothyroidism Hematologic History: Reports: Anemia, Blood Transfusion(s), Other (See Below) Other Hematologic History: history of low platelet Immunologic History: Reports: Solid Organ Transplant Oncologic (Cancer) History: Reports: Other (See Below) Other Oncologic History: 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 Dermatologic History: Reports: None - Infectious Disease History Infectious Disease History: Reports: Chicken Pox, Measles, Mumps - Past Surgical History Head Surgeries/Procedures: Reports: None GI Surgical History: Reports: Other (See Below) Other GI Surgeries/Procedures: Whipple Male Surgical History: Reports: Other (See Below) Other Male Surgeries/Procedures: Renal transplant Endocrine Surgical History: Reports: Thyroidectomy Social & Family History - Family History Family Medical History: Noncontributory HEENT: Reports: None Cardiac: Reports: None - Caffeine Use Caffeine Use: Reports: Coffee, Soda, Tea - Living Situation & Occupation Living situation: Reports: , with Significant Other ED ROS GENERAL - Review of Systems Review Of Systems: See Below ED EXAM, GENERAL - Physical Exam Exam: See Below Course - Vital Signs Last Recorded V/S: Last Vital Signs Temp 97.8 F 10/05/18 05:51 Pulse 92 10/05/18 05:51 Resp 24 H 10/05/18 05:51 BP 110/69 10/05/18 05:51 Pulse Ox 95 10/05/18 05:51 - Orders/Labs/Meds Orders: Active Orders 24 hr Category Date Time Status EKG Documentation Completion [RC] AM Care 10/05/18 05:58 Active Chest 1V Frontal [CR] Stat Exams 10/05/18 05:58 Taken Head wo Cont [CT] Stat Exams 10/05/18 05:58 Taken Pelvis 1V or 2V [CR] Stat Exams 10/05/18 05:58 Taken DRUG SCREEN, URINE [URCHEM] Stat Lab 10/05/18 06:36 Ordered Labs: Laboratory Tests 10/05/18 10/05/18 10/05/18 Range/Units 06:10 06:10 06:10 WBC 8.90 (4.0-11.0) K/uL RBC 3.72 L (4.50-5.90) M/uL Hgb 13.3 (13.0-17.0) g/dL Hct 37.9 L (38.0-50.0) % MCV 101.9 H (80.0-98.0) fL MCH 35.8 H (27.0-32.0) pg MCHC 35.1 (31.0-37.0) g/dL RDW Std Deviation 60.3 (28.0-62.0) fl RDW Coeff of Brianna 17 H (11.0-15.0) % Plt Count 137 L (150-400) K/uL MPV 10.50 (7.40-12.00) fL Add Manual Diff YES Neutrophils % (Manual) 53 (48.0-80.0) % Lymphocytes % (Manual) 39 (16.0-40.0) % Monocytes % (Manual) 8 (0.0-15.0) % Nucleated RBC % 0.2 /100WBC Absolute Seg Neuts 4.7 (1.4-5.7) Lymphocytes # (Manual) 3.5 H (0.6-2.4) Monocytes # (Manual) 0.7 (0.0-0.8) Nucleated RBCs # 0 K/uL INR 1.09 Sodium 138 (136-148) mmol/L Potassium 3.6 (3.5-5.1) mmol/L Chloride 100 (98-107) mmol/L Carbon Dioxide 27.4 (21.0-32.0) mmol/L BUN 9 (7.0-18.0) mg/dL Creatinine 0.9 (0.8-1.3) mg/dL Est Cr Clr Drug Dosing TNP Estimated GFR (MDRD) > 60.0 ml/min Glucose 106 (74-106) mg/dL Calcium 8.7 (8.5-10.1) mg/dL Total Bilirubin 0.9 (0.2-1.0) mg/dL AST 39 H (15-37) IU/L ALT 53 (14-63) IU/L Alkaline Phosphatase 231 H (46-116) U/L Troponin I < 0.050 (0.000-0.056) ng/mL Total Protein 6.0 L (6.4-8.2) g/dL Albumin 3.3 L (3.4-5.0) g/dL Globulin 2.7 (2.6-4.0) g/dL Albumin/Globulin Ratio 1.2 (0.9-1.6) Ethyl Alcohol <3 mg/dL Meds: Medications Discontinued Medications Generic Name Dose Route Start Last Admin Trade Name Freq PRN Reason Stop Dose Admin Tramadol HCl 50 mg 10/05/18 06:37 Ultram PO 10/05/18 06:38 ONETIME ONE Departure - Departure Time of Disposition: 06:40 Disposition: Home, Self-Care 01 Condition: Good Clinical Impression: History of falling - Discharge Information Referrals: PCP,None [Primary Care Provider] - Forms: ED Department Discharge Additional Instructions: The following information is given to patients seen in the emergency department who are being discharged to home. This information is to outline your options for follow-up care. We provide all patients seen in our emergency department with a follow-up referral. The need for follow-up, as well as the timing and circumstances, are variable depending upon the specifics of your emergency department visit. If you don't have a primary care physician on staff, we will provide you with a referral. We always advise you to contact your personal physician following an emergency department visit to inform them of the circumstance of the visit and for follow-up with them and/or the need for any referrals to a consulting specialist. The emergency department will also refer you to a specialist when appropriate. This referral assures that you have the opportunity for follow-up care with a specialist. All of these measure are taken in an effort to provide you with optimal care, which includes your follow-up. Under all circumstances we always encourage you to contact your private physician who remains a resource for coordinating your care. When calling for follow-up care, please make the office aware that this follow-up is from your recent emergency room visit. If for any reason you are refused follow-up, please contact the [facility] emergency department at and asked to speak to the emergency department charge nurse. - My Orders Last 24 Hours: My Active Orders 10/05/18 05:58 EKG Documentation Completion [RC] AM Chest 1V Frontal [CR] Stat Head wo Cont [CT] Stat Pelvis 1V or 2V [CR] Stat 10/05/18 06:36 DRUG SCREEN, URINE [URCHEM] Stat - Assessment/Plan Last 24 Hours: My Active Orders 10/05/18 05:58 EKG Documentation Completion [RC] AM Chest 1V Frontal [CR] Stat Head wo Cont [CT] Stat Pelvis 1V or 2V [CR] Stat 10/05/18 06:36 DRUG SCREEN, URINE [URCHEM] Stat
[2018-10-05 06:34] LABS: CHLORIDE,CL 100 mmol/L (98-107); SODIUM,NA 138 mmol/L (136-148)
[2018-10-05] MEDS ORDERED: traMADol 50 MG Tab PO ONE (06:37)
--- NOTE | 2018-10-05 06:41 | CR ---
INDICATION: pain following fall. sent prior. images: 1 HISTORY: Pain after fall. COMPARISON: 08/05/2018. TECHNIQUE: Chest 1 view upright. FINDINGS: Pulmonary opacities present previously have resolved on today`s exam. Multiple surgical clips in the upper abdomen. Right IJ Port-A-Cath, with its tip in the SVC. Heart size is enlarged. There is no acute airspace disease. There are multiple rib fracture deformities present, which do not appear acute. There is no pneumothorax. The central airway is normal. Bowel gas pattern is normal in the upper abdomen. IMPRESSION: 1. Interstitial type opacities have resolved on today`s exam when compared with 08/05/2018. 2. There is no pneumothorax or mediastinal widening. Dictated by Asim Keller MD @ 10/05/2018 6:40:38 AM Dictated by: Asim Keller MD @ 10/05/2018 06:40:44 (Electronically Signed)
--- NOTE | 2018-10-05 06:45 | CT ---
INDICATION: pain following fall. no prior. images: 262 INDICATION: Fall. TECHNIQUE: CT head without contrast. Coronal/sagittal reconstruction images. COMPARISON: None FINDINGS: CSF spaces: Within normal limits for age. Brain parenchyma: The uribe-white differentiation is normal. No sign of mass, hemorrhage, or midline shift. Skull base and calvarium: The visualized paranasal sinuses and mastoid air cells are clear. The visualized orbits are grossly unremarkable. No skull fractures. IMPRESSION: 1. There is no acute intracranial hemorrhage, shift of midline structures, or mass effect. 2. Skullbase/calvaria are intact. Dictated by Asim Keller MD @ 10/05/2018 6:44:07 AM Please note that all CT scans at this facility use dose modulation, iterative reconstruction, and/or weight-based dosing when appropriate to reduce radiation dose to as low as reasonably achievable. Dictated by: Asim Keller MD @ 10/05/2018 06:44:47 (Electronically Signed)
--- NOTE | 2018-10-05 06:49 | CR ---
INDICATION: pain following fall. no prior. images: 1 HISTORY: Pain after fall. COMPARISON: None. TECHNIQUE: Single radiograph of the pelvis. FINDINGS: There is a lucency with cortical step-off present at the right superior/inferior pubic rami. A fracture is suspected given the history of trauma. Given the level of osteopenia, CT of the pelvis is suggested to further assess. Multiple surgical clips in the pelvis. Vascular calcifications. IMPRESSION: 1. Diffuse osteopenia. 2. Lucency with cortical step-off present at the right superior/inferior pubic rami. 3. A fracture is suspected. CT is advised to further assess given the level of osteopenia. 4. Report called to Dr. Wade, Emergency Department, 10/05/18, 0648 hours. Dictated by Asim Keller MD @ 10/05/2018 6:48:55 AM Dictated by: Asim Keller MD @ 10/05/2018 06:49:01 (Electronically Signed)
--- NOTE | 2018-10-05 07:58 | PCM.SN ---
- Free Text/Narrative Note: This is Dr. Carpio dictating addendum note as they've assumed care of this case at 7 AM. This case was endorsed to me as a man who lives independently but has a history of frequent falls and had several falls in the last 24 hours which is not new or different for him. On my evaluation he denies that he is lightheaded or dizzy and he is not really even sure how he is falling. He complains of pain diffusely all over his body and it is hard to have him focus and localized on where it hurts and the most but it seems to be the right hip and pelvis. The patient has multiple areas on his upper extremities of varying ages of bruising and chronic change but there are no palpable bony deformities appreciated in the upper extremities. He has a superficial abrasion at his right elbow without soft tissue swelling bony defects or deformities. His lower extremities do not have many of these bruises or skin changes and there are no palpable bony deformities and he has full range of motion of his left hip and lower leg when I try to range of motion the right he says it hurts him and he cannot localize where it hurts. His knee tib-fib ankle and foot are all intact with chronic arthritic changes visualized but no soft tissue swelling or evidence of trauma is seen. In light of the radiologist's interpretation of the pelvis x-ray there is a potential of a problem in that right pelvis and hip as he seems to complain of more pain in that area. I will review the CT results once available. He also has a very kyphotic thoracic spine and there is some superficial abrasions seen in that area which are of indeterminate age. He has no bony deformities of his thoracic or lumbar spine and no step-offs or defects appreciated. When asked him about his COPD history and using home O2 as the computer indicates that he does he seems somewhat unclear on that. He says that inhalers don't work for him so he doesn't use them that often. He is currently not short of breath and having no chest pain has no head or neck pain and no abdominal complaints. He is just given me a urine sample which he'll follow-up for a UA and UDS and I will also follow up the CT and disposition appropriately. The patient asked to get up to the commode for urine output and to have a bowel movement and when nursing attempted to do this he could not do it independently and was very unstable and needed to be assisted. Once a CT of the pelvis is seen by me and those results are obtained we will decide if we are going to try to ambulate this patient for his steadiness. Nursing got the patient up after the CT scan results were reviewed and revealed no evidence of fracture. The patient is very unsteady and needs constant supervision and assistance as he complains of persistent pain in his right hip. He is living by himself and does not have any academic support specialist. I will discuss this case with the hospitalist for observation admission to involve PT and guest services coordinator. 1011: Case discussed with Dr. Clay who accepts the patient for observation admission. Freshened: Frequent falls and inability to ambulate, overall deconditioned state
--- NOTE | 2018-10-05 08:32 | CT ---
HISTORY: Pain after a fall. TECHNIQUE: CT pelvis without contrast. COMPARISON: CT abdomen pelvis 03/04/2018. Radiographs same day. FINDINGS: Osteopenia. No acute fracture. Mild angulation of the anterior cortex of the sacrum at S4 likely from remote fracture. Healed fracture deformity of the right inferior pubic ramus. No proximal femur fracture. Mild arthrosis of both hips with mild joint space narrowing and chondrocalcinosis. Pubic symphysis is maintained. Mild degenerative changes of the sacroiliac joints. Lower lumbar facet degenerative changes. No lytic or blastic bone lesions. No soft tissue hematoma. Severe atherosclerosis. No lymphadenopathy. Surgical clips in the pelvis and retroperitoneum. Bowel anastomosis in the midline lower abdomen. Left iliac fossa transplant kidney. IMPRESSION: 1. No fracture. No acute findings. 2. Mild degenerative arthrosis of both hips. Please note that all CT scans at this facility use dose modulation, iterative reconstruction, and/or weight-based dosing when appropriate to reduce radiation dose to as low as reasonably achievable. Dictated by Guillermo Sanders MD @ Oct 05 2018 8:22AM Signed by Dr. Guillermo Sanders @ Oct 05 2018 8:31AM
[2018-10-05] MEDS ORDERED: Sodium Chloride 0.9% 2.5 ML Syringe FLUSH PRN (12:22)
[2018-10-05] MEDS ORDERED: Ondansetron 4 MG Tab.DIS PO PRN (12:22)
[2018-10-05] MEDS ORDERED: Acetaminophen 325 MG Tab PO PRN (12:22)
[2018-10-05] MEDS ORDERED: Morphine 2 MG/ML Syringe IVPUSH ONE (12:23)
--- NOTE | 2018-10-05 12:26 | PCM.HP ---
H&P History of Present Illness - General Date of Service: 10/05/18 Admit Problem/Dx: Admission Diagnosis/Problem Admission Diagnosis/Problem Falls Source of Information: Patient History Limitations: Reports: No Limitations - History of Present Illness Initial Comments - Free Text/Narative: This 62 year old male, well known to our facility, with pmh of oxygen dependent COPD, hx renal transplant, CAD, and hypothyroidism presented to the ED today with complaints of R hip pain and frequent falls at home. He reports over the last couple days he has been falling at home. He reports he has tripped on things or gets up and feels his legs are strong enough and then falls. He denies hitting his head reports the falls hurt a lot. He reports hurting all over, but mainly in his legs and L upper ribs. He denies dizziness or chest pain. Reports COPD is well controlled currently, wears oxygen intermittently at home for shortness of breath. He denies fevers chills or headache. No abdominal pain or urinary symptoms. In the ED labwork all WNL. He had thorough imaging in the ED related to his falls. Head CT negative. Xray of pelvis questionable for fracture. Pelvis CT obtained, which negative. No acute fractures notes. In the ED nursing staff attempted to get him up, but he reports being so weak and in pain. ED recommended admission. head;shoulder;hips;legs Pain Score (Numeric/FACES): 10 - Related Data Allergies/Adverse Reactions: Allergies Allergy/AdvReac Type Severity Reaction Status Date / Time nifedipine [From Procardia] Allergy Itching Verified 10/05/18 06:03 muscle relaxant medicine? Allergy Itching Uncoded 10/05/18 06:03 Home Medications: Home Meds Furosemide 20 mg PO DAILY 12/06/15 [History] Levothyroxine 50 mcg PO ACBREAKFAST 12/06/15 [History] predniSONE [Prednisone] 5 mg PO DAILY 12/06/15 [History] Alendronate Sodium [Fosamax] 70 mg PO Q7D 12/07/15 [History] Zolpidem [Ambien] 10 mg PO BEDTIME PRN 12/07/15 [History] Budesonide/Formoterol Fumarate [Symbicort 160-4.5 Mcg Inhaler] 1 puff IH BID 05/20 [History] Albuterol Sulfate [Proair Hfa] 2 puff IH BID PRN 08/07/18 [History] Folic Acid 1 mg PO DAILY 08/07/18 [History] Midodrine 5 mg PO TID 08/07/18 [History] Pantoprazole Sodium [Protonix] 40 mg PO ACBREAKFAST 08/07/18 [History] traMADol [Ultram] 50 mg PO BEDTIME PRN 10/05/18 [History] Past Medical History HEENT History: Reports: Cataract, Hard of Hearing, Other (See Below) Other HEENT History: impaired hearing-with hearing aid on the right ear Cardiovascular History: Reports: CAD, Heart Failure Respiratory History: Reports: Asthma, COPD (oxygen dependence intermittently) Gastrointestinal History: Reports: None Genitourinary History: Reports: Renal Disease Musculoskeletal History: Reports: Back Pain, Chronic, Osteoarthritis Neurological History: Reports: None. 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 left Endocrine Surgical History: Reports: Thyroidectomy Musculoskeletal Surgical History: Reports: Arthroscopic Knee Social & Family History - Family History Family Medical History: Noncontributory HEENT: Reports: None Cardiac: Reports: None - Tobacco Use Smoking Status *Q: Never Smoker Second Hand Smoke Exposure: No - Caffeine Use Caffeine Use: Reports: Coffee - Recreational Drug Use Recreational Drug Use: No - Living Situation & Occupation Living situation: Reports: , with Significant Other Occupation: Disabled H&P Review of Systems - Review of Systems: Review Of Systems: See Below General: Reports: Weakness (generalized). Denies: Fever, Chills, Malaise, Fatigue HEENT: Reports: No Symptoms. Denies: Headaches, Sinus Congestion, Sore Throat, Vertigo Pulmonary: Reports: No Symptoms. Denies: Shortness of Breath, Wheezing, Cough, Sputum Cardiovascular: Reports: No Symptoms. Denies: Chest Pain, Dyspnea on Exertion, Orthopnea, Edema, Syncope, Blood Pressure Problem Gastrointestinal: Reports: No Symptoms. Denies: Abdominal Pain, Black Stool, Bloody Stool, Nausea, Vomiting Genitourinary: Reports: No Symptoms. Denies: Dysuria, Frequency, Burning Musculoskeletal: Reports: Joint Pain (R hip pain), Other (flank pain). Denies: Neck Pain Skin: Reports: Bruising (arms with skin tears bilaterally) Psychiatric: Reports: No Symptoms Neurological: Reports: No Symptoms Hematologic/Lymphatic: Reports: No Symptoms Immunologic: Reports: No Symptoms Exam - Exam Exam: See Below - Vital Signs Vital Signs: Last Vital Signs Temp 98.4 F 10/05/18 10:41 Pulse 83 10/05/18 10:41 Resp 18 10/05/18 10:41 BP 108/72 10/05/18 10:41 Pulse Ox 92 L 10/05/18 10:41 Weight: 32.5 kg - Exam General: Alert, Oriented, Cooperative Neck: Supple, Trachea Midline Lungs: Clear to Auscultation, Normal Respiratory Effort Cardiovascular: Regular Rate, Regular Rhythm, Normal S1, Normal S2. No: Systolic Murmur GI/Abdominal Exam: Normal Bowel Sounds, Soft, Non-Tender, No Mass Back Exam: Normal Inspection, Full Range of Motion Extremities: Normal Inspection, Normal Range of Motion, No Pedal Edema, Other ( tenderness to L rib cage, hurts worse with deep breating and palpation) Skin: Ecchymosis (bruising to bilateral arms, with multiple skin tears to forearms and elbows. no signs of infection.) Neuro Extensive - Mental Status: Alert, Oriented x3, Normal Mood/Affect - Patient Data Lab Results Last 24 hrs: Laboratory Results - last 24 hr 10/05/18 10/05/18 10/05/18 Range/Units 06:10 06:10 06:10 WBC 8.90 (4.0-11.0) K/uL RBC 3.72 L (4.50-5.90) M/uL Hgb 13.3 (13.0-17.0) g/dL Hct 37.9 L (38.0-50.0) % MCV 101.9 H (80.0-98.0) fL MCH 35.8 H (27.0-32.0) pg MCHC 35.1 (31.0-37.0) g/dL RDW Std Deviation 60.3 (28.0-62.0) fl RDW Coeff of Brianna 17 H (11.0-15.0) % Plt Count 137 L (150-400) K/uL MPV 10.50 (7.40-12.00) fL Add Manual Diff YES Neutrophils % (Manual) 53 (48.0-80.0) % Lymphocytes % (Manual) 39 (16.0-40.0) % Monocytes % (Manual) 8 (0.0-15.0) % Nucleated RBC % 0.2 /100WBC Absolute Seg Neuts 4.7 (1.4-5.7) Lymphocytes # (Manual) 3.5 H (0.6-2.4) Monocytes # (Manual) 0.7 (0.0-0.8) Nucleated RBCs # 0 K/uL INR 1.09 Sodium 138 (136-148) mmol/L Potassium 3.6 (3.5-5.1) mmol/L Chloride 100 (98-107) mmol/L Carbon Dioxide 27.4 (21.0-32.0) mmol/L BUN 9 (7.0-18.0) mg/dL Creatinine 0.9 (0.8-1.3) mg/dL Est Cr Clr Drug Dosing TNP Estimated GFR (MDRD) > 60.0 ml/min Glucose 106 (74-106) mg/dL Calcium 8.7 (8.5-10.1) mg/dL Total Bilirubin 0.9 (0.2-1.0) mg/dL AST 39 H (15-37) IU/L ALT 53 (14-63) IU/L Alkaline Phosphatase 231 H (46-116) U/L Creatine Kinase (26-308) U/L Troponin I < 0.050 (0.000-0.056) ng/mL Total Protein 6.0 L (6.4-8.2) g/dL Albumin 3.3 L (3.4-5.0) g/dL Globulin 2.7 (2.6-4.0) g/dL Albumin/Globulin Ratio 1.2 (0.9-1.6) Urine Color Urine Appearance Urine pH (5.0-8.0) Ur Specific Rheems (1.001-1.035) Urine Protein (NEGATIVE) mg/dL Urine Glucose (UA) (NEGATIVE) mg/dL Urine Ketones (NEGATIVE) mg/dL Urine Occult Blood (NEGATIVE) Urine Nitrite (NEGATIVE) Urine Bilirubin (NEGATIVE) Urine Urobilinogen (<2.0) EU/dL Ur Leukocyte Esterase (NEGATIVE) Urine RBC (0-2/HPF) Urine WBC (0-5/HPF) Ur Epithelial Cells (NONE-FEW) Urine Bacteria (NEGATIVE) Urine Mucus (NONE-MOD) Urine Opiates Screen (NEGATIVE) Ur Oxycodone Screen (NEGATIVE) Urine Methadone Screen (NEGATIVE) Ur Barbiturates Screen (NEGATIVE) Ur Phencyclidine Scrn (NEGATIVE) Ur Amphetamine Screen (NEGATIVE) U Methamphetamines Scrn (NEGATIVE) U Benzodiazepines Scrn (NEGATIVE) U Cocaine Metab Screen (NEGATIVE) U Marijuana (THC) Screen (NEGATIVE) Ethyl Alcohol <3 mg/dL 10/05/18 10/05/18 10/05/18 Range/Units 06:10 07:49 07:49 WBC (4.0-11.0) K/uL RBC (4.50-5.90) M/uL Hgb (13.0-17.0) g/dL Hct (38.0-50.0) % MCV (80.0-98.0) fL MCH (27.0-32.0) pg MCHC (31.0-37.0) g/dL RDW Std Deviation (28.0-62.0) fl RDW Coeff of Brianna (11.0-15.0) % Plt Count (150-400) K/uL MPV (7.40-12.00) fL Add Manual Diff Neutrophils % (Manual) (48.0-80.0) % Lymphocytes % (Manual) (16.0-40.0) % Monocytes % (Manual) (0.0-15.0) % Nucleated RBC % /100WBC Absolute Seg Neuts (1.4-5.7) Lymphocytes # (Manual) (0.6-2.4) Monocytes # (Manual) (0.0-0.8) Nucleated RBCs # K/uL INR Sodium (136-148) mmol/L Potassium (3.5-5.1) mmol/L Chloride (98-107) mmol/L Carbon Dioxide (21.0-32.0) mmol/L BUN (7.0-18.0) mg/dL Creatinine (0.8-1.3) mg/dL Est Cr Clr Drug Dosing Estimated GFR (MDRD) ml/min Glucose (74-106) mg/dL Calcium (8.5-10.1) mg/dL Total Bilirubin (0.2-1.0) mg/dL AST (15-37) IU/L ALT (14-63) IU/L Alkaline Phosphatase (46-116) U/L Creatine Kinase 55 (26-308) U/L Troponin I (0.000-0.056) ng/mL Total Protein (6.4-8.2) g/dL Albumin (3.4-5.0) g/dL Globulin (2.6-4.0) g/dL Albumin/Globulin Ratio (0.9-1.6) Urine Color YELLOW Urine Appearance CLEAR Urine pH 6.0 (5.0-8.0) Ur Specific Rheems 1.020 (1.001-1.035) Urine Protein TRACE H (NEGATIVE) mg/dL Urine Glucose (UA) NEGATIVE (NEGATIVE) mg/dL Urine Ketones 15 H (NEGATIVE) mg/dL Urine Occult Blood NEGATIVE (NEGATIVE) Urine Nitrite NEGATIVE (NEGATIVE) Urine Bilirubin NEGATIVE (NEGATIVE) Urine Urobilinogen 0.2 (<2.0) EU/dL Ur Leukocyte Esterase NEGATIVE (NEGATIVE) Urine RBC 0-2 (0-2/HPF) Urine WBC 0-3 (0-5/HPF) Ur Epithelial Cells RARE (NONE-FEW) Urine Bacteria RARE (NEGATIVE) Urine Mucus LIGHT (NONE-MOD) Urine Opiates Screen NEGATIVE (NEGATIVE) Ur Oxycodone Screen NEGATIVE (NEGATIVE) Urine Methadone Screen NEGATIVE (NEGATIVE) Ur Barbiturates Screen NEGATIVE (NEGATIVE) Ur Phencyclidine Scrn NEGATIVE (NEGATIVE) Ur Amphetamine Screen NEGATIVE (NEGATIVE) U Methamphetamines Scrn NEGATIVE (NEGATIVE) U Benzodiazepines Scrn NEGATIVE (NEGATIVE) U Cocaine Metab Screen NEGATIVE (NEGATIVE) U Marijuana (THC) Screen NEGATIVE (NEGATIVE) Ethyl Alcohol mg/dL Result Diagrams: 10/05/18 06:10 10/05/18 06:10 - Problem List (1) Generalized weakness SNOMED Code(s): 99235264 ICD Code: R53.1 - WEAKNESS Status: Acute Current Visit: Yes (2) History of falling SNOMED Code(s): 122082994 ICD Code: Z91.81 - HISTORY OF FALLING Status: Acute Current Visit: Yes (3) Back pain SNOMED Code(s): 604232391 ICD Code: M54.9 - DORSALGIA, UNSPECIFIED Status: Chronic Current Visit: No Qualifiers: Back pain location: low back pain Chronicity: chronic Back pain laterality: right Sciatica presence: without sciatica Qualified Code(s): M54.5 - Low back pain; G89.29 - Other chronic pain (4) Anemia SNOMED Code(s): 033056084 ICD Code: D64.9 - ANEMIA, UNSPECIFIED Status: Chronic Priority: High Current Visit: No Qualifiers: Anemia type: due to chronic kidney disease Chronic kidney disease stage: stage 3 (moderate) Qualified Code(s): N18.3 - Chronic kidney disease, stage 3 (moderate); D63.1 - Anemia in chronic kidney disease (5) COPD (chronic obstructive pulmonary disease) SNOMED Code(s): 97533413 ICD Code: J44.9 - CHRONIC OBSTRUCTIVE PULMONARY DISEASE, UNSPECIFIED Status : Chronic Priority: Medium Current Visit: No Qualifiers: COPD type: chronic bronchitis (6) Renal transplant recipient SNOMED Code(s): 583280386 ICD Code: Z94.0 - KIDNEY TRANSPLANT STATUS Status: Chronic Priority: High Current Visit: No Problem List Initiated/Reviewed/Updated: Yes Orders Last 24hrs: Active Orders 24 hr Category Date Time Status Patient Status [ADT] Stat ADT 10/05/18 10:13 Active EKG Documentation Completion [RC] AM Care 10/05/18 05:58 Active Intake and Output [RC] QSHIFT Care 10/05/18 12:23 Ordered Oxygen Therapy [RC] PRN Care 10/05/18 12:22 Ordered Up With Assistance [RC] ASDIRECTED Care 10/05/18 12:22 Ordered Up to Chair [RC] ASDIRECTED Care 10/05/18 12:22 Ordered VTE/DVT Education [RC] PER UNIT ROUTINE Care 10/05/18 12:22 Ordered Vital Signs [RC] Q4H Care 10/05/18 12:22 Ordered OT Evaluation and Treatment [CONS] Routine Cons 10/05/18 12:22 Ordered PT Evaluation and Treatment [CONS] Routine Cons 10/05/18 12:22 Ordered Regular Diet [DIET] Diet 10/05/18 Lunch Ordered Acetaminophen [Tylenol] Med 10/05/18 12:22 Ordered 650 mg PO Q4H PRN Docusate Sodium [Colace] Med 10/06/18 09:00 Ordered 100 mg PO DAILY Heparin Sodium Med 10/05/18 12:30 Ordered 5,000 units SUBCUT Q12H Morphine Med 10/05/18 12:23 Once 2 mg IVPUSH ONETIME ONE Ondansetron [Zofran ODT] Med 10/05/18 12:22 Ordered 4 mg PO Q4H PRN Sodium Chloride 0.9% [Saline Flush] Med 10/05/18 12:22 Ordered 2.5 ml FLUSH ASDIRECTED PRN traMADol [Ultram] Med 10/05/18 12:25 Ordered 50 mg PO Q4H PRN Saline Lock Insert [OM.PC] Routine Oth 10/05/18 12:22 Ordered Resuscitation Status Routine Resus Stat 10/05/18 12:22 Ordered Assessment/Plan Comment:: This 62 year old male admitted observation for generalized weakness and frequent falls 1. Generalized weakness: Appears well, not acutely ill. Reports falling more at home due to weak legs. Will consult PT and OT to evaluate and treat. Consider NH for rehabilitation. 2. Frequent falls: No acute fractures noted. Pain control. PT and OT as above. 3. COPD: Stable. Continue Inhalers. Oxygen PRN VTE prophylaxis: Heparin Dispo: 1-2 days pending improvement with PT.
[2018-10-05] MEDS: Heparin Sodium 5,000 Units/ML Vial SUBCUT SCH ×2 (12:47→23:51)
[2018-10-05] MEDS ORDERED: Albuterol 8 GM Inhaler INH PRN (15:03)
[2018-10-05] MEDS: traMADol 50 MG Tab PO PRN ×2 (17:44→22:16)
[2018-10-05] MEDS: Midodrine 5 MG Tab PO SCH (22:11)
[2018-10-05] MEDS: Budesonide/Formoterol 160-4.5 MCG/Puff 6 GM Inhaler INH SCH (22:20)
[2018-10-06] MEDS: traMADol 50 MG Tab PO PRN ×3 (02:10→10:46)
[2018-10-06] MEDS: Levothyroxine 50 MCG Tab PO SCH (06:29)
[2018-10-06] MEDS: Midodrine 5 MG Tab PO SCH ×3 (06:29→22:31)
[2018-10-06] MEDS: Pantoprazole 40 MG Tab.CR PO SCH (06:30)
[2018-10-06] MEDS: Folic Acid 1 MG Tab PO SCH (08:41)
[2018-10-06] MEDS: Furosemide 20 MG Tab PO SCH (08:41)
[2018-10-06] MEDS: Docusate Sodium 100 MG Cap PO SCH (08:41)
[2018-10-06] MEDS: predniSONE 5 MG Tab PO SCH (08:41)
[2018-10-06] MEDS: Budesonide/Formoterol 160-4.5 MCG/Puff 6 GM Inhaler INH SCH ×2 (08:48→20:10)
--- NOTE | 2018-10-06 09:08 | PCM.PN ---
- General Info Date of Service: 10/06/18 Admission Dx/Problem (Free Text): Admission Diagnosis/Problem Admission Diagnosis/Problem Falls Subjective Update: Sitting up in the chair. Reports pain is improving. Ambulating with assistance, wants to work with PT more today and then home in the morning. NO chest pain or SOB. Otherwise doing well. Functional Status: Reports: Pain Controlled, Tolerating Diet, Ambulating, Urinating - Review of Systems General: Reports: No Symptoms. Denies: Fever, Weakness, Fatigue HEENT: Reports: No Symptoms. Denies: Headaches, Sore Throat Pulmonary: Reports: No Symptoms. Denies: Shortness of Breath Cardiovascular: Reports: No Symptoms. Denies: Chest Pain Gastrointestinal: Reports: No Symptoms. Denies: Abdominal Pain, Nausea, Vomiting Genitourinary: Reports: No Symptoms. Denies: Dysuria, Frequency, Burning Musculoskeletal: Reports: Joint Pain (R hip, reports improved today) Skin: Reports: No Symptoms Neurological: Reports: No Symptoms Psychiatric: Reports: No Symptoms - Patient Data Vitals - Most Recent: Last Vital Signs Temp 96.7 F 10/06/18 08:07 Pulse 85 10/06/18 08:07 Resp 18 10/06/18 08:07 BP 134/85 10/06/18 08:07 Pulse Ox 95 10/06/18 08:07 Weight - Most Recent: 32.5 kg I&O - Last 24 Hours: Intake & Output 10/05/18 10/06/18 10/06/18 22:59 06:59 14:59 Intake Total 620 790 Output Total 150 Balance 620 640 Med Orders - Current: Current Medications Acetaminophen (Tylenol) 650 mg PO Q4H PRN PRN Reason: Pain (Mild 1-3)/fever Albuterol (Ventolin Hfa) 0 gm INH BID PRN PRN Reason: shortness of breath Docusate Sodium (Colace) 100 mg PO DAILY [facility] Last Admin: 10/06/18 08:41 Dose: 100 mg Folic Acid (Folic Acid) 1 mg PO DAILY [facility] Last Admin: 10/06/18 08:41 Dose: 1 mg Furosemide (Lasix) 20 mg PO DAILY [facility] Last Admin: 10/06/18 08:41 Dose: 20 mg Heparin Sodium (Porcine) (Heparin Sodium) 5,000 units SUBCUT Q12H [facility] Last Admin: 10/05/18 23:51 Dose: 5,000 units Levothyroxine Sodium (Synthroid) 50 mcg PO ACBREAKFAST [facility] Last Admin: 10/06/18 06:29 Dose: 50 mcg Midodrine (Midodrine) 5 mg PO TID [facility] Last Admin: 10/06/18 06:29 Dose: 5 mg Ondansetron HCl (Zofran Odt) 4 mg PO Q4H PRN PRN Reason: nausea, able to take PO Pantoprazole Sodium (Protonix) 40 mg PO ACBREAKFAST [facility] Last Admin: 10/06/18 06:30 Dose: 40 mg Budesonide/Formoterol 160-4.5 Mcg/Puff 6 Gm Inhaler 1 each INH BID [facility] Last Admin: 10/06/18 08:48 Dose: Not Given Prednisone (Prednisone) 5 mg PO DAILY [facility] Last Admin: 10/06/18 08:41 Dose: 5 mg Sodium Chloride (Saline Flush) 2.5 ml FLUSH ASDIRECTED PRN PRN Reason: Keep Vein Open Tramadol HCl (Ultram) 50 mg PO Q4H PRN PRN Reason: Pain Last Admin: 10/06/18 06:30 Dose: 50 mg Zaleplon (Sonata) 10 mg PO BEDTIME PRN PRN Reason: Sleep Discontinued Medications Morphine Sulfate (Morphine) 2 mg IVPUSH ONETIME ONE Stop: 10/05/18 12:24 Last Admin: 10/05/18 12:48 Dose: 2 mg Tramadol HCl (Ultram) 50 mg PO ONETIME ONE Stop: 10/05/18 06:38 Last Admin: 10/05/18 06:44 Dose: 50 mg - Exam General: Alert, Oriented, Cooperative, No Acute Distress Lungs: Clear to Auscultation, Normal Respiratory Effort Cardiovascular: Regular Rate, Regular Rhythm GI/Abdominal Exam: Normal Bowel Sounds, Soft, Non-Tender Back Exam: Normal Inspection, Full Range of Motion Extremities: Normal Inspection, Normal Range of Motion, Non-Tender Skin: Ecchymosis (bruising and skin tears to bilateral arms. Bruising and abrasions to the back along spine. ) Psy/Mental Status: Alert, Normal Affect, Normal Mood - Problem List & Annotations (1) Generalized weakness SNOMED Code(s): 44684309 Code(s): R53.1 - WEAKNESS Status: Acute Current Visit: Yes (2) History of falling SNOMED Code(s): 481362009 Code(s): Z91.81 - HISTORY OF FALLING Status: Acute Current Visit: Yes (3) Back pain SNOMED Code(s): 070601737 Code(s): M54.9 - DORSALGIA, UNSPECIFIED Status: Chronic Current Visit: No Qualifiers: Back pain location: low back pain Chronicity: chronic Back pain laterality: right Sciatica presence: without sciatica Qualified Code(s): M54.5 - Low back pain; G89.29 - Other chronic pain (4) Anemia SNOMED Code(s): 690376658 Code(s): D64.9 - ANEMIA, UNSPECIFIED Status: Chronic Priority: High Current Visit: No Qualifiers: Anemia type: due to chronic kidney disease Chronic kidney disease stage: stage 3 (moderate) Qualified Code(s): N18.3 - Chronic kidney disease, stage 3 (moderate); D63.1 - Anemia in chronic kidney disease (5) COPD (chronic obstructive pulmonary disease) SNOMED Code(s): 17578638 Code(s): J44.9 - CHRONIC OBSTRUCTIVE PULMONARY DISEASE, UNSPECIFIED Status : Chronic Priority: Medium Current Visit: No Qualifiers: COPD type: chronic bronchitis (6) Renal transplant recipient SNOMED Code(s): 313210993 Code(s): Z94.0 - KIDNEY TRANSPLANT STATUS Status: Chronic Priority: High Current Visit: No - Problem List Review Problem List Initiated/Reviewed/Updated: Yes - My Orders Last 24 Hours: My Active Orders 10/05/18 12:22 Oxygen Therapy [RC] PRN Up With Assistance [RC] ASDIRECTED Up to Chair [RC] ASDIRECTED VTE/DVT Education [RC] PER UNIT ROUTINE Vital Signs [RC] Q4H OT Evaluation and Treatment [CONS] Routine PT Evaluation and Treatment [CONS] Routine Acetaminophen [Tylenol] 650 mg PO Q4H PRN Ondansetron [Zofran ODT] 4 mg PO Q4H PRN Sodium Chloride 0.9% [Saline Flush] 2.5 ml FLUSH ASDIRECTED PRN Saline Lock Insert [OM.PC] Routine Resuscitation Status Routine 10/05/18 12:23 Intake and Output [RC] Q12H 10/05/18 12:25 traMADol [Ultram] 50 mg PO Q4H PRN 10/05/18 12:30 Heparin Sodium 5,000 units SUBCUT Q12H 10/05/18 15:03 Albuterol [Ventolin HFA] 0 gm INH BID PRN 10/05/18 21:00 Patient's Own Medication [Ptom] 1 each INH BID Zaleplon [Sonata] 10 mg PO BEDTIME PRN 10/05/18 22:00 Midodrine 5 mg PO TID 10/05/18 Lunch Regular Diet [DIET] 10/06/18 07:30 Levothyroxine [Synthroid] 50 mcg PO ACBREAKFAST Pantoprazole [ProTONIX] 40 mg PO ACBREAKFAST 10/06/18 09:00 Docusate Sodium [Colace] 100 mg PO DAILY Folic Acid 1 mg PO DAILY Furosemide [Lasix] 20 mg PO DAILY predniSONE 5 mg PO DAILY - Plan Plan:: This 62 year old male admitted observation for generalized weakness and frequent falls 1. Generalized weakness: Consult PT and OT to evaluate and treat. Feels he is going to be strong enough to return home. 2. Frequent falls: No acute fractures noted. Pain control. PT and OT as above. 3. COPD: Stable. Continue Inhalers. Oxygen PRN VTE prophylaxis: Heparin Dispo: 1 day pending improvement with PT.
[2018-10-06] MEDS ORDERED: Cyanocobalamin (Vitamin B12) 1,000 MCG/ML SDV IM ONE (10:13)
[2018-10-06] MEDS: Heparin Sodium 5,000 Units/ML Vial SUBCUT SCH (12:47)
[2018-10-07] MEDS: Heparin Sodium 5,000 Units/ML Vial SUBCUT SCH ×2 (00:06→12:31)
[2018-10-07] MEDS: traMADol 50 MG Tab PO PRN ×2 (00:11→04:05)
[2018-10-07] MEDS: Midodrine 5 MG Tab PO SCH ×2 (06:35→13:57)
[2018-10-07] MEDS: Levothyroxine 50 MCG Tab PO SCH (06:35)
[2018-10-07] MEDS: Pantoprazole 40 MG Tab.CR PO SCH (06:35)
[2018-10-07] MEDS: Furosemide 20 MG Tab PO SCH (09:13)
[2018-10-07] MEDS: Docusate Sodium 100 MG Cap PO SCH (09:13)
[2018-10-07] MEDS: Folic Acid 1 MG Tab PO SCH (09:13)
[2018-10-07] MEDS: predniSONE 5 MG Tab PO SCH (09:14)
[2018-10-07] MEDS: Budesonide/Formoterol 160-4.5 MCG/Puff 6 GM Inhaler INH SCH (09:14)
--- NOTE | 2018-10-07 09:54 | PCM.DCSUM1 ---
Discharge Summary - Hospital Course Brief History: This 62 year old male, well known to our facility, with pmh of oxygen dependent COPD, hx renal transplant, CAD, and hypothyroidism presented to the ED today with complaints of R hip pain and frequent falls at home. He reports over the last couple days he has been falling at home. He reports he has tripped on things or gets up and feels his legs are strong enough and then falls. He denies hitting his head reports the falls hurt a lot. He reports hurting all over, but mainly in his legs and L upper ribs. He denies dizziness or chest pain. Reports COPD is well controlled currently, wears oxygen intermittently at home for shortness of breath. He denies fevers chills or headache. No abdominal pain or urinary symptoms. In the ED labwork all WNL. He had thorough imaging in the ED related to his falls. Head CT negative. Xray of pelvis questionable for fracture. Pelvis CT obtained, which negative. No acute fractures notes. In the ED nursing staff attempted to get him up, but he reports being so weak and in pain. ED recommended admission. Diagnosis: Stroke: No - Discharge Data Discharge Date: 10/07/18 Discharge Disposition: Home, W Home Health Agency 06 Condition: Good - Discharge Diagnosis/Problem(s) (1) Generalized weakness SNOMED Code(s): 66247970 ICD Code: R53.1 - WEAKNESS Status: Acute Current Visit: Yes (2) History of falling SNOMED Code(s): 906090490 ICD Code: Z91.81 - HISTORY OF FALLING Status: Acute Current Visit: Yes (3) Back pain SNOMED Code(s): 643025973 ICD Code: M54.9 - DORSALGIA, UNSPECIFIED Status: Chronic Current Visit: No Qualifiers: Back pain location: low back pain Chronicity: chronic Back pain laterality: right Sciatica presence: without sciatica Qualified Code(s): M54.5 - Low back pain; G89.29 - Other chronic pain (4) Anemia SNOMED Code(s): 402963064 ICD Code: D64.9 - ANEMIA, UNSPECIFIED Status: Chronic Priority: High Current Visit: No Qualifiers: Anemia type: due to chronic kidney disease Chronic kidney disease stage: stage 3 (moderate) Qualified Code(s): N18.3 - Chronic kidney disease, stage 3 (moderate); D63.1 - Anemia in chronic kidney disease (5) COPD (chronic obstructive pulmonary disease) SNOMED Code(s): 96852788 ICD Code: J44.9 - CHRONIC OBSTRUCTIVE PULMONARY DISEASE, UNSPECIFIED Status : Chronic Priority: Medium Current Visit: No Qualifiers: COPD type: chronic bronchitis (6) Renal transplant recipient SNOMED Code(s): 523841164 ICD Code: Z94.0 - KIDNEY TRANSPLANT STATUS Status: Chronic Priority: High Current Visit: No - Patient Summary/Data Consults: Consultations 10/05/18 12:22 OT Evaluation and Treatment [CONS] Routine PT Evaluation and Treatment [CONS] Routine - Patient Instructions Diet: Regular Diet as Tolerated Activity: As Tolerated Showering/Bathing: May Shower Notify Provider of: Fever, Increased Pain, Swelling and Redness, Drainage, Nausea and/or Vomiting - Discharge Plan *PRESCRIPTION DRUG MONITORING PROGRAM REVIEWED*: Not Applicable *COPY OF PRESCRIPTION DRUG MONITORING REPORT IN PATIENT KATIE: Not Applicable Home Medications: Home Meds Furosemide 20 mg PO DAILY 12/06/15 [History] Levothyroxine 50 mcg PO ACBREAKFAST 12/06/15 [History] predniSONE [Prednisone] 5 mg PO DAILY 12/06/15 [History] Alendronate Sodium [Fosamax] 70 mg PO Q7D 12/07/15 [History] Zolpidem [Ambien] 10 mg PO BEDTIME PRN 12/07/15 [History] Budesonide/Formoterol Fumarate [Symbicort 160-4.5 Mcg Inhaler] 1 puff IH BID 05/20 [History] Albuterol Sulfate [Proair Hfa] 2 puff IH BID PRN 08/07/18 [History] Folic Acid 1 mg PO DAILY 08/07/18 [History] Midodrine 5 mg PO TID 08/07/18 [History] Pantoprazole Sodium [Protonix] 40 mg PO ACBREAKFAST 08/07/18 [History] traMADol [Ultram] 50 mg PO BEDTIME PRN 10/05/18 [History] Patient Handouts: Fall Prevention in the Home, [id number], Weakness, Easy-to- Read Referrals: [facility] [Outside] Ashutosh Mueller MD [Physician] - 10/18/18 2:00 pm - Discharge Summary/Plan Comment DC Time >30 min.: No Discharge Summary/Plan Comment: Discharge Diagnoses: R hip pain- no fracture Frequent falls Unsteady gait COPD Morris was admitted secondary to a fall at home which causes R hip and R foot pain. He was unable to ambulate without significant pain in the ED so admission was recommended. All imaging of R foot and hip were negative for fractures. He has been up with PT and ambulating well with PT and a front wheeled walker. He reports feeling better. He will be discharged home today with Home health. He is in need for skill assessment due to recent falls at home and debility due to chronic illness, COPD which limits his functional ability to complete ADLs. He will need PT and OT to evaluate and treat for strengthening and ambulation with in the home and a home assessment to evaluate for assistive devices to assist with ADLs and home safety. He is home bound needing friends or the local bus to get him to and from appointments. Friends do shopping for him. He is also in need a front wheeled walker to ambulate safely within the home and outside of the home. Dr Mueller, PCP, will follow Home health plan of care. I will write an order front wheeled walker. Mobility limitations as well as R hip and R foot pain, significantly impair his ability to participate in one or more mobility related ADLs. He is able to safely ambulate with walker to do ADLS, otherwise he is a high fall risk. He is to return to ED or clinic if concerns should arise. - General Info Date of Service: 10/07/18 Admission Dx/Problem (Free Text: Admission Diagnosis/Problem Admission Diagnosis/Problem Falls Subjective Update: Resting in bed today, reports he is strong and able to ambulate well with front wheeled walker. Denies SOB or CP. Pain is better. No other complaints. Functional Status: Reports: Pain Controlled, Tolerating Diet, Ambulating, Urinating - Review of Systems General: Reports: No Symptoms. Denies: Fever, Weakness, Fatigue HEENT: Reports: No Symptoms. Denies: Headaches, Sore Throat Pulmonary: Reports: No Symptoms. Denies: Shortness of Breath Cardiovascular: Reports: No Symptoms. Denies: Chest Pain Genitourinary: Reports: No Symptoms. Denies: Dysuria, Frequency, Burning Musculoskeletal: Reports: Back Pain, Joint Pain (R hip, but continues to improve daily, ambulates well ) Skin: Reports: Bruising Neurological: Reports: No Symptoms Psychiatric: Reports: No Symptoms - Patient Data Vitals - Most Recent: Last Vital Signs Temp 97.4 F 10/07/18 07:46 Pulse 70 10/07/18 07:46 Resp 16 10/07/18 07:46 BP 117/74 10/07/18 07:46 Pulse Ox 91 L 10/07/18 07:46 Weight - Most Recent: 32.5 kg I&O - Last 24 hours: Intake & Output 10/06/18 10/07/18 10/07/18 22:59 06:59 14:59 Intake Total 500 400 Output Total 250 250 Balance 250 150 Med Orders - Current: Current Medications Acetaminophen (Tylenol) 650 mg PO Q4H PRN PRN Reason: Pain (Mild 1-3)/fever Albuterol (Ventolin Hfa) 0 gm INH BID PRN PRN Reason: shortness of breath Docusate Sodium (Colace) 100 mg PO DAILY [facility] Last Admin: 10/07/18 09:13 Dose: 100 mg Folic Acid (Folic Acid) 1 mg PO DAILY [facility] Last Admin: 10/07/18 09:13 Dose: 1 mg Furosemide (Lasix) 20 mg PO DAILY [facility] Last Admin: 10/07/18 09:13 Dose: 20 mg Heparin Sodium (Porcine) (Heparin Sodium) 5,000 units SUBCUT Q12H [facility] Last Admin: 10/07/18 00:06 Dose: 5,000 units Levothyroxine Sodium (Synthroid) 50 mcg PO ACBREAKFAST [facility] Last Admin: 10/07/18 06:35 Dose: 50 mcg Midodrine (Midodrine) 5 mg PO TID [facility] Last Admin: 10/07/18 06:35 Dose: 5 mg Ondansetron HCl (Zofran Odt) 4 mg PO Q4H PRN PRN Reason: nausea, able to take PO Pantoprazole Sodium (Protonix) 40 mg PO ACBREAKFAST [facility] Last Admin: 10/07/18 06:35 Dose: 40 mg Budesonide/Formoterol 160-4.5 Mcg/Puff 6 Gm Inhaler 1 each INH BID [facility] Last Admin: 10/07/18 09:14 Dose: Not Given Prednisone (Prednisone) 5 mg PO DAILY [facility] Last Admin: 10/07/18 09:14 Dose: 5 mg Sodium Chloride (Saline Flush) 2.5 ml FLUSH ASDIRECTED PRN PRN Reason: Keep Vein Open Tramadol HCl (Ultram) 50 mg PO Q4H PRN PRN Reason: Pain Last Admin: 10/07/18 04:05 Dose: 50 mg Zaleplon (Sonata) 10 mg PO BEDTIME PRN PRN Reason: Sleep Discontinued Medications Cyanocobalamin (Vitamin B12) 1,000 mcg IM ONETIME ONE Stop: 10/06/18 10:14 Last Admin: 10/06/18 10:47 Dose: 1,000 mcg Morphine Sulfate (Morphine) 2 mg IVPUSH ONETIME ONE Stop: 10/05/18 12:24 Last Admin: 10/05/18 12:48 Dose: 2 mg Tramadol HCl (Ultram) 50 mg PO ONETIME ONE Stop: 10/05/18 06:38 Last Admin: 10/05/18 06:44 Dose: 50 mg - Exam Quality Assessment: Denies: Supplemental Oxygen General: Reports: Alert, Oriented, No Acute Distress Lungs: Reports: Clear to Auscultation, Normal Respiratory Effort Cardiovascular: Reports: Regular Rate, Regular Rhythm, No Murmurs GI/Abdominal Exam: Normal Bowel Sounds, Soft, Non-Tender Back Exam: Reports: Normal Inspection, Full Range of Motion Extremities: Normal Inspection, Normal Range of Motion, Non-Tender, No Pedal Edema Skin: Reports: Ecchymosis (bruising and skin tears, healing to bilateral arms.) Psy/Mental Status: Reports: Alert, Normal Affect, Normal Mood
[2018-10-07 12:19] VITALS: BP 120/71
== END 2018-10-07 16:50 | disposition home health service (06) ==
LOC: MW.ED 05:51 → MW.MS 10:35
PROVIDERS: ADMIT Internal Medicine; ATTEND Internal Medicine
DX: M25.551 Pain in right hip (principal); M79.671 Pain in right foot; R29.6 Repeated falls; R26.81 Unsteadiness on feet; D64.9 Anemia, unspecified; I25.10 Atherosclerotic heart disease of native coronary artery without angina pectoris; I50.9 Heart failure, unspecified; J44.9 Chronic obstructive pulmonary disease, unspecified; E03.9 Hypothyroidism, unspecified; G89.29 Other chronic pain; M54.5 Low back pain; Z94.0 Kidney transplant status; Z99.81 Dependence on supplemental oxygen; Z79.52 Long term (current) use of systemic steroids; Z79.51 Long term (current) use of inhaled steroids; Z79.899 Other long term (current) drug therapy
CPT/HCPCS: 36415; 70450; 71045; 72170; 72192; 80053; 80305; 81001; 82550; 84484; 85025; 85610; 96372; 96374; 97161; 97165; 97530; 99285; A9270; G0378; G0480; J1644; J2270; J3420; J7512; 99283

== ENCOUNTER 2018-11-02 08:08 | Inpatient (IN) | payer MEDICAID ==
[2018-11-02] MEDS ORDERED: Albuterol/Ipratropium 3.0-0.5 MG/3 ML Neb Soln NEB ONE (08:13)
[2018-11-02] MEDS ORDERED: Morphine 2 MG/ML Syringe IVPUSH ONE (08:14)
[2018-11-02] MEDS ORDERED: Sodium Chloride 0.9% 500 ML IV ONE (08:14)
[2018-11-02] MEDS ORDERED: Sodium Chloride 0.9% 10 ML Syringe FLUSH PRN (08:14)
[2018-11-02] MEDS ORDERED: Sodium Chloride 0.9% 2.5 ML Syringe FLUSH PRN (08:14)
[2018-11-02] MEDS ORDERED: Ondansetron 4 MG/2 ML SDV IVPUSH ONE (08:14)
[2018-11-02] MEDS ORDERED: Sodium Chloride 0.9% 1,000 ML IV ONE (08:39)
[2018-11-02] MEDS ORDERED: cefTRIAXone 1 GM in Premix Bag 1 BAG IV ONE (08:47)
[2018-11-02 09:01] LABS: CHLORIDE,CL 101 mmol/L (98-107); SODIUM,NA 137 mmol/L (136-148)
--- NOTE | 2018-11-02 09:11 | CR ---
EXAMINATION: Portable chest radiograph. HISTORY: Shortness of breath. FINDINGS: The trachea is midline. The cardiomediastinal silhouette is within normal limits. The heart is borderline in size. There is a small to moderate pleural effusion on the left adjacent atelectasis/infiltrate. There is a right-sided portacatheter. Clips project over the upper abdomen. Aortic calcifications are noted. Osseous structures appear osteopenic. Degenerative changes within the shoulders. IMPRESSION: 1. Borderline cardiomegaly with a small to moderate left pleural effusion with adjacent atelectasis/infiltrate.
[2018-11-02] MEDS ORDERED: Acetaminophen 325 MG Tab PO ONE (09:27)
[2018-11-02] MEDS ORDERED: Levofloxacin/Dextrose 5%-Water 750 MG in Premix Bag 1 BAG IV SCH (11:15)
[2018-11-02] MEDS: Piperacillin/Tazobactam 4.5 GM in Sodium Chloride 0.9% 100 ML IV SCH ×3 (11:20→23:09)
--- NOTE | 2018-11-02 11:54 | PCM.HP ---
H&P History of Present Illness - General Date of Service: 11/02/18 Admit Problem/Dx: Admission Diagnosis/Problem Admission Diagnosis/Problem Pneumonia - History of Present Illness Initial Comments - Free Text/Narative: The patient is a 62 year old male with past medical history of oxygen dependant COPD, renal transplant, CAD, hypothyroidism, anemia who presented to the ER with increased SOB and fever/chills since yesterday. He reports he has been taking his inhalers as prescribed. He uses between 2.5 and 3 L of oxygen. He was admitted in October and August of this year. He was diagnosed with pneumonia during his August admission. In May 2018, he was intubated and transferred out of the ER. He denies history of heart failure. Last echo was done in November 2017 and showed EF of 55-60% with grade 2 LV filling dysfunction, dilatated atrium and multiple valve regurgitation. He denies any headache, chest pain, abdominal pain, nausea, vomiting, or diarrhea. In the ER, workup found leukocytosis of 20, anemia with hemoglobin of 12.2 which is better than normal for him, elevated lactate of 2.4, hyperbilirubinemia , and slightly elevated AST. He was negative for influenza. CXR showed borderline cardiomegaly with small to moderate left pleural effusion with adjacent atelectasias/infiltrate. In the ER he was given one dose of Rocephin, duoneb, and bolus of total 1.5 L of IV fluid. all over Pain Score (Numeric/FACES): 5 - Related Data Allergies/Adverse Reactions: Allergies Allergy/AdvReac Type Severity Reaction Status Date / Time nifedipine [From Procardia] Allergy Itching Verified 11/02/18 12:05 muscle relaxant medicine? Allergy Itching Uncoded 11/02/18 12:05 Home Medications: Home Meds Furosemide 20 mg PO DAILY 12/06/15 [History] Levothyroxine 50 mcg PO ACBREAKFAST 12/06/15 [History] predniSONE [Prednisone] 5 mg PO DAILY 12/06/15 [History] Alendronate Sodium [Fosamax] 70 mg PO Q7D 12/07/15 [History] Zolpidem [Ambien] 10 mg PO BEDTIME PRN 12/07/15 [History] Budesonide/Formoterol Fumarate [Symbicort 160-4.5 Mcg Inhaler] 1 puff IH BID 05/20 [History] Albuterol Sulfate [Proair Hfa] 2 puff IH BID PRN 08/07/18 [History] Folic Acid 1 mg PO DAILY 08/07/18 [History] Midodrine 5 mg PO TID 08/07/18 [History] Pantoprazole Sodium [Protonix] 40 mg PO ACBREAKFAST 08/07/18 [History] traMADol [Ultram] 50 mg PO BEDTIME PRN 10/05/18 [History] Past Medical History HEENT History: Reports: Cataract, Hard of Hearing, Other (See Below) Other HEENT History: impaired hearing-with hearing aid on the right ear Cardiovascular History: Reports: Heart Failure Respiratory History: Reports: Asthma, COPD Gastrointestinal History: Reports: None Genitourinary History: Reports: Renal Disease Musculoskeletal History: Reports: Back Pain, Chronic, Osteoarthritis Neurological History: Reports: None Psychiatric History: Reports: None Endocrine/Metabolic History: Reports: Hypothyroidism Hematologic History: Reports: Anemia, Blood Transfusion(s), Other (See Below) Other Hematologic History: history of low platelet Immunologic History: Reports: Solid Organ Transplant Oncologic (Cancer) History: Reports: Other (See Below) Other Oncologic History: 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 left Endocrine Surgical History: Reports: Thyroidectomy Musculoskeletal Surgical History: Reports: Arthroscopic Knee Social & Family History - Family History Family Medical History: Noncontributory HEENT: Reports: None Cardiac: Reports: None - Tobacco Use Smoking Status *Q: Former Smoker Used Tobacco, but Quit: Yes Month/Year Tobacco Last Used: 15 - Caffeine Use Caffeine Use: Reports: Coffee - Recreational Drug Use Recreational Drug Use: No - Living Situation & Occupation Living situation: Reports: , with Significant Other H&P Review of Systems - Review of Systems: Review Of Systems: See Below General: Reports: Fever, Chills HEENT: Reports: No Symptoms Pulmonary: Reports: Shortness of Breath, Cough Cardiovascular: Reports: No Symptoms Gastrointestinal: Reports: No Symptoms Genitourinary: Reports: No Symptoms Musculoskeletal: Reports: No Symptoms Skin: Reports: No Symptoms Psychiatric: Reports: No Symptoms Neurological: Reports: No Symptoms Hematologic/Lymphatic: Reports: No Symptoms Immunologic: Reports: No Symptoms Exam - Exam Exam: See Below - Vital Signs Vital Signs: Last Vital Signs Temp 99.6 F 11/02/18 09:32 Pulse 101 H 11/02/18 09:28 Resp 16 11/02/18 09:28 BP 91/67 11/02/18 09:28 Pulse Ox 95 11/02/18 09:28 Weight: 36.741 kg - Exam Quality Assessment: Supplemental Oxygen General: Alert, Oriented HEENT: Conjunctiva Clear, Posterior Pharynx Clear, Pupils Equal, Pupils Reactive Lungs: Normal Respiratory Effort, Rhonchi Cardiovascular: Regular Rhythm, Tachycardia GI/Abdominal Exam: Normal Bowel Sounds, Soft, Non-Tender, No Distention Extremities: No Pedal Edema Skin: Warm, Dry Neuro Extensive - Mental Status: Alert, Oriented x3 Psychiatric: Alert, Normal Affect, Normal Mood - Patient Data Lab Results Last 24 hrs: Laboratory Results - last 24 hr 11/02/18 11/02/18 11/02/18 Range/Units 08:22 08:22 08:54 WBC 20.40 H (4.0-11.0) K/uL RBC 3.47 L (4.50-5.90) M/uL Hgb 12.2 L (13.0-17.0) g/dL Hct 36.9 L (38.0-50.0) % MCV 106.3 H (80.0-98.0) fL MCH 35.2 H (27.0-32.0) pg MCHC 33.1 (31.0-37.0) g/dL RDW Std Deviation 79.6 H (28.0-62.0) fl RDW Coeff of Brianna 21 H (11.0-15.0) % Plt Count 262 (150-400) K/uL MPV 10.30 (7.40-12.00) fL Neut % (Auto) 74.6 (48.0-80.0) % Lymph % (Auto) 11.1 L (16.0-40.0) % Treasure % (Auto) 14.0 (0.0-15.0) % Eos % (Auto) 0.1 (0.0-7.0) % Baso % (Auto) 0.2 (0.0-1.5) % Neut # (Auto) 15.2 H (1.4-5.7) K/uL Lymph # (Auto) 2.3 (0.6-2.4) K/uL Treasure # (Auto) 2.9 H (0.0-0.8) K/uL Eos # (Auto) 0.0 (0.0-0.7) K/uL Baso # (Auto) 0.1 (0.0-0.1) K/uL Nucleated RBC % 0.2 /100WBC Nucleated RBCs # 0 K/uL Lactate 2.4 H (0.20-2.00) mmol/L Sodium 137 (136-148) mmol/L Potassium 3.9 (3.5-5.1) mmol/L Chloride 101 (98-107) mmol/L Carbon Dioxide 29.9 (21.0-32.0) mmol/L BUN 16 (7.0-18.0) mg/dL Creatinine 0.8 (0.8-1.3) mg/dL Est Cr Clr Drug Dosing 51.03 mL/min Estimated GFR (MDRD) > 60.0 ml/min Glucose 86 (74-106) mg/dL Calcium 8.7 (8.5-10.1) mg/dL Total Bilirubin 1.5 H (0.2-1.0) mg/dL AST 44 H (15-37) IU/L ALT 35 (14-63) IU/L Alkaline Phosphatase 229 H (46-116) U/L Total Protein 5.7 L (6.4-8.2) g/dL Albumin 2.8 L (3.4-5.0) g/dL Globulin 2.9 (2.6-4.0) g/dL Albumin/Globulin Ratio 1.0 (0.9-1.6) Result Diagrams: 11/02/18 08:22 11/02/18 08:22 Mohan Results Last 24 hrs: Microbiology 11/02/18 08:36 Influenza Type A Antigen Screen - Final Nasopharyngeal Swab NEGATIVE INFLUENZA A VIRUS AG Influenza Type B Antigen Screen - Final NEGATIVE INFLUENZA B VIRUS AG Problem List Initiated/Reviewed/Updated: Yes Orders Last 24hrs: Active Orders 24 hr Category Date Time Status Patient Status [ADT] Stat ADT 11/02/18 10:31 Active EKG Documentation Completion [RC] STAT Care 11/02/18 08:14 Active Oxygen Therapy [RC] ASDIRECTED Care 11/02/18 09:27 Active Oxygen Therapy, ED [RC] ASDIRECTED Care 11/02/18 09:27 Active RT Aerosol Therapy [RC] ASDIRECTED Care 11/02/18 08:13 Active CULTURE BLOOD [BC] Stat Lab 11/02/18 08:28 Received CULTURE BLOOD [BC] Stat Lab 11/02/18 08:54 Received Levofloxacin/Dextrose 5%-Water [Levaquin in D5W 750 MG/ Med 11/02/18 11:15 Active 150 ML] 750 mg Premix Bag 1 bag IV Q24H Pharmacy to Dose - Vancomycin Med 11/02/18 11:15 Active 1 dose .XX ASDIRECTED Piperacillin/Tazobactam [Piperacil-Tazobact] 4.5 gm Med 11/02/18 11:15 Active Sodium Chloride 0.9% [Normal Saline] 100 ml IV Q6H Sodium Chloride 0.9% [Saline Flush] Med 11/02/18 08:14 Active 10 ml FLUSH ASDIRECTED PRN Sodium Chloride 0.9% [Saline Flush] Med 11/02/18 08:14 Active 2.5 ml FLUSH ASDIRECTED PRN Vancomycin 500 mg Med 11/02/18 11:30 Active Sodium Chloride 0.9% [Normal Saline] 100 ml IV Q12H Blood Culture x2 Reflex Set [OM.PC] Stat Oth 11/02/18 08:44 Ordered Saline Lock Insert [OM.PC] Stat Oth 11/02/18 08:14 Ordered Medication Orders Levofloxacin/Dextrose 750 mg/ (Premix) 150 mls @ 100 mls/hr IV Q24H ELLIE Piperacillin Sod/Tazobactam (Sod 4.5 gm/ Sodium Chloride) 100 mls @ 100 mls/hr IV Q6H ELLIE Last Admin: 11/02/18 11:20 Dose: 100 mls/hr Vancomycin HCl 500 mg/ Sodium (Chloride) 100 mls @ 100 mls/hr IV Q12H ELLIE Sodium Chloride (Saline Flush) 10 ml FLUSH ASDIRECTED PRN PRN Reason: Keep Vein Open Last Admin: 11/02/18 09:34 Dose: 10 ml Sodium Chloride (Saline Flush) 2.5 ml FLUSH ASDIRECTED PRN PRN Reason: Keep Vein Open Last Admin: 11/02/18 09:34 Dose: 2.5 ml Vancomycin HCl (Pharmacy To Dose - Vancomycin) 1 dose .XX ASDIRECTED ELLIE Assessment/Plan Comment:: 1.Admit to inpatient 2. Code status- full 3. Vitals per routine 4. I/Os strict 5. Deit- heart healthy 6. DVT prophylaxis with Lovenox 7. Sepsis secondary to healthcare associated pneumonia with underlying COPD- Will start on Vancomycin, Levaquin, and Zosyn for healthcare associated pneumonia. Will get a sputum culture. Blood cultures pending. Will trend lactate. IVF at 100 cc/hr. Duonebs and incentive spirometry. Oxygen as needed. Will increase his home prednisone to 10 mg daily. Patient is on midodrine for low blood pressure at home so we will continue that. 2. Hyperbilirubinemia with elevated AST- will trend, patient denies abdominal pain.
[2018-11-02] MEDS ORDERED: traMADol 50 MG Tab PO PRN (12:59)
[2018-11-02] MEDS ORDERED: Acetaminophen 325 MG Tab PO PRN (13:03)
[2018-11-02] MEDS ORDERED: Ondansetron 4 MG/2 ML SDV IVPUSH PRN (13:03)
[2018-11-02] MEDS: Albuterol/Ipratropium 3.0-0.5 MG/3 ML Neb Soln NEB SCH ×3 (13:46→21:00)
[2018-11-02] MEDS: Enoxaparin 40 MG/0.4 ML Syringe SUBCUT SCH (13:52)
[2018-11-02] MEDS: Midodrine 5 MG Tab PO SCH ×3 (13:53→21:00)
[2018-11-02] MEDS: Sodium Chloride 0.9% 1,000 ML IV SCH (17:19)
[2018-11-02] MEDS: traMADol 50 MG Tab PO PRN (20:41)
[2018-11-03] MEDS: Albuterol/Ipratropium 3.0-0.5 MG/3 ML Neb Soln NEB SCH ×6 (01:45→21:12)
[2018-11-03] MEDS: Midodrine 5 MG Tab PO SCH ×3 (05:06→21:31)
[2018-11-03] MEDS: traMADol 50 MG Tab PO PRN ×3 (05:06→21:31)
[2018-11-03] MEDS: Piperacillin/Tazobactam 4.5 GM in Sodium Chloride 0.9% 100 ML IV SCH ×4 (05:08→22:47)
[2018-11-03 06:29] LABS: CHLORIDE,CL 106 mmol/L (98-107); SODIUM,NA 141 mmol/L (136-148)
[2018-11-03] MEDS: Levothyroxine 50 MCG Tab PO SCH (06:36)
[2018-11-03] MEDS: Sodium Chloride 0.9% 1,000 ML IV SCH ×2 (06:36→18:49)
[2018-11-03] MEDS: Pantoprazole 40 MG Tab.CR PO SCH (08:22)
[2018-11-03] MEDS: predniSONE 10 MG Tab PO SCH (08:29)
[2018-11-03] MEDS: Folic Acid 1 MG Tab PO SCH (08:29)
[2018-11-03] MEDS ORDERED: predniSONE 5 MG Tab PO SCH (09:00)
[2018-11-03] MEDS ORDERED: Potassium Chloride 20 MEQ Tab.ER PO ONE (10:44)
--- NOTE | 2018-11-03 10:44 | PCM.PN ---
- General Info Date of Service: 11/03/18 Subjective Update: The patient is a 62 year old male admitted for healthcare associated pneumonia. His white count is improving and he is requiring less oxygen but he reports he feels about the same as yesterday. His blood pressure is also improving. He denies chest pain, or abdominal pain but does complain of shortness of breath and cough. - Review of Systems General: Reports: No Symptoms HEENT: Reports: No Symptoms Pulmonary: Reports: Shortness of Breath, Other Cardiovascular: Reports: No Symptoms Gastrointestinal: Reports: No Symptoms Genitourinary: Reports: No Symptoms Musculoskeletal: Reports: No Symptoms Skin: Reports: No Symptoms Neurological: Reports: No Symptoms Psychiatric: Reports: No Symptoms - Patient Data Vitals - Most Recent: Last Vital Signs Temp 97.9 F 11/03/18 08:00 Pulse 93 11/03/18 08:00 Resp 18 11/03/18 08:00 BP 98/67 11/03/18 08:00 Pulse Ox 93 L 11/03/18 08:00 Weight - Most Recent: 36.741 kg I&O - Last 24 Hours: Intake & Output 11/02/18 11/03/18 11/03/18 22:59 06:59 14:59 Intake Total 1471 1349 Output Total 250 255 Balance 1221 1094 Lab Results Last 24 Hours: Laboratory Results - last 24 hr 11/02/18 11/02/18 11/03/18 Range/Units 13:20 14:07 05:50 WBC 11.97 H (4.0-11.0) K/uL RBC 2.67 L (4.50-5.90) M/uL Hgb 9.4 L (13.0-17.0) g/dL Hct 28.2 L (38.0-50.0) % MCV 105.6 H (80.0-98.0) fL MCH 35.2 H (27.0-32.0) pg MCHC 33.3 (31.0-37.0) g/dL RDW Std Deviation 77.9 H (28.0-62.0) fl RDW Coeff of Brianna 21 H (11.0-15.0) % Plt Count 222 (150-400) K/uL MPV 9.90 (7.40-12.00) fL Neut % (Auto) 79.3 (48.0-80.0) % Lymph % (Auto) 9.6 L (16.0-40.0) % [place] % (Auto) 10.6 (0.0-15.0) % Eos % (Auto) 0.2 (0.0-7.0) % Baso % (Auto) 0.3 (0.0-1.5) % Neut # (Auto) 9.5 H (1.4-5.7) K/uL Lymph # (Auto) 1.2 (0.6-2.4) K/uL [place] # (Auto) 1.3 H (0.0-0.8) K/uL Eos # (Auto) 0.0 (0.0-0.7) K/uL Baso # (Auto) 0.0 (0.0-0.1) K/uL Nucleated RBC % 0.0 /100WBC Nucleated RBCs # 0 K/uL Lactate 1.7 (0.20-2.00) mmol/L Sodium (136-148) mmol/L Potassium (3.5-5.1) mmol/L Chloride (98-107) mmol/L Carbon Dioxide (21.0-32.0) mmol/L BUN (7.0-18.0) mg/dL Creatinine (0.8-1.3) mg/dL Est Cr Clr Drug Dosing mL/min Estimated GFR (MDRD) ml/min Glucose (74-106) mg/dL Calcium (8.5-10.1) mg/dL Total Bilirubin (0.2-1.0) mg/dL AST (15-37) IU/L ALT (14-63) IU/L Alkaline Phosphatase (46-116) U/L Total Protein (6.4-8.2) g/dL Albumin (3.4-5.0) g/dL Globulin (2.6-4.0) g/dL Albumin/Globulin Ratio (0.9-1.6) Urine Color DARK YELLOW Urine Appearance SLT CLOUDY Urine pH 6.0 (5.0-8.0) Ur Specific Burke 1.025 (1.001-1.035) Urine Protein TRACE H (NEGATIVE) mg/dL Urine Glucose (UA) NEGATIVE (NEGATIVE) mg/dL Urine Ketones 15 H (NEGATIVE) mg/dL Urine Occult Blood NEGATIVE (NEGATIVE) Urine Nitrite NEGATIVE (NEGATIVE) Urine Bilirubin SMALL H (NEGATIVE) Urine Ictotest NEGATIVE Urine Urobilinogen 1.0 (<2.0) EU/dL Ur Leukocyte Esterase NEGATIVE (NEGATIVE) Urine RBC 0-1 (0-2/HPF) Urine WBC 0-2 (0-5/HPF) Ur Epithelial Cells OCCASIONAL (NONE-FEW) Urine Bacteria RARE (NEGATIVE) Urine Mucus LIGHT (NONE-MOD) 11/03/18 Range/Units 05:50 WBC (4.0-11.0) K/uL RBC (4.50-5.90) M/uL Hgb (13.0-17.0) g/dL Hct (38.0-50.0) % MCV (80.0-98.0) fL MCH (27.0-32.0) pg MCHC (31.0-37.0) g/dL RDW Std Deviation (28.0-62.0) fl RDW Coeff of Brianna (11.0-15.0) % Plt Count (150-400) K/uL MPV (7.40-12.00) fL Neut % (Auto) (48.0-80.0) % Lymph % (Auto) (16.0-40.0) % [place] % (Auto) (0.0-15.0) % Eos % (Auto) (0.0-7.0) % Baso % (Auto) (0.0-1.5) % Neut # (Auto) (1.4-5.7) K/uL Lymph # (Auto) (0.6-2.4) K/uL [place] # (Auto) (0.0-0.8) K/uL Eos # (Auto) (0.0-0.7) K/uL Baso # (Auto) (0.0-0.1) K/uL Nucleated RBC % /100WBC Nucleated RBCs # K/uL Lactate (0.20-2.00) mmol/L Sodium 141 (136-148) mmol/L Potassium 3.4 L (3.5-5.1) mmol/L Chloride 106 (98-107) mmol/L Carbon Dioxide 27.9 (21.0-32.0) mmol/L BUN 12 (7.0-18.0) mg/dL Creatinine 0.9 (0.8-1.3) mg/dL Est Cr Clr Drug Dosing 45.36 mL/min Estimated GFR (MDRD) > 60.0 ml/min Glucose 86 (74-106) mg/dL Calcium 7.7 L (8.5-10.1) mg/dL Total Bilirubin 0.9 (0.2-1.0) mg/dL AST 29 (15-37) IU/L ALT 32 (14-63) IU/L Alkaline Phosphatase 178 H (46-116) U/L Total Protein 4.6 L (6.4-8.2) g/dL Albumin 2.0 L (3.4-5.0) g/dL Globulin 2.6 (2.6-4.0) g/dL Albumin/Globulin Ratio 0.8 L (0.9-1.6) Urine Color Urine Appearance Urine pH (5.0-8.0) Ur Specific Burke (1.001-1.035) Urine Protein (NEGATIVE) mg/dL Urine Glucose (UA) (NEGATIVE) mg/dL Urine Ketones (NEGATIVE) mg/dL Urine Occult Blood (NEGATIVE) Urine Nitrite (NEGATIVE) Urine Bilirubin (NEGATIVE) Urine Ictotest Urine Urobilinogen (<2.0) EU/dL Ur Leukocyte Esterase (NEGATIVE) Urine RBC (0-2/HPF) Urine WBC (0-5/HPF) Ur Epithelial Cells (NONE-FEW) Urine Bacteria (NEGATIVE) Urine Mucus (NONE-MOD) Mohan Results Last 24 Hours: Microbiology 11/02/18 08:28 Aerobic Blood Culture - Preliminary Blood - Venous NO GROWTH AFTER 1 DAY Anaerobic Blood Culture - Preliminary NO GROWTH AFTER 1 DAY 11/02/18 08:54 Aerobic Blood Culture - Preliminary Blood - Venous - Lab Draw NO GROWTH AFTER 1 DAY Anaerobic Blood Culture - Preliminary NO GROWTH AFTER 1 DAY 11/02/18 13:58 Gram Stain - Preliminary Sputum - Expectorated 11/02/18 08:36 Influenza Type A Antigen Screen - Final Nasopharyngeal Swab NEGATIVE INFLUENZA A VIRUS AG Influenza Type B Antigen Screen - Final NEGATIVE INFLUENZA B VIRUS AG Med Orders - Current: Current Medications Acetaminophen (Tylenol) 650 mg PO Q4H PRN PRN Reason: Pain/Fever Albuterol/Ipratropium (Duoneb 3.0-0.5 Mg/3 Ml) 3 ml NEB Q4HRRT [facility] Last Admin: 11/03/18 09:38 Dose: 3 ml Enoxaparin Sodium (Lovenox) 40 mg SUBCUT Q24H [facility] Last Admin: 11/02/18 13:52 Dose: 40 mg Folic Acid (Folic Acid) 1 mg PO DAILY [facility] Last Admin: 11/03/18 08:29 Dose: 1 mg Piperacillin Sod/Tazobactam (Sod 4.5 gm/ Sodium Chloride) 100 mls @ 100 mls/hr IV Q6H [facility] Last Admin: 11/03/18 05:08 Dose: 100 mls/hr Sodium Chloride (Normal Saline) 1,000 mls @ 100 mls/hr IV ASDIRECTED [facility] Last Admin: 11/03/18 06:36 Dose: 100 mls/hr Vancomycin HCl 500 mg/ Sodium (Chloride) 100 mls @ 100 mls/hr IV Q12H [facility] Last Admin: 11/03/18 03:16 Dose: 100 mls/hr Levofloxacin/Dextrose 750 mg/ (Premix) 150 mls @ 100 mls/hr IV Q48H [facility] Levothyroxine Sodium (Synthroid) 50 mcg PO ACBREAKFAST [facility] Last Admin: 11/03/18 06:36 Dose: 50 mcg Midodrine (Midodrine) 5 mg PO TID [facility] Last Admin: 11/03/18 05:06 Dose: 5 mg Ondansetron HCl (Zofran) 4 mg IVPUSH Q4H PRN PRN Reason: Nausea/Vomiting Pantoprazole Sodium (Protonix) 40 mg PO ACBREAKFAST [facility] Last Admin: 11/03/18 08:22 Dose: 40 mg Prednisone (Prednisone) 10 mg PO DAILY [facility] Last Admin: 11/03/18 08:29 Dose: 10 mg Sodium Chloride (Saline Flush) 10 ml FLUSH ASDIRECTED PRN PRN Reason: Keep Vein Open Last Admin: 11/02/18 09:34 Dose: 10 ml Sodium Chloride (Saline Flush) 2.5 ml FLUSH ASDIRECTED PRN PRN Reason: Keep Vein Open Last Admin: 11/02/18 09:34 Dose: 2.5 ml Tramadol HCl (Ultram) 50 mg PO Q8H PRN PRN Reason: Pain Last Admin: 11/03/18 05:06 Dose: 50 mg Vancomycin HCl (Pharmacy To Dose - Vancomycin) 1 dose .XX ASDIRECTED [facility] Discontinued Medications Acetaminophen (Tylenol) 650 mg PO NOW ONE Stop: 11/02/18 09:28 Last Admin: 11/02/18 09:32 Dose: 650 mg Albuterol/Ipratropium (Duoneb 3.0-0.5 Mg/3 Ml) 3 ml NEB ONETIME ONE Stop: 11/02/18 08:14 Last Admin: 11/02/18 08:20 Dose: 3 ml Sodium Chloride (Normal Saline) 500 mls @ 999 mls/hr IV .Bolus ONE Stop: 11/02/18 08:44 Last Admin: 11/02/18 08:41 Dose: Not Given Sodium Chloride (Normal Saline) 1,000 mls @ 999 mls/hr IV .Bolus ONE Stop: 11/02/18 09:39 Last Infusion: 11/02/18 09:28 Dose: 80 mls/hr Ceftriaxone Sodium/Dextrose 1 (gm/ Premix) 50 mls @ 100 mls/hr IV ONETIME ONE Stop: 11/02/18 09:16 Last Admin: 11/02/18 08:54 Dose: 100 mls/hr Levofloxacin/Dextrose 750 mg/ (Premix) 150 mls @ 100 mls/hr IV Q24H [facility] Last Admin: 11/02/18 12:46 Dose: 100 mls/hr Vancomycin HCl 500 mg/ Sodium (Chloride) 100 mls @ 100 mls/hr IV Q12H [facility] Last Admin: 11/02/18 16:06 Dose: Not Given Vancomycin HCl 500 mg/ Sodium (Chloride) 100 mls @ 100 mls/hr IV Q12H [facility] Last Admin: 11/02/18 16:15 Dose: Not Given Morphine Sulfate (Morphine) 2 mg IVPUSH ONETIME ONE Stop: 11/02/18 08:15 Last Admin: 11/02/18 08:33 Dose: 2 mg Ondansetron HCl (Zofran) 4 mg IVPUSH ONETIME ONE Stop: 11/02/18 08:15 Last Admin: 11/02/18 08:32 Dose: 4 mg Prednisone (Prednisone) 5 mg PO DAILY [facility] Tramadol HCl (Ultram) 50 mg PO BEDTIME PRN PRN Reason: Pain - Exam Quality Assessment: Supplemental Oxygen General: Alert, Oriented, Cooperative HEENT: Pupils Equal, Pupils Reactive, EOMI, Mucous Membr. Moist/[place] Neck: Supple Lungs: Normal Respiratory Effort, Rhonchi (right base) Cardiovascular: Regular Rate, Regular Rhythm GI/Abdominal Exam: Normal Bowel Sounds, Soft, Non-Tender, No Distention Extremities: No Pedal Edema Skin: Warm, Dry, Intact Neurological: No New Focal Deficit Psy/Mental Status: Alert, Normal Affect, Normal Mood - Problem List Review Problem List Initiated/Reviewed/Updated: Yes - My Orders Last 24 Hours: My Active Orders 11/02/18 11:15 Pharmacy to Dose - Vancomycin 1 dose .XX ASDIRECTED Piperacillin/Tazobactam [Piperacil-Tazobact] 4.5 gm Sodium Chloride 0.9% [ Normal Saline] 100 ml IV Q6H 11/02/18 12:26 Intake and Output Strict [RC] Q12H RT Incentive Spirometry [RC] Q1HWA Vital Signs [RC] Q4H Resuscitation Status Routine 11/02/18 12:27 RT Aerosol Therapy [RC] ASDIRECTED 11/02/18 12:30 Enoxaparin [Lovenox] 40 mg SUBCUT Q24H Sodium Chloride 0.9% [Normal Saline] 1,000 ml IV ASDIRECTED 11/02/18 13:00 Midodrine 5 mg PO TID 11/02/18 13:03 Acetaminophen [Tylenol] 650 mg PO Q4H PRN Ondansetron [Zofran] 4 mg IVPUSH Q4H PRN 11/02/18 13:58 CULTURE SPUTUM + SMEAR [RM] Routine 11/02/18 14:00 Albuterol/Ipratropium [DuoNeb 3.0-0.5 MG/3 ML] 3 ml NEB Q4HRRT 11/02/18 16:15 Vancomycin 500 mg Sodium Chloride 0.9% [Normal Saline] 100 ml IV Q12H 11/02/18 18:57 traMADol [Ultram] 50 mg PO Q8H PRN 11/02/18 Dinner Heart Healthy Diet [DIET] 11/03/18 07:30 Levothyroxine [Synthroid] 50 mcg PO ACBREAKFAST Pantoprazole [ProTONIX] 40 mg PO ACBREAKFAST 11/03/18 09:00 Folic Acid 1 mg PO DAILY predniSONE 10 mg PO DAILY 11/04/18 11:00 Levofloxacin/Dextrose 5%-Water [Levaquin in D5W 750 MG/150 ML] 750 mg Premix Bag 1 bag IV Q48H 11/04/18 15:15 VANCOMYCIN TROUGH [CHEM] Timed - Plan Plan:: 1. Sepsis secondary to healthcare associated pneumonia with underlying COPD- improving, WBC down from 20 to 11.9, lactate resolved, blood pressure improved. Continue Vancomycin, Levaquin, and Zosyn for healthcare associated pneumonia. Sputum culture pending. Blood cultures negative so far. Continue IVF at 100 cc/ hr. Duonebs and incentive spirometry. Oxygen as needed. 2. Hyperbilirubinemia with elevated AST- resolved 3. Hypokalemia- will replace with 40 mEq and recheck in AM
[2018-11-03] MEDS ORDERED: Sodium Chloride 0.9% 100 ML ONE (11:15)
[2018-11-03] MEDS: Enoxaparin 40 MG/0.4 ML Syringe SUBCUT SCH (12:21)
[2018-11-04] MEDS: Albuterol/Ipratropium 3.0-0.5 MG/3 ML Neb Soln NEB SCH ×5 (02:00→17:03)
[2018-11-04] MEDS: Piperacillin/Tazobactam 4.5 GM in Sodium Chloride 0.9% 100 ML IV SCH ×2 (05:33→11:32)
[2018-11-04] MEDS: traMADol 50 MG Tab PO PRN ×3 (05:33→18:27)
[2018-11-04] MEDS: Midodrine 5 MG Tab PO SCH ×3 (05:34→21:50)
[2018-11-04 06:15] LABS: CHLORIDE,CL 111 mmol/L (98-107); SODIUM,NA 143 mmol/L (136-148)
[2018-11-04] MEDS: Levothyroxine 50 MCG Tab PO SCH (07:04)
[2018-11-04] MEDS: Pantoprazole 40 MG Tab.CR PO SCH (07:05)
[2018-11-04] MEDS: Sodium Chloride 0.9% 1,000 ML IV SCH ×2 (07:22→18:30)
--- NOTE | 2018-11-04 09:11 | PCM.PN ---
- General Info Date of Service: 11/04/18 Subjective Update: The patient reports he is doing somewhat better. He is requiring 1 L of oxygen. He states he is on 2-3 at home. His white count has resolved. He is tolerating an oral diet and denies chest pain or abdominal pain. He has been afebrile. - Review of Systems General: Reports: No Symptoms HEENT: Reports: No Symptoms Pulmonary: Reports: Shortness of Breath, Cough Cardiovascular: Reports: No Symptoms Gastrointestinal: Reports: No Symptoms Genitourinary: Reports: No Symptoms Musculoskeletal: Reports: No Symptoms Skin: Reports: No Symptoms Neurological: Reports: No Symptoms Psychiatric: Reports: No Symptoms - Patient Data Vitals - Most Recent: Last Vital Signs Temp 98.1 F 11/04/18 07:42 Pulse 110 H 11/04/18 07:42 Resp 16 11/04/18 07:42 BP 112/78 11/04/18 07:42 Pulse Ox 98 11/04/18 07:42 Weight - Most Recent: 36.741 kg I&O - Last 24 Hours: Intake & Output 11/03/18 11/04/18 11/04/18 22:59 06:59 14:59 Intake Total 2638 900 Output Total 355 220 Balance 2283 680 Lab Results Last 24 Hours: Laboratory Results - last 24 hr 11/04/18 11/04/18 Range/Units 04:55 05:15 WBC 9.73 (4.0-11.0) K/uL RBC 2.65 L (4.50-5.90) M/uL Hgb 9.2 L (13.0-17.0) g/dL Hct 28.1 L (38.0-50.0) % MCV 106.0 H (80.0-98.0) fL MCH 34.7 H (27.0-32.0) pg MCHC 32.7 (31.0-37.0) g/dL RDW Std Deviation 81.4 H (28.0-62.0) fl RDW Coeff of Brianna 21 H (11.0-15.0) % Plt Count 208 (150-400) K/uL MPV 10.70 (7.40-12.00) fL Neut % (Auto) 72.3 (48.0-80.0) % Lymph % (Auto) 14.3 L (16.0-40.0) % [place] % (Auto) 13.1 (0.0-15.0) % Eos % (Auto) 0.2 (0.0-7.0) % Baso % (Auto) 0.1 (0.0-1.5) % Neut # (Auto) 7.0 H (1.4-5.7) K/uL Lymph # (Auto) 1.4 (0.6-2.4) K/uL [place] # (Auto) 1.3 H (0.0-0.8) K/uL Eos # (Auto) 0.0 (0.0-0.7) K/uL Baso # (Auto) 0.0 (0.0-0.1) K/uL Nucleated RBC % 0.4 /100WBC Nucleated RBCs # 0 K/uL Sodium 143 (136-148) mmol/L Potassium 4.5 (3.5-5.1) mmol/L Chloride 111 H (98-107) mmol/L Carbon Dioxide 26.0 (21.0-32.0) mmol/L BUN 11 (7.0-18.0) mg/dL Creatinine 0.7 L (0.8-1.3) mg/dL Est Cr Clr Drug Dosing 58.32 mL/min Estimated GFR (MDRD) > 60.0 ml/min Glucose 94 (74-106) mg/dL Calcium 8.3 L (8.5-10.1) mg/dL Mohan Results Last 24 Hours: Microbiology 11/02/18 08:28 Aerobic Blood Culture - Preliminary Blood - Venous NO GROWTH AFTER 2 DAYS Anaerobic Blood Culture - Preliminary NO GROWTH AFTER 2 DAYS 11/02/18 08:54 Aerobic Blood Culture - Preliminary Blood - Venous - Lab Draw NO GROWTH AFTER 2 DAYS Anaerobic Blood Culture - Preliminary NO GROWTH AFTER 2 DAYS Med Orders - Current: Current Medications Acetaminophen (Tylenol) 650 mg PO Q4H PRN PRN Reason: Pain/Fever Albuterol/Ipratropium (Duoneb 3.0-0.5 Mg/3 Ml) 3 ml NEB Q4HRRT [facility] Last Admin: 11/04/18 05:57 Dose: 3 ml Enoxaparin Sodium (Lovenox) 40 mg SUBCUT Q24H [facility] [place] Last Admin: 11/03/18 12:21 Dose: 40 mg Folic Acid (Folic Acid) 1 mg PO DAILY [facility] [place] Last Admin: 11/03/18 08:29 Dose: 1 mg Piperacillin Sod/Tazobactam (Sod 4.5 gm/ Sodium Chloride) 100 mls @ 100 mls/hr IV Q6H [facility] [place] Last Admin: 11/04/18 05:33 Dose: 100 mls/hr Sodium Chloride (Normal Saline) 1,000 mls @ 100 mls/hr IV ASDIRECTED [facility] [place] Last Admin: 11/04/18 07:22 Dose: 100 mls/hr Vancomycin HCl 500 mg/ Sodium (Chloride) 100 mls @ 100 mls/hr IV Q12H [facility] [place] Last Admin: 11/04/18 04:14 Dose: 100 mls/hr Levofloxacin/Dextrose 750 mg/ (Premix) 150 mls @ 100 mls/hr IV Q24H [facility] [place] Levothyroxine Sodium (Synthroid) 50 mcg PO ACBREAKFAST [facility] [place] Last Admin: 11/04/18 07:04 Dose: 50 mcg Midodrine (Midodrine) 5 mg PO TID [facility] [place] Last Admin: 11/04/18 05:34 Dose: 5 mg Ondansetron HCl (Zofran) 4 mg IVPUSH Q4H PRN PRN Reason: Nausea/Vomiting Pantoprazole Sodium (Protonix) 40 mg PO ACBREAKFAST [facility] [place] Last Admin: 11/04/18 07:05 Dose: 40 mg Prednisone (Prednisone) 10 mg PO DAILY [facility] [place] Last Admin: 11/03/18 08:29 Dose: 10 mg Sodium Chloride (Saline Flush) 10 ml FLUSH ASDIRECTED PRN PRN Reason: Keep Vein Open Last Admin: 11/02/18 09:34 Dose: 10 ml Sodium Chloride (Saline Flush) 2.5 ml FLUSH ASDIRECTED PRN PRN Reason: Keep Vein Open Last Admin: 11/02/18 09:34 Dose: 2.5 ml Tramadol HCl (Ultram) 50 mg PO Q8H PRN PRN Reason: Pain Last Admin: 11/04/18 05:33 Dose: 50 mg Vancomycin HCl (Pharmacy To Dose - Vancomycin) 1 dose .XX ASDIRECTED [facility] [place] Discontinued Medications Acetaminophen (Tylenol) 650 mg PO NOW ONE Stop: 11/02/18 09:28 Last Admin: 11/02/18 09:32 Dose: 650 mg Albuterol/Ipratropium (Duoneb 3.0-0.5 Mg/3 Ml) 3 ml NEB ONETIME ONE Stop: 11/02/18 08:14 Last Admin: 11/02/18 08:20 Dose: 3 ml Sodium Chloride (Normal Saline) 500 mls @ 999 mls/hr IV .Bolus ONE Stop: 11/02/18 08:44 Last Admin: 11/02/18 08:41 Dose: Not Given Sodium Chloride (Normal Saline) 1,000 mls @ 999 mls/hr IV .Bolus ONE Stop: 11/02/18 09:39 Last Infusion: 11/02/18 09:28 Dose: 80 mls/hr Ceftriaxone Sodium/Dextrose 1 (gm/ Premix) 50 mls @ 100 mls/hr IV ONETIME ONE Stop: 11/02/18 09:16 Last Admin: 11/02/18 08:54 Dose: 100 mls/hr Levofloxacin/Dextrose 750 mg/ (Premix) 150 mls @ 100 mls/hr IV Q24H [facility] [place] Last Admin: 11/02/18 12:46 Dose: 100 mls/hr Vancomycin HCl 500 mg/ Sodium (Chloride) 100 mls @ 100 mls/hr IV Q12H [facility] [place] Last Admin: 11/02/18 16:06 Dose: Not Given Vancomycin HCl 500 mg/ Sodium (Chloride) 100 mls @ 100 mls/hr IV Q12H [facility] [place] Last Admin: 11/02/18 16:15 Dose: Not Given Sodium Chloride (Normal Saline) Confirm Administered Dose 100 mls @ as directed .ROUTE .STK-MED ONE Stop: 11/03/18 11:16 Last Admin: 11/03/18 11:47 Dose: Not Given Morphine Sulfate (Morphine) 2 mg IVPUSH ONETIME ONE Stop: 11/02/18 08:15 Last Admin: 11/02/18 08:33 Dose: 2 mg Ondansetron HCl (Zofran) 4 mg IVPUSH ONETIME ONE Stop: 11/02/18 08:15 Last Admin: 11/02/18 08:32 Dose: 4 mg Potassium Chloride (Klor-Con M20) 40 meq PO ONETIME ONE Stop: 11/03/18 10:45 Last Admin: 11/03/18 11:09 Dose: 40 meq Prednisone (Prednisone) 5 mg PO DAILY [facility] Tramadol HCl (Ultram) 50 mg PO BEDTIME PRN PRN Reason: Pain - Exam General: Alert, Oriented, Cooperative Lungs: Normal Respiratory Effort, Decreased Breath Sounds, Other (improved) Cardiovascular: Regular Rate, Regular Rhythm GI/Abdominal Exam: Normal Bowel Sounds, Soft, Non-Tender, No Distention Extremities: No Pedal Edema Skin: Warm, Dry Neurological: No New Focal Deficit Psy/Mental Status: Alert, Normal Affect, Normal Mood - Problem List Review Problem List Initiated/Reviewed/Updated: Yes - My Orders Last 24 Hours: My Active Orders 11/03/18 09:00 Folic Acid 1 mg PO DAILY predniSONE 10 mg PO DAILY 11/04/18 11:00 Levofloxacin/Dextrose 5%-Water [Levaquin in D5W 750 MG/150 ML] 750 mg Premix Bag 1 bag IV Q24H 11/04/18 15:15 VANCOMYCIN TROUGH [CHEM] Routine - Plan Plan:: 1. Sepsis secondary to healthcare associated pneumonia with underlying COPD- improving, WBC within normal limits, lactate resolved, blood pressure improved. Will deescalate antibiotics to just Levaquin. Sputum culture shows normal yumiko. Blood cultures negative so far. Continue IVF at 100 cc/hr. Duonebs and incentive spirometry. Oxygen as needed. 2. Hypokalemia- resolved
[2018-11-04] MEDS: Levofloxacin/Dextrose 5%-Water 750 MG in Premix Bag 1 BAG IV SCH (10:07)
[2018-11-04] MEDS: predniSONE 10 MG Tab PO SCH (10:07)
[2018-11-04] MEDS: Folic Acid 1 MG Tab PO SCH (10:07)
[2018-11-04] MEDS: Enoxaparin 40 MG/0.4 ML Syringe SUBCUT SCH (12:26)
[2018-11-05] MEDS: Albuterol/Ipratropium 3.0-0.5 MG/3 ML Neb Soln NEB SCH ×4 (00:33→17:33)
[2018-11-05] MEDS: traMADol 50 MG Tab PO PRN ×4 (00:33→18:33)
[2018-11-05] MEDS: Sodium Chloride 0.9% 1,000 ML IV SCH ×2 (04:37→15:51)
[2018-11-05] MEDS: Pantoprazole 40 MG Tab.CR PO SCH (06:36)
[2018-11-05] MEDS: Midodrine 5 MG Tab PO SCH ×3 (06:37→21:42)
[2018-11-05] MEDS: Levothyroxine 50 MCG Tab PO SCH (06:37)
[2018-11-05 06:48] LABS: CHLORIDE,CL 107 mmol/L (98-107); SODIUM,NA 141 mmol/L (136-148)
[2018-11-05] MEDS: Folic Acid 1 MG Tab PO SCH (09:02)
[2018-11-05] MEDS: predniSONE 10 MG Tab PO SCH (09:02)
--- NOTE | 2018-11-05 09:16 | PCM.PN ---
- General Info Date of Service: 11/05/18 Subjective Update: The patient is a 62 year old male admitted for healthcare associated pneumonia with underlying COPD. His white count has resolved and he reports he feels a little better but he doesn't think he is ready to go home just yet. He denies chest pain or abdominal pain. He reports he is eating and drinking without issue. - Review of Systems General: Reports: No Symptoms HEENT: Reports: No Symptoms Pulmonary: Reports: Shortness of Breath, Cough Cardiovascular: Reports: No Symptoms Gastrointestinal: Reports: No Symptoms Genitourinary: Reports: No Symptoms Musculoskeletal: Reports: No Symptoms Skin: Reports: No Symptoms Neurological: Reports: No Symptoms Psychiatric: Reports: No Symptoms - Patient Data Vitals - Most Recent: Last Vital Signs Temp 97.9 F 11/05/18 08:00 Pulse 100 11/05/18 08:00 Resp 16 11/05/18 08:00 BP 124/74 11/05/18 08:00 Pulse Ox 96 11/05/18 08:00 Weight - Most Recent: 36.741 kg I&O - Last 24 Hours: Intake & Output 11/04/18 11/05/18 11/05/18 22:59 06:59 14:59 Intake Total 1304 1842 Output Total 270 370 Balance 1034 1472 Lab Results Last 24 Hours: Laboratory Results - last 24 hr 11/05/18 11/05/18 Range/Units 06:15 06:15 WBC 8.74 (4.0-11.0) K/uL RBC 2.71 L (4.50-5.90) M/uL Hgb 9.5 L (13.0-17.0) g/dL Hct 28.6 L (38.0-50.0) % MCV 105.5 H (80.0-98.0) fL MCH 35.1 H (27.0-32.0) pg MCHC 33.2 (31.0-37.0) g/dL RDW Std Deviation 80.9 H (28.0-62.0) fl RDW Coeff of Brianna 22 H (11.0-15.0) % Plt Count 208 (150-400) K/uL MPV 10.60 (7.40-12.00) fL Neut % (Auto) 70.9 (48.0-80.0) % Lymph % (Auto) 19.6 (16.0-40.0) % [place] % (Auto) 9.4 (0.0-15.0) % Eos % (Auto) 0.1 (0.0-7.0) % Baso % (Auto) 0.0 (0.0-1.5) % Neut # (Auto) 6.2 H (1.4-5.7) K/uL Lymph # (Auto) 1.7 (0.6-2.4) K/uL [place] # (Auto) 0.8 (0.0-0.8) K/uL Eos # (Auto) 0.0 (0.0-0.7) K/uL Baso # (Auto) 0.0 (0.0-0.1) K/uL Nucleated RBC % 0.7 /100WBC Nucleated RBCs # 0 K/uL Sodium 141 (136-148) mmol/L Potassium 4.8 (3.5-5.1) mmol/L Chloride 107 (98-107) mmol/L Carbon Dioxide 23.6 (21.0-32.0) mmol/L BUN 9 (7.0-18.0) mg/dL Creatinine 0.5 L (0.8-1.3) mg/dL Est Cr Clr Drug Dosing 81.65 mL/min Estimated GFR (MDRD) > 60.0 ml/min Glucose 74 (74-106) mg/dL Calcium 8.4 L (8.5-10.1) mg/dL Mohan Results Last 24 Hours: Microbiology 11/02/18 08:28 Aerobic Blood Culture - Preliminary Blood - Venous NO GROWTH AFTER 3 DAYS Anaerobic Blood Culture - Preliminary NO GROWTH AFTER 3 DAYS 11/02/18 08:54 Aerobic Blood Culture - Preliminary Blood - Venous - Lab Draw NO GROWTH AFTER 3 DAYS Anaerobic Blood Culture - Preliminary NO GROWTH AFTER 3 DAYS 11/02/18 13:58 Gram Stain - Final Sputum - Expectorated Sputum Culture - Final Normal Respiratory Yumiko Med Orders - Current: Current Medications Acetaminophen (Tylenol) 650 mg PO Q4H PRN PRN Reason: Pain/Fever Albuterol/Ipratropium (Duoneb 3.0-0.5 Mg/3 Ml) 3 ml NEB Q6HRRT [facility] Last Admin: 11/05/18 06:06 Dose: 3 ml Enoxaparin Sodium (Lovenox) 40 mg SUBCUT Q24H [facility] Last Admin: 11/04/18 12:26 Dose: 40 mg Folic Acid (Folic Acid) 1 mg PO DAILY [facility] Last Admin: 11/05/18 09:02 Dose: 1 mg Sodium Chloride (Normal Saline) 1,000 mls @ 100 mls/hr IV ASDIRECTED [facility] Last Admin: 11/05/18 04:37 Dose: 100 mls/hr Levofloxacin/Dextrose 750 mg/ (Premix) 150 mls @ 100 mls/hr IV Q24H [facility] Last Admin: 11/04/18 10:07 Dose: 100 mls/hr Levothyroxine Sodium (Synthroid) 50 mcg PO ACBREAKFAST [facility] Last Admin: 11/05/18 06:37 Dose: 50 mcg Midodrine (Midodrine) 5 mg PO TID [facility] Last Admin: 11/05/18 06:37 Dose: 5 mg Ondansetron HCl (Zofran) 4 mg IVPUSH Q4H PRN PRN Reason: Nausea/Vomiting Pantoprazole Sodium (Protonix) 40 mg PO ACBREAKFAST [facility] Last Admin: 11/05/18 06:36 Dose: 40 mg Prednisone (Prednisone) 10 mg PO DAILY [facility] Last Admin: 11/05/18 09:02 Dose: 10 mg Sodium Chloride (Saline Flush) 10 ml FLUSH ASDIRECTED PRN PRN Reason: Keep Vein Open Last Admin: 11/02/18 09:34 Dose: 10 ml Sodium Chloride (Saline Flush) 2.5 ml FLUSH ASDIRECTED PRN PRN Reason: Keep Vein Open Last Admin: 11/02/18 09:34 Dose: 2.5 ml Tramadol HCl (Ultram) 50 mg PO Q6H PRN PRN Reason: Pain Last Admin: 11/05/18 06:39 Dose: 50 mg Discontinued Medications Acetaminophen (Tylenol) 650 mg PO NOW ONE Stop: 11/02/18 09:28 Last Admin: 11/02/18 09:32 Dose: 650 mg Albuterol/Ipratropium (Duoneb 3.0-0.5 Mg/3 Ml) 3 ml NEB ONETIME ONE Stop: 11/02/18 08:14 Last Admin: 11/02/18 08:20 Dose: 3 ml Albuterol/Ipratropium (Duoneb 3.0-0.5 Mg/3 Ml) 3 ml NEB Q4HRRT [facility] Last Admin: 11/04/18 13:53 Dose: 3 ml Sodium Chloride (Normal Saline) 500 mls @ 999 mls/hr IV .Bolus ONE Stop: 11/02/18 08:44 Last Admin: 11/02/18 08:41 Dose: Not Given Sodium Chloride (Normal Saline) 1,000 mls @ 999 mls/hr IV .Bolus ONE Stop: 11/02/18 09:39 Last Infusion: 11/02/18 09:28 Dose: 80 mls/hr Ceftriaxone Sodium/Dextrose 1 (gm/ Premix) 50 mls @ 100 mls/hr IV ONETIME ONE Stop: 11/02/18 09:16 Last Admin: 11/02/18 08:54 Dose: 100 mls/hr Levofloxacin/Dextrose 750 mg/ (Premix) 150 mls @ 100 mls/hr IV Q24H [facility] Last Admin: 11/02/18 12:46 Dose: 100 mls/hr Piperacillin Sod/Tazobactam (Sod 4.5 gm/ Sodium Chloride) 100 mls @ 100 mls/hr IV Q6H [facility] Last Admin: 11/04/18 11:32 Dose: Not Given Vancomycin HCl 500 mg/ Sodium (Chloride) 100 mls @ 100 mls/hr IV Q12H [facility] Last Admin: 11/02/18 16:06 Dose: Not Given Vancomycin HCl 500 mg/ Sodium (Chloride) 100 mls @ 100 mls/hr IV Q12H [facility] Last Admin: 11/02/18 16:15 Dose: Not Given Vancomycin HCl 500 mg/ Sodium (Chloride) 100 mls @ 100 mls/hr IV Q12H [facility] Last Admin: 11/04/18 04:14 Dose: 100 mls/hr Sodium Chloride (Normal Saline) Confirm Administered Dose 100 mls @ as directed .ROUTE .STK-MED ONE Stop: 11/03/18 11:16 Last Admin: 11/03/18 11:47 Dose: Not Given Morphine Sulfate (Morphine) 2 mg IVPUSH ONETIME ONE Stop: 11/02/18 08:15 Last Admin: 11/02/18 08:33 Dose: 2 mg Ondansetron HCl (Zofran) 4 mg IVPUSH ONETIME ONE Stop: 11/02/18 08:15 Last Admin: 11/02/18 08:32 Dose: 4 mg Potassium Chloride (Klor-Con M20) 40 meq PO ONETIME ONE Stop: 11/03/18 10:45 Last Admin: 11/03/18 11:09 Dose: 40 meq Prednisone (Prednisone) 5 mg PO DAILY [facility] Tramadol HCl (Ultram) 50 mg PO BEDTIME PRN PRN Reason: Pain Tramadol HCl (Ultram) 50 mg PO Q8H PRN PRN Reason: Pain Last Admin: 11/04/18 05:33 Dose: 50 mg Vancomycin HCl (Pharmacy To Dose - Vancomycin) 1 dose .XX ASDIRECTED [facility] - Exam Quality Assessment: Supplemental Oxygen General: Alert, Oriented, Cooperative Lungs: Normal Respiratory Effort, Rhonchi (left base improving) GI/Abdominal Exam: Normal Bowel Sounds, Soft, Non-Tender, No Distention Extremities: No Pedal Edema Skin: Warm, Dry Neurological: No New Focal Deficit Psy/Mental Status: Alert, Normal Affect, Normal Mood - Problem List Review Problem List Initiated/Reviewed/Updated: Yes - My Orders Last 24 Hours: My Active Orders 11/04/18 11:00 Levofloxacin/Dextrose 5%-Water [Levaquin in D5W 750 MG/150 ML] 750 mg Premix Bag 1 bag IV Q24H 11/04/18 11:24 traMADol [Ultram] 50 mg PO Q6H PRN - Plan Plan:: 1. Sepsis secondary to healthcare associated pneumonia with underlying COPD- improving, WBC within normal limits, lactate resolved, blood pressure improved. Continue Levaquin. Sputum culture shows normal yumiko. Blood cultures negative so far. Continue IVF at 100 cc/hr. Duonebs and incentive spirometry. Will try to wean down on oxygen as he is satting at 98%.
[2018-11-05] MEDS: Levofloxacin/Dextrose 5%-Water 750 MG in Premix Bag 1 BAG IV SCH (10:56)
[2018-11-05] MEDS: Enoxaparin 40 MG/0.4 ML Syringe SUBCUT SCH (12:06)
[2018-11-06] MEDS: traMADol 50 MG Tab PO PRN ×4 (00:42→19:19)
[2018-11-06] MEDS: Albuterol/Ipratropium 3.0-0.5 MG/3 ML Neb Soln NEB SCH ×5 (00:43→23:32)
[2018-11-06] MEDS: Sodium Chloride 0.9% 1,000 ML IV SCH ×3 (02:04→22:21)
[2018-11-06] MEDS: Levothyroxine 50 MCG Tab PO SCH (06:34)
[2018-11-06] MEDS: Pantoprazole 40 MG Tab.CR PO SCH (06:34)
[2018-11-06] MEDS: Midodrine 5 MG Tab PO SCH ×3 (06:34→22:21)
[2018-11-06 06:44] LABS: CHLORIDE,CL 108 mmol/L (98-107); SODIUM,NA 141 mmol/L (136-148)
--- NOTE | 2018-11-06 09:13 | PCM.PN ---
- General Info Date of Service: 11/06/18 Subjective Update: The patient is a 62 year old male admitted for healthcare associated pneumonia with underlying COPD. Patient reports somewhat better but doesn't think he is ready to go home. He is on 0.5 L of oxygen and satting in the low 90s. He endorses shortness of breath and cough. He denies chest pain, abdominal pain, or fever/chills. - Review of Systems General: Reports: No Symptoms HEENT: Reports: No Symptoms Pulmonary: Reports: Shortness of Breath, Cough Cardiovascular: Reports: No Symptoms Gastrointestinal: Reports: No Symptoms Genitourinary: Reports: No Symptoms Musculoskeletal: Reports: No Symptoms Skin: Reports: No Symptoms Neurological: Reports: No Symptoms Psychiatric: Reports: No Symptoms - Patient Data Vitals - Most Recent: Last Vital Signs Temp 96.6 F 11/06/18 08:00 Pulse 99 11/06/18 08:00 Resp 16 11/06/18 08:00 BP 139/86 11/06/18 08:00 Pulse Ox 94 L 11/06/18 08:00 Weight - Most Recent: 36.741 kg I&O - Last 24 Hours: Intake & Output 11/05/18 11/06/18 11/06/18 22:59 06:59 14:59 Intake Total 1298 1425 Output Total 340 360 Balance 958 1065 Lab Results Last 24 Hours: Laboratory Results - last 24 hr 11/06/18 11/06/18 Range/Units 06:13 06:13 WBC 7.35 (4.0-11.0) K/uL RBC 2.67 L (4.50-5.90) M/uL Hgb 9.4 L (13.0-17.0) g/dL Hct 28.1 L (38.0-50.0) % MCV 105.2 H (80.0-98.0) fL MCH 35.2 H (27.0-32.0) pg MCHC 33.5 (31.0-37.0) g/dL RDW Std Deviation 81.2 H (28.0-62.0) fl RDW Coeff of Brianna 21 H (11.0-15.0) % Plt Count 206 (150-400) K/uL MPV 10.60 (7.40-12.00) fL Neut % (Auto) 49.4 (48.0-80.0) % Lymph % (Auto) 35.2 (16.0-40.0) % [place] % (Auto) 15.0 (0.0-15.0) % Eos % (Auto) 0.3 (0.0-7.0) % Baso % (Auto) 0.1 (0.0-1.5) % Neut # (Auto) 3.6 (1.4-5.7) K/uL Lymph # (Auto) 2.6 H (0.6-2.4) K/uL [place] # (Auto) 1.1 H (0.0-0.8) K/uL Eos # (Auto) 0.0 (0.0-0.7) K/uL Baso # (Auto) 0.0 (0.0-0.1) K/uL Nucleated RBC % 0.6 /100WBC Nucleated RBCs # 0 K/uL Sodium 141 (136-148) mmol/L Potassium 4.7 (3.5-5.1) mmol/L Chloride 108 H (98-107) mmol/L Carbon Dioxide 27.5 (21.0-32.0) mmol/L BUN 9 (7.0-18.0) mg/dL Creatinine 0.6 L (0.8-1.3) mg/dL Est Cr Clr Drug Dosing 68.04 mL/min Estimated GFR (MDRD) > 60.0 ml/min Glucose 77 (74-106) mg/dL Calcium 8.3 L (8.5-10.1) mg/dL Mohan Results Last 24 Hours: Microbiology 11/02/18 08:28 Aerobic Blood Culture - Preliminary Blood - Venous NO GROWTH AFTER 4 DAYS Anaerobic Blood Culture - Preliminary NO GROWTH AFTER 4 DAYS 11/02/18 08:54 Aerobic Blood Culture - Preliminary Blood - Venous - Lab Draw NO GROWTH AFTER 4 DAYS Anaerobic Blood Culture - Preliminary NO GROWTH AFTER 4 DAYS Med Orders - Current: Current Medications Acetaminophen (Tylenol) 650 mg PO Q4H PRN PRN Reason: Pain/Fever Albuterol/Ipratropium (Duoneb 3.0-0.5 Mg/3 Ml) 3 ml NEB Q6HRRT [facility] Last Admin: 11/06/18 06:05 Dose: 3 ml Enoxaparin Sodium (Lovenox) 40 mg SUBCUT Q24H [facility] Last Admin: 11/05/18 12:06 Dose: 40 mg Folic Acid (Folic Acid) 1 mg PO DAILY [facility] Last Admin: 11/05/18 09:02 Dose: 1 mg Sodium Chloride (Normal Saline) 1,000 mls @ 100 mls/hr IV ASDIRECTED [facility] Last Admin: 11/06/18 02:04 Dose: 100 mls/hr Levofloxacin/Dextrose 750 mg/ (Premix) 150 mls @ 100 mls/hr IV Q24H [facility] Last Admin: 11/05/18 10:56 Dose: 100 mls/hr Levothyroxine Sodium (Synthroid) 50 mcg PO ACBREAKFAST [facility] Last Admin: 11/06/18 06:34 Dose: 50 mcg Midodrine (Midodrine) 5 mg PO TID [facility] Last Admin: 11/06/18 06:34 Dose: 5 mg Ondansetron HCl (Zofran) 4 mg IVPUSH Q4H PRN PRN Reason: Nausea/Vomiting Pantoprazole Sodium (Protonix) 40 mg PO ACBREAKFAST [facility] Last Admin: 11/06/18 06:34 Dose: 40 mg Prednisone (Prednisone) 10 mg PO DAILY [facility] Last Admin: 11/05/18 09:02 Dose: 10 mg Sodium Chloride (Saline Flush) 10 ml FLUSH ASDIRECTED PRN PRN Reason: Keep Vein Open Last Admin: 11/02/18 09:34 Dose: 10 ml Sodium Chloride (Saline Flush) 2.5 ml FLUSH ASDIRECTED PRN PRN Reason: Keep Vein Open Last Admin: 11/02/18 09:34 Dose: 2.5 ml Tramadol HCl (Ultram) 50 mg PO Q6H PRN PRN Reason: Pain Last Admin: 11/06/18 06:42 Dose: 50 mg Discontinued Medications Acetaminophen (Tylenol) 650 mg PO NOW ONE Stop: 11/02/18 09:28 Last Admin: 11/02/18 09:32 Dose: 650 mg Albuterol/Ipratropium (Duoneb 3.0-0.5 Mg/3 Ml) 3 ml NEB ONETIME ONE Stop: 11/02/18 08:14 Last Admin: 11/02/18 08:20 Dose: 3 ml Albuterol/Ipratropium (Duoneb 3.0-0.5 Mg/3 Ml) 3 ml NEB Q4HRRT [facility] Last Admin: 11/04/18 13:53 Dose: 3 ml Sodium Chloride (Normal Saline) 500 mls @ 999 mls/hr IV .Bolus ONE Stop: 11/02/18 08:44 Last Admin: 11/02/18 08:41 Dose: Not Given Sodium Chloride (Normal Saline) 1,000 mls @ 999 mls/hr IV .Bolus ONE Stop: 11/02/18 09:39 Last Infusion: 11/02/18 09:28 Dose: 80 mls/hr Ceftriaxone Sodium/Dextrose 1 (gm/ Premix) 50 mls @ 100 mls/hr IV ONETIME ONE Stop: 11/02/18 09:16 Last Admin: 11/02/18 08:54 Dose: 100 mls/hr Levofloxacin/Dextrose 750 mg/ (Premix) 150 mls @ 100 mls/hr IV Q24H [facility] Last Admin: 11/02/18 12:46 Dose: 100 mls/hr Piperacillin Sod/Tazobactam (Sod 4.5 gm/ Sodium Chloride) 100 mls @ 100 mls/hr IV Q6H [facility] Last Admin: 11/04/18 11:32 Dose: Not Given Vancomycin HCl 500 mg/ Sodium (Chloride) 100 mls @ 100 mls/hr IV Q12H [facility] Last Admin: 11/02/18 16:06 Dose: Not Given Vancomycin HCl 500 mg/ Sodium (Chloride) 100 mls @ 100 mls/hr IV Q12H [facility] Last Admin: 11/02/18 16:15 Dose: Not Given Vancomycin HCl 500 mg/ Sodium (Chloride) 100 mls @ 100 mls/hr IV Q12H [facility] Last Admin: 11/04/18 04:14 Dose: 100 mls/hr Sodium Chloride (Normal Saline) Confirm Administered Dose 100 mls @ as directed .ROUTE .STK-MED ONE Stop: 11/03/18 11:16 Last Admin: 11/03/18 11:47 Dose: Not Given Morphine Sulfate (Morphine) 2 mg IVPUSH ONETIME ONE Stop: 11/02/18 08:15 Last Admin: 11/02/18 08:33 Dose: 2 mg Ondansetron HCl (Zofran) 4 mg IVPUSH ONETIME ONE Stop: 11/02/18 08:15 Last Admin: 11/02/18 08:32 Dose: 4 mg Potassium Chloride (Klor-Con M20) 40 meq PO ONETIME ONE Stop: 11/03/18 10:45 Last Admin: 11/03/18 11:09 Dose: 40 meq Prednisone (Prednisone) 5 mg PO DAILY [facility] Tramadol HCl (Ultram) 50 mg PO BEDTIME PRN PRN Reason: Pain Tramadol HCl (Ultram) 50 mg PO Q8H PRN PRN Reason: Pain Last Admin: 11/04/18 05:33 Dose: 50 mg Vancomycin HCl (Pharmacy To Dose - Vancomycin) 1 dose .XX ASDIRECTED [facility] - Exam Quality Assessment: Supplemental Oxygen General: Alert, Oriented, Cooperative HEENT: Pupils Equal, Pupils Reactive, EOMI, Mucous Membr. Moist/[place] Lungs: Normal Respiratory Effort, Rhonchi (left), Wheezing Cardiovascular: Regular Rate, Regular Rhythm GI/Abdominal Exam: Normal Bowel Sounds, Soft, Non-Tender, No Distention Extremities: No Pedal Edema Skin: Warm, Dry Neurological: No New Focal Deficit Psy/Mental Status: Alert, Normal Affect, Normal Mood - Problem List Review Problem List Initiated/Reviewed/Updated: Yes - Plan Plan:: 1. Sepsis secondary to healthcare associated pneumonia with underlying COPD- improving, WBC within normal limits, lactate resolved, blood pressure improved. Continue Levaquin. Sputum culture shows normal yumiko. Blood cultures negative so far. Continue IVF at 100 cc/hr. Duonebs and incentive spirometry.
[2018-11-06] MEDS: Folic Acid 1 MG Tab PO SCH (09:37)
[2018-11-06] MEDS: predniSONE 10 MG Tab PO SCH (09:38)
[2018-11-06] MEDS: Levofloxacin/Dextrose 5%-Water 750 MG in Premix Bag 1 BAG IV SCH (10:57)
[2018-11-06] MEDS: Enoxaparin 40 MG/0.4 ML Syringe SUBCUT SCH (11:49)
[2018-11-07] MEDS: traMADol 50 MG Tab PO PRN ×4 (02:11→20:32)
[2018-11-07] MEDS: Albuterol/Ipratropium 3.0-0.5 MG/3 ML Neb Soln NEB SCH ×3 (06:02→17:23)
[2018-11-07] MEDS: Midodrine 5 MG Tab PO SCH ×3 (06:32→21:38)
[2018-11-07] MEDS: Levothyroxine 50 MCG Tab PO SCH (06:32)
[2018-11-07] MEDS: Pantoprazole 40 MG Tab.CR PO SCH (06:33)
[2018-11-07 07:00] LABS: CHLORIDE,CL 108 mmol/L (98-107); SODIUM,NA 140 mmol/L (136-148)
[2018-11-07] MEDS: Folic Acid 1 MG Tab PO SCH (08:42)
[2018-11-07] MEDS: predniSONE 10 MG Tab PO SCH (08:42)
[2018-11-07] MEDS: Levofloxacin/Dextrose 5%-Water 750 MG in Premix Bag 1 BAG IV SCH (11:02)
[2018-11-07] MEDS: Enoxaparin 40 MG/0.4 ML Syringe SUBCUT SCH (13:18)
--- NOTE | 2018-11-07 19:01 | PCM.PN ---
- General Info Date of Service: 11/07/18 - Review of Systems Systems Review Comment:: no new complaints, reports not feeling ready for discharge but will be tomorrow. - Patient Data Vitals - Most Recent: Last Vital Signs Temp 36.4 C 11/07/18 16:00 Pulse 92 11/07/18 16:00 Resp 20 11/07/18 16:00 BP 122/79 11/07/18 16:00 Pulse Ox 92 L 11/07/18 16:00 Weight - Most Recent: 36.741 kg I&O - Last 24 Hours: Intake & Output 11/07/18 11/07/18 11/07/18 06:59 14:59 22:59 Intake Total 1425 150 Output Total 1090 Balance 335 150 Lab Results Last 24 Hours: Laboratory Results - last 24 hr 11/07/18 11/07/18 Range/Units 05:56 05:56 WBC 7.06 (4.0-11.0) K/uL RBC 2.67 L (4.50-5.90) M/uL Hgb 9.4 L (13.0-17.0) g/dL Hct 28.0 L (38.0-50.0) % MCV 104.9 H (80.0-98.0) fL MCH 35.2 H (27.0-32.0) pg MCHC 33.6 (31.0-37.0) g/dL RDW Std Deviation 80.1 H (28.0-62.0) fl RDW Coeff of Brianna 21 H (11.0-15.0) % Plt Count 230 (150-400) K/uL MPV 10.90 (7.40-12.00) fL Add Manual Diff YES Neutrophils % (Manual) 42 L (48.0-80.0) % Band Neutrophils % 5 % Lymphocytes % (Manual) 48 H (16.0-40.0) % Monocytes % (Manual) 5 (0.0-15.0) % Nucleated RBC % 0.4 /100WBC Absolute Seg Neuts 3.0 (1.4-5.7) Band Neutrophils # 0.4 Lymphocytes # (Manual) 3.4 H (0.6-2.4) Monocytes # (Manual) 0.4 (0.0-0.8) Nucleated RBCs # 0 K/uL Sodium 140 (136-148) mmol/L Potassium 4.6 (3.5-5.1) mmol/L Chloride 108 H (98-107) mmol/L Carbon Dioxide 26.7 (21.0-32.0) mmol/L BUN 9 (7.0-18.0) mg/dL Creatinine 0.7 L (0.8-1.3) mg/dL Est Cr Clr Drug Dosing 58.32 mL/min Estimated GFR (MDRD) > 60.0 ml/min Glucose 77 (74-106) mg/dL Calcium 8.4 L (8.5-10.1) mg/dL Mohan Results Last 24 Hours: Microbiology 11/02/18 08:28 Aerobic Blood Culture - Final Blood - Venous NO GROWTH AFTER 5 DAYS Anaerobic Blood Culture - Final NO GROWTH AFTER 5 DAYS 11/02/18 08:54 Aerobic Blood Culture - Final Blood - Venous - Lab Draw NO GROWTH AFTER 5 DAYS Anaerobic Blood Culture - Final NO GROWTH AFTER 5 DAYS Med Orders - Current: Current Medications Acetaminophen (Tylenol) 650 mg PO Q4H PRN PRN Reason: Pain/Fever Albuterol/Ipratropium (Duoneb 3.0-0.5 Mg/3 Ml) 3 ml NEB Q6HRRT [facility] Last Admin: 11/07/18 17:23 Dose: 3 ml Enoxaparin Sodium (Lovenox) 40 mg SUBCUT Q24H [facility] Last Admin: 11/07/18 13:18 Dose: 40 mg Folic Acid (Folic Acid) 1 mg PO DAILY [facility] Last Admin: 11/07/18 08:42 Dose: 1 mg Levofloxacin/Dextrose 750 mg/ (Premix) 150 mls @ 100 mls/hr IV Q24H [facility] Last Admin: 11/07/18 11:02 Dose: 100 mls/hr Levothyroxine Sodium (Synthroid) 50 mcg PO ACBREAKFAST [facility] Last Admin: 11/07/18 06:32 Dose: 50 mcg Midodrine (Midodrine) 5 mg PO TID [facility] Last Admin: 11/07/18 13:19 Dose: 5 mg Ondansetron HCl (Zofran) 4 mg IVPUSH Q4H PRN PRN Reason: Nausea/Vomiting Pantoprazole Sodium (Protonix) 40 mg PO ACBREAKFAST [facility] Last Admin: 11/07/18 06:33 Dose: 40 mg Prednisone (Prednisone) 10 mg PO DAILY [facility] Last Admin: 11/07/18 08:42 Dose: 10 mg Sodium Chloride (Saline Flush) 10 ml FLUSH ASDIRECTED PRN PRN Reason: Keep Vein Open Last Admin: 11/02/18 09:34 Dose: 10 ml Sodium Chloride (Saline Flush) 2.5 ml FLUSH ASDIRECTED PRN PRN Reason: Keep Vein Open Last Admin: 11/02/18 09:34 Dose: 2.5 ml Tramadol HCl (Ultram) 50 mg PO Q6H PRN PRN Reason: Pain Last Admin: 11/07/18 14:25 Dose: 50 mg Discontinued Medications Acetaminophen (Tylenol) 650 mg PO NOW ONE Stop: 11/02/18 09:28 Last Admin: 11/02/18 09:32 Dose: 650 mg Albuterol/Ipratropium (Duoneb 3.0-0.5 Mg/3 Ml) 3 ml NEB ONETIME ONE Stop: 11/02/18 08:14 Last Admin: 11/02/18 08:20 Dose: 3 ml Albuterol/Ipratropium (Duoneb 3.0-0.5 Mg/3 Ml) 3 ml NEB Q4HRRT [facility] Last Admin: 11/04/18 13:53 Dose: 3 ml Sodium Chloride (Normal Saline) 500 mls @ 999 mls/hr IV .Bolus ONE Stop: 11/02/18 08:44 Last Admin: 11/02/18 08:41 Dose: Not Given Sodium Chloride (Normal Saline) 1,000 mls @ 999 mls/hr IV .Bolus ONE Stop: 11/02/18 09:39 Last Infusion: 11/02/18 09:28 Dose: 80 mls/hr Ceftriaxone Sodium/Dextrose 1 (gm/ Premix) 50 mls @ 100 mls/hr IV ONETIME ONE Stop: 11/02/18 09:16 Last Admin: 11/02/18 08:54 Dose: 100 mls/hr Levofloxacin/Dextrose 750 mg/ (Premix) 150 mls @ 100 mls/hr IV Q24H [facility] Last Admin: 11/02/18 12:46 Dose: 100 mls/hr Piperacillin Sod/Tazobactam (Sod 4.5 gm/ Sodium Chloride) 100 mls @ 100 mls/hr IV Q6H [facility] Last Admin: 11/04/18 11:32 Dose: Not Given Vancomycin HCl 500 mg/ Sodium (Chloride) 100 mls @ 100 mls/hr IV Q12H [facility] Last Admin: 11/02/18 16:06 Dose: Not Given Sodium Chloride (Normal Saline) 1,000 mls @ 100 mls/hr IV ASDIRECTED [facility] Last Admin: 11/06/18 22:21 Dose: 100 mls/hr Vancomycin HCl 500 mg/ Sodium (Chloride) 100 mls @ 100 mls/hr IV Q12H [facility] Last Admin: 11/02/18 16:15 Dose: Not Given Vancomycin HCl 500 mg/ Sodium (Chloride) 100 mls @ 100 mls/hr IV Q12H [facility] Last Admin: 11/04/18 04:14 Dose: 100 mls/hr Sodium Chloride (Normal Saline) Confirm Administered Dose 100 mls @ as directed .ROUTE .STK-MED ONE Stop: 11/03/18 11:16 Last Admin: 11/03/18 11:47 Dose: Not Given Morphine Sulfate (Morphine) 2 mg IVPUSH ONETIME ONE Stop: 11/02/18 08:15 Last Admin: 11/02/18 08:33 Dose: 2 mg Ondansetron HCl (Zofran) 4 mg IVPUSH ONETIME ONE Stop: 11/02/18 08:15 Last Admin: 11/02/18 08:32 Dose: 4 mg Potassium Chloride (Klor-Con M20) 40 meq PO ONETIME ONE Stop: 11/03/18 10:45 Last Admin: 11/03/18 11:09 Dose: 40 meq Prednisone (Prednisone) 5 mg PO DAILY [facility] Tramadol HCl (Ultram) 50 mg PO BEDTIME PRN PRN Reason: Pain Tramadol HCl (Ultram) 50 mg PO Q8H PRN PRN Reason: Pain Last Admin: 11/04/18 05:33 Dose: 50 mg Vancomycin HCl (Pharmacy To Dose - Vancomycin) 1 dose .XX ASDIRECTED [facility] - Exam General: Alert, Oriented Neck: Supple Lungs: Clear to Auscultation, Normal Respiratory Effort Cardiovascular: Regular Rate, Regular Rhythm GI/Abdominal Exam: Soft, Non-Tender Back Exam: Normal Inspection, Full Range of Motion Extremities: Non-Tender, No Pedal Edema Skin: Warm, Dry, Intact - Problem List Review Problem List Initiated/Reviewed/Updated: Yes - Plan Plan:: 62 yo male with pmh of COPD admitted for pneumonia. We will continue Levaquin. Plan is for discharge home tomorrow.
[2018-11-08] MEDS: Albuterol/Ipratropium 3.0-0.5 MG/3 ML Neb Soln NEB SCH ×3 (00:57→13:32)
[2018-11-08] MEDS: traMADol 50 MG Tab PO PRN ×2 (02:41→08:56)
[2018-11-08] MEDS: Pantoprazole 40 MG Tab.CR PO SCH (06:34)
[2018-11-08] MEDS: Midodrine 5 MG Tab PO SCH (06:34)
[2018-11-08] MEDS: Levothyroxine 50 MCG Tab PO SCH (06:34)
--- NOTE | 2018-11-08 08:03 | PCM.DCSUM1 ---
Discharge Summary - Discharge Data Discharge Date: 11/08/18 Discharge Disposition: Home, Self-Care 01 Condition: Good - Patient Summary/Data Hospital Course: 62 yo male with pmh of oxygen dependant COPD, renal transplant, CAD and hypothyrodism who was admitted for health care associated pneumonia. He presented to the ED with shortness of breath, cough, and fevers. He was noted to have a leukocytosis of 20,000 and CXR showing left basilar infiltrate. His influenza screen was negative. He was treated initially for a possible gram negative tete respiratory infection with vancomycin zosyn and levaquin. When cultures grew out normal respiratory yumiko he was only kept on Levaquin. His leukocytosis and shortness of breath resolved. Today patient is agreeable to discharge. He will be discharge home to have follow up with Dr. Mueller. - Patient Instructions Diet: Regular Diet as Tolerated - Discharge Plan Home Medications: Home Meds Furosemide 20 mg PO DAILY 12/06/15 [History] Levothyroxine 50 mcg PO ACBREAKFAST 12/06/15 [History] predniSONE [Prednisone] 5 mg PO DAILY 12/06/15 [History] Alendronate Sodium [Fosamax] 70 mg PO Q7D 12/07/15 [History] Zolpidem [Ambien] 10 mg PO BEDTIME PRN 12/07/15 [History] Budesonide/Formoterol Fumarate [Symbicort 160-4.5 Mcg Inhaler] 1 puff IH BID 05/20 [History] Albuterol Sulfate [Proair Hfa] 2 puff IH BID PRN 08/07/18 [History] Folic Acid 1 mg PO DAILY 08/07/18 [History] Midodrine 5 mg PO TID 08/07/18 [History] Pantoprazole Sodium [Protonix] 40 mg PO ACBREAKFAST 08/07/18 [History] traMADol [Ultram] 50 mg PO BEDTIME PRN 10/05/18 [History] Referrals: [facility] [Outside] Ashutosh Mueller MD [Physician] - 11/16/18 2:30 pm - Discharge Summary/Plan Comment DC Time >30 min.: No - Patient Data Vitals - Most Recent: Last Vital Signs Temp 36.7 C 11/08/18 07:35 Pulse 106 H 11/08/18 07:35 Resp 18 11/08/18 07:35 BP 105/60 11/08/18 07:35 Pulse Ox 93 L 11/08/18 07:35 Weight - Most Recent: 36.741 kg I&O - Last 24 hours: Intake & Output 11/07/18 11/08/18 11/08/18 22:59 06:59 14:59 Intake Total 350 320 Output Total 750 1035 Balance -400 -715 MARNIE Results - Last 24 hrs: Microbiology 11/02/18 08:28 Aerobic Blood Culture - Final Blood - Venous NO GROWTH AFTER 5 DAYS Anaerobic Blood Culture - Final NO GROWTH AFTER 5 DAYS 11/02/18 08:54 Aerobic Blood Culture - Final Blood - Venous - Lab Draw NO GROWTH AFTER 5 DAYS Anaerobic Blood Culture - Final NO GROWTH AFTER 5 DAYS Med Orders - Current: Current Medications Acetaminophen (Tylenol) 650 mg PO Q4H PRN PRN Reason: Pain/Fever Albuterol/Ipratropium (Duoneb 3.0-0.5 Mg/3 Ml) 3 ml NEB Q6HRRT [facility] Last Admin: 11/08/18 06:02 Dose: 3 ml Enoxaparin Sodium (Lovenox) 40 mg SUBCUT Q24H [facility] Last Admin: 11/07/18 13:18 Dose: 40 mg Folic Acid (Folic Acid) 1 mg PO DAILY [facility] Last Admin: 11/07/18 08:42 Dose: 1 mg Levofloxacin/Dextrose 750 mg/ (Premix) 150 mls @ 100 mls/hr IV Q24H [facility] Last Admin: 11/07/18 11:02 Dose: 100 mls/hr Levothyroxine Sodium (Synthroid) 50 mcg PO ACBREAKFAST [facility] Last Admin: 11/08/18 06:34 Dose: 50 mcg Midodrine (Midodrine) 5 mg PO TID [facility] Last Admin: 11/08/18 06:34 Dose: 5 mg Ondansetron HCl (Zofran) 4 mg IVPUSH Q4H PRN PRN Reason: Nausea/Vomiting Pantoprazole Sodium (Protonix) 40 mg PO ACBREAKFAST [facility] Last Admin: 11/08/18 06:34 Dose: 40 mg Prednisone (Prednisone) 10 mg PO DAILY [facility] Last Admin: 11/07/18 08:42 Dose: 10 mg Sodium Chloride (Saline Flush) 10 ml FLUSH ASDIRECTED PRN PRN Reason: Keep Vein Open Last Admin: 11/02/18 09:34 Dose: 10 ml Sodium Chloride (Saline Flush) 2.5 ml FLUSH ASDIRECTED PRN PRN Reason: Keep Vein Open Last Admin: 11/02/18 09:34 Dose: 2.5 ml Tramadol HCl (Ultram) 50 mg PO Q6H PRN PRN Reason: Pain Last Admin: 11/08/18 02:41 Dose: 50 mg Discontinued Medications Acetaminophen (Tylenol) 650 mg PO NOW ONE Stop: 11/02/18 09:28 Last Admin: 11/02/18 09:32 Dose: 650 mg Albuterol/Ipratropium (Duoneb 3.0-0.5 Mg/3 Ml) 3 ml NEB ONETIME ONE Stop: 11/02/18 08:14 Last Admin: 11/02/18 08:20 Dose: 3 ml Albuterol/Ipratropium (Duoneb 3.0-0.5 Mg/3 Ml) 3 ml NEB Q4HRRT [facility] Last Admin: 11/04/18 13:53 Dose: 3 ml Sodium Chloride (Normal Saline) 500 mls @ 999 mls/hr IV .Bolus ONE Stop: 11/02/18 08:44 Last Admin: 11/02/18 08:41 Dose: Not Given Sodium Chloride (Normal Saline) 1,000 mls @ 999 mls/hr IV .Bolus ONE Stop: 11/02/18 09:39 Last Infusion: 11/02/18 09:28 Dose: 80 mls/hr Ceftriaxone Sodium/Dextrose 1 (gm/ Premix) 50 mls @ 100 mls/hr IV ONETIME ONE Stop: 11/02/18 09:16 Last Admin: 11/02/18 08:54 Dose: 100 mls/hr Levofloxacin/Dextrose 750 mg/ (Premix) 150 mls @ 100 mls/hr IV Q24H [facility] Last Admin: 11/02/18 12:46 Dose: 100 mls/hr Piperacillin Sod/Tazobactam (Sod 4.5 gm/ Sodium Chloride) 100 mls @ 100 mls/hr IV Q6H [facility] Last Admin: 11/04/18 11:32 Dose: Not Given Vancomycin HCl 500 mg/ Sodium (Chloride) 100 mls @ 100 mls/hr IV Q12H [facility] Last Admin: 11/02/18 16:06 Dose: Not Given Sodium Chloride (Normal Saline) 1,000 mls @ 100 mls/hr IV ASDIRECTED [facility] Last Admin: 11/06/18 22:21 Dose: 100 mls/hr Vancomycin HCl 500 mg/ Sodium (Chloride) 100 mls @ 100 mls/hr IV Q12H [facility] Last Admin: 11/02/18 16:15 Dose: Not Given Vancomycin HCl 500 mg/ Sodium (Chloride) 100 mls @ 100 mls/hr IV Q12H [facility] Last Admin: 11/04/18 04:14 Dose: 100 mls/hr Sodium Chloride (Normal Saline) Confirm Administered Dose 100 mls @ as directed .ROUTE .STK-MED ONE Stop: 11/03/18 11:16 Last Admin: 11/03/18 11:47 Dose: Not Given Morphine Sulfate (Morphine) 2 mg IVPUSH ONETIME ONE Stop: 11/02/18 08:15 Last Admin: 11/02/18 08:33 Dose: 2 mg Ondansetron HCl (Zofran) 4 mg IVPUSH ONETIME ONE Stop: 11/02/18 08:15 Last Admin: 11/02/18 08:32 Dose: 4 mg Potassium Chloride (Klor-Con M20) 40 meq PO ONETIME ONE Stop: 11/03/18 10:45 Last Admin: 11/03/18 11:09 Dose: 40 meq Prednisone (Prednisone) 5 mg PO DAILY [facility] Tramadol HCl (Ultram) 50 mg PO BEDTIME PRN PRN Reason: Pain Tramadol HCl (Ultram) 50 mg PO Q8H PRN PRN Reason: Pain Last Admin: 11/04/18 05:33 Dose: 50 mg Vancomycin HCl (Pharmacy To Dose - Vancomycin) 1 dose .XX ASDIRECTED [facility]
[2018-11-08] MEDS: predniSONE 10 MG Tab PO SCH (08:54)
[2018-11-08] MEDS: Folic Acid 1 MG Tab PO SCH (08:54)
[2018-11-08 11:22] VITALS: BP 106/68
[2018-11-08] MEDS: Levofloxacin/Dextrose 5%-Water 750 MG in Premix Bag 1 BAG IV SCH (12:30)
[2018-11-08] MEDS: Enoxaparin 40 MG/0.4 ML Syringe SUBCUT SCH (12:30)
--- NOTE | 2018-12-06 07:52 | EDM.PDOC ---
ED HPI GENERAL MEDICAL PROBLEM - General Chief Complaint: Respiratory Problem Stated Complaint: AMB Time Seen by Provider: 11/02/18 08:09 Source of Information: Reports: Patient History Limitations: Reports: No Limitations - History of Present Illness INITIAL COMMENTS - FREE TEXT/NARRATIVE: History of present illness: []Patient has streaky of COPD and renal transplant with the complaint of cough, fevers, chills and shortness of breath today. Patient uses oxygen and inhalers at home but still feels short of breath. He denies any nausea, vomiting or diarrhea. Patient was diagnosed with pneumonia in August of this year has been intubated in the past for his COPD. Review of systems: As per history of present illness and below otherwise all systems reviewed and negative. Past medical history: As per history of present illness and as reviewed below otherwise noncontributory. Surgical history: As per history of present illness and as reviewed below otherwise noncontributory. Social history: No reported history of drug or alcohol abuse. Family history: As per history of present illness and as reviewed below otherwise noncontributory. Physical exam: General: Well developed, well nourished in NAD HEENT: Atraumatic, normocephalic, pupils reactive, negative for conjunctival pallor or scleral icterus, mucous membranes moist, throat clear, neck supple, nontender, trachea midline. Lungs: Clear to auscultation, breath sounds equal bilaterally, chest nontender. Heart: S1S2, regular, negative for clicks, rubs, or JVD. Abdomen: NABS, Soft, nondistended, nontender. Negative for masses or hepatosplenomegaly. Negative for costovertebral tenderness. Pelvis: Stable nontender. Genitourinary: Deferred. Rectal: Deferred. Extremities: Atraumatic, negative for cords or calf pain. Neurovascular unremarkable. Neuro: Awake, alert, oriented. Cranial nerves II through XII unremarkable. Cerebellum unremarkable. Motor and sensory unremarkable throughout. Exam nonfocal. Skin:warm and dry Diagnostics: CBC, chemistry, lactate, blood cultures, chest x-ray, EKG Therapeutics: DuoNeb, IV hydration ED Course: Impression: Left lower lobe pneumonia Prescriptions: None Plan: Admit to hospitalist Definitive disposition and diagnosis as appropriate pending reevaluation and review of above. all over Pain Score (Numeric/FACES): 5 generalized Pain Score (Numeric/FACES): 5 - Related Data Allergies Allergy/AdvReac Type Severity Reaction Status Date / Time nifedipine [From Procardia] Allergy Itching Verified 11/02/18 12:05 muscle relaxant medicine? Allergy Itching Uncoded 11/02/18 12:05 Home Meds: Home Meds Furosemide 20 mg PO DAILY 12/06/15 [History] Levothyroxine 50 mcg PO ACBREAKFAST 12/06/15 [History] predniSONE [Prednisone] 5 mg PO DAILY 12/06/15 [History] Alendronate Sodium [Fosamax] 70 mg PO Q7D 12/07/15 [History] Zolpidem [Ambien] 10 mg PO BEDTIME PRN 12/07/15 [History] Budesonide/Formoterol Fumarate [Symbicort 160-4.5 Mcg Inhaler] 1 puff IH BID 05/20 [History] Albuterol Sulfate [Proair Hfa] 2 puff IH BID PRN 08/07/18 [History] Folic Acid 1 mg PO DAILY 08/07/18 [History] Midodrine 5 mg PO TID 08/07/18 [History] Pantoprazole Sodium [Protonix] 40 mg PO ACBREAKFAST 08/07/18 [History] traMADol [Ultram] 50 mg PO BEDTIME PRN 10/05/18 [History] Past Medical History HEENT History: Reports: Cataract, Hard of Hearing, Other (See Below) Other HEENT History: impaired hearing-with hearing aid on the right ear Cardiovascular History: Reports: Heart Failure Respiratory History: Reports: Asthma, COPD Gastrointestinal History: Reports: None Genitourinary History: Reports: Renal Disease Musculoskeletal History: Reports: Back Pain, Chronic, Osteoarthritis Neurological History: Reports: None Psychiatric History: Reports: None Endocrine/Metabolic History: Reports: Hypothyroidism Hematologic History: Reports: Anemia, Blood Transfusion(s), Other (See Below) Other Hematologic History: history of low platelet Immunologic History: Reports: Solid Organ Transplant Oncologic (Cancer) History: Reports: Other (See Below) Other Oncologic History: 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 left Endocrine Surgical History: Reports: Thyroidectomy Musculoskeletal Surgical History: Reports: Arthroscopic Knee Social & Family History - Family History Family Medical History: Noncontributory HEENT: Reports: None Cardiac: Reports: None - Tobacco Use Smoking Status *Q: Former Smoker Used Tobacco, but Quit: Yes Month/Year Tobacco Last Used: 15 Second Hand Smoke Exposure: No - Caffeine Use Caffeine Use: Reports: Coffee - Recreational Drug Use Recreational Drug Use: No - Living Situation & Occupation Living situation: Reports: , with Significant Other ED ROS GENERAL - Review of Systems Review Of Systems: ROS reveals no pertinent complaints other than HPI. ED EXAM, GENERAL - Physical Exam Exam: See Below (See history of present illness) GI/Abdominal: Soft, Non-Tender Back Exam: Normal Inspection, Full Range of Motion Extremities: Non-Tender, No Pedal Edema Course - Vital Signs Last Recorded V/S: Last Vital Signs Temp 98.6 F 11/08/18 11:21 Pulse 92 11/08/18 11:21 Resp 16 11/08/18 11:21 BP 106/68 11/08/18 11:21 Pulse Ox 92 L 11/08/18 11:21 - Orders/Labs/Meds Labs: Laboratory Tests 11/02/18 11/02/18 11/02/18 Range/Units 08:22 08:22 08:54 WBC 20.40 H (4.0-11.0) K/uL RBC 3.47 L (4.50-5.90) M/uL Hgb 12.2 L (13.0-17.0) g/dL Hct 36.9 L (38.0-50.0) % MCV 106.3 H (80.0-98.0) fL MCH 35.2 H (27.0-32.0) pg MCHC 33.1 (31.0-37.0) g/dL RDW Std Deviation 79.6 H (28.0-62.0) fl RDW Coeff of Brianna 21 H (11.0-15.0) % Plt Count 262 (150-400) K/uL MPV 10.30 (7.40-12.00) fL Neut % (Auto) 74.6 (48.0-80.0) % Lymph % (Auto) 11.1 L (16.0-40.0) % Desha % (Auto) 14.0 (0.0-15.0) % Eos % (Auto) 0.1 (0.0-7.0) % Baso % (Auto) 0.2 (0.0-1.5) % Neut # (Auto) 15.2 H (1.4-5.7) K/uL Lymph # (Auto) 2.3 (0.6-2.4) K/uL Desha # (Auto) 2.9 H (0.0-0.8) K/uL Eos # (Auto) 0.0 (0.0-0.7) K/uL Baso # (Auto) 0.1 (0.0-0.1) K/uL Nucleated RBC % 0.2 /100WBC Nucleated RBCs # 0 K/uL Lactate 2.4 H (0.20-2.00) mmol/L Sodium 137 (136-148) mmol/L Potassium 3.9 (3.5-5.1) mmol/L Chloride 101 (98-107) mmol/L Carbon Dioxide 29.9 (21.0-32.0) mmol/L BUN 16 (7.0-18.0) mg/dL Creatinine 0.8 (0.8-1.3) mg/dL Est Cr Clr Drug Dosing 51.03 mL/min Estimated GFR (MDRD) > 60.0 ml/min Glucose 86 (74-106) mg/dL Calcium 8.7 (8.5-10.1) mg/dL Total Bilirubin 1.5 H (0.2-1.0) mg/dL AST 44 H (15-37) IU/L ALT 35 (14-63) IU/L Alkaline Phosphatase 229 H (46-116) U/L Total Protein 5.7 L (6.4-8.2) g/dL Albumin 2.8 L (3.4-5.0) g/dL Globulin 2.9 (2.6-4.0) g/dL Albumin/Globulin Ratio 1.0 (0.9-1.6) Meds: Medications Discontinued Medications Generic Name Dose Route Start Last Admin Trade Name Freq PRN Reason Stop Dose Admin Acetaminophen 650 mg 11/02/18 09:27 11/02/18 09:32 Tylenol PO 11/02/18 09:28 650 mg NOW ONE Administration Acetaminophen 650 mg 11/02/18 13:03 Tylenol PO Q4H PRN Pain/Fever Albuterol/Ipratropium 3 ml 11/02/18 08:13 11/02/18 08:20 Duoneb 3.0-0.5 Mg/3 Ml NEB 11/02/18 08:14 3 ml ONETIME ONE Administration Albuterol/Ipratropium 3 ml 11/02/18 14:00 11/04/18 13:53 Duoneb 3.0-0.5 Mg/3 Ml NEB 3 ml Q4HRRT ELLIE Administration Albuterol/Ipratropium 3 ml 11/04/18 18:00 11/08/18 13:32 Duoneb 3.0-0.5 Mg/3 Ml NEB Not Given Q6HRRT ELLIE Enoxaparin Sodium 40 mg 11/02/18 12:30 11/08/18 12:30 Lovenox SUBCUT Not Given Q24H ELLIE Folic Acid 1 mg 11/03/18 09:00 11/08/18 08:54 Folic Acid PO 1 mg DAILY ELLIE Administration Heparin Sodium (Porcine) 500 units 11/08/18 12:03 11/08/18 12:13 Heparin Lock Flush 100 Units/Ml FLUSH 11/08/18 12:04 500 units ASDIRECTED ONE Administration Sodium Chloride 500 mls @ 999 mls/hr 11/02/18 08:14 11/02/18 08:41 Normal Saline IV 11/02/18 08:44 Not Given .Bolus ONE Sodium Chloride 1,000 mls @ 999 mls/hr 11/02/18 08:39 11/02/18 09:28 Normal Saline IV 11/02/18 09:39 80 mls/hr .Bolus ONE Infusion Ceftriaxone Sodium/Dextrose 1 50 mls @ 100 mls/hr 11/02/18 08:47 11/02/18 08: 54 gm/ Premix IV 11/02/18 09:16 100 mls/hr ONETIME ONE Administration Levofloxacin/Dextrose 750 mg/ 150 mls @ 100 mls/hr 11/02/18 11:15 11/02/18 12 :46 Premix IV 100 mls/hr Q24H ELLIE Administration Piperacillin Sod/Tazobactam 100 mls @ 100 mls/hr 11/02/18 11:15 11/04/18 11: 32 Sod 4.5 gm/ Sodium Chloride IV Not Given Q6H ELLIE Vancomycin HCl 500 mg/ Sodium 100 mls @ 100 mls/hr 11/02/18 11:30 11/02/18 16 :06 Chloride IV Not Given Q12H ELLIE Sodium Chloride 1,000 mls @ 100 mls/hr 11/02/18 12:30 11/06/18 22:21 Normal Saline IV 100 mls/hr ASDIRECTED ELLIE Administration Vancomycin HCl 500 mg/ Sodium 100 mls @ 100 mls/hr 11/02/18 14:45 11/02/18 16 :15 Chloride IV Not Given Q12H ELLIE Vancomycin HCl 500 mg/ Sodium 100 mls @ 100 mls/hr 11/02/18 16:15 11/04/18 04 :14 Chloride IV 100 mls/hr Q12H [facility] Administration Levofloxacin/Dextrose 750 mg/ 150 mls @ 100 mls/hr 11/04/18 11:00 11/08/18 12 :30 Premix IV Not Given Q24H [facility] Sodium Chloride Confirm 11/03/18 11:15 11/03/18 11:47 Normal Saline Administered 11/03/18 11:16 Not Given Dose 100 mls @ as directed .ROUTE .STK-MED ONE Levothyroxine Sodium 50 mcg 11/03/18 07:30 11/08/18 06:34 Synthroid PO 50 mcg ACBREAKFAST ELLIE Administration Midodrine 5 mg 11/02/18 13:00 11/08/18 06:34 Midodrine PO 5 mg TID ELLIE Administration Morphine Sulfate 2 mg 11/02/18 08:14 11/02/18 08:33 Morphine IVPUSH 11/02/18 08:15 2 mg ONETIME ONE Administration Ondansetron HCl 4 mg 11/02/18 08:14 11/02/18 08:32 Zofran IVPUSH 11/02/18 08:15 4 mg ONETIME ONE Administration Ondansetron HCl 4 mg 11/02/18 13:03 Zofran IVPUSH Q4H PRN Nausea/Vomiting Pantoprazole Sodium 40 mg 11/03/18 07:30 11/08/18 06:34 Protonix PO 40 mg ACBREAKFAST ELLIE Administration Potassium Chloride 40 meq 11/03/18 10:44 11/03/18 11:09 Klor-Con M20 PO 11/03/18 10:45 40 meq ONETIME ONE Administration Prednisone 5 mg 11/03/18 09:00 Prednisone PO DAILY ELLIE Prednisone 10 mg 11/03/18 09:00 11/08/18 08:54 Prednisone PO 10 mg DAILY ELLIE Administration Sodium Chloride 10 ml 11/02/18 08:14 11/02/18 09:34 Saline Flush FLUSH 10 ml ASDIRECTED PRN Administration Keep Vein Open Sodium Chloride 2.5 ml 11/02/18 08:14 11/02/18 09:34 Saline Flush FLUSH 2.5 ml ASDIRECTED PRN Administration Keep Vein Open Tramadol HCl 50 mg 11/02/18 12:59 Ultram PO BEDTIME PRN Pain Tramadol HCl 50 mg 11/02/18 18:57 11/04/18 05:33 Ultram PO 50 mg Q8H PRN Administration Pain Tramadol HCl 50 mg 11/04/18 11:24 11/08/18 08:56 Ultram PO 50 mg Q6H PRN Administration Pain Vancomycin HCl 1 dose 11/02/18 11:15 Pharmacy To Dose - Vancomycin .XX ASDIRECTED [facility] Departure - Departure Time of Disposition: 07:59 Disposition: Admitted As Inpatient 68 Condition: Good Clinical Impression: Left lower lobe pneumonia Qualifiers: Pneumonia type: due to unspecified organism Qualified Code(s): J18.1 - Lobar pneumonia, unspecified organism COPD (chronic obstructive pulmonary disease) Qualifiers: COPD type: unspecified COPD Qualified Code(s): J44.9 - Chronic obstructive pulmonary disease, unspecified - Discharge Information *PRESCRIPTION DRUG MONITORING PROGRAM REVIEWED*: No *COPY OF PRESCRIPTION DRUG MONITORING REPORT IN PATIENT KATIE: No
== END 2018-11-08 14:00 | disposition home health service (06) | DRG 871 ==
LOC: MW.ED 08:08 → MW.MS 12:14
PROVIDERS: ADMIT Internal Medicine; ATTEND Internal Medicine
DX: A41.9 Sepsis, unspecified organism (principal); J18.9 Pneumonia, unspecified organism; J44.0 Chronic obstructive pulmonary disease with (acute) lower respiratory infection; J18.1 Lobar pneumonia, unspecified organism; Z94.0 Kidney transplant status; Y95 Nosocomial condition; I25.10 Atherosclerotic heart disease of native coronary artery without angina pectoris; E89.0 Postprocedural hypothyroidism; I50.9 Heart failure, unspecified; E87.6 Hypokalemia; M54.9 Dorsalgia, unspecified; G89.29 Other chronic pain; J44.9 Chronic obstructive pulmonary disease, unspecified; M19.90 Unspecified osteoarthritis, unspecified site; D64.9 Anemia, unspecified; H91.90 Unspecified hearing loss, unspecified ear; Z85.89 Personal history of malignant neoplasm of other organs and systems; Z99.81 Dependence on supplemental oxygen; Z79.899 Other long term (current) drug therapy; Z88.8 Allergy status to other drugs, medicaments and biological substances; Z79.890 Hormone replacement therapy; Z79.52 Long term (current) use of systemic steroids; Z90.49 Acquired absence of other specified parts of digestive tract; Z87.891 Personal history of nicotine dependence; R50.9 Fever, unspecified; R05 Cough; R06.02 Shortness of breath
CPT/HCPCS: 36415; 71045; 80053; 83605; 85025; 87040 ×2; 87804 ×2; 93005; 94640; 96361; 96365; 96367; 96375; 99285; A9270; J0696; J2270; J2405; J2543; J7030; J7040; 80048; 81001; 87070; 87205; J1642; J1650; J1956; J3370; J7620-GY

== ENCOUNTER 2019-03-07 22:07 | Emergency (ER) | payer MEDICAID ==
[2019-03-07] MEDS ORDERED: traMADol 50 MG Tab PO ONE (22:09)
--- NOTE | 2019-03-07 22:13 | EDM.PDOC ---
ED HPI GENERAL MEDICAL PROBLEM - General Stated Complaint: PT FELL Time Seen by Provider: 03/07/19 22:09 Source of Information: Reports: Patient History Limitations: Reports: No Limitations - History of Present Illness INITIAL COMMENTS - FREE TEXT/NARRATIVE: HISTORY AND PHYSICAL: History of present illness: Patient is a 63-year-old male who presents to the emergency room with complaints of left shoulder pain. He states he tripped and reached out to grab onto a chair but fell onto his left side. He is complaining of left shoulder pain. He denies hitting his head or having any loss of consciousness. Does not take any blood thinners or aspirin. History of osteoarthritis. Patient denies any fever, chills, headache, change in vision, syncope or near syncope. Denies any chest pain, back pain, shortness of breath or cough. Denies any GI or symptoms. Patient has been eating and drinking appropriately. Review of systems: As per history of present illness and below otherwise all systems reviewed and negative. Past medical history: As per history of present illness and as reviewed below otherwise noncontributory. Surgical history: As per history of present illness and as reviewed below otherwise noncontributory. Social history: See social history for further information Family history: As per history of present illness and as reviewed below otherwise noncontributory. Physical exam: General: Well developed and well nourished 62-year-old male. Alert and oriented. Nontoxic appearing and in no acute distress. HEENT: Atraumatic, normocephalic, pupils equal and reactive bilaterally, negative for conjunctival pallor or scleral icterus, mucous membranes moist, nontender, trachea midline. No drooling or trismus noted. No meningeal signs. No hot potato voice noted. Lungs: Clear to auscultation, breath sounds equal bilaterally, chest nontender. Heart: S1S2, regular rate and rhythm without overt murmur Abdomen: Soft, nondistended, nontender. Negative for costovertebral tenderness. Pelvis: Stable nontender. Skin: Small skin tear to the left elbow. Otherwise skin is intact, warm, dry. No lesions or rashes noted. Extremities: Pain with palpation to the left anterior shoulder. Limited range of motion due to pain. He is able to reach across with the left hand to touch the right shoulder. No obvious deformities noted. Strong radial pulses bilaterally. Otherwise moves all extremities per self without difficulty or deficits, negative for cords or calf pain. Neurovascular unremarkable. Neuro: Awake, alert, oriented. Cranial nerves II through XII unremarkable. Cerebellum unremarkable. Motor and sensory unremarkable throughout. Exam nonfocal. Notes: X-ray shows a remote appearing deformity of the left humeral head with two surgical anchors present. No acute abnormality. A bacitracin nonstick dressing was applied over these kin tear. Sling was applied. Supportive care measures were reviewed and discussed. Voices understanding and is agreeable to plan of care. Denies any further questions or concerns at this time. Diagnostics: Left shoulder x-ray Therapeutics: Tramadol, sling Prescription: None Impression: Left shoulder injury Plan: 1. Rest, ice, elevate the affected extremity. Please wear the sling as directed. 2. Tylenol and/or Ibuprofen as needed for pain management. 3. Follow up with the Orthopedic provider as we discussed. Return to the ED as needed and as discussed. Definitive disposition and diagnosis as appropriate pending reevaluation and review of above. left shoulder Pain Score (Numeric/FACES): 10 - Related Data Allergies Allergy/AdvReac Type Severity Reaction Status Date / Time nifedipine [From Procardia] Allergy Itching Verified 03/07/19 22:41 muscle relaxant medicine? Allergy Itching Uncoded 03/07/19 22:41 Home Meds: Home Meds Furosemide 20 mg PO DAILY 12/06/15 [History] Levothyroxine 50 mcg PO ACBREAKFAST 12/06/15 [History] predniSONE [Prednisone] 5 mg PO DAILY 12/06/15 [History] Alendronate Sodium [Fosamax] 70 mg PO Q7D 12/07/15 [History] Zolpidem [Ambien] 10 mg PO BEDTIME PRN 12/07/15 [History] Budesonide/Formoterol Fumarate [Symbicort 160-4.5 Mcg Inhaler] 1 puff IH BID 05/20 [History] Albuterol Sulfate [Proair Hfa] 2 puff IH BID PRN 08/07/18 [History] Folic Acid 1 mg PO DAILY 08/07/18 [History] Midodrine 5 mg PO TID 08/07/18 [History] Pantoprazole Sodium [Protonix] 40 mg PO ACBREAKFAST 08/07/18 [History] traMADol [Ultram] 50 mg PO BEDTIME PRN 10/05/18 [History] Past Medical History HEENT History: Reports: Cataract, Hard of Hearing, Other (See Below) Other HEENT History: impaired hearing-with hearing aid on the right ear Cardiovascular History: Reports: Heart Failure Respiratory History: Reports: Asthma, COPD Gastrointestinal History: Reports: None Genitourinary History: Reports: Renal Disease Musculoskeletal History: Reports: Back Pain, Chronic, Osteoarthritis Neurological History: Reports: None Psychiatric History: Reports: None Endocrine/Metabolic History: Reports: Hypothyroidism Hematologic History: Reports: Anemia, Blood Transfusion(s), Other (See Below) Other Hematologic History: history of low platelet Immunologic History: Reports: Solid Organ Transplant Oncologic (Cancer) History: Reports: Other (See Below) Other Oncologic History: 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 left Endocrine Surgical History: Reports: Thyroidectomy Musculoskeletal Surgical History: Reports: Arthroscopic Knee Social & Family History - Family History Family Medical History: Noncontributory HEENT: Reports: None Cardiac: Reports: None - Caffeine Use Caffeine Use: Reports: Coffee - Living Situation & Occupation Living situation: Reports: , with Significant Other Review of Systems - Review of Systems Review Of Systems: ROS reveals no pertinent complaints other than HPI. ED EXAM, GENERAL - Physical Exam Exam: See Below (See dictation) Course - Vital Signs Last Recorded V/S: Last Vital Signs Temp 96.1 F 03/07/19 22:09 Pulse 77 03/07/19 22:09 Resp 17 03/07/19 22:09 BP 112/73 03/07/19 22:09 Pulse Ox 98 03/07/19 22:09 - Orders/Labs/Meds Orders: Active Orders 24 hr Category Date Time Status DME for Discharge [COMM] Stat Oth 03/07/19 22:55 Ordered Meds: Medications Discontinued Medications Generic Name Dose Route Start Last Admin Trade Name Freq PRN Reason Stop Dose Admin Bacitracin 1 dose 03/07/19 22:55 03/07/19 23:01 Bacitracin Oint 1 Gm TOP 03/07/19 22:56 1 dose ONETIME ONE Administration Tramadol HCl 50 mg 03/07/19 22:09 03/07/19 22:16 Ultram PO 03/07/19 22:10 50 mg ONETIME ONE Administration Departure - Departure Time of Disposition: 23:17 Disposition: Home, Self-Care 01 Clinical Impression: Injury of left shoulder Qualifiers: Encounter type: initial encounter Qualified Code(s): S49.92XA - Unspecified injury of left shoulder and upper arm, initial encounter - Discharge Information Instructions: Shoulder Pain, [id number] Referrals: PCP,None [Primary Care Provider] - Additional Instructions: The following information is given to patients seen in the emergency department who are being discharged to home. This information is to outline your options for follow-up care. We provide all patients seen in our emergency department with a follow-up referral. The need for follow-up, as well as the timing and circumstances, are variable depending upon the specifics of your emergency department visit. If you don't have a primary care physician on staff, we will provide you with a referral. We always advise you to contact your personal physician following an emergency department visit to inform them of the circumstance of the visit and for follow-up with them and/or the need for any referrals to a consulting specialist. The emergency department will also refer you to a specialist when appropriate. This referral assures that you have the opportunity for follow-up care with a specialist. All of these measure are taken in an effort to provide you with optimal care, which includes your follow-up. Under all circumstances we always encourage you to contact your private physician who remains a resource for coordinating your care. When calling for follow-up care, please make the office aware that this follow-up is from your recent emergency room visit. If for any reason you are refused follow-up, please contact the [facility] Emergency Department at and asked to speak to the emergency department charge nurse. [facility] Primary Care [address] [place] [address] [id number] [facility] [address] [place] [id number] 1. Rest, ice, elevate the affected extremity. Please wear the sling as directed. 2. Tylenol and/or Ibuprofen as needed for pain management. 3. Follow up with the Orthopedic provider as we discussed. Return to the ED as needed and as discussed. - My Orders Last 24 Hours: My Active Orders 03/07/19 22:55 DME for Discharge [COMM] Stat - Assessment/Plan Last 24 Hours: My Active Orders 03/07/19 22:55 DME for Discharge [COMM] Stat
[2019-03-07] MEDS ORDERED: Bacitracin Oint 1 GM U/D Packet TOP ONE (22:55)
--- NOTE | 2019-03-07 23:11 | CR ---
Indication: Fall, injury Technique: Three views left shoulder Comparison: None Findings: Bones: Osteopenia. Two surgical anchors in the humeral head. Remote appearing deformity of the humeral head. Alignment is normal. No fractures or bone lesions. Joint spaces: Unremarkable. Soft tissues: Unremarkable. Impression: No acute abnormality. Remote appearing deformity of the left humeral head with two surgical anchors present. Dictated by Shi Bertrand MD @ Mar 07 2019 11:09PM Signed by Dr. Shi Bertrand @ Mar 07 2019 11:10PM
[2019-03-07 23:29] VITALS: BP 112/80; PULSE 80
== END 2019-03-07 23:31 | disposition home or self-care (01) ==
LOC: MW.ED 22:07
DX: S49.92XA Unspecified injury of left shoulder and upper arm, initial encounter (principal); S51.012A Laceration without foreign body of left elbow, initial encounter; J44.9 Chronic obstructive pulmonary disease, unspecified; I50.9 Heart failure, unspecified; E03.9 Hypothyroidism, unspecified; Z88.8 Allergy status to other drugs, medicaments and biological substances; Z79.899 Other long term (current) drug therapy; W01.0XXA Fall on same level from slipping, tripping and stumbling without subsequent striking against object, initial encounter
CPT/HCPCS: 73030; 99284; A9270; 99283

== ENCOUNTER 2019-04-05 22:00 | Observation (INO) | payer MEDICAID ==
--- NOTE | 2019-04-05 22:32 | EDM.PDOC ---
ED HPI GENERAL MEDICAL PROBLEM - General Chief Complaint: Syncope Stated Complaint: AMB Time Seen by Provider: 04/05/19 22:04 Source of Information: Reports: Patient History Limitations: Reports: No Limitations - History of Present Illness INITIAL COMMENTS - FREE TEXT/NARRATIVE: HISTORY AND PHYSICAL: History of present illness: Patient is a 63-year-old male presents to the ED today via EMS with concern of a syncopal event that occurred just prior to arrival to the ED. Patient states he got up to go to the bathroom and when he woke up he was on the ground. Patient states he did not know that he had lost consciousness but woke up on the ground and called 911. Patient states his only complaint at this time is right shoulder pain and chest discomfort. Patient denies any other symptoms or concerns. Patient has a history of renal transplant on immunosuppression medication, urinary tract infection, COPD. Patient denies fever, chills, shortness of breath, or cough. Denies headache, neck stiff ness, change in vision. Denies nausea, vomiting, abdominal pain, diarrhea, constipation, or dysuria. Has not noted any blood in urine or stool. Patient has been eating and drinking appropriately. Review of systems: As per history of present illness and below otherwise all systems reviewed and negative. Past medical history: As per history of present illness and as reviewed below otherwise noncontributory. Surgical history: As per history of present illness and as reviewed below otherwise noncontributory. Social history: See social history for further information Family history: As per history of present illness and as reviewed below otherwise noncontributory. Physical exam: General: Patient is alert, oriented, and in no acute distress. Patient laying comfortably on exam table. HEENT: Atraumatic, normocephalic, pupils equal and reactive bilaterally, negative for conjunctival pallor or scleral icterus, mucous membranes moist, TMs normal bilaterally, throat clear, neck supple, nontender, trachea midline. No drooling or trismus noted. No meningeal signs. No hot potato voice noted. Lungs: Clear to auscultation, breath sounds equal bilaterally, chest nontender. Heart: S1S2, regular rate and rhythm without overt murmur Abdomen: Soft, nondistended, nontender. Scarring consistent with surgical history. Negative for masses or hepatosplenomegaly. Negative for costovertebral tenderness. Pelvis: Stable nontender. Genitourinary: Deferred. Rectal: Deferred. Skin: Intact, warm, dry. No lesions or rashes noted. Extremities: Atraumatic, negative for cords or calf pain. Neurovascular unremarkable. Neuro: Awake, alert, oriented. Cranial nerves II through XII unremarkable. Cerebellum unremarkable. Motor and sensory unremarkable throughout. Exam nonfocal. Notes: Patient expresses resolution of chest discomfort. Dr. Olson consult on patient and will admit to observation. Voices understanding and is agreeable to plan of care. Denies any further questions or concerns at this time. Diagnostics: CBC, CMP, UA, EKG, chest x-ray, troponin, orthostatic vitals, head CT Therapeutics: None Impression: Chest pain r/o ACS Plan: 1. Admit to observation to Dr. Olson. Definitive disposition and diagnosis as appropriate pending reevaluation and review of above. Right Shoulder Pain Score (Numeric/FACES): 6 - Related Data Allergies Allergy/AdvReac Type Severity Reaction Status Date / Time nifedipine [From Procardia] Allergy Itching Verified 04/05/19 22:10 muscle relaxant medicine? Allergy Itching Uncoded 04/05/19 22:10 Home Meds: Home Meds Furosemide 20 mg PO DAILY 12/06/15 [History] Levothyroxine 50 mcg PO ACBREAKFAST 12/06/15 [History] predniSONE [Prednisone] 5 mg PO DAILY 12/06/15 [History] Alendronate Sodium [Fosamax] 70 mg PO Q7D 12/07/15 [History] Zolpidem [Ambien] 10 mg PO BEDTIME PRN 12/07/15 [History] Budesonide/Formoterol Fumarate [Symbicort 160-4.5 Mcg Inhaler] 1 puff IH BID 05/20 [History] Albuterol Sulfate [Proair Hfa] 2 puff IH BID PRN 08/07/18 [History] Folic Acid 1 mg PO DAILY 08/07/18 [History] Midodrine 5 mg PO TID 08/07/18 [History] Pantoprazole Sodium [Protonix] 40 mg PO ACBREAKFAST 08/07/18 [History] traMADol [Ultram] 50 mg PO BEDTIME PRN 10/05/18 [History] Past Medical History HEENT History: Reports: Cataract, Hard of Hearing, Other (See Below) Other HEENT History: impaired hearing-with hearing aid on the right ear Cardiovascular History: Reports: Heart Failure Respiratory History: Reports: Asthma, COPD Gastrointestinal History: Reports: None Genitourinary History: Reports: Renal Disease Musculoskeletal History: Reports: Back Pain, Chronic, Osteoarthritis Neurological History: Reports: None Psychiatric History: Reports: Depression Endocrine/Metabolic History: Reports: Hypothyroidism Hematologic History: Reports: Anemia, Blood Transfusion(s), Other (See Below) Other Hematologic History: history of low platelet Immunologic History: Reports: Solid Organ Transplant Oncologic (Cancer) History: Reports: Other (See Below) Other Oncologic History: 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 left Endocrine Surgical History: Reports: Thyroidectomy Musculoskeletal Surgical History: Reports: Arthroscopic Knee Social & Family History - Family History Family Medical History: Noncontributory HEENT: Reports: None Cardiac: Reports: None - Tobacco Use Smoking Status *Q: Former Smoker Used Tobacco, but Quit: Yes Month/Year Tobacco Last Used: 1986 - Caffeine Use Caffeine Use: Reports: Coffee - Recreational Drug Use Recreational Drug Use: No - Living Situation & Occupation Living situation: Reports: , with Significant Other ED ROS GENERAL - Review of Systems Review Of Systems: ROS reveals no pertinent complaints other than HPI. ED EXAM, GENERAL - Physical Exam Exam: See Below (See dictation) Course - Vital Signs Last Recorded V/S: Last Vital Signs Temp 36.7 C 04/05/19 22:05 Pulse 135 H 04/05/19 22:05 Resp BP 126/78 04/05/19 22:05 Pulse Ox 94 L 04/05/19 22:05 - Orders/Labs/Meds Orders: Active Orders 24 hr Category Date Time Status EKG Documentation Completion [RC] STAT Care 04/05/19 22:11 Active Orthostatic Vital Signs [RC] ASDIRECTED Care 04/05/19 22:12 Active UA RFX MARNIE AND CULT IF INDIC [URIN] Stat Lab 04/05/19 22:11 Ordered Labs: Laboratory Tests 04/05/19 04/05/19 Range/Units 22:15 22:15 WBC 7.99 (4.0-11.0) K/uL RBC 3.37 L (4.50-5.90) M/uL Hgb 12.8 L (13.0-17.0) g/dL Hct 37.4 L (38.0-50.0) % MCV 111.0 H (80.0-98.0) fL MCH 38.0 H (27.0-32.0) pg MCHC 34.2 (31.0-37.0) g/dL RDW Std Deviation 75.8 H (28.0-62.0) fl RDW Coeff of Brianna 19 H (11.0-15.0) % Plt Count 238 (150-400) K/uL MPV 10.50 (7.40-12.00) fL Neut % (Auto) 26.9 L (48.0-80.0) % Lymph % (Auto) 62.6 H (16.0-40.0) % Rich % (Auto) 9.8 (0.0-15.0) % Eos % (Auto) 0.6 (0.0-7.0) % Baso % (Auto) 0.1 (0.0-1.5) % Neut # (Auto) 2.2 (1.4-5.7) K/uL Lymph # (Auto) 5.0 H (0.6-2.4) K/uL Rich # (Auto) 0.8 (0.0-0.8) K/uL Eos # (Auto) 0.1 (0.0-0.7) K/uL Baso # (Auto) 0.0 (0.0-0.1) K/uL Nucleated RBC % 0.0 /100WBC Nucleated RBCs # 0 K/uL Sodium 143 (136-148) mmol/L Potassium 4.1 (3.5-5.1) mmol/L Chloride 108 H (98-107) mmol/L Carbon Dioxide 27.1 (21.0-32.0) mmol/L BUN 15 (7.0-18.0) mg/dL Creatinine 0.9 (0.8-1.3) mg/dL Est Cr Clr Drug Dosing 45.35 mL/min Estimated GFR (MDRD) > 60.0 ml/min Glucose 139 H (74-106) mg/dL Calcium 8.5 (8.5-10.1) mg/dL Total Bilirubin 0.9 (0.2-1.0) mg/dL AST 17 (15-37) IU/L ALT 26 (14-63) IU/L Alkaline Phosphatase 211 H (46-116) U/L Troponin I < 0.050 (0.000-0.056) ng/mL Total Protein 5.5 L (6.4-8.2) g/dL Albumin 3.5 (3.4-5.0) g/dL Globulin 2.0 L (2.6-4.0) g/dL Albumin/Globulin Ratio 1.8 H (0.9-1.6) Lipase 51 L (73-393) U/L Departure - Departure Time of Disposition: 23:08 Disposition: Refer to Observation Clinical Impression: Chest pain Qualifiers: Chest pain type: unspecified Qualified Code(s): R07.9 - Chest pain, unspecified - Discharge Information - My Orders Last 24 Hours: My Active Orders 04/05/19 22:11 EKG Documentation Completion [RC] STAT UA RFX MARNIE AND CULT IF INDIC [URIN] Stat 04/05/19 22:12 Orthostatic Vital Signs [RC] ASDIRECTED - Assessment/Plan Last 24 Hours: My Active Orders 04/05/19 22:11 EKG Documentation Completion [RC] STAT UA RFX MARNIE AND CULT IF INDIC [URIN] Stat 04/05/19 22:12 Orthostatic Vital Signs [RC] ASDIRECTED
[2019-04-05 22:46] LABS: BLOOD UREA NITROGEN,BUN 15 mg/dL (7.0-18.0); CARBON DIOXIDE,CO2 27.1 mmol/L (21.0-32.0); CHLORIDE,CL 108 mmol/L (98-107); GLUCOSE RANDOM 139 mg/dL (74-106); LIPASE 51 U/L (73-393); POTASSIUM,K 4.1 mmol/L (3.5-5.1); SODIUM,NA 143 mmol/L (136-148)
--- NOTE | 2019-04-05 22:57 | CR ---
INDICATION: Pain TECHNIQUE: Chest 2 views COMPARISON: 05/06/2018 FINDINGS: Cardiovascular and mediastinum: Right side port catheter is present. Heart size and pulmonary vasculature are normal. Lungs and pleural spaces: Lungs are clear. No sign of infiltrate or mass. No sign of pleural effusion. No pneumothorax. Bones and soft tissues: No acute findings or changes. IMPRESSION: No acute findings and no significant changes from the prior exam. Dictated by Mau Polo MD @ Apr 05 2019 10:52PM Signed by Dr. Mau Polo @ Apr 05 2019 10:54PM
--- NOTE | 2019-04-05 22:59 | CR ---
Indication: Injury and pain Technique: Right shoulder 3 views Comparison: 08/31/2018 Findings: Bones: Alignment is normal. No fractures or bone lesions. Joint spaces: Unremarkable. No significant degenerative changes. Soft tissues: Unremarkable. Impression: No sign of acute injury. No change from the prior exam. Dictated by Mau Polo MD @ Apr 05 2019 10:55PM Signed by Dr. Mau Polo @ Apr 05 2019 10:58PM
--- NOTE | 2019-04-05 23:01 | CT ---
INDICATION: Syncopal episode TECHNIQUE: CT head without contrast. COMPARISON: 10/05/2018 FINDINGS: Again seen is cortical atrophy. The ventricles are stable. There is no mass effect or midline shift. Few small foci of white matter hypodensity are suggestive of mild chronic small vessel ischemic changes. There is no loss of uribe-white differentiation. There is no evidence of an acute intracranial hemorrhage. No acute calvarial fracture is seen. Diffuse osteopenia is again noted with scattered small calvarial sclerotic foci. The visualized paranasal sinuses are clear. There is opacification of mastoid air cells. The visualized orbits are stable. IMPRESSION: No evidence of an acute intracranial hemorrhage, mass effect or loss of uribe-white differentiation. Stable appearance of the brain. Diffuse osteopenia with scattered small calvarial sclerotic foci, again seen. Correlate clinically and consider bone scan evaluation. Mastoid disease. Dictated by Lorenzo Johnson MD @ 04/05/2019 10:59:16 PM Please note that all CT scans at this facility use dose modulation, iterative reconstruction, and/or weight-based dosing when appropriate to reduce radiation dose to as low as reasonably achievable. Dictated by: Lorenzo Johnson MD @ 04/05/2019 22:59:23 (Electronically Signed)
[2019-04-06] MEDS ORDERED: Morphine 2 MG/ML Syringe IVPUSH ONE ×2 (00:13→04:46)
[2019-04-06] MEDS ORDERED: Acetaminophen 325 MG Tab PO PRN (01:08)
[2019-04-06 07:21] LABS: BLOOD UREA NITROGEN,BUN 13 mg/dL (7.0-18.0); CHLORIDE,CL 107 mmol/L (98-107); GLUCOSE RANDOM 140 mg/dL (74-106); POTASSIUM,K 3.9 mmol/L (3.5-5.1); SODIUM,NA 141 mmol/L (136-148)
--- NOTE | 2019-04-06 08:13 | PCM.HP.2 ---
<Chelsea Ybarra - Last Filed: 04/06/19 11:12> H&P History of Present Illness - General Date of Service: 04/06/19 Admit Problem/Dx: Admission Diagnosis/Problem Admission Diagnosis/Problem Chest pain - History of Present Illness Initial Comments - Free Text/Narative: The patient is 63-year-old male who presented to the ER after syncopal event. He reports he went to the bathroom, got up, walked into the kitchen and then passed out. He woke up on the floor several minutes later. He also reports chest pain that he had prior to the syncopal event. He reports the chest pain is sharp, lasts for several hours, has associated shortness of breath, and it radiates to both arms. He has chronic history of shoulder pain that was exacerbated by his fall. Has history of COPD but reports breathing has been good lately. In the ER workup showed no white count or anemia, electrolytes and kidney function were within normal limits. His troponin was negative. Chest x-ray showed no acute cardiopulmonary events. CT of the head showed noted acute intracranial findings. Orthostatic vitals were normal. An x-ray of the shoulder was negative for acute changes Right Shoulder Pain Score (Numeric/FACES): 6 - Related Data Allergies/Adverse Reactions: Allergies Allergy/AdvReac Type Severity Reaction Status Date / Time nifedipine [From Procardia] Allergy Itching Verified 04/06/19 00:00 muscle relaxant medicine? Allergy Itching Uncoded 04/06/19 00:00 Home Medications: Home Meds Furosemide 20 mg PO DAILY 12/06/15 [History] Levothyroxine 75 mcg PO ACBREAKFAST 12/06/15 [History] predniSONE [Prednisone] 5 mg PO DAILY 12/06/15 [History] Alendronate Sodium [Fosamax] 70 mg PO Q7D 12/07/15 [History] Zolpidem [Ambien] 10 mg PO BEDTIME PRN 12/07/15 [History] Budesonide/Formoterol Fumarate [Symbicort 160-4.5 Mcg Inhaler] 1 puff IH BID 05/20 [History] Albuterol Sulfate [Proair Hfa] 2 puff IH BID PRN 08/07/18 [History] Folic Acid 1 mg PO DAILY 08/07/18 [History] Midodrine 5 mg PO TID 08/07/18 [History] Pantoprazole Sodium [Protonix] 40 mg PO ACBREAKFAST 08/07/18 [History] traMADol [Ultram] 50 mg PO BEDTIME PRN 10/05/18 [History] Past Medical History HEENT History: Reports: Cataract, Hard of Hearing, Other (See Below) Other HEENT History: impaired hearing-with hearing aid on the right ear Cardiovascular History: Reports: Heart Failure Respiratory History: Reports: Asthma, COPD Gastrointestinal History: Reports: None Genitourinary History: Reports: Renal Disease Musculoskeletal History: Reports: Back Pain, Chronic, Osteoarthritis Neurological History: Reports: None Psychiatric History: Reports: Depression Endocrine/Metabolic History: Reports: Hypothyroidism Hematologic History: Reports: Anemia, Blood Transfusion(s), Other (See Below) Other Hematologic History: history of low platelet Immunologic History: Reports: Solid Organ Transplant Oncologic (Cancer) History: Reports: Other (See Below) Other Oncologic History: 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 left Endocrine Surgical History: Reports: Thyroidectomy Musculoskeletal Surgical History: Reports: Arthroscopic Knee Social & Family History - Family History Family Medical History: Noncontributory HEENT: Reports: None Cardiac: Reports: None - Tobacco Use Smoking Status *Q: Former Smoker Used Tobacco, but Quit: Yes Month/Year Tobacco Last Used: 1986 Second Hand Smoke Exposure: No - Caffeine Use Caffeine Use: Reports: Coffee - Recreational Drug Use Recreational Drug Use: No - Living Situation & Occupation Living situation: Reports: , with Significant Other H&P Review of Systems - Review of Systems: Review Of Systems: See Below General: Reports: No Symptoms HEENT: Reports: No Symptoms Pulmonary: Reports: No Symptoms Cardiovascular: Reports: Chest Pain, Syncope. Denies: Edema Gastrointestinal: Reports: No Symptoms Genitourinary: Reports: No Symptoms Musculoskeletal: Reports: Other (shoulder pain) Skin: Reports: No Symptoms Psychiatric: Reports: No Symptoms Neurological: Reports: No Symptoms Hematologic/Lymphatic: Reports: No Symptoms Immunologic: Reports: No Symptoms Exam - Exam Exam: See Below - Vital Signs Vital Signs: Last Vital Signs Temp 97.2 F 04/06/19 04:00 Pulse 61 04/06/19 04:00 Resp 18 04/06/19 04:00 BP 94/58 L 04/06/19 04:00 Pulse Ox 97 04/06/19 04:00 Orthostatic Blood Pressure [ 118/75 Standing] Orthostatic Blood Pressure [ 118/69 Sitting] Orthostatic Blood Pressure [ 106/58 Supine] Weight: 33.623 kg - Exam General: Alert, Oriented, Cooperative HEENT: Conjunctiva Clear, EOMI, Mucosa Moist & [place], Posterior Pharynx Clear, Pupils Equal, Pupils Reactive Neck: Supple, Trachea Midline Lungs: Clear to Auscultation, Normal Respiratory Effort Cardiovascular: Regular Rate, Regular Rhythm, Other (anterior chest tender to palpation) GI/Abdominal Exam: Normal Bowel Sounds, Soft, Non-Tender, No Distention Extremities: No Pedal Edema Skin: Warm, Dry, Intact Psychiatric: Alert, Normal Affect, Normal Mood - Patient Data Lab Results Last 24 hrs: Laboratory Results - last 24 hr 04/05/19 04/05/19 04/06/19 Range/Units 22:15 22:15 04:00 WBC 7.99 (4.0-11.0) K/uL RBC 3.37 L (4.50-5.90) M/uL Hgb 12.8 L (13.0-17.0) g/dL Hct 37.4 L (38.0-50.0) % MCV 111.0 H (80.0-98.0) fL MCH 38.0 H (27.0-32.0) pg MCHC 34.2 (31.0-37.0) g/dL RDW Std Deviation 75.8 H (28.0-62.0) fl RDW Coeff of Brianna 19 H (11.0-15.0) % Plt Count 238 (150-400) K/uL MPV 10.50 (7.40-12.00) fL Neut % (Auto) 26.9 L (48.0-80.0) % Lymph % (Auto) 62.6 H (16.0-40.0) % [place] % (Auto) 9.8 (0.0-15.0) % Eos % (Auto) 0.6 (0.0-7.0) % Baso % (Auto) 0.1 (0.0-1.5) % Neut # (Auto) 2.2 (1.4-5.7) K/uL Lymph # (Auto) 5.0 H (0.6-2.4) K/uL [place] # (Auto) 0.8 (0.0-0.8) K/uL Eos # (Auto) 0.1 (0.0-0.7) K/uL Baso # (Auto) 0.0 (0.0-0.1) K/uL Nucleated RBC % 0.0 /100WBC Nucleated RBCs # 0 K/uL Sodium 143 (136-148) mmol/L Potassium 4.1 (3.5-5.1) mmol/L Chloride 108 H (98-107) mmol/L Carbon Dioxide 27.1 (21.0-32.0) mmol/L BUN 15 (7.0-18.0) mg/dL Creatinine 0.9 (0.8-1.3) mg/dL Est Cr Clr Drug Dosing 45.35 mL/min Estimated GFR (MDRD) > 60.0 ml/min Glucose 139 H (74-106) mg/dL Calcium 8.5 (8.5-10.1) mg/dL Total Bilirubin 0.9 (0.2-1.0) mg/dL AST 17 (15-37) IU/L ALT 26 (14-63) IU/L Alkaline Phosphatase 211 H (46-116) U/L Troponin I < 0.050 (0.000-0.056) ng/mL Total Protein 5.5 L (6.4-8.2) g/dL Albumin 3.5 (3.4-5.0) g/dL Globulin 2.0 L (2.6-4.0) g/dL Albumin/Globulin Ratio 1.8 H (0.9-1.6) Lipase 51 L (73-393) U/L Urine Color YELLOW Urine Appearance CLEAR Urine pH 6.0 (5.0-8.0) Ur Specific [place] >= 1.030 (1.001-1.035) Urine Protein TRACE H (NEGATIVE) mg/dL Urine Glucose (UA) NEGATIVE (NEGATIVE) mg/dL Urine Ketones NEGATIVE (NEGATIVE) mg/dL Urine Occult Blood NEGATIVE (NEGATIVE) Urine Nitrite NEGATIVE (NEGATIVE) Urine Bilirubin NEGATIVE (NEGATIVE) Urine Urobilinogen 0.2 (<2.0) EU/dL Ur Leukocyte Esterase NEGATIVE (NEGATIVE) Urine RBC NONE SEEN (0-2/HPF) Urine WBC 0-1 (0-5/HPF) Ur Epithelial Cells RARE (NONE-FEW) Urine Bacteria 1+ H (NEGATIVE) Urine Mucus MODERATE (NONE-MOD) 04/06/19 04/06/19 04/06/19 Range/Units 04:25 04:25 04:25 WBC 7.54 (4.0-11.0) K/uL RBC 3.08 L (4.50-5.90) M/uL Hgb 11.6 L (13.0-17.0) g/dL Hct 34.4 L (38.0-50.0) % MCV 111.7 H (80.0-98.0) fL MCH 37.7 H (27.0-32.0) pg MCHC 33.7 (31.0-37.0) g/dL RDW Std Deviation 75.2 H (28.0-62.0) fl RDW Coeff of Brianna 19 H (11.0-15.0) % Plt Count 236 (150-400) K/uL MPV 10.90 (7.40-12.00) fL Neut % (Auto) 23.6 L (48.0-80.0) % Lymph % (Auto) 63.3 H (16.0-40.0) % [place] % (Auto) 11.0 (0.0-15.0) % Eos % (Auto) 1.7 (0.0-7.0) % Baso % (Auto) 0.4 (0.0-1.5) % Neut # (Auto) 1.8 (1.4-5.7) K/uL Lymph # (Auto) 4.8 H (0.6-2.4) K/uL [place] # (Auto) 0.8 (0.0-0.8) K/uL Eos # (Auto) 0.1 (0.0-0.7) K/uL Baso # (Auto) 0.0 (0.0-0.1) K/uL Nucleated RBC % 0.0 /100WBC Nucleated RBCs # 0 K/uL Sodium 141 (136-148) mmol/L Potassium 3.9 (3.5-5.1) mmol/L Chloride 107 (98-107) mmol/L Carbon Dioxide 24.0 (21.0-32.0) mmol/L BUN 13 (7.0-18.0) mg/dL Creatinine 0.8 (0.8-1.3) mg/dL Est Cr Clr Drug Dosing 46.11 mL/min Estimated GFR (MDRD) > 60.0 ml/min Glucose 140 H (74-106) mg/dL Calcium 8.5 (8.5-10.1) mg/dL Total Bilirubin (0.2-1.0) mg/dL AST (15-37) IU/L ALT (14-63) IU/L Alkaline Phosphatase (46-116) U/L Troponin I < 0.050 (0.000-0.056) ng/mL Total Protein (6.4-8.2) g/dL Albumin (3.4-5.0) g/dL Globulin (2.6-4.0) g/dL Albumin/Globulin Ratio (0.9-1.6) Lipase (73-393) U/L Urine Color Urine Appearance Urine pH (5.0-8.0) Ur Specific [place] (1.001-1.035) Urine Protein (NEGATIVE) mg/dL Urine Glucose (UA) (NEGATIVE) mg/dL Urine Ketones (NEGATIVE) mg/dL Urine Occult Blood (NEGATIVE) Urine Nitrite (NEGATIVE) Urine Bilirubin (NEGATIVE) Urine Urobilinogen (<2.0) EU/dL Ur Leukocyte Esterase (NEGATIVE) Urine RBC (0-2/HPF) Urine WBC (0-5/HPF) Ur Epithelial Cells (NONE-FEW) Urine Bacteria (NEGATIVE) Urine Mucus (NONE-MOD) Result Diagrams: 04/06/19 04:25 04/06/19 04:25 - Problem List (1) Syncope SNOMED Code(s): 266726091 ICD Code: R55 - SYNCOPE AND COLLAPSE Status: Acute (2) Chest pain SNOMED Code(s): 44323914 ICD Code: R07.9 - CHEST PAIN, UNSPECIFIED Status: Acute Qualifiers: Chest pain type: unspecified Qualified Code(s): R07.9 - Chest pain, unspecified (3) History of falling SNOMED Code(s): 972740487 ICD Code: Z91.81 - HISTORY OF FALLING Status: Chronic (4) Anemia SNOMED Code(s): 694561808 ICD Code: D64.9 - ANEMIA, UNSPECIFIED Status: Chronic Priority: High Qualifiers: Anemia type: due to chronic kidney disease Chronic kidney disease stage: stage 3 (moderate) Qualified Code(s): N18.3 - Chronic kidney disease, stage 3 (moderate); D63.1 - Anemia in chronic kidney disease (5) COPD (chronic obstructive pulmonary disease) SNOMED Code(s): 87466195 ICD Code: J44.9 - CHRONIC OBSTRUCTIVE PULMONARY DISEASE, UNSPECIFIED Status : Chronic Priority: Medium Qualifiers: COPD type: unspecified COPD Qualified Code(s): J44.9 - Chronic obstructive pulmonary disease, unspecified (6) Renal transplant recipient SNOMED Code(s): 050560659 ICD Code: Z94.0 - KIDNEY TRANSPLANT STATUS Status: Chronic Priority: High Problem List Initiated/Reviewed/Updated: Yes Orders Last 24hrs: Active Orders 24 hr Category Date Time Status Admission Status [Patient Status] [ADT] Stat ADT 04/05/19 23:09 Active EKG Documentation Completion [RC] STAT Care 04/05/19 22:11 Active Orthostatic Vital Signs [RC] ASDIRECTED Care 04/05/19 22:12 Active Telemetry Monitoring [Cardiac Monitoring] [RC] . Care 04/06/19 01:00 Active DIRECTED Consult to Case Management/Blade Boner [CONS] Cons 04/06/19 02:09 Active Routine Regular Diet [DIET] Diet 04/06/19 Breakfast Active TROPONIN I [CHEM] Routine Lab 04/06/19 10:15 Ordered Acetaminophen [Tylenol] Med 04/06/19 01:08 Active 650 mg PO Q6H PRN Convert IV to Saline Lock [OM.PC] Routine Oth 04/06/19 01:13 Ordered Medication Orders Acetaminophen (Tylenol) 650 mg PO Q6H PRN PRN Reason: Pain Assessment/Plan Comment:: 1. Admit for observation 2. Code status- full 3. Vitals per routine 4. I/Os per routine 5. Diet- regular 6. DVT prophylaxis with lovenox 7. Chest pain ACS rule out- trend troponins, monitor on telemetry. Chest pain is tender to palpation and less likely cardiac in nature. 8. Syncope- orthostatics normal, CT head negative, monitor on telemety 9. Chronic conditions- COPD, renal transplant, anemia The patient was admitted and observed overnight. His troponins were trended and negative 3. No significant events on telemetry and no further episodes of syncope. He would be a good candidate for home health as he is unable to ambulate more than 20 feet without becoming shortness of breath due to his dx of COPD. He is also a fall risk. He would benefit from physical therapy for strengthening, gait instability and high risk fall. He would benefit from occupational therapy to do a home safety evaluation for functional safety in the home. His primary care doctor, Dr. Mueller, will follow clinically for home health once DC'd from the hospital. Patient will be discharged with no changes in medications. He'll follow-up with his regular doctor, Dr. Mueller in 1-2 weeks. Symptoms to report physician include fever, chills, chest pain, shortness breath, abdominal pain, discharge, erythema, syncope, or not improving as expected. <Baltazar Olson - Last Filed: 04/06/19 16:37> H&P History of Present Illness - General Admit Problem/Dx: Admission Diagnosis/Problem Admission Diagnosis/Problem Chest pain I have seen and examined the patient independently of Dr. Tate DO. I have reviewed and agree with the plan of care as outlined for this patient by her. I have discussed the case with her. Please see orders. Exam - Vital Signs Vital Signs: Last Vital Signs Temp 37.4 C 04/06/19 11:41 Pulse 72 04/06/19 11:41 Resp 20 04/06/19 11:41 BP 94/61 04/06/19 11:41 Pulse Ox 94 L 04/06/19 11:41 Orthostatic Blood Pressure [ 118/75 Standing] Orthostatic Blood Pressure [ 118/69 Sitting] Orthostatic Blood Pressure [ 106/58 Supine] - Patient Data Lab Results Last 24 hrs: Laboratory Results - last 24 hr 04/05/19 04/05/19 04/06/19 Range/Units 22:15 22:15 04:00 WBC 7.99 (4.0-11.0) K/uL RBC 3.37 L (4.50-5.90) M/uL Hgb 12.8 L (13.0-17.0) g/dL Hct 37.4 L (38.0-50.0) % MCV 111.0 H (80.0-98.0) fL MCH 38.0 H (27.0-32.0) pg MCHC 34.2 (31.0-37.0) g/dL RDW Std Deviation 75.8 H (28.0-62.0) fl RDW Coeff of Brianna 19 H (11.0-15.0) % Plt Count 238 (150-400) K/uL MPV 10.50 (7.40-12.00) fL Neut % (Auto) 26.9 L (48.0-80.0) % Lymph % (Auto) 62.6 H (16.0-40.0) % [place] % (Auto) 9.8 (0.0-15.0) % Eos % (Auto) 0.6 (0.0-7.0) % Baso % (Auto) 0.1 (0.0-1.5) % Neut # (Auto) 2.2 (1.4-5.7) K/uL Lymph # (Auto) 5.0 H (0.6-2.4) K/uL [place] # (Auto) 0.8 (0.0-0.8) K/uL Eos # (Auto) 0.1 (0.0-0.7) K/uL Baso # (Auto) 0.0 (0.0-0.1) K/uL Nucleated RBC % 0.0 /100WBC Nucleated RBCs # 0 K/uL Sodium 143 (136-148) mmol/L Potassium 4.1 (3.5-5.1) mmol/L Chloride 108 H (98-107) mmol/L Carbon Dioxide 27.1 (21.0-32.0) mmol/L BUN 15 (7.0-18.0) mg/dL Creatinine 0.9 (0.8-1.3) mg/dL Est Cr Clr Drug Dosing 45.35 mL/min Estimated GFR (MDRD) > 60.0 ml/min Glucose 139 H (74-106) mg/dL Calcium 8.5 (8.5-10.1) mg/dL Total Bilirubin 0.9 (0.2-1.0) mg/dL AST 17 (15-37) IU/L ALT 26 (14-63) IU/L Alkaline Phosphatase 211 H (46-116) U/L Troponin I < 0.050 (0.000-0.056) ng/mL Total Protein 5.5 L (6.4-8.2) g/dL Albumin 3.5 (3.4-5.0) g/dL Globulin 2.0 L (2.6-4.0) g/dL Albumin/Globulin Ratio 1.8 H (0.9-1.6) Lipase 51 L (73-393) U/L Urine Color YELLOW Urine Appearance CLEAR Urine pH 6.0 (5.0-8.0) Ur Specific [place] >= 1.030 (1.001-1.035) Urine Protein TRACE H (NEGATIVE) mg/dL Urine Glucose (UA) NEGATIVE (NEGATIVE) mg/dL Urine Ketones NEGATIVE (NEGATIVE) mg/dL Urine Occult Blood NEGATIVE (NEGATIVE) Urine Nitrite NEGATIVE (NEGATIVE) Urine Bilirubin NEGATIVE (NEGATIVE) Urine Urobilinogen 0.2 (<2.0) EU/dL Ur Leukocyte Esterase NEGATIVE (NEGATIVE) Urine RBC NONE SEEN (0-2/HPF) Urine WBC 0-1 (0-5/HPF) Ur Epithelial Cells RARE (NONE-FEW) Urine Bacteria 1+ H (NEGATIVE) Urine Mucus MODERATE (NONE-MOD) 04/06/19 04/06/19 04/06/19 Range/Units 04:25 04:25 04:25 WBC 7.54 (4.0-11.0) K/uL RBC 3.08 L (4.50-5.90) M/uL Hgb 11.6 L (13.0-17.0) g/dL Hct 34.4 L (38.0-50.0) % MCV 111.7 H (80.0-98.0) fL MCH 37.7 H (27.0-32.0) pg MCHC 33.7 (31.0-37.0) g/dL RDW Std Deviation 75.2 H (28.0-62.0) fl RDW Coeff of Brianna 19 H (11.0-15.0) % Plt Count 236 (150-400) K/uL MPV 10.90 (7.40-12.00) fL Neut % (Auto) 23.6 L (48.0-80.0) % Lymph % (Auto) 63.3 H (16.0-40.0) % [place] % (Auto) 11.0 (0.0-15.0) % Eos % (Auto) 1.7 (0.0-7.0) % Baso % (Auto) 0.4 (0.0-1.5) % Neut # (Auto) 1.8 (1.4-5.7) K/uL Lymph # (Auto) 4.8 H (0.6-2.4) K/uL [place] # (Auto) 0.8 (0.0-0.8) K/uL Eos # (Auto) 0.1 (0.0-0.7) K/uL Baso # (Auto) 0.0 (0.0-0.1) K/uL Nucleated RBC % 0.0 /100WBC Nucleated RBCs # 0 K/uL Sodium 141 (136-148) mmol/L Potassium 3.9 (3.5-5.1) mmol/L Chloride 107 (98-107) mmol/L Carbon Dioxide 24.0 (21.0-32.0) mmol/L BUN 13 (7.0-18.0) mg/dL Creatinine 0.8 (0.8-1.3) mg/dL Est Cr Clr Drug Dosing 46.11 mL/min Estimated GFR (MDRD) > 60.0 ml/min Glucose 140 H (74-106) mg/dL Calcium 8.5 (8.5-10.1) mg/dL Total Bilirubin (0.2-1.0) mg/dL AST (15-37) IU/L ALT (14-63) IU/L Alkaline Phosphatase (46-116) U/L Troponin I < 0.050 (0.000-0.056) ng/mL Total Protein (6.4-8.2) g/dL Albumin (3.4-5.0) g/dL Globulin (2.6-4.0) g/dL Albumin/Globulin Ratio (0.9-1.6) Lipase (73-393) U/L Urine Color Urine Appearance Urine pH (5.0-8.0) Ur Specific [place] (1.001-1.035) Urine Protein (NEGATIVE) mg/dL Urine Glucose (UA) (NEGATIVE) mg/dL Urine Ketones (NEGATIVE) mg/dL Urine Occult Blood (NEGATIVE) Urine Nitrite (NEGATIVE) Urine Bilirubin (NEGATIVE) Urine Urobilinogen (<2.0) EU/dL Ur Leukocyte Esterase (NEGATIVE) Urine RBC (0-2/HPF) Urine WBC (0-5/HPF) Ur Epithelial Cells (NONE-FEW) Urine Bacteria (NEGATIVE) Urine Mucus (NONE-MOD) 04/06/19 Range/Units 10:17 WBC (4.0-11.0) K/uL RBC (4.50-5.90) M/uL Hgb (13.0-17.0) g/dL Hct (38.0-50.0) % MCV (80.0-98.0) fL MCH (27.0-32.0) pg MCHC (31.0-37.0) g/dL RDW Std Deviation (28.0-62.0) fl RDW Coeff of Brianna (11.0-15.0) % Plt Count (150-400) K/uL MPV (7.40-12.00) fL Neut % (Auto) (48.0-80.0) % Lymph % (Auto) (16.0-40.0) % [place] % (Auto) (0.0-15.0) % Eos % (Auto) (0.0-7.0) % Baso % (Auto) (0.0-1.5) % Neut # (Auto) (1.4-5.7) K/uL Lymph # (Auto) (0.6-2.4) K/uL [place] # (Auto) (0.0-0.8) K/uL Eos # (Auto) (0.0-0.7) K/uL Baso # (Auto) (0.0-0.1) K/uL Nucleated RBC % /100WBC Nucleated RBCs # K/uL Sodium (136-148) mmol/L Potassium (3.5-5.1) mmol/L Chloride (98-107) mmol/L Carbon Dioxide (21.0-32.0) mmol/L BUN (7.0-18.0) mg/dL Creatinine (0.8-1.3) mg/dL Est Cr Clr Drug Dosing mL/min Estimated GFR (MDRD) ml/min Glucose (74-106) mg/dL Calcium (8.5-10.1) mg/dL Total Bilirubin (0.2-1.0) mg/dL AST (15-37) IU/L ALT (14-63) IU/L Alkaline Phosphatase (46-116) U/L Troponin I < 0.050 (0.000-0.056) ng/mL Total Protein (6.4-8.2) g/dL Albumin (3.4-5.0) g/dL Globulin (2.6-4.0) g/dL Albumin/Globulin Ratio (0.9-1.6) Lipase (73-393) U/L Urine Color Urine Appearance Urine pH (5.0-8.0) Ur Specific [place] (1.001-1.035) Urine Protein (NEGATIVE) mg/dL Urine Glucose (UA) (NEGATIVE) mg/dL Urine Ketones (NEGATIVE) mg/dL Urine Occult Blood (NEGATIVE) Urine Nitrite (NEGATIVE) Urine Bilirubin (NEGATIVE) Urine Urobilinogen (<2.0) EU/dL Ur Leukocyte Esterase (NEGATIVE) Urine RBC (0-2/HPF) Urine WBC (0-5/HPF) Ur Epithelial Cells (NONE-FEW) Urine Bacteria (NEGATIVE) Urine Mucus (NONE-MOD) Result Diagrams: 04/06/19 04:25 04/06/19 04:25 Orders Last 24hrs: Active Orders 24 hr Category Date Time Status Admission Status [Patient Status] [ADT] Stat ADT 04/05/19 23:09 Active Antiembolic Devices [RC] PER UNIT ROUTINE Care 04/06/19 08:48 Active EKG Documentation Completion [RC] STAT Care 04/05/19 22:11 Active Intake and Output [RC] ASDIRECTED Care 04/06/19 08:47 Active Orthostatic Vital Signs [RC] ASDIRECTED Care 04/05/19 22:12 Active Ready for Discharge [RC] PER UNIT ROUTINE Care 04/06/19 11:12 Active Telemetry Monitoring [Cardiac Monitoring] [RC] . Care 04/06/19 01:00 Active DIRECTED Vital Signs [RC] PER UNIT ROUTINE Care 04/06/19 08:47 Active Consult to Case Management/Blade Boner [CONS] Cons 04/06/19 02:09 Active Routine Convert IV to Saline Lock [OM.PC] Routine Oth 04/06/19 01:13 Ordered SCD [Sequential Compression Device] [OM.PC] Routine Oth 04/06/19 08:48 Ordered Code Status [Resuscitation Status] Routine Resus Stat 04/06/19 08:17 Ordered
[2019-04-06] MEDS ORDERED: traMADol 50 MG Tab PO ONE (10:05)
[2019-04-06 11:42] VITALS: BP 94/61
== END 2019-04-06 13:38 | disposition home or self-care (01) ==
LOC: MW.ED 22:00 → MW.MS 23:09
PROVIDERS: ADMIT Internal Medicine; ATTEND Internal Medicine
DX: R07.89 Other chest pain (principal); R55 Syncope and collapse; I50.9 Heart failure, unspecified; J44.9 Chronic obstructive pulmonary disease, unspecified; E03.9 Hypothyroidism, unspecified; N18.3 Chronic kidney disease, stage 3 (moderate); D63.1 Anemia in chronic kidney disease; Z88.8 Allergy status to other drugs, medicaments and biological substances; Z94.0 Kidney transplant status; Z87.891 Personal history of nicotine dependence; Z79.1 Long term (current) use of non-steroidal anti-inflammatories (NSAID); Z79.899 Other long term (current) drug therapy
CPT/HCPCS: 36415; 70450; 70450-26; 71046; 71046-26; 73030-26-RT; 73030-RT; 80048; 80053; 81001; 83690; 84484; 85025; 93005; 96374; 96376; 99284; 99285-25; A9270-GY; G0378; J1642; J2270

== ENCOUNTER 2019-07-30 08:18 | Inpatient (IN) | payer MEDICAID ==
[2019-07-30 09:27] LABS: BLOOD UREA NITROGEN,BUN 17 mg/dL (7.0-18.0); CHLORIDE,CL 102 mmol/L (98-107); GLUCOSE RANDOM 82 mg/dL (74-106); POTASSIUM,K 4.1 mmol/L (3.5-5.1); SODIUM,NA 138 mmol/L (136-148)
[2019-07-30] MEDS ORDERED: traMADol 50 MG Tab PO ONE (09:37)
--- NOTE | 2019-07-30 09:39 | CR ---
INDICATION: SOB HISTORY: Shortness of breath. COMPARISON: 04/05/2019. TECHNIQUE: Chest, 2 views. FINDINGS: There is a right IJ Port-A-Cath, with its tip in the SVC. There are surgical clips present in the left upper quadrant of the abdomen, and in the right upper quadrant. There is diffuse osteopenia, with exaggerated kyphosis, and several vertebral body compression fractures. There are infiltrates present in the superior segment of the right lower lobe, which are new today when compared with 04/05/2019. Pneumonia is suspected. Radiographic followup is advised. Postsurgical changes in the left proximal humerus, present previously. IMPRESSION: 1. Airspace opacities in the right lung are new from previous. 2. Pneumonia is suspected. Radiographic followup is advised to document resolution. Dictated by Asim Keller MD @ 07/30/2019 9:39:18 AM Dictated by: Asim Keller MD @ 07/30/2019 09:39:26 (Electronically Signed)
[2019-07-30] MEDS ORDERED: Azithromycin 500 MG in Sodium Chloride 0.9% 250 ML IV SCH (10:00)
--- NOTE | 2019-07-30 10:05 | EDM.PDOC ---
ED HPI GENERAL MEDICAL PROBLEM - General Chief Complaint: Respiratory Problem Stated Complaint: SOB Time Seen by Provider: 07/30/19 10:03 - History of Present Illness INITIAL COMMENTS - FREE TEXT/NARRATIVE: HPI 63-year-old male with COPD (on 3 LPM by GRACE), chronic pain, renal failure, hypothyroidism (inferred from levothyroxine), DM (most recent A1c 7.8) presents for evaluation of shortness breath that began yesterday evening while at rest, symptoms have wax and wane and have been accompanied by mild myalgias. Patient notes that he has been noncompliant with his home oxygen for approximately one year, feels improves now that he is on his baseline oxygen. Patient notes that he ran out of tramadol yesterday prior to symptom onset. Requesting a refill. * PE risk factors: denies recent immobilization, leg trauma, estrogen use, surgery in the last four weeks, hemoptysis, or malignancy in the last 6 months. * Smoking: former smoker, quit >20 years ago, noncompliant with inhaler. * Inhaler(s): Symbacort. * CHF: Lasix, no apparent recent weight gain or orthopnea. * Other: history of renal transplant, patient unsure reason why, reportedly on prednisone as a single agent for immunosuppression. M/S/F/SocHx notable for: please see HPI; remainder reviewed with patient and in chart. ROS: Negative constitutional, eye, cardiovascular, pulmonary, GI, , MSK, skin , neurologic, psychiatric, endocrine unless noted in the HPI. Exam HR 77, RR 20, BP 127/73, T 37.7F, SaO2 98% on 3 L per minute at 8:27 AM. Gen: Pleasant, non-toxic appearing, resting comfortably. HEENT: NC, AT, PEERL, EOMI, trachea midline. Resp: Clear to auscultation bilaterally, normal work of breathing. Card: RRR with no M/R/G, no crackles in lung bases, no pedal edema, no JVD appreciated. GI: NT/ND Vascular: Both ankles, calves, and thighs of equal size, no calf tenderness to palpation bilaterally. MSK: No chest wall TTP. No visible deformities, strength and tone WNL. Skin: Normal color with no visible lesions. Neuro: alert and oriented 3, no facial asymmetry, vision and hearing WNL. Psych: Mood and affect appropriate. Labs / Imaging (pertinent): WBC 12.38, HB 14.7, sodium 138, potassium 4.1, creatinine 0.9, troponin <0.050, lactic acid 1.1. Influenza A & B negative. EKG: SR 69 bpm, VA 185 ms, QRS 90 ms, QTc 462 ms, no VA segment depressions, no ST segment elevations or depressions, no discordant T wave inversions. CXR: airspace opacities in the right lung or new from previous. Pneumonia is suspected. Radiographic follow-up is advised to document resolution. Focused Cardiac Ultrasound Indication: Shortness of breath Exam type (limited): Initial Views obtained: parasternal long, parasternal short, apical four chamber view, subxiphoid, subxiphoid long-axis view of the IVC. Findings: No pericardial effusion, parasternal short axis with mild flattening of the intraventricular septum, apical four without RV dilatation or septal bowing, subxiphoid without gross RV dilatation, IVC with approximately 30% respiratory variation, average diameter ~1 CM. Interpretation: no clinically significant pericardial effusion, parasternal short with mild intraventricular septum flattening, remainder of exam without features suggestive of right heart strain. Focused Thoracic Ultrasound Indication: shortness of breath. Exam type (limited): Initial Views obtained: Right anterior chest, zone 1 and 2, left anterior chest, zone 1 and 2. Left and right hemidiaphragms (zone 4). Right Zone 1: Lung sliding, present, B-Lines =<3, consolidation none, no effusion. Right Zone 2: Lung sliding, present, B-Lines =<3, consolidation none, no effusion. Right Hemidiaphragm: Lung sliding, present, B-lines = <3 , consolidation none, no effusion. Left Zone 1: Lung sliding, present, B-Lines =<3, consolidation none, no effusion. Left Zone 2: Lung sliding, present, B-Lines =<3, consolidation none, no effusion. Left Hemidiaphragm: Lung sliding, present, B-Lines >3, consolidation none, no effusion. Interpretation: left lower lung with focal area of edema. MDM Previous chart, nursing note, and vitals reviewed. A: [63-year-old male with COPD (on 3 LPM by GRACE), chronic pain, renal failure, hypothyroidism (inferred from levothyroxine), DM (most recent A1c 7.8) presents for evaluation of shortness breath that began yesterday evening while at rest, symptoms have wax and wane and have been accompanied by mild myalgias] DDx: pneumonia, reactive airway disease / COPD / Asthma, bronchitis, pneumothorax, anxiety, PE, CHF, pleural effusion, pericardial effusion, ACS. Evaluation: * Pneumonia - chest x-ray with right upper lobe focal infiltrate, increase white blood cell count, Pro calcitonin pending, no features suggestive of sepsis (overall clinical presentation, vital sign stability, and normal lactic acid). Blood cultures drawn and the patient was given empiric cefuroxime and azithromycin. Due to lack of home oxygen, suspected further social factors, and immunosuppression he was admitted for further care. * Reactive airway disease / COPD / Asthma - patient with good air movement and an absence of wheezing. * Bronchitis - given alternate diagnosis. * Pneumothorax - no evidence by CXR. * Anxiety - patient clinically without evidence of appreciable anxiety on exam. * PE - low clinical suspicion given history and alternate diagnosis, further risk stratification (e.g.) Well's not indicated. * CHF - no evidence by auscultation, CXR, and absence of pedal edema. * Pleural effusion - CXR without evidence of effusions. * Pericardial effusion - doubt pericardial effusion given an alternate diagnosis , the lack of cardiomegaly on CXR and normal heart sounds. * ACS - doubt ACS given a non-ischemic EKG and a negative troponin greater than six hours from maximal symptom onsetnegative serial troponins. Disposition: 10:02 - admitted to Dr. Clay. Impression: pneumonia. chronic generalized Pain Score (Numeric/FACES): 2 - Related Data Allergies Allergy/AdvReac Type Severity Reaction Status Date / Time nifedipine [From Procardia] Allergy Itching Verified 07/30/19 08:29 muscle relaxant medicine? Allergy Itching Uncoded 07/30/19 08:29 Home Meds: Home Meds Furosemide 20 mg PO DAILY 12/06/15 [History] Levothyroxine 75 mcg PO ACBREAKFAST 12/06/15 [History] predniSONE [Prednisone] 5 mg PO DAILY 12/06/15 [History] Alendronate Sodium [Fosamax] 70 mg PO Q7D 12/07/15 [History] Zolpidem [Ambien] 10 mg PO BEDTIME PRN 12/07/15 [History] Budesonide/Formoterol Fumarate [Symbicort 160-4.5 Mcg Inhaler] 1 puff IH BID 05/20 [History] Albuterol Sulfate [Proair Hfa] 2 puff IH BID PRN 08/07/18 [History] Folic Acid 1 mg PO DAILY 08/07/18 [History] Midodrine 5 mg PO TID 08/07/18 [History] Pantoprazole Sodium [Protonix] 40 mg PO ACBREAKFAST 08/07/18 [History] traMADol [Ultram] 50 mg PO BEDTIME PRN 10/05/18 [History] Past Medical History HEENT History: Reports: Cataract, Hard of Hearing, Other (See Below) Other HEENT History: impaired hearing-with hearing aid on the right ear Cardiovascular History: Reports: Heart Failure Respiratory History: Reports: Asthma, COPD Gastrointestinal History: Reports: None Genitourinary History: Reports: Renal Disease Musculoskeletal History: Reports: Back Pain, Chronic, Osteoarthritis Neurological History: Reports: None Psychiatric History: Reports: Depression Endocrine/Metabolic History: Reports: Hypothyroidism Hematologic History: Reports: Anemia, Blood Transfusion(s), Other (See Below) Other Hematologic History: history of low platelet Immunologic History: Reports: Solid Organ Transplant Oncologic (Cancer) History: Reports: Other (See Below) Other Oncologic History: 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 left Endocrine Surgical History: Reports: Thyroidectomy Musculoskeletal Surgical History: Reports: Arthroscopic Knee Social & Family History - Family History Family Medical History: Noncontributory HEENT: Reports: None Cardiac: Reports: None - Tobacco Use Smoking Status *Q: Former Smoker Used Tobacco, but Quit: Yes Month/Year Tobacco Last Used: 1986 - Caffeine Use Caffeine Use: Reports: Coffee - Recreational Drug Use Recreational Drug Use: No - Living Situation & Occupation Living situation: Reports: , with Significant Other ED ROS GENERAL - Review of Systems Review Of Systems: See Below ED EXAM, GENERAL - Physical Exam Exam: See Below Course - Vital Signs Last Recorded V/S: Last Vital Signs Temp 37.7 C 07/30/19 08:27 Pulse 77 07/30/19 08:27 Resp 20 07/30/19 08:27 BP 127/73 07/30/19 08:27 Pulse Ox 98 07/30/19 08:27 - Orders/Labs/Meds Orders: Active Orders 24 hr Category Date Time Status EKG Documentation Completion [RC] STAT Care 07/30/19 08:21 Active CULTURE BLOOD [BC] Stat Lab 07/30/19 09:51 Ordered CULTURE BLOOD [BC] Stat Lab 07/30/19 09:51 Ordered PROCALCITONIN [REF] Stat Lab 07/30/19 08:49 Received Azithromycin [Zithromax] 500 mg Med 07/30/19 10:00 Active Sodium Chloride 0.9% [Normal Saline (AdvBag)] 250 ml IV ONETIME Cefuroxime [Zinacef] 500 mg Med 07/30/19 09:48 Active Sodium Chloride 0.9% [Normal Saline] 50 ml IV ONETIME Blood Culture x2 Reflex Set [OM.PC] Stat Oth 07/30/19 09:48 Ordered Medication Orders Azithromycin 500 mg/ Sodium (Chloride) 250 mls @ 250 mls/hr IV ONETIME ELLIE Cefuroxime Sodium 500 mg/ (Sodium Chloride) 50 mls @ 100 mls/hr IV ONETIME ONE Stop: 07/30/19 10:17 Labs: Laboratory Tests 07/30/19 07/30/19 07/30/19 Range/Units 08:49 08:49 08:49 WBC 12.38 H (4.0-11.0) K/uL RBC 3.95 L (4.50-5.90) M/uL Hgb 14.7 (13.0-17.0) g/dL Hct 42.4 (38.0-50.0) % MCV 107.3 H (80.0-98.0) fL MCH 37.2 H (27.0-32.0) pg MCHC 34.7 (31.0-37.0) g/dL RDW Std Deviation 65.6 H (28.0-62.0) fl RDW Coeff of Brianna 17 H (11.0-15.0) % Plt Count 209 (150-400) K/uL MPV 11.40 (7.40-12.00) fL Neut % (Auto) 58.2 (48.0-80.0) % Lymph % (Auto) 31.3 (16.0-40.0) % [place] % (Auto) 8.5 (0.0-15.0) % Eos % (Auto) 1.8 (0.0-7.0) % Baso % (Auto) 0.2 (0.0-1.5) % Neut # (Auto) 7.2 H (1.4-5.7) K/uL Lymph # (Auto) 3.9 H (0.6-2.4) K/uL [place] # (Auto) 1.1 H (0.0-0.8) K/uL Eos # (Auto) 0.2 (0.0-0.7) K/uL Baso # (Auto) 0.0 (0.0-0.1) K/uL Nucleated RBC % 0.0 /100WBC Nucleated RBCs # 0 K/uL Lactate 1.1 (0.20-2.00) mmol/L Sodium 138 (136-148) mmol/L Potassium 4.1 (3.5-5.1) mmol/L Chloride 102 (98-107) mmol/L Carbon Dioxide 30.0 (21.0-32.0) mmol/L BUN 17 (7.0-18.0) mg/dL Creatinine 0.9 (0.8-1.3) mg/dL Est Cr Clr Drug Dosing 44.24 mL/min Estimated GFR (MDRD) > 60.0 ml/min Glucose 82 (74-106) mg/dL Calcium 7.9 L (8.5-10.1) mg/dL Total Bilirubin 1.6 H (0.2-1.0) mg/dL AST 33 (15-37) IU/L ALT 42 (14-63) IU/L Alkaline Phosphatase 196 H (46-116) U/L Troponin I < 0.050 (0.000-0.056) ng/mL B-Natriuretic Peptide (<100) PG/ML Total Protein 5.9 L (6.4-8.2) g/dL Albumin 3.6 (3.4-5.0) g/dL Globulin 2.3 L (2.6-4.0) g/dL Albumin/Globulin Ratio 1.6 (0.9-1.6) Urine Color Urine Appearance Urine pH (5.0-8.0) Ur Specific [place] (1.001-1.035) Urine Protein (NEGATIVE) mg/dL Urine Glucose (UA) (NEGATIVE) mg/dL Urine Ketones (NEGATIVE) mg/dL Urine Occult Blood (NEGATIVE) Urine Nitrite (NEGATIVE) Urine Bilirubin (NEGATIVE) Urine Urobilinogen (<2.0) EU/dL Ur Leukocyte Esterase (NEGATIVE) 07/30/19 07/30/19 Range/Units 08:49 08:49 WBC (4.0-11.0) K/uL RBC (4.50-5.90) M/uL Hgb (13.0-17.0) g/dL Hct (38.0-50.0) % MCV (80.0-98.0) fL MCH (27.0-32.0) pg MCHC (31.0-37.0) g/dL RDW Std Deviation (28.0-62.0) fl RDW Coeff of Brianna (11.0-15.0) % Plt Count (150-400) K/uL MPV (7.40-12.00) fL Neut % (Auto) (48.0-80.0) % Lymph % (Auto) (16.0-40.0) % [place] % (Auto) (0.0-15.0) % Eos % (Auto) (0.0-7.0) % Baso % (Auto) (0.0-1.5) % Neut # (Auto) (1.4-5.7) K/uL Lymph # (Auto) (0.6-2.4) K/uL [place] # (Auto) (0.0-0.8) K/uL Eos # (Auto) (0.0-0.7) K/uL Baso # (Auto) (0.0-0.1) K/uL Nucleated RBC % /100WBC Nucleated RBCs # K/uL Lactate (0.20-2.00) mmol/L Sodium (136-148) mmol/L Potassium (3.5-5.1) mmol/L Chloride (98-107) mmol/L Carbon Dioxide (21.0-32.0) mmol/L BUN (7.0-18.0) mg/dL Creatinine (0.8-1.3) mg/dL Est Cr Clr Drug Dosing mL/min Estimated GFR (MDRD) ml/min Glucose (74-106) mg/dL Calcium (8.5-10.1) mg/dL Total Bilirubin (0.2-1.0) mg/dL AST (15-37) IU/L ALT (14-63) IU/L Alkaline Phosphatase (46-116) U/L Troponin I (0.000-0.056) ng/mL B-Natriuretic Peptide 290 H (<100) PG/ML Total Protein (6.4-8.2) g/dL Albumin (3.4-5.0) g/dL Globulin (2.6-4.0) g/dL Albumin/Globulin Ratio (0.9-1.6) Urine Color YELLOW Urine Appearance CLEAR Urine pH 6.0 (5.0-8.0) Ur Specific [place] 1.020 (1.001-1.035) Urine Protein NEGATIVE (NEGATIVE) mg/dL Urine Glucose (UA) NEGATIVE (NEGATIVE) mg/dL Urine Ketones TRACE H (NEGATIVE) mg/dL Urine Occult Blood NEGATIVE (NEGATIVE) Urine Nitrite NEGATIVE (NEGATIVE) Urine Bilirubin NEGATIVE (NEGATIVE) Urine Urobilinogen 0.2 (<2.0) EU/dL Ur Leukocyte Esterase NEGATIVE (NEGATIVE) Meds: Medications Generic Name Dose Route Start Last Admin Trade Name Freq PRN Reason Stop Dose Admin Azithromycin 500 mg/ Sodium 250 mls @ 250 mls/hr 07/30/19 10:00 Chloride IV ONETIME ELLIE Cefuroxime Sodium 500 mg/ 50 mls @ 100 mls/hr 07/30/19 09:48 Sodium Chloride IV 07/30/19 10:17 ONETIME ONE Discontinued Medications Generic Name Dose Route Start Last Admin Trade Name Freq PRN Reason Stop Dose Admin Tramadol HCl 50 mg 07/30/19 09:37 07/30/19 09:44 Ultram PO 07/30/19 09:38 50 mg ONETIME ONE Administration Departure - Departure Time of Disposition: 10:03 Disposition: Admitted As Inpatient 68 Condition: Good Clinical Impression: Pneumonia - Discharge Information Referrals: PCP,Unknown [Primary Care Provider] - Sepsis Event Note - Evaluation Sepsis Screening Result: No Definite Risk - Focused Exam Vital Signs: Vital Signs Temp Pulse Resp BP Pulse Ox 07/30/19 08:27 37.7 C 77 20 127/73 98 Date Exam was Performed: 07/30/19 Time Exam was Performed: 10:03 - My Orders Last 24 Hours: My Active Orders 07/30/19 08:21 EKG Documentation Completion [RC] STAT 07/30/19 08:49 PROCALCITONIN [REF] Stat 07/30/19 09:48 Cefuroxime [Zinacef] 500 mg Sodium Chloride 0.9% [Normal Saline] 50 ml IV ONETIME Blood Culture x2 Reflex Set [OM.PC] Stat 07/30/19 09:51 CULTURE BLOOD [BC] Stat CULTURE BLOOD [BC] Stat 07/30/19 10:00 Azithromycin [Zithromax] 500 mg Sodium Chloride 0.9% [Normal Saline (AdvBag)] 250 ml IV ONETIME - Assessment/Plan Last 24 Hours: My Active Orders 07/30/19 08:21 EKG Documentation Completion [RC] STAT 07/30/19 08:49 PROCALCITONIN [REF] Stat 07/30/19 09:48 Cefuroxime [Zinacef] 500 mg Sodium Chloride 0.9% [Normal Saline] 50 ml IV ONETIME Blood Culture x2 Reflex Set [OM.PC] Stat 07/30/19 09:51 CULTURE BLOOD [BC] Stat CULTURE BLOOD [BC] Stat 07/30/19 10:00 Azithromycin [Zithromax] 500 mg Sodium Chloride 0.9% [Normal Saline (AdvBag)] 250 ml IV ONETIME
[2019-07-30] MEDS ORDERED: cefTRIAXone 1 GM in Premix Bag 1 BAG IV ONE (10:15)
[2019-07-30] MEDS ORDERED: Albuterol/Ipratropium 3.0-0.5 MG/3 ML Neb Soln NEB PRN (12:42)
--- NOTE | 2019-07-30 12:46 | PCM.HP.2 ---
H&P History of Present Illness - General Date of Service: 07/30/19 Admit Problem/Dx: Admission Diagnosis/Problem Admission Diagnosis/Problem Pneumonia - History of Present Illness Initial Comments - Free Text/Narative: 63 year old male with pmh of oxygen dependent COPD, hx renal transplant, CAD, and hypothyroidism who presents with two day history of shortness of breath, chest tightness, cough and subjective fevers and chills. CXR reports right lung infiltrate that is new. chronic generalized Pain Score (Numeric/FACES): 2 - Related Data Allergies/Adverse Reactions: Allergies Allergy/AdvReac Type Severity Reaction Status Date / Time nifedipine [From Procardia] Allergy Itching Verified 07/30/19 12:04 muscle relaxant medicine? Allergy Itching Uncoded 07/30/19 08:29 Home Medications: Home Meds Furosemide 20 mg PO DAILY 12/06/15 [History] Levothyroxine 75 mcg PO ACBREAKFAST 12/06/15 [History] predniSONE [Prednisone] 5 mg PO DAILY 12/06/15 [History] Alendronate Sodium [Fosamax] 70 mg PO Q7D 12/07/15 [History] Zolpidem [Ambien] 10 mg PO BEDTIME PRN 12/07/15 [History] Budesonide/Formoterol Fumarate [Symbicort 160-4.5 Mcg Inhaler] 1 puff IH BID 05/20 [History] Albuterol Sulfate [Proair Hfa] 2 puff IH BID PRN 08/07/18 [History] Folic Acid 1 mg PO DAILY 08/07/18 [History] Midodrine 5 mg PO TID 08/07/18 [History] Pantoprazole Sodium [Protonix] 40 mg PO ACBREAKFAST 08/07/18 [History] traMADol [Ultram] 50 mg PO BEDTIME PRN 10/05/18 [History] Past Medical History HEENT History: Reports: Cataract, Hard of Hearing, Other (See Below) Other HEENT History: impaired hearing-with hearing aid on the right ear Cardiovascular History: Reports: Heart Failure Respiratory History: Reports: Asthma, COPD Gastrointestinal History: Reports: None Genitourinary History: Reports: Renal Disease Musculoskeletal History: Reports: Back Pain, Chronic, Osteoarthritis Neurological History: Reports: None Psychiatric History: Reports: Depression Endocrine/Metabolic History: Reports: Hypothyroidism Hematologic History: Reports: Anemia, Blood Transfusion(s), Other (See Below) Other Hematologic History: history of low platelet Immunologic History: Reports: Solid Organ Transplant Oncologic (Cancer) History: Reports: Other (See Below) Other Oncologic History: 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 left Endocrine Surgical History: Reports: Thyroidectomy Musculoskeletal Surgical History: Reports: Arthroscopic Knee Social & Family History - Family History Family Medical History: Noncontributory HEENT: Reports: None Cardiac: Reports: None - Tobacco Use Smoking Status *Q: Former Smoker Used Tobacco, but Quit: Yes Month/Year Tobacco Last Used: 1986 - Caffeine Use Caffeine Use: Reports: Coffee - Recreational Drug Use Recreational Drug Use: No - Living Situation & Occupation Living situation: Reports: , with Significant Other H&P Review of Systems - Review of Systems: Review Of Systems: Comprehensive ROS is negative, except as noted in HPI. Exam - Exam Exam: See Below - Vital Signs Vital Signs: Last Vital Signs Temp 37.7 C 07/30/19 08:27 Pulse 70 07/30/19 10:09 Resp 18 07/30/19 10:09 BP 101/50 L 07/30/19 10:09 Pulse Ox 100 07/30/19 10:09 Weight: 36.287 kg - Exam General: Alert, Oriented HEENT: Mucosa Moist & [place], Posterior Pharynx Clear Lungs: Normal Respiratory Effort, Decreased Breath Sounds GI/Abdominal Exam: Normal Bowel Sounds, Soft, Non-Tender Extremities: Non-Tender, No Pedal Edema Skin: Warm, Dry, Intact Neurological: Cranial Nerves Intact, Strength Equal Bilateral - Patient Data Lab Results Last 24 hrs: Laboratory Results - last 24 hr 07/30/19 07/30/19 07/30/19 Range/Units 08:49 08:49 08:49 WBC 12.38 H (4.0-11.0) K/uL RBC 3.95 L (4.50-5.90) M/uL Hgb 14.7 (13.0-17.0) g/dL Hct 42.4 (38.0-50.0) % MCV 107.3 H (80.0-98.0) fL MCH 37.2 H (27.0-32.0) pg MCHC 34.7 (31.0-37.0) g/dL RDW Std Deviation 65.6 H (28.0-62.0) fl RDW Coeff of Brianna 17 H (11.0-15.0) % Plt Count 209 (150-400) K/uL MPV 11.40 (7.40-12.00) fL Neut % (Auto) 58.2 (48.0-80.0) % Lymph % (Auto) 31.3 (16.0-40.0) % [place] % (Auto) 8.5 (0.0-15.0) % Eos % (Auto) 1.8 (0.0-7.0) % Baso % (Auto) 0.2 (0.0-1.5) % Neut # (Auto) 7.2 H (1.4-5.7) K/uL Lymph # (Auto) 3.9 H (0.6-2.4) K/uL [place] # (Auto) 1.1 H (0.0-0.8) K/uL Eos # (Auto) 0.2 (0.0-0.7) K/uL Baso # (Auto) 0.0 (0.0-0.1) K/uL Nucleated RBC % 0.0 /100WBC Nucleated RBCs # 0 K/uL Lactate 1.1 (0.20-2.00) mmol/L Sodium 138 (136-148) mmol/L Potassium 4.1 (3.5-5.1) mmol/L Chloride 102 (98-107) mmol/L Carbon Dioxide 30.0 (21.0-32.0) mmol/L BUN 17 (7.0-18.0) mg/dL Creatinine 0.9 (0.8-1.3) mg/dL Est Cr Clr Drug Dosing 44.24 mL/min Estimated GFR (MDRD) > 60.0 ml/min Glucose 82 (74-106) mg/dL Calcium 7.9 L (8.5-10.1) mg/dL Total Bilirubin 1.6 H (0.2-1.0) mg/dL AST 33 (15-37) IU/L ALT 42 (14-63) IU/L Alkaline Phosphatase 196 H (46-116) U/L Troponin I < 0.050 (0.000-0.056) ng/mL B-Natriuretic Peptide (<100) PG/ML Total Protein 5.9 L (6.4-8.2) g/dL Albumin 3.6 (3.4-5.0) g/dL Globulin 2.3 L (2.6-4.0) g/dL Albumin/Globulin Ratio 1.6 (0.9-1.6) Urine Color Urine Appearance Urine pH (5.0-8.0) Ur Specific [place] (1.001-1.035) Urine Protein (NEGATIVE) mg/dL Urine Glucose (UA) (NEGATIVE) mg/dL Urine Ketones (NEGATIVE) mg/dL Urine Occult Blood (NEGATIVE) Urine Nitrite (NEGATIVE) Urine Bilirubin (NEGATIVE) Urine Urobilinogen (<2.0) EU/dL Ur Leukocyte Esterase (NEGATIVE) 07/30/19 07/30/19 Range/Units 08:49 08:49 WBC (4.0-11.0) K/uL RBC (4.50-5.90) M/uL Hgb (13.0-17.0) g/dL Hct (38.0-50.0) % MCV (80.0-98.0) fL MCH (27.0-32.0) pg MCHC (31.0-37.0) g/dL RDW Std Deviation (28.0-62.0) fl RDW Coeff of Brianna (11.0-15.0) % Plt Count (150-400) K/uL MPV (7.40-12.00) fL Neut % (Auto) (48.0-80.0) % Lymph % (Auto) (16.0-40.0) % [place] % (Auto) (0.0-15.0) % Eos % (Auto) (0.0-7.0) % Baso % (Auto) (0.0-1.5) % Neut # (Auto) (1.4-5.7) K/uL Lymph # (Auto) (0.6-2.4) K/uL [place] # (Auto) (0.0-0.8) K/uL Eos # (Auto) (0.0-0.7) K/uL Baso # (Auto) (0.0-0.1) K/uL Nucleated RBC % /100WBC Nucleated RBCs # K/uL Lactate (0.20-2.00) mmol/L Sodium (136-148) mmol/L Potassium (3.5-5.1) mmol/L Chloride (98-107) mmol/L Carbon Dioxide (21.0-32.0) mmol/L BUN (7.0-18.0) mg/dL Creatinine (0.8-1.3) mg/dL Est Cr Clr Drug Dosing mL/min Estimated GFR (MDRD) ml/min Glucose (74-106) mg/dL Calcium (8.5-10.1) mg/dL Total Bilirubin (0.2-1.0) mg/dL AST (15-37) IU/L ALT (14-63) IU/L Alkaline Phosphatase (46-116) U/L Troponin I (0.000-0.056) ng/mL B-Natriuretic Peptide 290 H (<100) PG/ML Total Protein (6.4-8.2) g/dL Albumin (3.4-5.0) g/dL Globulin (2.6-4.0) g/dL Albumin/Globulin Ratio (0.9-1.6) Urine Color YELLOW Urine Appearance CLEAR Urine pH 6.0 (5.0-8.0) Ur Specific [place] 1.020 (1.001-1.035) Urine Protein NEGATIVE (NEGATIVE) mg/dL Urine Glucose (UA) NEGATIVE (NEGATIVE) mg/dL Urine Ketones TRACE H (NEGATIVE) mg/dL Urine Occult Blood NEGATIVE (NEGATIVE) Urine Nitrite NEGATIVE (NEGATIVE) Urine Bilirubin NEGATIVE (NEGATIVE) Urine Urobilinogen 0.2 (<2.0) EU/dL Ur Leukocyte Esterase NEGATIVE (NEGATIVE) Result Diagrams: 07/31/19 05:40 07/31/19 05:40 Mohan Results Last 24 hrs: Microbiology 07/30/19 10:10 Anaerobic Blood Culture - Final Blood - Venous - Lab Draw 07/30/19 09:20 Influenza Type A Antigen Screen - Final Nasopharyngeal Swab NEGATIVE INFLUENZA A VIRUS AG REFERENCE RANGE: NEGATIVE Influenza Type B Antigen Screen - Final NEGATIVE INFLUENZA B VIRUS AG REFERENCE RANGE: NEGATIVE Sepsis Event Note - Evaluation Sepsis Screening Result: No Definite Risk - Focused Exam Vital Signs: Vital Signs Temp Pulse Resp BP Pulse Ox 07/30/19 10:09 70 18 101/50 L 100 07/30/19 08:27 37.7 C 77 20 127/73 98 Date Exam was Performed: 07/31/19 Time Exam was Performed: 12:50 Problem List Initiated/Reviewed/Updated: Yes Orders Last 24hrs: Active Orders 24 hr Category Date Time Status Patient Status [ADT] Stat ADT 07/30/19 10:05 Active EKG Documentation Completion [RC] STAT Care 07/30/19 08:21 Active Oxygen Therapy [RC] PRN Care 07/30/19 12:42 Ordered RT Aerosol Therapy [RC] ASDIRECTED Care 07/30/19 12:42 Ordered Up ad Josiane [RC] ASDIRECTED Care 07/30/19 12:42 Ordered VTE/DVT Education [RC] PER UNIT ROUTINE Care 07/30/19 12:42 Ordered Vital Signs [RC] Q4H Care 07/30/19 12:42 Ordered Regular Diet [DIET] Diet 07/30/19 Breakfast Active BASIC METABOLIC PANEL,BMP [CHEM] AM Lab 07/31/19 05:11 Ordered CBC WITH AUTO DIFF [HEME] AM Lab 07/31/19 05:11 Ordered CULTURE BLOOD [BC] Stat Lab 07/30/19 10:05 Received CULTURE BLOOD [BC] Stat Lab 07/30/19 10:10 Results PROCALCITONIN [REF] Stat Lab 07/30/19 08:49 Received Albuterol/Ipratropium [DuoNeb 3.0-0.5 MG/3 ML] Med 07/30/19 12:42 Ordered 3 ml NEB Q4HRRT PRN Azithromycin [Zithromax] 500 mg Med 07/31/19 09:00 Ordered Sodium Chloride 0.9% [Normal Saline (AdvBag)] 250 ml IV DAILY Azithromycin [Zithromax] 500 mg Med 07/30/19 10:00 Active Sodium Chloride 0.9% [Normal Saline (AdvBag)] 250 ml IV ONETIME Heparin Sodium Med 07/30/19 12:45 Ordered 5,000 units SUBCUT Q8H cefTRIAXone [Rocephin] 1 gm Med 07/31/19 10:00 Ordered Sodium Chloride 0.9% [Normal Saline] 50 ml IV Q24H predniSONE Med 07/30/19 12:45 Ordered 40 mg PO DAILY Blood Culture x2 Reflex Set [OM.PC] Stat Oth 07/30/19 09:48 Ordered Resuscitation Status Routine Resus Stat 07/30/19 12:42 Ordered Medication Orders Azithromycin 500 mg/ Sodium (Chloride) 250 mls @ 250 mls/hr IV ONETIME ELLIE Last Admin: 07/30/19 10:27 Dose: 250 mls/hr Azithromycin 500 mg/ Sodium (Chloride) 250 mls @ 250 mls/hr IV DAILY ELLIE Ceftriaxone Sodium 1 gm/ (Sodium Chloride) 50 mls @ 100 mls/hr IV Q24H ELLIE Prednisone (Prednisone) 40 mg PO DAILY ELLIE Assessment/Plan Comment:: 63 yo male admitted for pneumonia and COPD exacerbation. We will treat with Rocephin, Azithromycin, prednisone, and duonebs.
[2019-07-30] MEDS: predniSONE 10 MG Tab PO SCH (13:00)
[2019-07-30] MEDS: Heparin Sodium 5,000 Units/ML Vial SUBCUT SCH ×2 (13:00→21:07)
[2019-07-30] MEDS ORDERED: Zolpidem 10 MG PO PRN (15:43)
[2019-07-30] MEDS: traMADol 50 MG Tab PO PRN (16:36)
[2019-07-30] MEDS: Midodrine 5 MG Tab PO SCH (21:06)
[2019-07-31] MEDS: Heparin Sodium 5,000 Units/ML Vial SUBCUT SCH ×3 (03:59→21:00)
[2019-07-31] MEDS: Midodrine 5 MG Tab PO SCH ×3 (05:39→21:00)
[2019-07-31] MEDS: traMADol 50 MG Tab PO PRN ×2 (05:39→17:42)
[2019-07-31 06:31] LABS: BLOOD UREA NITROGEN,BUN 22 mg/dL (7.0-18.0); CARBON DIOXIDE,CO2 30.5 mmol/L (21.0-32.0); CHLORIDE,CL 102 mmol/L (98-107); GLUCOSE RANDOM 146 mg/dL (74-106); POTASSIUM,K 4.5 mmol/L (3.5-5.1); SODIUM,NA 138 mmol/L (136-148)
[2019-07-31] MEDS: Levothyroxine 75 MCG Tab PO SCH (06:44)
[2019-07-31] MEDS: Furosemide 20 MG Tab PO SCH (08:23)
[2019-07-31] MEDS: Pantoprazole 40 MG Tab.CR PO SCH (08:23)
[2019-07-31] MEDS: predniSONE 10 MG Tab PO SCH (08:23)
[2019-07-31] MEDS: Azithromycin 500 MG in Sodium Chloride 0.9% 250 ML IV SCH (08:24)
[2019-07-31] MEDS: cefTRIAXone 1 GM in Sodium Chloride 0.9% 50 ML IV SCH (10:22)
--- NOTE | 2019-07-31 12:55 | PCM.PN ---
- General Info Date of Service: 07/31/19 - Review of Systems Systems Review Comment:: felling better, still reports chest congestion and shortness of breath - Patient Data Vitals - Most Recent: Last Vital Signs Temp 36.4 C 07/31/19 07:05 Pulse 68 07/31/19 07:05 Resp 20 07/31/19 07:05 BP 104/64 07/31/19 07:05 Pulse Ox 100 07/31/19 07:05 Weight - Most Recent: 36.287 kg I&O - Last 24 Hours: Intake & Output 07/30/19 07/31/19 07/31/19 22:59 06:59 14:59 Intake Total 890 600 Output Total 175 450 Balance 715 150 Lab Results Last 24 Hours: Laboratory Results - last 24 hr 07/31/19 07/31/19 Range/Units 05:40 05:40 WBC 8.87 (4.0-11.0) K/uL RBC 3.37 L (4.50-5.90) M/uL Hgb 12.3 L (13.0-17.0) g/dL Hct 35.8 L (38.0-50.0) % MCV 106.2 H (80.0-98.0) fL MCH 36.5 H (27.0-32.0) pg MCHC 34.4 (31.0-37.0) g/dL RDW Std Deviation 63.7 H (28.0-62.0) fl RDW Coeff of Brianna 17 H (11.0-15.0) % Plt Count 216 (150-400) K/uL MPV 11.70 (7.40-12.00) fL Neut % (Auto) 63.5 (48.0-80.0) % Lymph % (Auto) 29.3 (16.0-40.0) % [place] % (Auto) 7.2 (0.0-15.0) % Eos % (Auto) 0.0 (0.0-7.0) % Baso % (Auto) 0.0 (0.0-1.5) % Neut # (Auto) 5.6 (1.4-5.7) K/uL Lymph # (Auto) 2.6 H (0.6-2.4) K/uL [place] # (Auto) 0.6 (0.0-0.8) K/uL Eos # (Auto) 0.0 (0.0-0.7) K/uL Baso # (Auto) 0.0 (0.0-0.1) K/uL Nucleated RBC % 0.0 /100WBC Nucleated RBCs # 0 K/uL Sodium 138 (136-148) mmol/L Potassium 4.5 (3.5-5.1) mmol/L Chloride 102 (98-107) mmol/L Carbon Dioxide 30.5 (21.0-32.0) mmol/L BUN 22 H (7.0-18.0) mg/dL Creatinine 0.8 (0.8-1.3) mg/dL Est Cr Clr Drug Dosing 46.91 mL/min Estimated GFR (MDRD) > 60.0 ml/min Glucose 146 H (74-106) mg/dL Calcium 7.6 L (8.5-10.1) mg/dL Mohan Results Last 24 Hours: Microbiology 07/30/19 10:10 Aerobic Blood Culture - Preliminary Blood - Venous - Lab Draw NO GROWTH AFTER 1 DAY Anaerobic Blood Culture - Final 07/30/19 10:05 Aerobic Blood Culture - Preliminary Blood - Venous NO GROWTH AFTER 1 DAY Anaerobic Blood Culture - Preliminary NO GROWTH AFTER 1 DAY 07/30/19 09:20 Influenza Type A Antigen Screen - Final Nasopharyngeal Swab NEGATIVE INFLUENZA A VIRUS AG REFERENCE RANGE: NEGATIVE Influenza Type B Antigen Screen - Final NEGATIVE INFLUENZA B VIRUS AG REFERENCE RANGE: NEGATIVE Med Orders - Current: Current Medications Albuterol/Ipratropium (Duoneb 3.0-0.5 Mg/3 Ml) 3 ml NEB Q4HRRT PRN PRN Reason: Shortness Of Breath/wheezing Furosemide (Lasix) 20 mg PO DAILY [facility] Last Admin: 07/31/19 08:23 Dose: 20 mg Heparin Sodium (Porcine) (Heparin Sodium) 5,000 units SUBCUT Q8H [facility] Last Admin: 07/31/19 03:59 Dose: 5,000 units Azithromycin 500 mg/ Sodium (Chloride) 250 mls @ 250 mls/hr IV ONETIME ELLIE Last Admin: 07/30/19 10:27 Dose: 250 mls/hr Azithromycin 500 mg/ Sodium (Chloride) 250 mls @ 250 mls/hr IV DAILY [facility] Last Admin: 07/31/19 08:24 Dose: 250 mls/hr Ceftriaxone Sodium 1 gm/ (Sodium Chloride) 50 mls @ 100 mls/hr IV Q24H [facility] Last Admin: 07/31/19 10:22 Dose: 100 mls/hr Levothyroxine Sodium (Levothyroxine) 75 mcg PO ACBREAKFAST [facility] Last Admin: 07/31/19 06:44 Dose: 75 mcg Midodrine (Midodrine) 5 mg PO TID [facility] Last Admin: 07/31/19 05:39 Dose: 5 mg Pantoprazole Sodium (Protonix) 40 mg PO WITHBREAKFAST [facility] Last Admin: 07/31/19 08:23 Dose: 40 mg Zolpidem 10 Mg 1 each PO BEDTIME PRN PRN Reason: Sleep Prednisone (Prednisone) 40 mg PO DAILY [facility] Last Admin: 07/31/19 08:23 Dose: 40 mg Tramadol HCl (Ultram) 50 mg PO BID PRN PRN Reason: Pain Last Admin: 07/31/19 05:39 Dose: 50 mg Discontinued Medications Cefuroxime Sodium 500 mg/ (Sodium Chloride) 50 mls @ 100 mls/hr IV ONETIME ONE Stop: 07/30/19 10:17 Last Admin: 07/30/19 10:27 Dose: Not Given Ceftriaxone Sodium/Dextrose 1 (gm/ Premix) 50 mls @ 100 mls/hr IV ONETIME ONE Stop: 07/30/19 10:44 Last Admin: 07/30/19 12:49 Dose: 100 mls/hr Tramadol HCl (Ultram) 50 mg PO ONETIME ONE Stop: 07/30/19 09:38 Last Admin: 07/30/19 09:44 Dose: 50 mg - Exam General: Alert, Oriented HEENT: Pupils Equal, Mucous Membr. Moist/[place] Neck: Supple Lungs: Normal Respiratory Effort, Decreased Breath Sounds Cardiovascular: Regular Rate, Regular Rhythm GI/Abdominal Exam: Soft, Non-Tender, No Distention Extremities: Non-Tender, No Pedal Edema Skin: Warm, Dry, Intact Neurological: No New Focal Deficit Sepsis Event Note - Evaluation Sepsis Screening Result: No Definite Risk - Focused Exam Vital Signs: Vital Signs Temp Pulse Resp BP Pulse Ox 07/31/19 07:05 36.4 C 68 20 104/64 100 07/31/19 04:00 36.4 C 56 L 20 99/61 99 Date Exam was Performed: 07/31/19 Time Exam was Performed: 12:53 - Problem List Review Problem List Initiated/Reviewed/Updated: Yes - My Orders Last 24 Hours: My Active Orders 07/30/19 12:42 Oxygen Therapy [RC] PRN RT Aerosol Therapy [RC] ASDIRECTED Up ad Josiane [RC] ASDIRECTED VTE/DVT Education [RC] PER UNIT ROUTINE Vital Signs [RC] Q4H Albuterol/Ipratropium [DuoNeb 3.0-0.5 MG/3 ML] 3 ml NEB Q4HRRT PRN Resuscitation Status Routine 07/30/19 12:45 Heparin Sodium 5,000 units SUBCUT Q8H predniSONE 40 mg PO DAILY 07/31/19 09:00 Azithromycin [Zithromax] 500 mg Sodium Chloride 0.9% [Normal Saline (AdvBag)] 250 ml IV DAILY 07/31/19 10:00 cefTRIAXone [Rocephin] 1 gm Sodium Chloride 0.9% [Normal Saline] 50 ml IV Q24H 08/01/19 05:11 BASIC METABOLIC PANEL,BMP [CHEM] AM CBC WITH AUTO DIFF [HEME] AM - Plan Plan:: 63 yo male admitted for pneumonia and COPD exacerbation. We will continue Rocephin, Azithromycin, prednisone, and duonebs.
[2019-08-01] MEDS: Midodrine 5 MG Tab PO SCH (05:24)
[2019-08-01] MEDS: traMADol 50 MG Tab PO PRN (05:24)
[2019-08-01] MEDS: Heparin Sodium 5,000 Units/ML Vial SUBCUT SCH (05:25)
[2019-08-01] MEDS: Levothyroxine 75 MCG Tab PO SCH ×2 (05:25→06:53)
[2019-08-01 06:13] LABS: BLOOD UREA NITROGEN,BUN 18 mg/dL (7.0-18.0); CARBON DIOXIDE,CO2 28.7 mmol/L (21.0-32.0); CHLORIDE,CL 106 mmol/L (98-107); GLUCOSE RANDOM 120 mg/dL (74-106); POTASSIUM,K 5.1 mmol/L (3.5-5.1); SODIUM,NA 141 mmol/L (136-148)
[2019-08-01] MEDS: Pantoprazole 40 MG Tab.CR PO SCH (07:57)
[2019-08-01] MEDS: Azithromycin 500 MG in Sodium Chloride 0.9% 250 ML IV SCH (08:02)
[2019-08-01] MEDS: predniSONE 10 MG Tab PO SCH (08:03)
[2019-08-01] MEDS: Furosemide 20 MG Tab PO SCH (08:04)
[2019-08-01] MEDS: cefTRIAXone 1 GM in Sodium Chloride 0.9% 50 ML IV SCH (09:40)
--- NOTE | 2019-08-01 12:04 | PCM.DCSUM1 ---
Discharge Summary - Hospital Course Free Text/Narrative:: Discharge summary Admission date 07-30-2019 Discharge date 08-01-2019 Admission diagnoses: CAP COPD exacerbation PMH Consultations: None Procedures: None Hospital course: Patient is a 63-year-old oxygen dependent COPD, history of renal transplant and hypothyroidism presented with 2 days of shortness of breath, chest tightness cough and subjective fevers and chills; in ED patient was found to have a new right lung infiltrate; patient was admitted for COPD exacerbation in the setting of pneumonia ; patient was started on Rocephin, azithromycin prednisone daily and duo nebs. Throughout his stay patient's respiratory status improved ; returning back to his baseline of 1 to 2 L of O2 as needed. Patient was sent home with remaining course of azithromycin and cefdinir with a tapering dose of prednisone with the plan to resume home prednisone regimen thereafter. Patient follow-up scheduled at discharge patient stable at time of discharge. Discharge condition: stable Disposition: home Discharge medications: Home meds+ axithromycin+cefdinr + prednisone taper Follow-up: PCP - Discharge Data Discharge Date: 08/01/19 Discharge Disposition: Home, Self-Care 01 Condition: Stable - Referral to Home Health Primary Care Physician: PCP Unknown - Discharge Plan Prescriptions/Med Rec: Azithromycin 250 mg PO DAILY 4 Days #4 tablet Cefdinir 300 mg PO BID 4 Days #8 capsule predniSONE [Prednisone] 20 mg PO DAILY 4 Days #6 tablet Home Medications: Home Meds Furosemide 20 mg PO DAILY 12/06/15 [History] Levothyroxine 75 mcg PO ACBREAKFAST 12/06/15 [History] predniSONE [Prednisone] 5 mg PO DAILY 12/06/15 [History] Alendronate Sodium [Fosamax] 70 mg PO Q7D 12/07/15 [History] Zolpidem [Ambien] 10 mg PO BEDTIME PRN 12/07/15 [History] Budesonide/Formoterol Fumarate [Symbicort 160-4.5 Mcg Inhaler] 1 puff IH BID 05/20 [History] Albuterol Sulfate [Proair Hfa] 2 puff IH BID PRN 08/07/18 [History] Folic Acid 1 mg PO DAILY 08/07/18 [History] Midodrine 5 mg PO TID 08/07/18 [History] Pantoprazole Sodium [Protonix] 40 mg PO ACBREAKFAST 08/07/18 [History] traMADol [Ultram] 50 mg PO BEDTIME PRN 10/05/18 [History] Azithromycin 250 mg PO DAILY 4 Days #4 tablet 08/01/19 [Rx] Cefdinir 300 mg PO BID 4 Days #8 capsule 08/01/19 [Rx] predniSONE [Prednisone] 20 mg PO DAILY 4 Days #6 tablet 08/01/19 [Rx] traMADol [Ultram] 50 mg PO BID PRN tablet 08/01/19 [Rx] Patient Handouts: Cefdinir capsules, Azithromycin tablets, Prednisone tablets, Community-Acquired Pneumonia, Adult, [id number] Referrals: [facility] [Outside] Ashutosh Mueller MD [Physician] - 08/11/19 2:15 pm - Discharge Summary/Plan Comment DC Time >30 min.: No - Patient Data Vitals - Most Recent: Last Vital Signs Temp 98.1 F 08/01/19 07:49 Pulse 65 08/01/19 07:49 Resp 16 08/01/19 07:49 BP 109/63 08/01/19 07:49 Pulse Ox 92 L 08/01/19 07:49 Weight - Most Recent: 80 lb I&O - Last 24 hours: Intake & Output 07/31/19 08/01/19 08/01/19 22:59 06:59 14:59 Intake Total 1140 700 250 Output Total 500 600 Balance 640 100 250 Lab Results - Last 24 hrs: Laboratory Results - last 24 hr 08/01/19 08/01/19 Range/Units 05:35 05:35 WBC 6.09 (4.0-11.0) K/uL RBC 3.21 L (4.50-5.90) M/uL Hgb 11.8 L (13.0-17.0) g/dL Hct 34.7 L (38.0-50.0) % MCV 108.1 H (80.0-98.0) fL MCH 36.8 H (27.0-32.0) pg MCHC 34.0 (31.0-37.0) g/dL RDW Std Deviation 68.5 H (28.0-62.0) fl RDW Coeff of Brianna 17 H (11.0-15.0) % Plt Count 255 (150-400) K/uL MPV 11.20 (7.40-12.00) fL Neut % (Auto) 66.1 (48.0-80.0) % Lymph % (Auto) 27.6 (16.0-40.0) % [place] % (Auto) 6.1 (0.0-15.0) % Eos % (Auto) 0.0 (0.0-7.0) % Baso % (Auto) 0.2 (0.0-1.5) % Neut # (Auto) 4.0 (1.4-5.7) K/uL Lymph # (Auto) 1.7 (0.6-2.4) K/uL [place] # (Auto) 0.4 (0.0-0.8) K/uL Eos # (Auto) 0.0 (0.0-0.7) K/uL Baso # (Auto) 0.0 (0.0-0.1) K/uL Nucleated RBC % 0.3 /100WBC Nucleated RBCs # 0 K/uL Sodium 141 (136-148) mmol/L Potassium 5.1 (3.5-5.1) mmol/L Chloride 106 (98-107) mmol/L Carbon Dioxide 28.7 (21.0-32.0) mmol/L BUN 18 (7.0-18.0) mg/dL Creatinine 0.7 L (0.8-1.3) mg/dL Est Cr Clr Drug Dosing 56.88 mL/min Estimated GFR (MDRD) > 60.0 ml/min Glucose 120 H (74-106) mg/dL Calcium 7.8 L (8.5-10.1) mg/dL MARNIE Results - Last 24 hrs: Microbiology 07/30/19 10:10 Aerobic Blood Culture - Preliminary Blood - Venous - Lab Draw NO GROWTH AFTER 2 DAYS Anaerobic Blood Culture - Final 07/30/19 10:05 Aerobic Blood Culture - Preliminary Blood - Venous NO GROWTH AFTER 2 DAYS Anaerobic Blood Culture - Preliminary NO GROWTH AFTER 2 DAYS Med Orders - Current: Current Medications Albuterol/Ipratropium (Duoneb 3.0-0.5 Mg/3 Ml) 3 ml NEB Q4HRRT PRN PRN Reason: Shortness Of Breath/wheezing Furosemide (Lasix) 20 mg PO DAILY ELLIE Last Admin: 08/01/19 08:04 Dose: 20 mg Heparin Sodium (Porcine) (Heparin Sodium) 5,000 units SUBCUT Q8H [facility] Last Admin: 08/01/19 05:25 Dose: 5,000 units Azithromycin 500 mg/ Sodium (Chloride) 250 mls @ 250 mls/hr IV ONETIME [facility] Last Admin: 07/30/19 10:27 Dose: 250 mls/hr Azithromycin 500 mg/ Sodium (Chloride) 250 mls @ 250 mls/hr IV DAILY [facility] Last Admin: 08/01/19 08:02 Dose: 250 mls/hr Ceftriaxone Sodium 1 gm/ (Sodium Chloride) 50 mls @ 100 mls/hr IV Q24H [facility] Last Admin: 08/01/19 09:40 Dose: 100 mls/hr Levothyroxine Sodium (Levothyroxine) 75 mcg PO ACBREAKFAST [facility] Last Admin: 08/01/19 06:53 Dose: Not Given Midodrine (Midodrine) 5 mg PO TID [facility] Last Admin: 08/01/19 05:24 Dose: 5 mg Pantoprazole Sodium (Protonix) 40 mg PO WITHBREAKFAST [facility] Last Admin: 08/01/19 07:57 Dose: 40 mg Zolpidem 10 Mg 1 each PO BEDTIME PRN PRN Reason: Sleep Prednisone (Prednisone) 40 mg PO DAILY [facility] Last Admin: 08/01/19 08:03 Dose: 40 mg Tramadol HCl (Ultram) 50 mg PO BID PRN PRN Reason: Pain Last Admin: 08/01/19 05:24 Dose: 50 mg Discontinued Medications Cefuroxime Sodium 500 mg/ (Sodium Chloride) 50 mls @ 100 mls/hr IV ONETIME ONE Stop: 07/30/19 10:17 Last Admin: 07/30/19 10:27 Dose: Not Given Ceftriaxone Sodium/Dextrose 1 (gm/ Premix) 50 mls @ 100 mls/hr IV ONETIME ONE Stop: 07/30/19 10:44 Last Admin: 07/30/19 12:49 Dose: 100 mls/hr Tramadol HCl (Ultram) 50 mg PO ONETIME ONE Stop: 07/30/19 09:38 Last Admin: 07/30/19 09:44 Dose: 50 mg
[2019-08-01 12:06] VITALS: BP 92/56; PULSE 61
== END 2019-08-01 13:15 | disposition home or self-care (01) | DRG 190 ==
LOC: MW.ED 08:18 → MW.MS 10:52
PROVIDERS: ADMIT Internal Medicine; ATTEND Internal Medicine
DX: J44.0 Chronic obstructive pulmonary disease with (acute) lower respiratory infection (principal); J18.9 Pneumonia, unspecified organism; I13.0 Hypertensive heart and chronic kidney disease with heart failure and stage 1 through stage 4 chronic kidney disease, or unspecified chronic kidney disease; Z94.0 Kidney transplant status; N18.9 Chronic kidney disease, unspecified; E11.22 Type 2 diabetes mellitus with diabetic chronic kidney disease; J44.9 Chronic obstructive pulmonary disease, unspecified; J44.1 Chronic obstructive pulmonary disease with (acute) exacerbation; I25.10 Atherosclerotic heart disease of native coronary artery without angina pectoris; E03.9 Hypothyroidism, unspecified; H91.91 Unspecified hearing loss, right ear; I50.9 Heart failure, unspecified; G89.29 Other chronic pain; M54.9 Dorsalgia, unspecified; E11.9 Type 2 diabetes mellitus without complications; M19.90 Unspecified osteoarthritis, unspecified site; F32.9 Major depressive disorder, single episode, unspecified; N19 Unspecified kidney failure; D64.9 Anemia, unspecified; Z85.89 Personal history of malignant neoplasm of other organs and systems; Z90.89 Acquired absence of other organs; Z88.8 Allergy status to other drugs, medicaments and biological substances; Z79.899 Other long term (current) drug therapy; Z79.890 Hormone replacement therapy; Z79.52 Long term (current) use of systemic steroids; Z98.49 Cataract extraction status, unspecified eye; Z99.81 Dependence on supplemental oxygen; Z90.49 Acquired absence of other specified parts of digestive tract; Z87.891 Personal history of nicotine dependence
CPT/HCPCS: 71046; 80053; 81003; 83605; 83880; 84145; 84484; 85025; 87040 ×2; 87804 ×2; 93005; A9270; J0456; J7050; 36415; 80048; 99283; J0696; J1642; J1644

== ENCOUNTER 2019-09-06 05:46 | Emergency (ER) | payer MEDICAID ==
[2019-09-06] MEDS ORDERED: Succinylcholine 200 MG/10 ML MDV IV ONE (05:47)
[2019-09-06] MEDS ORDERED: Etomidate 2 MG/ML 20 ML SDV IVPUSH ONE (05:47)
[2019-09-06] MEDS ORDERED: Rocuronium 100 MG/10 ML MDV ONE (05:47)
[2019-09-06] MEDS ORDERED: Sodium Chloride 0.9% 2.5 ML Syringe FLUSH PRN (05:50)
[2019-09-06] MEDS ORDERED: Sodium Chloride 0.9% 10 ML Syringe FLUSH PRN (05:50)
[2019-09-06] MEDS ORDERED: Piperacillin/Tazobactam 3.375 GM in Sodium Chloride 0.9% 50 ML IV ONE (05:58)
[2019-09-06] MEDS ORDERED: Sodium Chloride 0.9% 1,000 ML IV SCH (06:00)
[2019-09-06] MEDS ORDERED: propofoL 100 ML ONE (06:07)
[2019-09-06] MEDS ORDERED: Midazolam 1 MG/ML 2 ML SDV ONE (06:08)
[2019-09-06] MEDS ORDERED: Acetaminophen 650 MG Supp RECTAL ONE (06:12)
[2019-09-06] MEDS ORDERED: methylPREDNISolone Sodium Succinate 125 MG/2 ML SDV IVPUSH ONE (06:18)
--- NOTE | 2019-09-06 06:18 | EDM.PDOC ---
ED HPI GENERAL MEDICAL PROBLEM - General Stated Complaint: AMB Time Seen by Provider: 09/06/19 05:49 - History of Present Illness INITIAL COMMENTS - FREE TEXT/NARRATIVE: HISTORY AND PHYSICAL: History of present illness: Patient is a 63-year-old man with a history of COPD and uses oxygen at home as well as a renal transplant in 2005 and osteogenesis imperfecta who did get his influenza shot this year and presents via EMS in extremis stating that he had a normal day yesterday and was sleeping fine and suddenly woke from sleep with severe shortness of breath. EMS gave a DuoNeb in route and were unable to obtain IV access. The patient does have a port. The patient says that since his transplant he has had any issues with needing dialysis. The patient says he uses inhalers as needed. On arrival he is saying that he is having an extreme amount of difficulty breathing but he denies a recent fever but says he has been coughing up some phlegm. He denies abdominal pain or any other upper respiratory symptoms and has not had vomiting or diarrhea. The patient on my evaluation says he has no cardiac history and he does not have chest pain he just feels discomfort because of the work of breathing. He says he is cold but he says he has not had a fever at home that he is aware of. Review of systems: As per history of present illness and below otherwise all systems reviewed and negative. Past medical history: As per history of present illness and as reviewed below otherwise noncontributory. Surgical history: As per history of present illness and as reviewed below otherwise noncontributory. Social history: No reported history of drug or alcohol abuse. Family history: As per history of present illness and as reviewed below otherwise noncontributory. Physical exam: General: Well-developed very small petite man consistent with his osteogenesis imperfecta and consistent with his prior encounters with this provider who is in extreme respiratory distress and is warm to touch but overall mottled. He has a rectal temp of 101.3. Vital signs are noted by me HEENT: Atraumatic, normocephalic, pupils reactive, negative for conjunctival pallor or scleral icterus, mucous membranes moist, throat clear, neck supple, nontender, trachea midline. Lungs: Breath sounds coarse and diminished throughout all lung sahu with rales and rhonchi and severe work of breathing and poor air exchange,, breath sounds equal bilaterally, chest nontender. A port is appreciated in the right upper chest wall area Heart: S1S2, regular rhythm and tachycardic rate on my evaluation and heart sounds are distant but no overt murmurs, negative for clicks, rubs, or JVD. Abdomen: Soft, distended abdomen with some tympany and diminished bowel sounds but no tenderness rebound or guarding, no healed scars are appreciated on the abdomen. Negative for masses or hepatosplenomegaly. Pelvis: Stable nontender. Genitourinary: Deferred. Rectal: Deferred. Extremities: Atraumatic, negative for cords or calf pain. Neurovascular unremarkable. Full range of motion without defects or deformities and a fistula is appreciated at the left upper extremity which is nonfunctional and there is no thrill and the patient says that that is not new. There is no soft tissue swelling and no pedal edema Neuro: Awake, alert, oriented. Cranial nerves II through XII unremarkable. Motor and sensory unremarkable throughout. Exam nonfocal. Skin: No diaphoresis but he is overall mottled and very warm to touch no overt rashes or lesions are appreciated Diagnostics: EKG portable chest x-ray CBC CMP BNP troponin UA urine culture blood cultures lactic acid chest x-ray Sputum was sent for Gram stain and culture Therapeutics: IV O2 monitor, port access IV fluids Tylenol per rectum Versed propofol induction drugs Zosyn Solu-Medrol please see nursing for further medications Stone NG tube On arrival patient was noted to be in extremis and intubation was necessary and I discussed this with the patient and he said that he is agreeable and he was looking very fatigued. Please see the SKIDDER LOADER's progress note for intubation which was performed with me directly at bedside with no complications. Propofol was started for sedation and the patient did start waking up so he received a small dose of Versed as the propofol drip was prepared. Chest x-ray was seen at bedside and all labs are pending. Flight team was notified and is in route [id number]--[facility] was contacted and the ER physician Dr. Ribeiro was spoken to. He is aware of the patient and accept him for transfer. We will continue to monitor the patient's labs and reports and transfer all information to the receiving hospital. Impression: ACute respiratory distress, COPD exacerbation, pneumonia sepsis Definitive disposition and diagnosis as appropriate pending reevaluation and review of above. - Related Data Allergies Allergy/AdvReac Type Severity Reaction Status Date / Time nifedipine [From Procardia] Allergy Itching Verified 07/30/19 12:04 muscle relaxant medicine? Allergy Itching Uncoded 07/30/19 08:29 Home Meds: Home Meds Furosemide 20 mg PO DAILY 12/06/15 [History] Levothyroxine 75 mcg PO ACBREAKFAST 12/06/15 [History] predniSONE [Prednisone] 5 mg PO DAILY 12/06/15 [History] Alendronate Sodium [Fosamax] 70 mg PO Q7D 12/07/15 [History] Zolpidem [Ambien] 10 mg PO BEDTIME PRN 12/07/15 [History] Budesonide/Formoterol Fumarate [Symbicort 160-4.5 Mcg Inhaler] 1 puff IH BID 05/20 [History] Albuterol Sulfate [Proair Hfa] 2 puff IH BID PRN 08/07/18 [History] Folic Acid 1 mg PO DAILY 08/07/18 [History] Midodrine 5 mg PO TID 08/07/18 [History] Pantoprazole Sodium [Protonix] 40 mg PO ACBREAKFAST 08/07/18 [History] traMADol [Ultram] 50 mg PO BEDTIME PRN 10/05/18 [History] Azithromycin 250 mg PO DAILY 4 Days #4 tablet 08/01/19 [Rx] Cefdinir 300 mg PO BID 4 Days #8 capsule 08/01/19 [Rx] predniSONE [Prednisone] 20 mg PO DAILY 4 Days #6 tablet 08/01/19 [Rx] traMADol [Ultram] 50 mg PO BID PRN tablet 08/01/19 [Rx] Past Medical History HEENT History: Reports: Cataract, Hard of Hearing, Other (See Below) Other HEENT History: impaired hearing-with hearing aid on the right ear Cardiovascular History: Reports: Heart Failure Other Cardiovascular History: Heart murmur since Respiratory History: Reports: Asthma, COPD Other Respiratory History: Hx of recurrent pneumonia Gastrointestinal History: Reports: None Genitourinary History: Reports: Renal Disease Musculoskeletal History: Reports: Back Pain, Chronic, Osteoarthritis Neurological History: Reports: None Psychiatric History: Reports: Depression Endocrine/Metabolic History: Reports: Hypothyroidism Hematologic History: Reports: Anemia, Blood Transfusion(s), Other (See Below) Other Hematologic History: history of low platelet Immunologic History: Reports: Solid Organ Transplant Oncologic (Cancer) History: Reports: Other (See Below) Other Oncologic History: 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 left Endocrine Surgical History: Reports: Thyroidectomy Musculoskeletal Surgical History: Reports: Arthroscopic Knee Social & Family History - Family History Family Medical History: Noncontributory HEENT: Reports: None Cardiac: Reports: None - Caffeine Use Caffeine Use: Reports: Coffee - Living Situation & Occupation Living situation: Reports: , with Significant Other ED ROS GENERAL - Review of Systems Review Of Systems: Comprehensive ROS is negative, except as noted in HPI. ED EXAM, GENERAL - Physical Exam Exam: See Below (see dictation) Course - Orders/Labs/Meds Orders: Active Orders 24 hr Category Date Time Status Cardiac Monitoring [RC] . DIRECTED Care 09/06/19 05:49 Active EKG Documentation Completion [RC] STAT Care 09/06/19 05:49 Active Oxygen Therapy, ED [RC] ASDIRECTED Care 09/06/19 05:49 Active Pulse Oximetry [RC] ASDIRECTED Care 09/06/19 05:49 Active Chest 1V Frontal [CR] Stat Exams 09/06/19 05:50 Taken B-TYPE NATRIURETIC PEPTIDE,BNP [CHEM] Stat Lab 09/06/19 05:45 Received BLOOD GAS ARTERIAL [BG] Stat Lab 09/06/19 05:49 Ordered CBC WITH AUTO DIFF [HEME] Stat Lab 09/06/19 05:45 Received COMPREHENSIVE METABOLIC PN,CMP [CHEM] Stat Lab 09/06/19 05:45 Received CULTURE BLOOD [BC] Stat Lab 09/06/19 06:16 Ordered CULTURE BLOOD [BC] Stat Lab 09/06/19 06:16 Ordered CULTURE SPUTUM + SMEAR [RM] Stat Lab 09/06/19 05:58 Ordered CULTURE URINE [RM] Stat Lab 09/06/19 06:17 Ordered TROPONIN I [CHEM] Stat Lab 09/06/19 05:45 Received URINALYSIS W/MICROSCOPIC [UA W/MICROSCOPIC] [URIN] Stat Lab 09/06/19 06:17 Ordered Piperacillin/Tazobactam [Piperacil-Tazobact] 3.375 gm Med 09/06/19 05:58 Active Sodium Chloride 0.9% [Normal Saline] 50 ml IV ONETIME Sodium Chloride 0.9% [Normal Saline] 1,000 ml Med 09/06/19 06:00 Active IV ASDIRECTED Sodium Chloride 0.9% [Saline Flush] Med 09/06/19 05:50 Active 10 ml FLUSH ASDIRECTED PRN Sodium Chloride 0.9% [Saline Flush] Med 09/06/19 05:50 Active 2.5 ml FLUSH ASDIRECTED PRN Blood Culture x2 Reflex Set [OM.PC] Stat Oth 09/06/19 06:16 Ordered Saline Lock Insert [OM.PC] Stat Oth 09/06/19 05:49 Ordered Medication Orders Sodium Chloride (Normal Saline) 1,000 mls @ 75 mls/hr IV ASDIRECTED ELLIE Piperacillin Sod/Tazobactam (Sod 3.375 gm/ Sodium Chloride) 50 mls @ 100 mls/ hr IV ONETIME ONE Stop: 09/06/19 06:27 Sodium Chloride (Saline Flush) 10 ml FLUSH ASDIRECTED PRN PRN Reason: Keep Vein Open Sodium Chloride (Saline Flush) 2.5 ml FLUSH ASDIRECTED PRN PRN Reason: Keep Vein Open Labs: Laboratory Tests 09/06/19 Range/Units 05:45 Lactate 3.6 H* (0.20-2.00) mmol/L Meds: Medications Generic Name Dose Route Start Last Admin Trade Name Freq PRN Reason Stop Dose Admin Sodium Chloride 1,000 mls @ 75 mls/hr 09/06/19 06:00 Normal Saline IV ASDIRECTED ELLIE Piperacillin Sod/Tazobactam 50 mls @ 100 mls/hr 09/06/19 05:58 Sod 3.375 gm/ Sodium Chloride IV 09/06/19 06:27 ONETIME ONE Sodium Chloride 10 ml 09/06/19 05:50 Saline Flush FLUSH ASDIRECTED PRN Keep Vein Open Sodium Chloride 2.5 ml 09/06/19 05:50 Saline Flush FLUSH ASDIRECTED PRN Keep Vein Open Discontinued Medications Generic Name Dose Route Start Last Admin Trade Name Cristhian PRN Reason Stop Dose Admin Acetaminophen 500 mg 09/06/19 06:12 Tylenol RECTAL 09/06/19 06:13 NOW ONE Propofol Confirm 09/06/19 06:07 Diprivan 100 Ml Administered 09/06/19 06:08 Dose 100 mls @ as directed .ROUTE .STK-MED ONE Methylprednisolone Sodium Succinate 62.5 mg 09/06/19 06:18 Solu-Medrol IVPUSH 09/06/19 06:19 ONETIME ONE Midazolam HCl Confirm 09/06/19 06:08 Versed 1 Mg/Ml Administered 09/06/19 06:09 Dose 2 mg .ROUTE .STK-MED ONE Departure - Departure Time of Disposition: 06:26 Disposition: DC/Tfer to Acute Hospital 02 Condition: Critical Clinical Impression: Acute respiratory distress Pneumonia Qualifiers: Pneumonia type: due to unspecified organism Laterality: unspecified laterality Lung location: unspecified part of lung Qualified Code(s): J18.9 - Pneumonia, unspecified organism - Discharge Information Referrals: PCP,None [Primary Care Provider] - Sepsis Event Note - Focused Exam Date Exam was Performed: 09/06/19 Time Exam was Performed: 06:19 - My Orders Last 24 Hours: My Active Orders 09/06/19 05:45 B-TYPE NATRIURETIC PEPTIDE,BNP [CHEM] Stat CBC WITH AUTO DIFF [HEME] Stat COMPREHENSIVE METABOLIC PN,CMP [CHEM] Stat TROPONIN I [CHEM] Stat 09/06/19 05:49 Cardiac Monitoring [RC] . DIRECTED EKG Documentation Completion [RC] STAT Oxygen Therapy, ED [RC] ASDIRECTED Pulse Oximetry [RC] ASDIRECTED BLOOD GAS ARTERIAL [BG] Stat Saline Lock Insert [OM.PC] Stat 09/06/19 05:50 Chest 1V Frontal [CR] Stat Sodium Chloride 0.9% [Saline Flush] 10 ml FLUSH ASDIRECTED PRN Sodium Chloride 0.9% [Saline Flush] 2.5 ml FLUSH ASDIRECTED PRN 09/06/19 05:58 CULTURE SPUTUM + SMEAR [RM] Stat Piperacillin/Tazobactam [Piperacil-Tazobact] 3.375 gm Sodium Chloride 0.9% [ Normal Saline] 50 ml IV ONETIME 09/06/19 06:00 Sodium Chloride 0.9% [Normal Saline] 1,000 ml IV ASDIRECTED 09/06/19 06:16 CULTURE BLOOD [BC] Stat CULTURE BLOOD [BC] Stat Blood Culture x2 Reflex Set [OM.PC] Stat 09/06/19 06:17 CULTURE URINE [RM] Stat URINALYSIS W/MICROSCOPIC [UA W/MICROSCOPIC] [URIN] Stat - Assessment/Plan Last 24 Hours: My Active Orders 09/06/19 05:45 B-TYPE NATRIURETIC PEPTIDE,BNP [CHEM] Stat CBC WITH AUTO DIFF [HEME] Stat COMPREHENSIVE METABOLIC PN,CMP [CHEM] Stat TROPONIN I [CHEM] Stat 09/06/19 05:49 Cardiac Monitoring [RC] . DIRECTED EKG Documentation Completion [RC] STAT Oxygen Therapy, ED [RC] ASDIRECTED Pulse Oximetry [RC] ASDIRECTED BLOOD GAS ARTERIAL [BG] Stat Saline Lock Insert [OM.PC] Stat 09/06/19 05:50 Chest 1V Frontal [CR] Stat Sodium Chloride 0.9% [Saline Flush] 10 ml FLUSH ASDIRECTED PRN Sodium Chloride 0.9% [Saline Flush] 2.5 ml FLUSH ASDIRECTED PRN 09/06/19 05:58 CULTURE SPUTUM + SMEAR [RM] Stat Piperacillin/Tazobactam [Piperacil-Tazobact] 3.375 gm Sodium Chloride 0.9% [ Normal Saline] 50 ml IV ONETIME 09/06/19 06:00 Sodium Chloride 0.9% [Normal Saline] 1,000 ml IV ASDIRECTED 09/06/19 06:16 CULTURE BLOOD [BC] Stat CULTURE BLOOD [BC] Stat Blood Culture x2 Reflex Set [OM.PC] Stat 09/06/19 06:17 CULTURE URINE [RM] Stat URINALYSIS W/MICROSCOPIC [UA W/MICROSCOPIC] [URIN] Stat
[2019-09-06 06:23] LABS: BLOOD UREA NITROGEN,BUN 12 mg/dL (7.0-18.0); CARBON DIOXIDE,CO2 26.8 mmol/L (21.0-32.0); CHLORIDE,CL 105 mmol/L (98-107); GLUCOSE RANDOM 181 mg/dL (74-106); POTASSIUM,K 3.8 mmol/L (3.5-5.1); SODIUM,NA 142 mmol/L (136-148)
--- NOTE | 2019-09-06 06:46 | CR ---
INDICATION: Post intubation. COMPARISON: 07/30/2019. TECHNIQUE: Chest single view. FINDINGS: Right chest port tip is unchanged in position. Surgical clips in the upper abdomen are again noted. Cardiac silhouette size is within normal limits. Atherosclerosis of the thoracic aorta is again noted. Endotracheal tube tip is approximately 4.5 cm above the leora. No pleural effusion or pneumothorax. Hazy left lung ground-glass opacities could be due to infection or edema. Question nondisplaced left lateral rib fracture. IMPRESSION: 1. Endotracheal tube tip approximately 4.5 cm above the leora. 2. Left lung opacities could be due to infection or edema. 3. Question nondisplaced left lateral rib fracture. Dictated by Diogenes Martin MD @ Sep 06 2019 6:42AM Signed by Dr. Diogenes Martin @ Sep 06 2019 6:45AM
[2019-09-06 06:54] VITALS: BP 120/90; PULSE 170
--- NOTE | 2019-09-06 06:57 | PCM.SN ---
- Free Text/Narrative Note: Called to the ER for a patient in respiratory failure. Report from ER doctor. Monitors on. Patient is on 100% NRB. Equipment ready. Switched to 100% on ambu. Patient given 30mg of Etomidate. Easy mask ventilation. 100mg of Succinylcholine given. Video laryngoscopy with MAC 3 Glidescope. Grade 1 view. 6.0 ETT passed easily through clear, open cords. Cuff inflated. Secured by RT. Copious yellow secretions in tube. Suctioned by RT. Report and care to Dr Carpio.
[2019-09-06] MEDS ORDERED: Midazolam 1 MG/ML 2 ML SDV IVPUSH ONE (07:16)
== END 2019-09-06 06:45 ==
LOC: MW.ED 05:46
DX: A41.9 Sepsis, unspecified organism (principal); J44.0 Chronic obstructive pulmonary disease with (acute) lower respiratory infection; J18.9 Pneumonia, unspecified organism; J44.1 Chronic obstructive pulmonary disease with (acute) exacerbation; R06.03 Acute respiratory distress; I50.9 Heart failure, unspecified; E03.9 Hypothyroidism, unspecified; Z79.51 Long term (current) use of inhaled steroids; Z79.890 Hormone replacement therapy; Z79.899 Other long term (current) drug therapy; Z88.8 Allergy status to other drugs, medicaments and biological substances; Z99.81 Dependence on supplemental oxygen
CPT/HCPCS: 31500; 36415; 43752; 51702; 71045; 80053; 81001; 83605; 83880; 84484; 85025; 87040; 87086; 93005; 96374; 99291; A9270; J0330; J2250; J2543; J2704; J2930; J3490; J7050